=== PATIENT | female | born 1940 | race Caucasian/White ===

== ENCOUNTER 2017-10-30 11:36 | Emergency (ER) | payer OTHER, MEDICARE ==
[2017-10-30] MEDS ORDERED: LEVALBUTEROL 0.63 MG/3 ML NEB ONE (14:25)
[2017-10-30] MEDS ORDERED: CODEINE 30MG/APAP 300MG TAB ONE (14:43)
--- NOTE | 2017-10-30 15:23 | RAD REPORT ---
EXAM DESCRIPTION: RAD - Chest Single View - 10/30/2017 2:23 pm CLINICAL HISTORY: Cough and congestion, bronchitis history COMPARISON: May 2016 TECHNIQUE: AP portable chest image was obtained 1417 hours . FINDINGS: No pulmonary edema, mass, infiltrate or other focal lung parenchymal process. Interstitial markings are prominent but not clearly different from the comparison. Trachea is midline. Heart and vasculature are normal. No measurable pleural effusion and no pneumotho rax. No gross bony abnormality seen. No acute aortic findings suspected. IMPRESSION: No acute cardiopulmonary process. Chest is similar to the May 2016 study.
--- NOTE | 2017-10-30 16:01 | EDPHYS ---
Physician Documentation [facility] Name: Leah Campbell Age: 77 yrs Sex: Female : 1940 Arrival Date: 10/30/2017 Time: 11:39 Bed 11 Private MD: Saroj Mendieta C ED Physician Pankaj Blue HPI: 10/30 17:01 This 77 yrs old Female presents to ER via Ambulatory with complaints of Cough.kdr 17:01 The patient or guardian reports cough, that is intermittent, described as moderate, kdr difficulty breathing. Onset: The symptoms/episode began/occurred gradually, 2 week(s) ago. Severity of symptoms: At their worst the symptoms were moderate, earlier today, in the emergency department the symptoms are unchanged, States that her cough is frequent and persistent. IT has been making it hard for her to sleep. Modifying factors: The symptoms are alleviated by nothing, the symptoms are aggravated by exertion, talking. Associated signs and symptoms: The patient has no apparent associated signs or symptoms. The patient has experienced similar episodes in the past. The patient has been recently seen by a physician: the patient's primary care provider, Dr. Mendieta. The patient denies fever, chills, n/v - any sign of significant infection. Cough sounds productive but sputum is scant. Historical: - Allergies: 11:46 No Known Allergies; hj - Home Meds: 11:46 amlodipine 5 mg tab 1 tab once daily [Active]; clonazepam 1 mg Oral tab 1 tab 3 times hj per day [Active]; quetiapine 50 mg oral tab 1 tab daily [Active]; levothyroxine 100 mcg tab 1 tab once daily [Active]; simvastatin 80 mg Oral tab daily [Active]; olmesartan-hydrochlorothiazide oral oral 1 tab once daily [Active]; bupropion HCl 300 mg Oral Tb24 1 tab once daily [Active]; fluoxetine 20 mg Oral cap 1 cap once daily [Active]; aspirin 81 mg Oral TbEC 1 tab once daily [Active]; Vitamin D3 400 unit oral cap [Active]; ranitidine HCl 150 mg Oral cap 1 cap once daily [Active]; - PMHx: 11:46 Anxiety; Hyperlipidemia; Hypertension; Hypothyroidism; hj - PSHx: 11:46 toe surgery; Hysterectomy; hj - Immunization history:: Adult Immunizations up to date. - Social history:: Smoking status: Patient/guardian denies using tobacco, Patient/guardian denies using alcohol. ROS: 17:01 Constitutional: Negative for fever, chills, and weight loss, Eyes: Negative for injury, kdr pain, redness, and discharge, ENT: Negative for injury, pain, and discharge, Neck: Negative for injury, pain, and swelling, Cardiovascular: Negative for chest pain, palpitations, and edema, Abdomen/GI: Negative for abdominal pain, nausea, vomiting, diarrhea, and constipation, Back: Negative for injury and pain, : Negative for injury, bleeding, discharge, and swelling, MS/Extremity: Negative for injury and deformity, Skin: Negative for injury, rash, and discoloration, Neuro: Negative for headache, weakness, numbness, tingling, and seizure activity. Psych: Negative for depression, anxiety, suicide ideation, homicidal ideation, and hallucinations, Allergy/Immunology: Negative for hives, rash, and allergies, Endocrine: Negative for neck swelling, polydipsia, polyuria, polyphagia, and marked weight changes, Hematologic/Lymphatic: Negative for swollen nodes, abnormal bleeding, and unusual bruising. 17:01 Respiratory: Positive for cough, "sounds productive", dyspnea on exertion, shortness of breath, on exertion. wheezing, Negative for hemoptysis, orthopnea, pleurisy. Exam: 17:01 Constitutional: This is a well developed, well nourished patient who is awake, alert, kdr and in no acute distress. Head/Face: Normocephalic, atraumatic. Eyes: Pupils equal round and reactive to light, extra-ocular motions intact. Lids and lashes normal. Conjunctiva and sclera are non-icteric and not injected. Cornea within normal limits. Periorbital areas with no swelling, redness, or edema. Neck: Trachea midline, no thyromegaly or masses palpated, and no cervical lymphadenopathy. Supple, full range of motion without nuchal rigidity, or vertebral point tenderness. No Meningismus. Chest/axilla: Normal chest wall appearance and motion. Nontender with no deformity. No lesions are appreciated. Cardiovascular: Regular rate and rhythm with a normal S1 and S2. No gallops, murmurs, or rubs. Normal PMI, no JVD. No pulse deficits. Abdomen/GI: Soft, non-tender, with normal bowel sounds. No distension or tympany. No guarding or rebound. No evidence of tenderness throughout. Back: No spinal tenderness. No costovertebral tenderness. Full range of motion. Skin: Warm, dry with normal turgor. Normal color with no rashes, no lesions, and no evidence of cellulitis. MS/ Extremity: Pulses equal, no cyanosis. Neurovascular intact. Full, normal range of motion. Neuro: Awake and alert, GCS 15, oriented to person, place, time, and situation. Cranial nerves II-XII grossly intact. Motor strength 5/5 in all extremities. Sensory grossly intact. Cerebellar exam normal. Normal gait. Psych: Awake, alert, with orientation to person, place and time. Behavior, mood, and affect are within normal limits. 17:01 Respiratory: the patient does not display signs of respiratory distress, Respirations: normal, Breath sounds: rales, that are mild, are located in both bases, More right base, wheezing: that is mild, is scattered, is heard diffusely, Minor/few and diffuse. Vital Signs: 11:46 BP 131 / 87; Pulse 65; Resp 18; Temp 98.4(O); Pulse Ox 98% on R/A; Weight 81.65 kg; hj Height 5 ft. 5 in. (165.10 cm); Pain 0/10; 14:45 Pulse 61; Resp 16 S; Pulse Ox 100% on Nebulizer Mask; sg 14:49 BP 115 / 72; sg 11:46 Body Mass Index 29.95 (81.65 kg, 165.10 cm) hj MDM: 16:01 Patient medically screened. kdr 17:01 Data reviewed: vital signs, nurses notes, lab test result(s), radiologic studies. kdr Counseling: I had a detailed discussion with the patient and/or guardian regarding: the historical points, exam findings, and any diagnostic results supporting the discharge/admit diagnosis, radiology results, the need for outpatient follow up. 10/30 13:57 Order name: CXR XRAY; Complete Time: 15:50 kdr Administered Medications: 14:31 Drug: Xopenex (3) 1.25 mg Route: Inhalation; sg 14:45 Drug: Tylenol-Codeine #3 (300 mg - 30 mg) 10 ml Route: PO; sg 16:23 Follow up: Response: No adverse reaction hj Disposition: 10/30/17 16:01 Discharged to Home. Impression: Bronchitis, not specified as acute or chronic, Cough. - Condition is Stable. - Discharge Instructions: Acute Bronchitis, [id number], Cough, Adult, [id number]. - Prescriptions for Promethazine VC- Codeine 6.25-5-10 mg/5 mL Oral syrup - take 5 milliliter by ORAL route every 4-6 hours as needed, not to exceed 30 mL in 24 hours; 120 milliliter. Prednisone 20 mg Oral Tablet - take 1 tablet by ORAL route once daily for 5 days; 5 tablet. Tylenol- Codeine #3 300-30 mg Oral Tablet - take 2 tablets by ORAL route every 6 hours As needed; 16 tablet. - Medication Reconciliation Form, Thank You Letter, Antibiotic Education, Prescription Opioid Use form. - Follow up: Saroj Mendieta MD; When: 2 - 3 days; Reason: If symptoms return, Further diagnostic work-up, Recheck today's complaints, Continuance of care, Re-evaluation by your physician. - Problem is an ongoing problem. - Symptoms have improved. - Notes: Take either the Tylenol/Codiene (pain and cough)or the Promethazine/Codiene (primarily for cough) but not both together - as needed for cough. Do NOT take both medications together or at the same time. Signatures: Dispatcher [employer] EDChad Hernandez, RN DANELLE Pankaj Blue MD MD [facility] Mo Lopez RN RN hj
--- NOTE | 2017-10-30 16:01 | ER ---
Nurse's Notes [facility] Name: Leah Campbell Age: 77 yrs Sex: Female : 1940 Arrival Date: 10/30/2017 Time: 11:39 Bed 11 Private MD: Saroj Mendieta C Diagnosis: Bronchitis, not specified as acute or chronic;Cough Presentation: 10/30 11:41 Presenting complaint: Patient states: went [facility] today, was tx with 2 pack hj albuterol. Tessalon for bronchitis last 10/21, and now she's back feeling worse; reports cough, sweating; denies fever and chills;. Transition of care: patient was not received from another setting of care. Onset of symptoms was October 30, 2017. Initial Sepsis Screen: Does the patient meet any 2 criteria? No. Patient's initial sepsis screen is negative. Does the patient have a suspected source of infection? No. Patient's initial sepsis screen is negative. Care prior to arrival: None. 11:41 Method Of Arrival: Ambulatory 11:41 Acuity: JAY 3 hj Triage Assessment: 11:46 General: Appears in no apparent distress. uncomfortable, Behavior is calm, cooperative, hj appropriate for age. Pain: Denies pain. Historical: - Allergies: 11:46 No Known Allergies; hj - Home Meds: 11:46 amlodipine 5 mg tab 1 tab once daily [Active]; clonazepam 1 mg Oral tab 1 tab 3 times hj per day [Active]; quetiapine 50 mg oral tab 1 tab daily [Active]; levothyroxine 100 mcg tab 1 tab once daily [Active]; simvastatin 80 mg Oral tab daily [Active]; olmesartan-hydrochlorothiazide oral oral 1 tab once daily [Active]; bupropion HCl 300 mg Oral Tb24 1 tab once daily [Active]; fluoxetine 20 mg Oral cap 1 cap once daily [Active]; aspirin 81 mg Oral TbEC 1 tab once daily [Active]; Vitamin D3 400 unit oral cap [Active]; ranitidine HCl 150 mg Oral cap 1 cap once daily [Active]; - PMHx: 11:46 Anxiety; Hyperlipidemia; Hypertension; Hypothyroidism; hj - PSHx: 11:46 toe surgery; Hysterectomy; hj - Immunization history:: Adult Immunizations up to date. - Social history:: Smoking status: Patient/guardian denies using tobacco, Patient/guardian denies using alcohol. Screenin:00 Abuse screen: Denies threats or abuse. Denies injuries from another. Nutritional sg screening: No deficits noted. Tuberculosis screening: No symptoms or risk factors identified. Never had TB. Fall Risk None identified. Assessment: 13:00 General: Appears in no apparent distress. comfortable, well groomed, well developed, sg well nourished, Behavior is calm, cooperative, appropriate for age. Pain: Complains of pain in sore throat, and painful cough. Neuro: No deficits noted. Cardiovascular: Heart tones S1 S2 present Capillary refill is brisk in bilateral fingers Patient's skin is warm and dry. Chest pain is denied. Respiratory: Reports cough that is non-productive, dry, pain with cough Airway is patent Respiratory effort is even, unlabored, Respiratory pattern is regular, symmetrical, Breath sounds are coarse Breath sounds with wheezes. GI: No signs and/or symptoms were reported involving the gastrointestinal system. : No signs and/or symptoms were reported regarding the genitourinary system. EENT: Throat is reddened. Derm: Skin is pink, warm \T\ dry. Musculoskeletal: No signs and/or symptoms reported regarding the musculoskeletal system. 14:00 Reassessment: Patient appears in no apparent distress at this time. Patient and/or sg family updated on plan of care and expected duration. Pain level reassessed. Patient is alert, oriented x 3, equal unlabored respirations, skin warm/dry/pink. 15:03 Reassessment: pt states her breathing has improved but still not feeling well, 100% iw onRA. Vital Signs: 11:46 BP 131 / 87; Pulse 65; Resp 18; Temp 98.4(O); Pulse Ox 98% on R/A; Weight 81.65 kg; hj Height 5 ft. 5 in. (165.10 cm); Pain 0/10; 14:45 Pulse 61; Resp 16 S; Pulse Ox 100% on Nebulizer Mask; sg 14:49 BP 115 / 72; sg 11:46 Body Mass Index 29.95 (81.65 kg, 165.10 cm) ED Course: 11:39 Patient arrived in ED. mr 11:40 Saroj Mendieta MD is Private Physician. mr 11:43 Triage completed. hj 11:46 Arm band placed on right wrist. hj 13:03 Rittger, Pankaj, MD is Attending Physician. kdr 14:20 X-ray completed. Portable x-ray completed in exam room. Patient tolerated procedure jb2 well. 14:21 CXR XRAY In Process Unspecified. EDMS 14:31 Chad Mendoza, RN is Primary Nurse. sg 15:04 Primary Nurse role handed off by Chad Mendoza RN iw 15:04 Bernadette Horowitz, RN is Primary Nurse. iw 16:00 Saroj Mendieta MD is Referral Physician. kdr 16:22 Patient has correct armband on for positive identification. Side rails up X 1. Adult w/ hj patient. 16:22 No provider procedures requiring assistance completed. Patient did not have IV access hj during this emergency room visit. Administered Medications: 14:31 Drug: Xopenex (3) 1.25 mg Route: Inhalation; sg 14:45 Drug: Tylenol-Codeine #3 (300 mg - 30 mg) 10 ml Route: PO; sg 16:23 Follow up: Response: No adverse reaction hj Outcome: 16:01 Discharge ordered by . kdr 16:22 Discharged to home ambulatory, with family. hj 16:22 Condition: stable 16:22 Discharge instructions given to patient, family, Instructed on discharge instructions, follow up and referral plans. medication usage, Demonstrated understanding of instructions, follow-up care, medications, Prescriptions given X 3. 16:22 Patient left the ED. hj Signatures: Dispatcher [employer] EDAL Chad Mendoza RN RN Pankaj Blue MD MD [facility] [employer]fil[employer]id jb2 Bernadette Horowitz RN RN Mo Lopez RN RN hj Corrections: (The following items were deleted from the chart) 11:49 11:46 Pulse 65bpm; Resp 18bpm; Pulse Ox 98% RA; Temp 98.4F Oral; 81.65 kg; Height 5 ft. hj 5 in.; BMI: 29.9; Pain 0/10; hj
[2017-10-30 16:37] VITALS: TEMP 98.4
[2017-10-30 16:38] VITALS: BP 115/72; O2SAT 100
== END 2017-10-30 16:22 | disposition home or self-care (01) ==
LOC: ER 11:36
DX: J40 Bronchitis, not specified as acute or chronic (principal); E78.5 Hyperlipidemia, unspecified; I10 Essential (primary) hypertension; E03.9 Hypothyroidism, unspecified; F41.9 Anxiety disorder, unspecified
CPT/HCPCS: 71045; 99284

== ENCOUNTER 2018-09-16 12:44 | Inpatient (IN) | payer OTHER ==
--- OUTSIDE RECORDS SUMMARY | 2018-09-16 12:47 | XMS REPORT | Continuity of Care Document ---
:1940 Author Organization Interface Problems Problem Status Onset Classification Date Comments Source Date Reported Discharge Diagnosis: 03/11/20 03/13/2018 [facility] Other hammer toe 18 (acquired), right foot HTN - Hypertension Active 07/06/18 Problem 03/13/2018 [facility] 95 Acid reflux Active Problem 03/13/2018 [facility] Anxiety depression Active Problem 03/13/2018 [facility] Hammer toe<sup>1</sup> Active Problem 03/13/2018 second [facility] digit right foot Hypercholesterolaemia Active Problem 03/13/2018 [facility] Hypothyroidism Active Problem 03/13/2018 [facility] Pain in right foot Active Problem 03/13/2018 [facility] Seasonal allergy Active Problem 03/13/2018 [facility] Medications Medication Details Route Status Patient Ordering Order Source Instructions Provider Date Dilaudid 0.5 mg=0.5 mL, Inactive [facility] Injection, IV 2018 Push, q10min PRN for pain severe (7-10), first dose 03/11/18 9:01:00 [facility] Promethazine 12.5 mg=0.5 mL, Inactive [facility] Injection, IM, 2018 Once PRN for vomiting, first dose 03/11/18 9:01:00 CDT Diphenhydramine 25 mg=0.5 mL, Inactive [facility] Injection, IV 2018 Push, Once PRN for itching, first dose 03/11/18 9:01:00 CDT Hydralazine 10 mg=0.5 mL, Inactive [facility] Injection, IV 2018 Push, As Indicated PRN for hypertension, first dose 03/11/18 9:01:00 CDT Labetalol 5 mg=1 mL, Inactive [facility] Injection, IV 2018 Push, As Indicated PRN for hypertension, first dose 03/11/18 9:01:00 CDT Robinul 0.2 mg=1 mL, Inactive [facility] Injection, IV 2018 Push, Once PRN for bradycardia, first dose 03/11/18 9:01:00 CDT LR 1,000 mL 1,000 mL, IV, Inactive 03/11/ [facility] 75 mL/hr, start 2018 03/11/18 9:01:00 CDT Ondansetron 4 mg=2 mL, Inactive [facility] Injection, IV 2018 Push, q15min PRN for nausea, order duration: 2 doses, first dose 03/11/18 9:01:00 CDT, stop date Limited # of times Levalbuterol 0.21 0.63 mg=3 mL, Inactive [facility] MG/ML Inhalant Soln, NEB, Once 2018 Solution [Xopenex] PRN for wheezing, first dose 03/11/18 9:01:00 CDT Demerol HCl 12.5 mg=0.5 mL, Inactive [facility] Injection, IV 2018 Push, Once PRN for shivers, first dose 03/11/18 9:01:00 CDT Saline Lock Flush 10 mL, Soln, IV Inactive [facility] Push, As 2018 Indicated PRN for flush, first dose 03/11/18 9:01:00 CDT Morphine 2 mg=0.2 mL, Inactive [facility] Injection, IV 2018 Push, q5min PRN for pain, first dose 03/11/18 9:01:00 CDT Misc Medication 500 mL, Inactive [facility] Soln-IV, IV, 2017 Once, first dose 03/11/18 8:47:00 CDT, stop date 03/11/18 8:47:00 CDT fentaNYL 25 mcg=0.5 mL, Inactive [facility] Injection, IV, 2017 Once, first dose 03/11/18 8:13:00 CDT, stop date 03/11/18 8:13:00 CDT midazolam 0.5 mg=0.5 mL, Inactive [facility] Injection, IV, 2017 Once, first dose 03/11/18 8:13:00 CDT, stop date 03/11/18 8:13:00 CDT ondansetron 4 mg=2 mL, Inactive [facility] Injection, IV, 2017 Once, first dose 03/11/18 8:03:00 CDT, stop date 03/11/18 8:03:00 CDT dexamethasone 4 mg=1 mL, Inactive [facility] Injection, IV, 2018 Once, first dose 03/11/18 8:03:00 CDT, stop date 03/11/18 8:03:00 CDT ceFAZolin 2 gm, Soln-IV, Inactive [facility] IV Piggyback, 2018 Once, first dose 03/11/18 7:52:00 CDT, stop date 03/11/18 7:52:00 CDT propofol 120 mg=12 mL, Inactive [facility] Emulsion, IV, 2018 Once, first dose 03/11/18 7:52:00 CDT, stop date 03/11/18 7:52:00 CDT lidocaine 4 mL, Inactive [facility] Injection, IV, 2017 Once, first dose 03/11/18 7:52:00 CDT, stop date 03/11/18 7:52:00 CDT midazolam 1 mg=1 mL, Inactive [facility] Injection, IV, 2018 Once, first dose 03/11/18 7:49:00 CDT, stop date 03/11/18 7:49:00 CDT fentaNYL 50 mcg=1 mL, Inactive [facility] Injection, IV, 2018 Once, first dose 03/11/18 7:49:00 CDT, stop date 03/11/18 7:49:00 CDT midazolam 0.5 mg=0.5 mL, Inactive [facility] Injection, IV, 2018 Once, first dose 03/11/18 7:44:00 CDT, stop date 03/11/18 7:44:00 CDT fentaNYL 25 mcg=0.5 mL, Inactive [facility] Injection, IV, 2017 Once, first dose 03/11/18 7:44:00 CDT, stop date 03/11/18 7:44:00 CDT Cefazolin 2 gm, Soln-IV, Inactive [facility] IV Piggyback, 2018 Once, infuse over 30 minutes, first dose 03/11/18 7:00:00 CDT, stop date 03/11/18 7:00:00 CDT, patient weight 50-120 kg, Prophylaxis LR 1,000 mL 1,000 mL, IV, Inactive 30 mL/hr, start 2018 date 03/11/18 6:02:00 CDT Lidocaine 2% 0.2 mL 0.2 mL, Inactive IV Start [[facility]] Injection, 2018 Subcutaneous, Once PRN for other (see comment), first dose 03/11/18 6:02:00 CDT quetiapine 50 MG 1/2 tab, Oral, Active I Oral Tablet qPM, 0 2017 Refill(s), depression Fluoxetine 20 MG 80 mg=4 caps, Active Oral Capsule Oral, Daily, ok 2018 to take am of sx, 0 Refill(s), depression clonazePAM 1 mg oral See Active tablet Instructions, 1 2018 tabs q am and 2 tabs q pm, pt inst ok to take am of sx, 0 Refill(s), anxiety Bupropion 300 mg, Oral, Active Daily, ok to 2018 take am of sx, 0 Refill(s), depression amLODIPine 5 mg oral 5 mg=1 tabs, Active tablet Oral, Daily, pt 2018 inst to take am of sx, 0 Refill(s), htn DHA DHA, 300 mg=, Active I Oral, Daily, 0 2018 Refill(s), supplement Hydrochlorothiazide 1 tabs, Oral, Active I 12.5 MG / Olmesartan Daily, pt inst 2018 medoxomil 40 MG Oral to not take am Tablet of sx, # 30 tabs, 0 Refill(s), htn Zyrtec 1 tab, Oral, Active I Daily, PRN as 2018 needed for allergy symptoms, ok to take am of sx, 0 Refill(s), allergy Celis Colon 1 caps, Oral, Active [facility] oral capsule Daily, # 30 2018 caps, 0 Refill(s), supplement Simvastatin 80 mg, Oral, Active [facility] qPM, 0 2018 Refill(s), cholesterol Ranitidine 150 mg, Oral, Active I qAM, ok to take 2018 am of sx, 0 Refill(s), acid reflux Thyroxine 0.1 mg, Oral, Active I qAM, pt inst ok 2018 to take am of sx, 0 Refill(s), hypothyroidism Aspirin 81 MG Oral 81 mg=1 tabs, Active I Tablet Oral, Daily, 0 2017 Refill(s), heart health Allergies, Adverse Reactions, Alerts Substance Category Reaction Severity Reaction Status Date Comments Source type Reported Immunizations Immunization Date Given Site Status Last Updated Comments Source Results Order Results Value Reference Date Interpretation Comments Source Name Range Vital Signs Vital Sign Value Date Comments Source Respitory Rate 16 03/11/2018 [facility] Systolic (mm Hg) 135 03/11/2018 [facility] Diastolic (mm Hg) 77 03/11/2018 [facility] Temperature Oral (F) 37.0 Claudia 03/11/2018 [facility] Peripheral Pulse Rate 67 03/11/2018 [facility] Heart Rate 49 03/11/2018 [facility] Respitory Rate 12 03/11/2018 [facility] Systolic (mm Hg) 126 03/11/2018 [facility] Diastolic (mm Hg) 63 03/11/2018 [facility] Respitory Rate 12 03/11/2018 [facility] Systolic (mm Hg) 133 03/11/2018 [facility] Diastolic (mm Hg) 64 03/11/2018 [facility] Heart Rate 54 03/11/2018 [facility] Heart Rate 52 03/11/2018 [facility] Temperature Oral (F) 36.7 Claudia 03/11/2018 [facility] Temperature Oral (F) 36.6 Claudia 03/11/2018 [facility] Peripheral Pulse Rate 52 03/11/2018 [facility] Height 165.10 cm 03/11/2018 [facility] Weight Measured 80.74 03/11/2018 [facility] Peripheral Pulse Rate 74 03/03/2018 [facility] Height 165.10 cm 03/03/2018 [facility] Weight Measured 80.74 03/03/2018 [facility] Encounters Location Location Encounter Encounter Reason Attending ADM DC Status Source Details Type Number For Provider Date Date Visit [facility] Outpatient [id number] Erick 03/11 03/11 Active [facility] /2017 [facility] Outpatient [id number] Erick 03/11 03/11 [facility] Preadmit [id number] Erick Active Surgical [facility] Procedures Procedure Code Date Perfomer Comments Source CORRECTION TOBY 03/11/2018 auto-populated [facility] TOE 56418 from documented (Right)<sup>1</sup surgical case > achilles tendon 07/06/2015 [facility] tear hysterectomy, 07/06/2014 [facility] bladder sling colonoscopy/egd [facility]
[2018-09-16 13:53] LABS: Urine Blood 1+ (NEG); Urine Glucose NEGATIVE (NEG); Urine Protein 2+ (NEG)
--- NOTE | 2018-09-16 15:37 | RAD REPORT ---
EXAM DESCRIPTION: RAD - Chest Single View - 09/16/2018 3:30 pm CLINICAL HISTORY: Cough;Congestion Chest pain. COMPARISON: Chest Pa And Lat (2 Views) dated 02/15/2018; Chest Single View dated 10/30/2017; Chest Pa And Lat (2 Views) dated 06/04/2016; CHEST PA AND LAT 2 VIEW dated 09/13/2015 FINDINGS: Portable technique limits examination quality. The lungs are grossly clear. The heart is normal in size. No displaced fractures. IMPRESSION: No acute intrathoracic process suspected.
[2018-09-16 15:47] LABS: Absolute Lymphocytes (CBC) 0.6 K/uL (0.7-4.9); Absolute Monocytes 0.9 K/uL (0.1-1.3); Absolute Neutrophil 5.2 K/uL (1.8-8.0); Basophils % 0.5 % (0-1.3); Eosinophils % 1.4 % (0-4.4); Hematocrit 39.2 % (36.0-45.0); Lymphocytes % 9.3 % (15.3-44.8); Monocytes % 12.5 % (3.3-12.3); RBC Red Blood Cell Count 4.39 M/uL (3.86-4.86)
[2018-09-16 15:53] LABS: Protime INR 1.04
[2018-09-16] MEDS ORDERED: METHYLPREDNISOLONE 125 MG INJ ONE (15:54)
[2018-09-16] MEDS ORDERED: NA CHLORIDE 0.9% 500 ML ONE (15:54)
[2018-09-16] MEDS ORDERED: NA CHLORIDE 0.9% 1,000 ML ONE (15:54)
[2018-09-16] MEDS ORDERED: CEFTRIAXONE/SWI 1gm 1 GM/10 ML SYR ONE (15:54)
[2018-09-16] MEDS ORDERED: IPRATROPIUM BROM 0.5MG/2.5ML ONE (15:55)
[2018-09-16] MEDS ORDERED: ALBUTEROL 2.5 MG/3 ML NEB SOL ONE (15:55)
[2018-09-16] MEDS ORDERED: AZITHROMYCIN IV 500 MG in NA CHLORIDE 0.9% 250 ML IVPB ONE (16:00)
--- NOTE | 2018-09-16 16:01 | EDPHYS ---
Physician Documentation [facility] Name: Leah Campbell Age: 78 yrs Sex: Female : 1940 Arrival Date: 09/16/2018 Time: 12:48 Bed 26 Private MD: ED Physician Aaron Venegas HPI: 09/16 14:54 This 78 yrs old Female presents to ER via Ambulatory with complaints of vasile COUGH,DIFF BREATHING. 14:54 The patient has shortness of breath at rest, with light activity. Onset: The vasile symptoms/episode began/occurred 2 day(s) ago. Duration: The symptoms are chronic. The patient's shortness of breath has no apparent modifying factors. The patient or guardian reports cough, difficulty breathing. Modifying factors: The symptoms are alleviated by nothing. the symptoms are aggravated by nothing. Severity of symptoms: At their worst the symptoms were mild moderate in the emergency department the symptoms are unchanged. Historical: - Allergies: 13:29 No Known Allergies; ca1 - Home Meds: 13:29 clonazepam 1 mg Oral tab 1 tab 3 times per day [Active]; levothyroxine 100 mcg tab 1 ca1 tab once daily [Active]; simvastatin 80 mg Oral tab daily [Active]; olmesartan-hydrochlorothiazide 40-12.5mg Oral 1 tab once daily [Active]; amlodipine 5 mg tab 1 tab once daily [Active]; bupropion HCl 300 mg Oral Tb24 1 tab once daily [Active]; fluoxetine 20 mg Oral cap 1 cap 4 x a day [Active]; aspirin 81 mg Oral TbEC 1 tab once daily [Active]; ranitidine HCl 150 mg Oral cap 1 cap 2 times per day [Active]; Vitamin D3 1,000 unit oral cap daily [Active]; - PMHx: 13:29 Anxiety; Hyperlipidemia; Hypertension; Hypothyroidism; ca1 - PSHx: 13:29 toe surgery; Hysterectomy; ca1 - Immunization history:: Flu vaccine is up to date. - Social history:: Smoking status: Patient/guardian denies using tobacco. - Ebola Screening: : No symptoms or risks identified at this time. - Family history:: not pertinent. ROS: 14:54 Constitutional: Negative for fever, chills, and weight loss, Eyes: Negative for injury, vasile pain, redness, and discharge, ENT: Negative for injury, pain, and discharge, Neck: Negative for injury, pain, and swelling, Cardiovascular: Negative for chest pain, palpitations, and edema, Abdomen/GI: Negative for abdominal pain, nausea, vomiting, diarrhea, and constipation, Back: Negative for injury and pain, : Negative for injury, bleeding, discharge, and swelling, MS/Extremity: Negative for injury and deformity, Skin: Negative for injury, rash, and discoloration, Neuro: Negative for headache, weakness, numbness, tingling, and seizure, Psych: Negative for depression, anxiety, suicide ideation, homicidal ideation, and hallucinations, Allergy/Immunology: Negative for hives, rash, and allergies, Endocrine: Negative for neck swelling, polydipsia, polyuria, polyphagia, and marked weight changes, Hematologic/Lymphatic: Negative for swollen nodes, abnormal bleeding, and unusual bruising. 14:54 Respiratory: Positive for cough, shortness of breath, wheezing, inspiratory, expiratory. Exam: 14:54 Constitutional: This is a well developed, well nourished patient who is awake, alert, vasile and in no acute distress. Head/Face: Normocephalic, atraumatic. Eyes: Pupils equal round and reactive to light, extra-ocular motions intact. Lids and lashes normal. Conjunctiva and sclera are non-icteric and not injected. Cornea within normal limits. Periorbital areas with no swelling, redness, or edema. ENT: Nares patent. No nasal discharge, no septal abnormalities noted. Tympanic membranes are normal and external auditory canals are clear. Oropharynx with no redness, swelling, or masses, exudates, or evidence of obstruction, uvula midline. Mucous membranes moist. Neck: Trachea midline, no thyromegaly or masses palpated, and no cervical lymphadenopathy. Supple, full range of motion without nuchal rigidity, or vertebral point tenderness. No Meningismus. Chest/axilla: Normal chest wall appearance and motion. Nontender with no deformity. No lesions are appreciated. Cardiovascular: Regular rate and rhythm with a normal S1 and S2. No gallops, murmurs, or rubs. Normal PMI, no JVD. No pulse deficits. Abdomen/GI: Soft, non-tender, with normal bowel sounds. No distension or tympany. No guarding or rebound. No evidence of tenderness throughout. Back: No spinal tenderness. No costovertebral tenderness. Full range of motion. Female : Normal external genitalia. Skin: Warm, dry with normal turgor. Normal color with no rashes, no lesions, and no evidence of cellulitis. MS/ Extremity: Pulses equal, no cyanosis. Neurovascular intact. Full, normal range of motion. Neuro: Awake and alert, GCS 15, oriented to person, place, time, and situation. Cranial nerves II-XII grossly intact. Motor strength 5/5 in all extremities. Sensory grossly intact. Cerebellar exam normal. Normal gait. Psych: Awake, alert, with orientation to person, place and time. Behavior, mood, and affect are within normal limits. 14:54 Respiratory: mild respiratory distress is noted, Respirations: labored breathing, that is mild, Breath sounds: decreased breath sounds, rhonchi, that are moderate, wheezing: expiratory Vital Signs: 13:05 BP 124 / 95; Pulse 86; Resp 23; Temp 98.8(O); Pulse Ox 97% on R/A; Weight 77.11 kg; ca1 Height 5 ft. 4 in. (162.56 cm); Pain 0/10; 14:17 BP 120 / 65; Pulse 77; Resp 19; Pulse Ox 95% on R/A; ca1 15:10 BP 107 / 85; Pulse 80; Resp 24; Pulse Ox 98% on R/A; ca1 16:15 BP 127 / 70; Pulse 88; Resp 19; Pulse Ox 96% on R/A; ca1 17:00 BP 140 / 74; Pulse 85; Resp 18 S; Pulse Ox 95% on R/A; rv 17:30 BP 106 / 93; Pulse 96; Resp 19 S; Pulse Ox 98% on R/A; rv 18:30 BP 120 / 58; Pulse 76; Resp 19; Pulse Ox 95% on R/A; ca1 19:30 BP 117 / 58; Pulse 75; Resp 19; Pulse Ox 95% on R/A; ca1 19:57 BP 118 / 58 LA Supine; Pulse 78; Resp 17 S; Pulse Ox 95% on R/A; rv 13:05 Body Mass Index 29.18 (77.11 kg, 162.56 cm) ca1 MDM: 13:12 Patient medically screened. [facility] 14:57 Data reviewed: vital signs, nurses notes, lab test result(s), EKG, radiologic studies, [facility] doppler, plain films. 09/16 13:25 Order name: Urine Dipstick--Ancillary (enter results) 09/16 14:54 Order name: Basic Metabolic Panel; Complete Time: 16:21 [facility] 09/16 14:54 Order name: CBC with Diff; Complete Time: 15:56 [facility] 09/16 14:54 Order name: LFT's; Complete Time: 16:21 [facility] 09/16 14:54 Order name: Magnesium; Complete Time: 16:21 [facility] 09/16 14:54 Order name: NT PRO-BNP; Complete Time: 16:21 [facility] 09/16 14:54 Order name: PT-INR; Complete Time: 16:21 [facility] 09/16 14:54 Order name: Troponin (emerg Dept Use Only); Complete Time: 16:21 [facility] 09/16 14:54 Order name: XRAY Chest (1 view); Complete Time: 15:56 [facility] 09/16 14:54 Order name: Blood Culture Adult (2) [facility] 09/16 14:54 Order name: Procalcitonin [facility] 09/16 14:54 Order name: Influenza Screen (a \T\ B) [facility] 09/16 14:54 Order name: Urine Culture [facility] 09/16 14:54 Order name: EKG; Complete Time: 14:55 [facility] 09/16 14:54 Order name: Cardiac monitoring; Complete Time: 16:47 [facility] 09/16 14:54 Order name: EKG - Nurse/Tech; Complete Time: 17:49 [facility] 09/16 14:54 Order name: IV Saline Lock; Complete Time: 16:48 [facility] 09/16 14:54 Order name: Labs collected and sent; Complete Time: 16:48 [facility] 09/16 14:54 Order name: O2 Per Protocol; Complete Time: 16:48 [facility] 09/16 14:54 Order name: O2 Sat Monitoring; Complete Time: 16:48 [facility] 09/16 16:20 Order name: Labs - recollect needed; Complete Time: 16:21 bd Administered Medications: 15:00 Drug: Albuterol - atroVENT (3:1) (2.5 mg - 0.5 mg) 3 ml Route: Nebulizer; ca1 17:27 Follow up: Response: No adverse reaction; Marked relief of symptoms ca1 15:07 Drug: SOLU-Medrol 125 mg Route: IVP; Site: right antecubital; ca1 17:28 Follow up: Response: No adverse reaction ca1 15:10 Drug: NS 0.9% 1000 ml Route: IV; Rate: 125 ml/hr; Site: right antecubital; ca1 17:28 Follow up: IV Status: Infusion continued upon admission ca1 15:12 Drug: NS 0.9% 500 ml Route: IV; Rate: bolus; Site: right antecubital; ca1 17:27 Follow up: IV Status: Completed infusion ca1 15:15 Drug: Rocephin - (cefTRIAXone) 1 grams Route: IVPB; Infused Over: 30 mins; Site: right ca1 antecubital; 17:28 Follow up: IV Status: Completed infusion; IVP per pharmacy protocol ca1 15:30 Drug: Zithromax 500 mg Route: IVPB; Infused Over: 1 hrs; Site: right antecubital; ca1 17:58 Follow up: Response: No adverse reaction; IV Status: Completed infusion ca1 16:00 Drug: Tamiflu 75 mg Route: PO; ca1 17:22 Follow up: Response: No adverse reaction ca1 17:48 Drug: Tylenol 650 mg Route: PO; ca1 19:38 Follow up: Response: No adverse reaction; Anxiety decreased ca1 19:38 Follow up: Response: No adverse reaction; Pain is decreased ca1 17:58 Drug: Ativan 0.5 mg Route: PO; ca1 19:38 Follow up: Response: No adverse reaction; Anxiety decreased ca1 Disposition: 09/16/18 16:00 Hospitalization ordered by Saroj Mendieta for Observation. Preliminary diagnosis are Dyspnea, Cough, Fever, unspecified, Influenza due to identified novel influenza A virus. - Bed requested for Telemetry/MedSurg (observation). - Status is Observation. rv - Condition is Fair. - Problem is new. - Symptoms have improved. UTI on Admission? No Signatures: Dispatcher [employer] EDMS Destiny Valenzuela Diana, RN RN dw Anderson, Corey, MD MD cha Vicente, Ronaldo, RN RN rv Acob, Cheryl, RN RN ca1 Corrections: (The following items were deleted from the chart) 18:31 16:00 Hospitalization Ordered by Saroj Mendieta MD for Observation. Preliminary diagnosis is dw Dyspnea; Cough; Fever, unspecified. Bed requested for Telemetry/MedSurg (observation). Status is Observation. Condition is Fair. Problem is new. Symptoms have improved. UTI on Admission? No. vasile 19:18 18:31 09/16/2018 16:00 Hospitalization Ordered by A Anam LUA for Observation. vasile Preliminary diagnosis is Dyspnea; Cough; Fever, unspecified. Bed requested for Telemetry/MedSurg (observation). Status is Observation. Condition is Fair. Problem is new. Symptoms have improved. UTI on Admission? No. dw 20:07 19:18 09/16/2018 16:00 Hospitalization Ordered by A Anam LUA for Observation. rv Preliminary diagnosis is Dyspnea; Cough; Fever, unspecified; Influenza due to identified novel influenza A virus. Bed requested for Telemetry/MedSurg (observation). Status is Observation. Condition is Fair. Problem is new. Symptoms have improved. UTI on Admission? No. vasile
--- NOTE | 2018-09-16 16:01 | ER ---
Nurse's Notes [facility] Name: Leah Campbell Age: 78 yrs Sex: Female : 1940 Arrival Date: 09/16/2018 Time: 12:48 Bed 26 Private MD: Diagnosis: Dyspnea;Cough;Fever, unspecified;Influenza due to identified novel influenza A virus Presentation: 09/16 13:05 Presenting complaint: Patient states: and non productive cough today. Went to ca1 urgent care and is positive of the FLU, Influenza A. Transition of care: patient was not received from another setting of care. Onset of symptoms was September 16, 2018. Risk Assessment: Do you want to hurt yourself or someone else? Patient reports no desire to harm self or others. Initial Sepsis Screen: Does the patient meet any 2 criteria? RR > 20 per min. Does the patient have a suspected source of infection? Yes: Other: FLU. Care prior to arrival: None. 13:05 Method Of Arrival: Ambulatory ca1 13:05 Acuity: JAY 3 ca1 Triage Assessment: 13:05 General: Appears in no apparent distress. comfortable, Behavior is calm, cooperative, ca1 appropriate for age. Pain: Denies pain. Historical: - Allergies: 13:29 No Known Allergies; ca1 - Home Meds: 13:29 clonazepam 1 mg Oral tab 1 tab 3 times per day [Active]; levothyroxine 100 mcg tab 1 ca1 tab once daily [Active]; simvastatin 80 mg Oral tab daily [Active]; olmesartan-hydrochlorothiazide 40-12.5mg Oral 1 tab once daily [Active]; amlodipine 5 mg tab 1 tab once daily [Active]; bupropion HCl 300 mg Oral Tb24 1 tab once daily [Active]; fluoxetine 20 mg Oral cap 1 cap 4 x a day [Active]; aspirin 81 mg Oral TbEC 1 tab once daily [Active]; ranitidine HCl 150 mg Oral cap 1 cap 2 times per day [Active]; Vitamin D3 1,000 unit oral cap daily [Active]; - PMHx: 13:29 Anxiety; Hyperlipidemia; Hypertension; Hypothyroidism; ca1 - PSHx: 13:29 toe surgery; Hysterectomy; ca1 - Immunization history:: Flu vaccine is up to date. - Social history:: Smoking status: Patient/guardian denies using tobacco. - Ebola Screening: : No symptoms or risks identified at this time. - Family history:: not pertinent. Screenin:10 Abuse screen: Denies threats or abuse. Denies injuries from another. Nutritional ca1 screening: No deficits noted. Tuberculosis screening: No symptoms or risk factors identified. Fall Risk None identified. Assessment: 13:10 General: Appears in no apparent distress. comfortable, Behavior is calm, cooperative, ca1 appropriate for age. Pain: Complains of pain in throat when coughing, when not, just discomfort Pain at worst was 9 out of 10 on a pain scale. Neuro: Level of Consciousness is awake, alert, obeys commands, Oriented to person, place, time, situation. Cardiovascular: Heart tones S1 S2 present Capillary refill < 3 seconds Patient's skin is warm and dry. Respiratory: Reports shortness of breath on exertion cough that is hacking, Airway is patent Respiratory effort is even, unlabored, Respiratory pattern is regular, symmetrical, Breath sounds are clear bilaterally. GI: Abdomen is flat, non-distended, Bowel sounds present X 4 quads. Abd is soft and non tender X 4 quads. : No deficits noted. No signs and/or symptoms were reported regarding the genitourinary system. EENT: Throat is pink Reports nasal congestion this morning when she woke up. Derm: Skin is intact, is healthy with good turgor, Skin is pink, warm \T\ dry. Musculoskeletal: Circulation, motion, and sensation intact. Capillary refill < 3 seconds. 13:36 Reassessment: Pt reports to have taken Ibuprofen at 1000. ca1 14:17 Reassessment: Patient appears in no apparent distress at this time. Patient and/or ca1 family updated on plan of care and expected duration. Pain level reassessed. Patient is alert, oriented x 3, equal unlabored respirations, skin warm/dry/pink. 15:10 Reassessment: Patient appears in no apparent distress at this time. Patient and/or ca1 family updated on plan of care and expected duration. Pain level reassessed. Patient is alert, oriented x 3, equal unlabored respirations, skin warm/dry/pink. 16:05 Reassessment: Patient appears in no apparent distress at this time. Patient and/or ca1 family updated on plan of care and expected duration. Pain level reassessed. Patient is alert, oriented x 3, equal unlabored respirations, skin warm/dry/pink. 17:00 Reassessment: Patient appears in no apparent distress at this time. Patient and/or ca1 family updated on plan of care and expected duration. Pain level reassessed. Patient is alert, oriented x 3, equal unlabored respirations, skin warm/dry/pink. 17:40 Reassessment: Pt complains of headache and anxiety, informed provider with orders ca1 carried out. 18:30 Reassessment: Patient appears in no apparent distress at this time. Patient and/or ca1 family updated on plan of care and expected duration. Pain level reassessed. Patient is alert, oriented x 3, equal unlabored respirations, skin warm/dry/pink. Patient states feeling better. 18:30 Reassessment: Patient appears in no apparent distress at this time. Patient and/or ca1 family updated on plan of care and expected duration. Pain level reassessed. Patient is alert, oriented x 3, equal unlabored respirations, skin warm/dry/pink. Pt with room assignment. Awaiting 1929 to call report. 19:34 Reassessment: Patient appears in no apparent distress at this time. Patient and/or ca1 family updated on plan of care and expected duration. Pain level reassessed. Patient is alert, oriented x 3, equal unlabored respirations, skin warm/dry/pink. Called report to 2nd floor. Nurse will call back to take report. Vital Signs: 13:05 BP 124 / 95; Pulse 86; Resp 23; Temp 98.8(O); Pulse Ox 97% on R/A; Weight 77.11 kg; ca1 Height 5 ft. 4 in. (162.56 cm); Pain 0/10; 14:17 BP 120 / 65; Pulse 77; Resp 19; Pulse Ox 95% on R/A; ca1 15:10 BP 107 / 85; Pulse 80; Resp 24; Pulse Ox 98% on R/A; ca1 16:15 BP 127 / 70; Pulse 88; Resp 19; Pulse Ox 96% on R/A; ca1 17:00 BP 140 / 74; Pulse 85; Resp 18 S; Pulse Ox 95% on R/A; rv 17:30 BP 106 / 93; Pulse 96; Resp 19 S; Pulse Ox 98% on R/A; rv 18:30 BP 120 / 58; Pulse 76; Resp 19; Pulse Ox 95% on R/A; ca1 19:30 BP 117 / 58; Pulse 75; Resp 19; Pulse Ox 95% on R/A; ca1 19:57 BP 118 / 58 LA Supine; Pulse 78; Resp 17 S; Pulse Ox 95% on R/A; rv 13:05 Body Mass Index 29.18 (77.11 kg, 162.56 cm) ca1 ED Course: 12:48 Patient arrived in ED. tw3 12:58 Divina Solares, RN is Primary Nurse. ca1 13:05 Arm band placed on right wrist. EKG completed in triage. Results shown to MD. ca1 13:10 Patient has correct armband on for positive identification. Placed in gown. Bed in low ca1 position. Call light in reach. Pulse ox on. NIBP on. Warm blanket given. 13:11 Aaron Venegas MD is Attending Physician. vasile 13:23 Triage completed. ca1 14:22 EKG done, by submarine cable equipment technician. reviewed by Aaron Venegas MD. sm3 15:05 Inserted saline lock: 20 gauge in right antecubital area, using aseptic technique. ca1 Blood collected. 15:30 XRAY Chest (1 view) In Process Unspecified. EDMS 15:59 Saroj Mendieta MD is Hospitalizing Provider. vasile 19:11 No provider procedures requiring assistance completed. Patient admitted, IV remains in ca1 place. Administered Medications: 15:00 Drug: Albuterol - atroVENT (3:1) (2.5 mg - 0.5 mg) 3 ml Route: Nebulizer; ca1 17:27 Follow up: Response: No adverse reaction; Marked relief of symptoms ca1 15:07 Drug: SOLU-Medrol 125 mg Route: IVP; Site: right antecubital; ca1 17:28 Follow up: Response: No adverse reaction ca1 15:10 Drug: NS 0.9% 1000 ml Route: IV; Rate: 125 ml/hr; Site: right antecubital; ca1 17:28 Follow up: IV Status: Infusion continued upon admission ca1 15:12 Drug: NS 0.9% 500 ml Route: IV; Rate: bolus; Site: right antecubital; ca1 17:27 Follow up: IV Status: Completed infusion ca1 15:15 Drug: Rocephin - (cefTRIAXone) 1 grams Route: IVPB; Infused Over: 30 mins; Site: right ca1 antecubital; 17:28 Follow up: IV Status: Completed infusion; IVP per pharmacy protocol ca1 15:30 Drug: Zithromax 500 mg Route: IVPB; Infused Over: 1 hrs; Site: right antecubital; ca1 17:58 Follow up: Response: No adverse reaction; IV Status: Completed infusion ca1 16:00 Drug: Tamiflu 75 mg Route: PO; ca1 17:22 Follow up: Response: No adverse reaction ca1 17:48 Drug: Tylenol 650 mg Route: PO; ca1 19:38 Follow up: Response: No adverse reaction; Anxiety decreased ca1 19:38 Follow up: Response: No adverse reaction; Pain is decreased ca1 17:58 Drug: Ativan 0.5 mg Route: PO; ca1 19:38 Follow up: Response: No adverse reaction; Anxiety decreased ca1 Outcome: 16:00 Decision to Hospitalize by Provider. vasile 19:57 Admitted to Med/surg accompanied by osman, via wheelchair, room 208, with chart, Report rv called to REYNA MCCLENDON 19:57 Condition: good 19:57 Instructed on the need for admit, Demonstrated understanding of instructions. 20:07 Patient left the ED. rv Signatures: Dispatcher [employer] EDAaron Kang MD MD cha Wade, Claudia tw3 Rafia Drummond sm3 Ko Reeves RN RN rv Divina Solares RN RN ca1 Corrections: (The following items were deleted from the chart) 19:12 13:05 Presenting complaint: Patient states: and non productive cough today. Went to [facility] urgent care and is positive of the FLU. ca1
[2018-09-16 16:07] LABS: ALT/SGPT 37 U/L (12-78); AST/SGOT 30 U/L (15-37); Albumin 3.9 g/dL (3.4-5.0); Alkaline Phosphatase 72 U/L (45-117); BUN Blood Urea Nitrogen 16 mg/dL (7-18); Bicarbonate 27 mmol/L (21-32); Bilirubin Direct 0.2 mg/dL (0-0.2); Bilirubin Total 0.6 mg/dL (0.2-1.0); Glucose Level 83 mg/dL (74-106); NT PRO-BNP 425 pg/mL (<450); Potassium 3.7 mmol/L (3.5-5.1); Protein, Total 7.6 g/dL (6.4-8.2); Sodium Level 140 mmol/L (136-145); Troponin (Emerg Dept Use Only) < 0.02 ng/mL (0.0-0.045)
[2018-09-16] MEDS ORDERED: OSELTAMIVIR 75 MG CAP ONE ×2 (16:34→16:43)
[2018-09-16] MEDS ORDERED: ACETAMINOPHEN 500 MG TAB ONE (17:43)
[2018-09-16] MEDS ORDERED: ACETAMINOPHEN 325 MG TABLET ONE (17:57)
[2018-09-16] MEDS ORDERED: LORAZEPAM 0.5 MG TABLET ONE (18:08)
[2018-09-16] MEDS ORDERED: ALBUTEROL 2.5 MG/3 ML NEB SOL NEB PRN (20:28)
[2018-09-16] MEDS: METHYLPREDNISOLONE 40 MG INJ IV SCH (20:28)
[2018-09-16] MEDS ORDERED: IPRATROPIUM BROM 0.5MG/2.5ML NEB PRN (20:28)
[2018-09-16] MEDS ORDERED: ONDANSETRON 4 MG/2 ML VIAL IV PRN (20:28)
[2018-09-16] MEDS ORDERED: clonazePAM 1 MG TAB PO PRN (21:41)
[2018-09-16 23:03] VITALS: BMI 29.0
[2018-09-16] MEDS: NA CHLORIDE 0.9% 1,000 ML IV SCH (23:21)
[2018-09-16] MEDS: AMLODIPINE 5 MG TAB PO SCH (23:23)
[2018-09-16] MEDS: ASPIRIN 81 MG CHEWABLE TABLET PO SCH (23:25)
[2018-09-16] MEDS: GUAIFENESIN/DM 5 ML UCUP PO PRN (23:27)
[2018-09-17] MEDS: ACETAMINOPHEN 500 MG TAB PO PRN ×2 (02:01→11:43)
[2018-09-17] MEDS: METHYLPREDNISOLONE 40 MG INJ IV SCH (02:06)
--- NOTE | 2018-09-17 05:29 | EKG ---
Test Date: 2018-09-16 Test Time: 13:33:45 Cooker Helper: JANETH MEASUREMENT RESULTS: Intervals: Rate: 75 NJ: 164 QRSD: 76 QT: 424 QTc: 473 [place]: P: 31 NJ: 164 QRS: 58 T: 35 INTERPRETIVE STATEMENTS: Normal sinus rhythm with sinus arrhythmia Cannot rule out Anterior infarct, age undetermined Abnormal ECG Compared to ECG 02/15/2018 11:22:20 Myocardial infarct finding now present Sinus bradycardia no longer present Electronically Signed On 09-17-18 05:28:58 CDT by Aniceto James
[2018-09-17] MEDS ORDERED: RANITIDINE 150 MG TABLET PO PRN (06:08)
[2018-09-17 06:12] LABS: Absolute Lymphocytes (CBC) 0.6 K/uL (0.7-4.9); Absolute Monocytes 0.2 K/uL (0.1-1.3); Absolute Neutrophil 4.4 K/uL (1.8-8.0); Basophils % 0.1 % (0-1.3); Hematocrit 35.1 % (36.0-45.0); Lymphocytes % 12.2 % (15.3-44.8); MPV 9.3 fL (7.6-11.3); Monocytes % 4.4 % (3.3-12.3); RBC Red Blood Cell Count 3.86 M/uL (3.86-4.86)
[2018-09-17 06:23] LABS: BUN Blood Urea Nitrogen 18 mg/dL (7-18); Bicarbonate 24 mmol/L (21-32); Glucose Level 138 mg/dL (74-106); NT PRO-BNP 931 pg/mL (<450); Potassium 3.4 mmol/L (3.5-5.1); Sodium Level 142 mmol/L (136-145)
[2018-09-17] MEDS: NA CHLORIDE 0.9% 1,000 ML IV SCH ×2 (06:28→08:45)
[2018-09-17] MEDS: ALBUTEROL 2.5 MG/3 ML NEB SOL NEB SCH ×3 (08:18→20:10)
[2018-09-17] MEDS: ENOXAPARIN 40 MG/0.4 ML SQ SCH (08:43)
[2018-09-17] MEDS: OSELTAMIVIR 75 MG CAP PO SCH ×2 (08:43→21:49)
[2018-09-17] MEDS: AMLODIPINE 5 MG TAB PO SCH (08:44)
[2018-09-17] MEDS: GUAIFENESIN/DM 5 ML UCUP PO PRN ×2 (08:50→21:49)
[2018-09-17] MEDS ORDERED: VALSARTAN 80 MG TAB PO SCH (09:00)
[2018-09-17] MEDS ORDERED: HYDROCHLOROTHIAZIDE PO SCH (09:00)
[2018-09-17] MEDS ORDERED: AMLODIPINE 5 MG TAB PO SCH (09:00)
[2018-09-17] MEDS ORDERED: LEVOTHYROXINE SOD 0.1 MG TAB PO SCH (09:00)
[2018-09-17] MEDS ORDERED: VALSARTAN 160 MG TAB PO SCH (09:00)
[2018-09-17] MEDS ORDERED: OLMESARTAN PO SCH (09:00)
[2018-09-17] MEDS ORDERED: [UNRECOGNIZED DRUG - OTHER] PO SCH (09:00)
[2018-09-17] MEDS ORDERED: hydroCHLOROthiazide 12.5 MG CAP PO SCH (09:00)
[2018-09-17] MEDS ORDERED: FLUOXETINE 20 MG CAP PO SCH (09:00)
[2018-09-17] MEDS ORDERED: BUPROPION HCL XL 150 MG TAB PO SCH (09:00)
[2018-09-17] MEDS: FLUTICASONE 50MCG NASAL SPRAY NAS SCH ×2 (11:44→21:49)
[2018-09-17] MEDS: CLONAZEPAM 1 MG PO PRN ×2 (11:58→22:35)
--- NOTE | 2018-09-17 13:08 | HP ---
Date of Admission: 09/17/2018 Chief Complaint: Fever, chills, cough, and body ache. History Of Present Illness: This is a 78-year-old female patient, who was doing fine in her normal [facility] until yesterday morning she woke up with complaints of fever, chills, generalize d body ache, and cough with chest congestion. She is not able to cough up any mucus. She had some g eneralized weakness and some shortness of breath, so [facility] she was anita marcio positive for influenza A and her lungs did not sound good, so she was advised to come to the [facility] room. After she was evaluated in the ER, she was admitted to the hospital. She is having some diarrhea with this, but no vomiting. Her appetite is poor. Allergies: NO KNOWN ALLERGIES. Medications: List reviewed. Review of Systems: Constitutional: As mentioned above. GI: As mentioned above. Respiratory: As mentioned above. All other systems reviewed and negative. Past Medical History: Significant for hypertension, mixed hyperlipidemia, hypothyroidism, impaired f asting glucose, gastroesophageal reflux disease, colon cancer, depression. Past Surgical History: Tonsillectomy and tubal ligation. Family History: Significant for coronary artery disease and hypertension. Social History: Negative for smoking and alcohol use. Physical Examination: Vital Signs: When she first came into emergency room, temperature 98.8, pulse 86, respiratory rate 2 3, blood pressure 124/95, oxygen saturation 97%. Height 5 feet 4 inches, weight 169 pounds. General: Awake, alert, oriented, not in distress. HEENT: Head atraumatic, normocephalic. Conjunctivae nonerythematous. Sclerae white. Mouth, no thr ush or edema noted. Ears/Nose, no mass, lesion, discharge noted. Neck: Supple. No JVD, lymph nodes, bruit, thyromegaly noted. Lungs: Some scattered wheezing in the lower lung mcclain. Not using accessory muscles of respiration . Heart: Normal heart sounds, no murmur or gallop. Abdomen: Soft, bowel sounds normal. No guarding, rigidity, tenderness, mass, hepatosplenomegaly, dis tention, or bruit noted. Extremities: No leg edema. No calf tenderness. Skin: No rash, ulcer, cellulitis. Lymphatics: No lymph node enlargement in neck, supraclavicular, infraclavicular region. Neuro: No focal neurological deficit. Chest: Unremarkable. External Genitalia: Deferred. Rectal: Deferred. Laboratory Data: Yesterday, white count 6.9, hemoglobin 13.5, platelets 237. This morning, white co unt 5.2, hemoglobin 11.9, platelets 225. Yesterday, sodium 140, potassium 3.7, chloride 106, bicarb 27, BUN 16, creatinine 0.68, glucose 83. Liver function tests unremarkable. Troponin less than 0.02 x3. Procalcitonin less than 0.05. This morning, sodium 142, potassium 3.4, chloride 109, bicarb 24 , BUN 18, creatinine 0.62, glucose 138. Urinalysis, 2+ protein, 1+ blood, otherwise negative. Chest x-ray, no acute cardiopulmonary changes. Electrocardiogram; sinus rhythm. No acute ST-T changes. Impression: 1.Influenza with upper respiratory manifestation. 2.Anemia, unspecified. 3.Hypertension. 4.Mixed hyperlipidemia. 5.Impaired fasting glucose. 6.Depression. Plan: We will admit the patient to hospital for further evaluation and management of this problem. Continue home medications per order. We will go ahead and give her nebulizer treatment per order. T amiflu was started, we will continue that. We will also continue some IV steroid for her shortness o f breath and wheezing problem as she will benefit from nebulizer treatment and a short course of IV s teroid, which was started, but after a couple of days' doses, we will plan to discontinue that. Home medications will be continued. Physical Therapy was ordered to help ambulate the patient. Possible discharge to go home either later today or tomorrow depending on her condition. Details and plan of treatment discussed with her. LILY/MODL Voice ID: [id number]
[2018-09-17] MEDS ORDERED: CEFTRIAXONE 1 GM/NS 50 ML 1 GM/50 ML BAG IV SCH (16:00)
[2018-09-17] MEDS ORDERED: AZITHROMYCIN IV 250 MG in NA CHLORIDE 0.9% 250 ML IVPB SCH (16:00)
[2018-09-17] MEDS ORDERED: CEFTRIAXONE/SWI 1gm 1 GM/10 ML SYR IV SCH (16:00)
[2018-09-17] MEDS ORDERED: ATORVASTATIN 40 MG TAB PO SCH ×2 (21:00)
[2018-09-17] MEDS: RANITIDINE 150 MG PO SCH (21:48)
[2018-09-17] MEDS: SIMVASTATIN 80 MG PO SCH (21:48)
[2018-09-17] MEDS: AMLODIPINE 5 MG PO SCH (21:48)
[2018-09-17] MEDS: ASPIRIN 81 MG CHEWABLE TABLET PO SCH (21:49)
[2018-09-18] MEDS: ALBUTEROL 2.5 MG/3 ML NEB SOL NEB SCH ×4 (01:25→20:08)
[2018-09-18] MEDS: NA CHLORIDE 0.9% 1,000 ML IV SCH ×2 (05:09→23:53)
[2018-09-18] MEDS: LEVOTHYROXINE 100 MCG TABLET PO SCH (06:08)
[2018-09-18] MEDS: OSELTAMIVIR 75 MG CAP PO SCH ×2 (09:53→21:25)
[2018-09-18] MEDS: ACETAMINOPHEN 500 MG TAB PO PRN ×2 (09:53→21:25)
[2018-09-18] MEDS: GUAIFENESIN/DM 5 ML UCUP PO PRN ×2 (09:53→21:24)
[2018-09-18] MEDS: ENOXAPARIN 40 MG/0.4 ML SQ SCH (09:54)
[2018-09-18] MEDS: FLUTICASONE 50MCG NASAL SPRAY NAS SCH ×2 (09:58→21:26)
[2018-09-18] MEDS: FLUOXETINE 20 MG PO SCH (09:59)
[2018-09-18] MEDS: BUPROPION 300 MG PO SCH (09:59)
[2018-09-18] MEDS: OLMESARTAN HCTZ PO SCH (09:59)
[2018-09-18] MEDS: RANITIDINE 150 MG PO SCH ×2 (10:00→21:25)
[2018-09-18] MEDS: CLONAZEPAM 1 MG PO PRN ×2 (10:09→17:20)
--- NOTE | 2018-09-18 13:02 | RAD REPORT ---
EXAM DESCRIPTION: RAD - Chest Pa And Lat (2 Views) - 09/18/2018 12:42 pm CLINICAL HISTORY: flu, rule out pneumonia Chest pain. COMPARISON: Chest Single View dated 09/16/2018; Chest Pa And Lat (2 Views) dated 02/15/2018; Chest Sin gle View dated 10/30/2017; Chest Pa And Lat (2 Views) dated 06/04/2016 FINDINGS: The lungs are clear. The heart is moderately prominent. Bridging anterior osteophytes seen throughout the thoracic spine. IMPRESSION: No acute intrathoracic abnormality.
[2018-09-18 15:44] LABS: Absolute Neutrophil 5.8 K/uL (1.8-8.0); Basophils % 0.3 % (0-1.3); Eosinophils % 0.6 % (0-4.4); Hematocrit 36.4 % (36.0-45.0); Lymphocytes % 22.7 % (15.3-44.8); Monocytes % 11.1 % (3.3-12.3)
[2018-09-18 16:01] LABS: Magnesium 1.7 mg/dL (1.8-2.4)
--- NOTE | 2018-09-18 16:57 | PN ---
Date of Progress Note: 09/18/2018 Subjective: The patient was seen this morning for followup. She still has cough, chest congestion, and some wheezing. She reported that she had 5 diarrhea stool since I saw her yesterday morning and it is more like liquid with some mucus in it, last one was this morning. No abdominal pain. No nausea. No vomiting. Objective: Vital Signs: Reviewed. HEENT: Unremarkable. Lungs: Clear to auscultation except minimum wheezing noted in her lungs. Heart: Sounds normal. Abdomen: Soft. Bowel sounds normal. No guarding, rigidity, tenderness, distention. Extremities: No leg edema. Laboratory Data: Her urine culture is growing 4+ [id number] strep. Impression: 1. Influenza with upper respiratory manifestation. 2. Urinary tract infection. 3. Hypertension. 4. Diarrhea. Plan: Considering the patient's urine culture result, I will go ahead and discontinue her azithromycin and ceftriaxone that she is getting and that could also be contributing to her diarrhea problem. So, we will go ahead and start her on Levaquin. Continue Tamiflu for her influenza. Continue IV fluid. We will repeat blood work today. Chest x-ray was repeated today and does not show any infiltrate. Stool was ordered to be sent for stool culture and C. diff. We will see her tomorrow for followup. The patient still does not feel strong enough and comfortable enough to go home, so we will probably wait until tomorrow and reassess her tomorrow. CBC and Chem 7 was ordered, will follow up on result. LILY/CONSTANCE Voice ID: [id number] Report ID: [id number] MTDD
[2018-09-18] MEDS: Levofloxacin500mg IV 500 MG/100 ML BAG IV SCH (17:19)
[2018-09-18] MEDS ORDERED: POTASSIUM CL SA 10 MEQ TAB PO ONE (18:31)
[2018-09-18] MEDS: SIMVASTATIN 80 MG PO SCH (21:24)
[2018-09-18] MEDS: ASPIRIN 81 MG CHEWABLE TABLET PO SCH (21:25)
[2018-09-18] MEDS: AMLODIPINE 5 MG PO SCH (21:25)
[2018-09-18] MEDS ORDERED: MAGNESIUM SULFATE 1 gm IVPB 1 GM/100 ML BAG IV ONE (21:30)
[2018-09-19] MEDS: ALBUTEROL 2.5 MG/3 ML NEB SOL NEB SCH ×3 (02:20→13:43)
[2018-09-19] MEDS: ACETAMINOPHEN 500 MG TAB PO PRN (02:36)
[2018-09-19] MEDS ORDERED: POTASSIUM CL SA 10 MEQ TAB PO ONE (03:00)
[2018-09-19] MEDS: LEVOTHYROXINE 100 MCG TABLET PO SCH (06:10)
[2018-09-19 06:46] LABS: BUN Blood Urea Nitrogen 8 mg/dL (7-18); Bicarbonate 28 mmol/L (21-32); Glucose Level 97 mg/dL (74-106); Potassium 3.4 mmol/L (3.5-5.1); Sodium Level 145 mmol/L (136-145)
[2018-09-19 09:22] VITALS: O2SAT 95
[2018-09-19] MEDS: ENOXAPARIN 40 MG/0.4 ML SQ SCH (09:27)
[2018-09-19] MEDS: OSELTAMIVIR 75 MG CAP PO SCH (09:27)
[2018-09-19] MEDS: OLMESARTAN HCTZ PO SCH (09:28)
[2018-09-19] MEDS: GUAIFENESIN/DM 5 ML UCUP PO PRN (09:28)
[2018-09-19] MEDS: RANITIDINE 150 MG PO SCH (09:28)
[2018-09-19] MEDS: BUPROPION 300 MG PO SCH (09:29)
[2018-09-19] MEDS: FLUOXETINE 20 MG PO SCH (09:29)
[2018-09-19] MEDS: CLONAZEPAM 1 MG PO PRN ×2 (09:31→15:47)
[2018-09-19] MEDS: FLUTICASONE 50MCG NASAL SPRAY NAS SCH (09:33)
[2018-09-19] MEDS: KCL 20 MEQ/100 mL IVPB 20 MEQ/100 ML BAG IV SCH ×2 (09:52→12:13)
--- NOTE | 2018-09-19 15:44 | PN ---
Date of Progress Note: 09/19/2018 Subjective: The patient was seen this morning for followup. She had about 4-5 diarrhea stool yesterday. It is watery stool with some small amount of soft stool in it she reports. No mucus or blood. No abdominal pain. No nausea. No vomiting. She is going from bed to the bathroom without much difficulty, but has not ambulated outside and I did advise the patient and nurse that the patient should ambulate outside in the hallway, putting the mask on and nursing staff to assist her with ambulation today. Objective: Vital Signs: Reviewed. HEENT: Unremarkable. Lungs: Clear to auscultation. Heart: Sounds normal. Abdomen: Soft. Bowel sounds normal. No guarding, rigidity, tenderness, or distention. Extremities: No leg edema. Laboratory Data: Yesterday, potassium was 3 and magnesium was 1.7. She is on electrolyte replacement protocol. Last blood work this morning; sodium 145, potassium 3.4, chloride 110, bicarb 28, BUN 8, creatinine 0.61, glucose 97, magnesium 2. Blood culture remains negative. Stool C. diff pending. Urine culture, non beta-hemolytic strep, definite sensitivity result pending. Impression: 1. Influenza A with respiratory and gastrointestinal manifestation. 2. Urinary tract infection. 3. Hypertension. 4. Hypokalemia. 5. Hypomagnesemia. Plan: Yesterday's chest x-ray was negative for any pneumonia. Her lung examination is unremarkable. The patient is ready for discharge, pending her ambulation and if she ambulates safely today, our plan is to discharge her to go home. I have advised her to eat yogurt 3 times a day with her meal and to start taking [id number] probiotic, Align 1 capsule by mouth daily. We will consider possible discharge this afternoon if she is stable and the patient was instructed that upon discharge from the hospital, all her medication that she was taking prior to this admission will remain same. Any new medications that she needs to take it temporarily, we will write those prescriptions. LILY/MODL Voice ID: [id number] Report ID: [id number] KATEY
[2018-09-19] MEDS: Levofloxacin500mg IV 500 MG/100 ML BAG IV SCH (15:47)
[2018-09-19 18:55] VITALS: BP 122/77; TEMP 98.8
--- NOTE | 2018-09-20 02:57 | DS ---
Date of Discharge: 09/19/2018 Disposition: Discharged to go home. Physical Examination: See copy of today's progress note for details. Discharge Diagnoses: 1.Influenza A with respiratory and gastrointestinal manifestation. 2.Urinary tract infection, organism Enterococcus faecalis. 3.Hypertension. 4.Hypokalemia. 5.Hypomagnesemia. 6.Mixed hyperlipidemia. 7.Impaired fasting glucose. 8.Depression. 9.Anemia, unspecified. Hospital Course: This is a 78-year-old pleasant female patient admitted to the hospital with fever, chills, cough, body ache. Please see dictated H and P for more information. The patient went to [facility] with this complaint, was diagnosed as having positive influenza A and her lungs did n ot sound good, so she was sent to emergency room. After she was evaluated in the ER, she was admitte d to the hospital. Her chest x-ray did not reveal any pneumonia. She had lot of cough and chest con gestion. She was not able to cough up any mucus. Empiric antibiotics were started which were azithr omycin and ceftriaxone. Tamiflu was started. Overall, the patient's condition improved but she had diarrhea with this flu illness along with respiratory manifestation and stool for C. diff was sent, w hich was negative. Blood culture remained negative. Urine culture came back positive for Enterococc us faecalis. Yesterday, urine culture had shown known beta-hemolytic strep so considering that I sto pped her azithromycin and ceftriaxone, and started her on Levaquin. Today, the final urine culture r esults came back and it is sensitive to Levaquin. The patient's diarrhea has resolved as of today. S he has not had any diarrhea. Repeat chest x-ray yesterday was negative for pneumonia as well. Overa ll, the patient's condition has improved. She is tolerating diet very well, ambulating well. Has re mained afebrile, hemodynamically stable and was discharged to go home in stable condition with follow ing discharge medication instructions. 1.Continue all prior home medications. 2.Levaquin 500 mg p.o. daily for 1 week. 3.Tamiflu 75 mg 2 times a day for 4 doses. 4.Robitussin DM 2 teaspoon by mouth 4 times a day as needed for cough. 5.Align 1 capsule p.o. daily for 1 month. Follow up at my office in 2 weeks. LILY/MODL Voice ID: [id number] Report ID: [id number]
== END 2018-09-19 19:00 | disposition home or self-care (01) | DRG 194 ==
LOC: ER 12:44 → ERHOLD 16:02 → 2ND 19:57 → OBSVTOIN 09-19 08:14
PROVIDERS: ADMIT Internal Medicine; ATTEND Internal Medicine
DX: J09.X2 Influenza due to identified novel influenza A virus with other respiratory manifestations (principal); N39.0 Urinary tract infection, site not specified; J09.X3 Influenza due to identified novel influenza A virus with gastrointestinal manifestations; E78.2 Mixed hyperlipidemia; R73.01 Impaired fasting glucose; E03.9 Hypothyroidism, unspecified; Z85.038 Personal history of other malignant neoplasm of large intestine; D64.9 Anemia, unspecified; F32.9 Major depressive disorder, single episode, unspecified; I10 Essential (primary) hypertension; R19.7 Diarrhea, unspecified; E87.6 Hypokalemia; E83.42 Hypomagnesemia; B95.2 Enterococcus as the cause of diseases classified elsewhere
CPT/HCPCS: 36415; 71045; 71046; 80048; 80076; 81003; 83735; 83880; 84132; 84145; 84484; 85025; 85610; 87040; 87077; 87086; 87088; 87186; 87493; 93005; 94640; 94760; 96365; 96366; 96375; 97161; 99285; G0378; J0456; J0696; J1650; J2920; J2930; J3475; J7030

== ENCOUNTER 2019-09-30 14:23 | Emergency (ER) | payer OTHER, MEDICARE ==
--- NOTE | 2019-09-30 15:55 | RAD REPORT ---
EXAM DESCRIPTION: RAD - Nasal Bones - 09/30/2019 3:26 pm CLINICAL HISTORY: Nasal pain status post fall FINDINGS: Nondisplaced bone fracture present
--- NOTE | 2019-09-30 17:09 | EDPHYS ---
Physician Documentation [facility] Name: Leah Campbell Age: 79 yrs Sex: Female : 1940 Arrival Date: 09/30/2019 Time: 14:25 Bed 28 Private MD: Saroj Mendieta C ED Physician Pankaj Blue HPI: 09/29 18:35 This 79 yrs old Female presents to ER via Ambulatory with complaints of Fall kdr Injury, Nose Bleed. 18:35 Details of fall: The patient fell from an upright position, while walking. Onset: The kdr symptoms/episode began/occurred suddenly, just prior to arrival. Associated injuries: The patient sustained injury to the low back, decreased range of motion, laceration. Severity of symptoms: At their worst the symptoms were mild. The patient has not experienced similar symptoms in the past. The patient has not recently seen a physician. Historical: - Allergies: 14:39 No Known Allergies; iw - Home Meds: 14:39 amlodipine 5 mg tab 1 tab once daily [Active]; aspirin 81 mg Oral TbEC 1 tab once daily iw [Active]; bupropion HCl 300 mg Oral Tb24 1 tab once daily [Active]; clonazepam 1 mg Oral tab 1 tab 3 times per day [Active]; fluoxetine 20 mg Oral cap 1 cap 4 x a day [Active]; levothyroxine 100 mcg tab 1 tab once daily [Active]; olmesartan-hydrochlorothiazide 40-12.5mg Oral 1 tab once daily [Active]; quetiapine 50 mg Oral tab 1 tab daily [Active]; ranitidine HCl 150 mg Oral cap 1 cap 2 times per day [Active]; simvastatin 80 mg Oral tab daily [Active]; Vitamin D3 1,000 unit Oral cap daily [Active]; - PMHx: 14:39 Anxiety; Hyperlipidemia; Hypertension; Hypothyroidism; ADD/ADHD; iw - PSHx: 14:39 toe surgery; Hysterectomy; iw - Immunization history:: Adult Immunizations up to date. - Social history:: Smoking status: Patient denies any tobacco usage or history of. ROS: 18:35 Constitutional: Negative for fever, chills, and weight loss, Eyes: Negative for injury, kdr pain, redness, and discharge, Cardiovascular: Negative for chest pain, palpitations, and edema, Respiratory: Negative for shortness of breath, cough, wheezing, and pleuritic chest pain, Abdomen/GI: Negative for abdominal pain, nausea, vomiting, diarrhea, and constipation, Back: Negative for injury and pain, : Negative for injury, bleeding, discharge, and swelling, MS/Extremity: Negative for injury and deformity, Skin: Negative for injury, rash, and discoloration, Neuro: Negative for headache, weakness, numbness, tingling, and seizure activity. Psych: Negative for depression, anxiety, suicide ideation, homicidal ideation, and hallucinations, Allergy/Immunology: Negative for hives, rash, and allergies, Endocrine: Negative for neck swelling, polydipsia, polyuria, polyphagia, and marked weight changes, Hematologic/Lymphatic: Negative for swollen nodes, abnormal bleeding, and unusual bruising. 18:35 ENT: Positive for nose bleed. Exam: 18:35 Constitutional: This is a well developed, well nourished patient who is awake, alert, kdr and in no acute distress. Head/Face: Normocephalic, atraumatic. Eyes: Pupils equal round and reactive to light, extra-ocular motions intact. Lids and lashes normal. Conjunctiva and sclera are non-icteric and not injected. Cornea within normal limits. Periorbital areas with no swelling, redness, or edema. Neck: Trachea midline, no thyromegaly or masses palpated, and no cervical lymphadenopathy. Supple, full range of motion without nuchal rigidity, or vertebral point tenderness. No Meningismus. Chest/axilla: Normal chest wall appearance and motion. Nontender with no deformity. No lesions are appreciated. 18:35 ENT: Nose: External nose: contusion is noted, Nasal septum: is midline, no septal hematoma appreciated, Nasal mucosa: Dried blood. erythematous, intact, moist, Turbinates: are normal, abrasion, clotted blood, in left nare, nasal drainage, that is minimal. Vital Signs: 14:37 BP 139 / 71; Pulse 73; Resp 16; Temp 97.0; Pulse Ox 98% on R/A; Pain 0/10; iw 15:30 BP 133 / 85; Pulse 62; Pulse Ox 100% on R/A; vc 16:30 BP 102 / 53; Pulse 57; Resp 15; Pulse Ox 96% on R/A; vc 17:30 BP 117 / 65; Pulse 64; Resp 17 S; Pulse Ox 98% on R/A; ca1 MDM: 17:08 Patient medically screened. kdr 18:35 Data reviewed: vital signs, nurses notes, lab test result(s). Counseling: I had a kdr detailed discussion with the patient and/or guardian regarding: the historical points, exam findings, and any diagnostic results supporting the discharge/admit diagnosis, lab results, radiology results, the need for outpatient follow up. 09/29 14:53 Order name: Nasal Bones XRAY; Complete Time: 17:07 kdr Administered Medications: No medications were administered Disposition: 09/30/19 17:08 Discharged to Home. Impression: Epistaxis, Fracture of nasal bones. - Condition is Stable. - Discharge Instructions: Nasal Fracture, [id number], Nosebleed, [id number]. - Medication Reconciliation Form, Thank You Letter form. - Follow up: Natividad Burnett MD; When: 2 - 3 days; Reason: If symptoms return, Further diagnostic work-up, Recheck today's complaints, Continuance of care, Re-evaluation by your physician. - Problem is new. - Symptoms have improved. Signatures: Dispatcher [employer] EDMS Pankaj Blue MD MD kdr Bernadette Horowitz RN RN iw Divina Solares RN RN ca1 Corrections: (The following items were deleted from the chart) 17:57 17:08 09/30/2019 17:08 Discharged to Home. Impression: Epistaxis; Fracture of nasal ca1 bones. Condition is Stable. Forms are Medication Reconciliation Form, Thank You Letter, Antibiotic Education, Prescription Opioid Use. Follow up: Natividad Burnett; When: 2 - 3 days; Reason: If symptoms return, Further diagnostic work-up, Recheck today's complaints, Continuance of care, Re-evaluation by your physician. Problem is new. Symptoms have improved. kdr
--- NOTE | 2019-09-30 17:09 | ER ---
Nurse's Notes [facility] Name: Leah Campbell Age: 79 yrs Sex: Female : 1940 Arrival Date: 09/30/2019 Time: 14:25 Bed 28 Private MD: Saroj Mendieta C Diagnosis: Epistaxis;Fracture of nasal bones Presentation: 09/29 14:36 Chief complaint: Patient states: tripped over a shovel, fell forward, hit nose on large iw plastic garbage can, nose will not stop bleeding, currently on baby aspirin, denies LOC, denies pain , no other injury. 14:36 Acuity: JAY 4 iw 14:36 Method Of Arrival: Ambulatory iw 14:37 Coronavirus screen: Patient denies fever greater than 100.4F, cough, shortness of iw breath, or difficulty breathing. Proceed with normal triage process. Ebola Screen: Patient negative for fever greater than or equal to 101.5 degrees Fahrenheit, and additional compatible Ebola Virus Disease symptoms Patient denies exposure to infectious person. Patient denies travel to an Ebola-affected area in the 21 days before illness onset. No symptoms or risks identified at this time. Initial Sepsis Screen: Does the patient meet any 2 criteria? No. Patient's initial sepsis screen is negative. Does the patient have a suspected source of infection? No. Patient's initial sepsis screen is negative. Risk Assessment: Do you want to hurt yourself or someone else? Patient reports no desire to harm self or others. 14:40 Onset of symptoms was September 30, 2019. ca1 Historical: - Allergies: 14:39 No Known Allergies; iw - Home Meds: 14:39 amlodipine 5 mg tab 1 tab once daily [Active]; aspirin 81 mg Oral TbEC 1 tab once daily iw [Active]; bupropion HCl 300 mg Oral Tb24 1 tab once daily [Active]; clonazepam 1 mg Oral tab 1 tab 3 times per day [Active]; fluoxetine 20 mg Oral cap 1 cap 4 x a day [Active]; levothyroxine 100 mcg tab 1 tab once daily [Active]; olmesartan-hydrochlorothiazide 40-12.5mg Oral 1 tab once daily [Active]; quetiapine 50 mg Oral tab 1 tab daily [Active]; ranitidine HCl 150 mg Oral cap 1 cap 2 times per day [Active]; simvastatin 80 mg Oral tab daily [Active]; Vitamin D3 1,000 unit Oral cap daily [Active]; - PMHx: 14:39 Anxiety; Hyperlipidemia; Hypertension; Hypothyroidism; ADD/ADHD; iw - PSHx: 14:39 toe surgery; Hysterectomy; iw - Immunization history:: Adult Immunizations up to date. - Social history:: Smoking status: Patient denies any tobacco usage or history of. Screenin:40 Abuse screen: Denies threats or abuse. Denies injuries from another. Nutritional ca1 screening: No deficits noted. Tuberculosis screening: No symptoms or risk factors identified. Fall Risk Fall in past 12 months (25 points). Assessment: 14:40 General: Appears in no apparent distress. comfortable, Behavior is calm, cooperative, ca1 appropriate for age. Pain: Complains of pain in nose. Neuro: Level of Consciousness is awake, alert, obeys commands, Oriented to person, place, time, situation, Appropriate for age. Cardiovascular: Heart tones S1 S2 present Capillary refill < 3 seconds Patient's skin is warm and dry. Respiratory: Airway is patent Respiratory effort is even, unlabored, Respiratory pattern is regular, symmetrical, Breath sounds are clear bilaterally. GI: Abdomen is flat, non-distended. GI: Bowel sounds present X 4 quads. Abd is soft and non tender X 4 quads. : No signs and/or symptoms were reported regarding the genitourinary system. EENT: Nares with drainage noted nose bleed on L nare. EENT: Nares Reports nasal discharge that is bloody pt reports breathing through mouth. . Derm: Skin is intact, is healthy with good turgor, Skin is pink, warm \T\ dry. Musculoskeletal: Circulation, motion, and sensation intact. Capillary refill < 3 seconds. Injury Description: Bruise sustained to nose is purple, was sustained less than 30 minutes ago. 14:43 Reassessment: Cleaned pt. Applied rolled gauze on L nare. ca1 14:45 Reassessment: Nose clip applied. ca1 15:10 Reassessment: Pt to Xray via wheelchair. Bleeding controlled. ca1 16:38 Reassessment: Patient appears in no apparent distress at this time. Patient and/or ca1 family updated on plan of care and expected duration. Pain level reassessed. Patient is alert, oriented x 3, equal unlabored respirations, skin warm/dry/pink. Pt states, she can still feel blood in her throat. Nose clip kept in place. 17:30 Reassessment: Patient appears in no apparent distress at this time. Patient is alert, ca1 oriented x 3, equal unlabored respirations, skin warm/dry/pink. Vital Signs: 14:37 BP 139 / 71; Pulse 73; Resp 16; Temp 97.0; Pulse Ox 98% on R/A; Pain 0/10; iw 15:30 BP 133 / 85; Pulse 62; Pulse Ox 100% on R/A; vc 16:30 BP 102 / 53; Pulse 57; Resp 15; Pulse Ox 96% on R/A; vc 17:30 BP 117 / 65; Pulse 64; Resp 17 S; Pulse Ox 98% on R/A; ca1 ED Course: 14:25 Patient arrived in ED. mr 14:25 Saroj Mendieta MD is Private Physician. mr 14:37 Triage completed. iw 14:38 Pankaj Blue MD is Attending Physician. kdr 14:39 Divina Solares RN is Primary Nurse. ca1 14:39 Arm band placed on. iw 14:40 Patient has correct armband on for positive identification. Bed in low position. Call ca1 light in reach. Side rails up X2. Pulse ox on. NIBP on. Warm blanket given. Head of bed elevated. 15:26 Nasal Bones XRAY In Process Unspecified. EDMS 17:07 Natividad Burnett MD is Referral Physician. kdr 17:56 No provider procedures requiring assistance completed. Patient did not have IV access ca1 during this emergency room visit. Administered Medications: No medications were administered Outcome: 17:08 Discharge ordered by . kdr 17:57 Discharged to home ambulatory. ca1 17:57 Condition: stable 17:57 Discharge instructions given to patient, Instructed on discharge instructions, follow up and referral plans. Demonstrated understanding of instructions, follow-up care. 17:57 Patient left the ED. ca1 Signatures: Dispatcher [employer] EDMS Pankaj Blue MD MD kdr Montserrat Whittaker Irene, RN DANELLE iw Divina Solares RN RN ca1 Lanie Moran RN RN vc Corrections: (The following items were deleted from the chart) 14:42 14:40 Injury Description: Bruise sustained to nose ca1 ca1
[2019-09-30 18:04] VITALS: TEMP 97
[2019-09-30 18:08] VITALS: BP 117/65; O2SAT 98
== END 2019-09-30 17:57 | disposition home or self-care (01) ==
LOC: ER 14:23
DX: S02.2XXA Fracture of nasal bones, initial encounter for closed fracture (principal); W19.XXXA Unspecified fall, initial encounter; Y93.01 Activity, walking, marching and hiking; Y92.9 Unspecified place or not applicable
CPT/HCPCS: 70160; 99283

== ENCOUNTER 2020-02-07 18:53 | Emergency (ER) | payer OTHER, MEDICARE ==
--- OUTSIDE RECORDS SUMMARY | 2020-02-07 18:55 | XMS REPORT | Continuity of Care Document ---
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/13/2018 [facility] depressive disorder (disorder) Hammer toe (disorder) Active Problem 03/13/2018 second [facility] digit right foot Hypercholesterolemia Active Problem 03/13/2018 [facility] (disorder) Hypothyroidism Active Problem 03/13/2018 [facility] (disorder) Pain in right foot Active Problem 03/13/2018 [facility] (finding) Seasonal allergy Active Problem 03/13/2018 [facility] (disorder) Medications Medication Details Route Status Patient Ordering Order Source Instructions Provider Date Dilaudid 0.5 mg = 0.5 Inactive [facility] mL, Injection, 2017 IV Push, q10min PRN for pain severe (7-10), first dose 03/11/18 9:01:00 CDT Promethazine 12.5 mg = 0.5 Inactive [facility] mL, Injection, 2017 IM, Once PRN for vomiting, first dose 03/11/18 9:01:00 CDT Diphenhydramine 25 mg = 0.5 mL, Inactive [facility] Injection, IV 2018 Push, Once PRN for itching, first dose 03/11/18 9:01:00 CDT Hydralazine 10 mg = 0.5 mL, Inactive INTERMEDIATE I Injection, IV 2018 Push, As Indicated PRN for hypertension, first dose 03/11/18 9:01:00 CDT Labetalol 5 mg = 1 mL, Inactive [facility] Injection, IV 2017 Push, As Indicated PRN for hypertension, first dose 03/11/18 9:01:00 CDT Robinul 0.2 mg = 1 mL, Inactive [facility] Injection, IV 2018 Push, Once PRN for bradycardia, first dose 03/11/18 9:01:00 CDT LR 1,000 mL 1,000 mL, IV, Inactive [facility] 75 mL/hr, start 201703/11/18 9:01:00 CDT Ondansetron 4 mg = 2 mL, Inactive [facility] Injection, IV 2018 Push, q15min PRN for nausea, order duration: 2 doses, first dose 03/11/18 9:01:00 CDT, stop date Limited # of times Levalbuterol 0.21 0.63 mg = 3 mL, Inactive 03/11 [facility] MG/ML Inhalant Soln, NEB, Once 2018 Solution [Xopenex] PRN for wheezing, first dose 03/11/18 9:01:00 CDT Demerol HCl 12.5 mg = 0.5 Inactive [facility] mL, Injection, 2018 IV Push, Once PRN for shivers, first dose 03/11/18 9:01:00 CDT Saline Lock Flush 10 mL, Soln, IV Inactive 03/11 [facility] Push, As 2018 Indicated PRN for flush, first dose 03/11/18 9:01:00 CDT Morphine 2 mg = 0.2 mL, Inactive [facility] Injection, IV 2018 Push, q5min PRN for pain, first dose 03/11/18 9:01:00 CDT Misc Medication 500 mL, Inactive [facility] Soln-IV, IV, 2018 Once, first dose 03/11/18 8:47:00 CDT, stop date 03/11/18 8:47:00 CDT fentaNYL 25 mcg = 0.5 Inactive [facility] mL, Injection, 2018 IV, Once, first dose 03/11/18 8:13:00 CDT, stop date 03/11/18 8:13:00 CDT midazolam 0.5 mg = 0.5 Inactive [facility] mL, Injection, 2018 IV, Once, first dose 03/11/18 8:13:00 CDT, stop date 03/11/18 8:13:00 CDT ondansetron 4 mg = 2 mL, Inactive [facility] Injection, IV, 2018 Once, first dose 03/11/18 8:03:00 CDT, stop date 03/11/18 8:03:00 CDT dexamethasone 4 mg = 1 mL, Inactive [facility] Injection, IV, 2017 Once, first dose 03/11/18 8:03:00 CDT, stop date 03/11/18 8:03:00 CDT ceFAZolin 2 gm, Soln-IV, Inactive [facility] IV Piggyback, 2018 Once, first dose 03/11/18 7:52:00 CDT, stop date 03/11/18 7:52:00 CDT propofol 120 mg = 12 mL, Inactive [facility] Emulsion, IV, 2018 Once, first dose 03/11/18 7:52:00 CDT, stop date 03/11/18 7:52:00 CDT lidocaine 4 mL, Inactive [facility] Injection, IV, 2018 Once, first dose 03/11/18 7:52:00 CDT, stop date 03/11/18 7:52:00 CDT midazolam 1 mg = 1 mL, Inactive [facility] Injection, IV, 2017 Once, first dose 03/11/18 7:49:00 CDT, stop date 03/11/18 7:49:00 CDT fentaNYL 50 mcg = 1 mL, Inactive [facility] Injection, IV, 2018 Once, first dose 03/11/18 7:49:00 CDT, stop date 03/11/18 7:49:00 CDT midazolam 0.5 mg = 0.5 Inactive [facility] mL, Injection, 2018 IV, Once, first dose 03/11/18 7:44:00 CDT, stop date 03/11/18 7:44:00 CDT fentaNYL 25 mcg = 0.5 Inactive [facility] mL, Injection, 2018 IV, Once, first dose 03/11/18 7:44:00 CDT, stop date 03/11/18 7:44:00 CDT Cefazolin 2 gm, Soln-IV, Inactive [facility] IV Piggyback, 2018 Once, infuse over 30 minutes, first dose 03/11/18 7:00:00 CDT, stop date 03/11/18 7:00:00 CDT, patient weight 50-120 kg, Prophylaxis LR 1,000 mL 1,000 mL, IV, Inactive [facility] 30 mL/hr, start 2018 date 03/11/18 6:02:00 CDT Lidocaine 2% 0.2 mL 0.2 mL, Inactive INTERMEDIATE I IV Start [[facility]] Injection, 2018 Subcutaneous, Once PRN for other (see comment), first dose 03/11/18 6:02:00 CDT quetiapine 50 MG 1/2 tab, Oral, Active [facility] Oral Tablet qPM, 0 2017 Refill(s), depression Fluoxetine 20 MG 80 mg = 4 caps, Active [facility] Oral Capsule Oral, Daily, ok 2018 to take am of sx, 0 Refill(s), depression clonazePAM 1 mg oral See Active INTERMEDIATE I tablet Instructions, 1 2018 tabs q am and 2 tabs q pm, pt inst ok to take am of sx, 0 Refill(s), anxiety Bupropion 300 mg, Oral, Active [facility] Daily, ok to 2018 take am of sx, 0 Refill(s), depression amLODIPine 5 mg oral 5 mg = 1 tabs, Active 02/04 [facility] tablet Oral, Daily, pt 2018 inst to take am of sx, 0 Refill(s), htn DHA DHA, 300 mg =, Active [facility] Oral, Daily, 0 2018 Refill(s), supplement Hydrochlorothiazide 1 tabs, Oral, Active [facility] 12.5 MG / Olmesartan Daily, pt inst 2018 medoxomil 40 MG Oral to not take am Tablet of sx, # 30 tabs, 0 Refill(s), htn Zyrtec 1 tab, Oral, Active [facility] Daily, PRN as 2018 needed for allergy symptoms, ok to take am of sx, 0 Refill(s), allergy Celis Colon 1 caps, Oral, Active INTERMEDIATE I [facility] oral capsule Daily, # 30 2018 caps, 0 Refill(s), supplement Simvastatin 80 mg, Oral, Active 08/29/ [facility] qPM, 0 2018 Refill(s), cholesterol Ranitidine 150 mg, Oral, Active [facility] qAM, ok to take 2018 am of sx, 0 Refill(s), acid reflux Thyroxine 0.1 mg, Oral, Active [facility] qAM, pt inst ok 2018 to take am of sx, 0 Refill(s), hypothyroidism Aspirin 81 MG Oral 81 mg = 1 tabs, Active 03/03 Tablet Oral, Daily, 0 2018 Refill(s), heart health Allergies, Adverse Reactions, Alerts No Known Medication Allergies Immunizations No Data Provided for This Section Results No Data Provided for This Section Pathology Reports No Data Provided for This Section Diagnostic Reports No Data Provided for This Section Consultation Notes No Data Provided for This Section Discharge Summaries No Data Provided for This Section History and Physicals No Data Provided for This Section Vital Signs Vital Sign Value Date Comments [...] Location Encounter Encounter Reason Attending ADM DC Stat us Source Details Type Number For Provider Date Date Visit [facility] Outpatient [id number] Erick 03/11 03/11 Active Surgi chris [place] /2017 [facility] Outpatient [id number] Erick 03/11 03/11 INTERMEDIATE I [place] /2017 [facility] [id number] Erick Active Surgica l [facility] Procedures Procedure Code Date Perfomer Comments Source CORRECTION TOBY 03/11/2018 auto-populated INTERMEDIATE I TOE [id number] from documented (Right)<sup>1</sup surgical case > achilles tendon 07/06/2015 [facility] tear hysterectomy, 07/06/2014 [facility] bladder sling colonoscopy/egd [facility] Assessment and Plan No Data Provided for This Section Plan of Care No Data Provided for This Section Social History Social History Date Source Social History TypeResponse 03/03/2018 [facility] Smoking Status Never smoker; Type: Cigarettes Family History No Data Provided for This Section Advance Directives No Data Provided for This Section Functional Status No Data Provided for This Section
--- OUTSIDE RECORDS SUMMARY | 2020-02-07 18:56 | XMS REPORT | Continuity of Care Document ---
:1940 Author Organization [facility] t Address [address] [place] [address] Care Team Providers Name Role Phone JIMY Attending Clinician Unavailable Jimy Attending Clinician Jimy Admitting Clinician Problems Condition Condition Condition Status Onset Resolution Last Treating Co mments Source Name Details Category Date Date Treatment Clinician Date Hypertensi Problem Active 1994-2018-03-13 M emoria ve - 04:00:51 l disorder, 00:00: [place] systemic Hypertensi 00 arterial ve (disorder) disorder, systemic arterial (disorder) Active 07/06/1994 Problem 03/13/2018 [facility] History of History of Problem Resolve [facility] chronic chronic d ity of obstructiv obstructiv [place] [facility] lung Physici disease disease ans History of History of Problem Resolve [facility] essential essential d ity of hypertensi hypertensi [place] [facility] ans History of History of Problem Resolve Univers high high d ity of cholestero cholestero [place] [facility]ici ans History of History of Problem Resolve [facility] sleep sleep d ity of apnea apnea [place] [facility] Acquired Acquired Problem Active Unive rs hammer toe hammer toe it y of of right of right [place] foot foot Physici ans Right foot Right foot Problem Active U nivers pain pain ity of [place] [facility] Acquired Acquired Problem Active Unive rs mallet toe mallet toe it y of of right of right [place] foot foot Physici ans Acid Problem Active 2018-03-13 Memor ia reflux 04:00:51 l (finding) Acid [place] reflux (finding) Active Problem 03/13/2018 [facility] Mixed Problem Active 2018-03-13 Memor ia anxiety 04:00:51 l and Mixed [place] depressive anxiety disorder and (disorder) depressive disorder (disorder) Active Problem 03/13/2018 [facility] Hammer toe Problem Active 2018-03-13 M emoria (disorder) 04:00:51 l Hammer [place] toe (disorder) Active Problem 03/13/2018 second digit right foot [facility] Hyperchole Problem Active 2018-03-13 M emoria sterolemia 04:00:51 l (disorder) Garret n Hyperchole sterolemia (disorder) Active Problem 03/13/2018 [facility] Hypothyroi Problem Active 2018-03-13 M emoria dism 04:00:51 l (disorder) Garret n Hypothyroi dism (disorder) Active Problem 03/13/2018 [facility] Pain in Problem Active 2018-03-13 Mitch bobby right foot 04:00:51 l (finding) Pain in Herm wilfred right foot (finding) Active Problem 03/13/2018 [facility] Seasonal Problem Active 2018-03-13 Mem oria allergy 04:00:51 l (disorder) Seasonal He rmann allergy (disorder) Active Problem 03/13/2018 [facility] Other Problem 2017-0 2018-03-13 2018-03-13 M emoria hammer 9-06 04:00:51 04:00:51 l toe(s) Other 05:00: Heron (acquired) hammer 00 , right toe(s) foot (acquired) , right foot 03/11/2018 03/13/2018 [facility] Allergies, Adverse Reactions, Alerts This patient has no known allergies or adverse reactions. Social History Smoking Status Start Date Stop Date Source Social History [facility] Medications Ordered Filled Start Stop Current Ordering Indication Dosage Frequency Signature Comments Components Source Medication Medication Date Date Medication? Clinician (SIG) Name Name Dilaudid 2018-0 No 0.5 mg = Memor ia 9-06 0.5 mL, l 14:01: Injection, Heron 00 IV Push, q10min PRN for pain severe (7-10), first dose 03/11/18 9:01:00 CDT Promethazin 2018-0 No 12.5 mg = M emoria e 9-06 0.5 mL, l 14:01: Injection, Her[place] 00 IM, Once PRN for vomiting, first dose 03/11/18 9:01:00 CDT Diphenhydra 2017-0 No 25 mg = Mem oria mine 9-06 0.5 mL, l 14:01: Injection, Her[place] 00 IV Push, Once PRN for itching, first dose 03/11/18 9:01:00 CDT Hydralazine 2018-0 No 10 mg = Mem oria 9-06 0.5 mL, l 14:01: Injection, IV Push, As Indicated PRN for hypertensi on, first dose 03/11/18 9:01:00 CDT Labetalol 2018-0 No 5 mg = 1 Mitch bobby 9-06 mL, l 14:01: Injection, IV Push, As Indicated PRN for hypertensi on, first dose 03/11/18 9:01:00 CDT Robinul 2018-0 No 0.2 mg = 1 Mitch bobby 9-06 mL, l 14:01: Injection, IV Push, Once PRN for bradycardi a, first dose 03/11/18 9:01:00 CDT LR 1,000 mL 2017-0 No 1,000 mL, M emoria 06 IV, 75 l 14:01: mL/hr, start date 03/11/18 9:01:00 CDT Ondansetron 2017-0 No 4 mg = 2 Me moria 9-06 mL, l 14:01: Injection, IV Push, q15min PRN for nausea, order duration: 2 doses, first dose 03/11/18 9:01:00 CDT, stop date Limited # of times Levalbutero 2018-0 No 0.63 mg = M emoria l 0.21 -06 3 mL, l MG/ML 14:01: Soln, NEB, Garret n Inhalant 00 Once PRN Solution for [Xopenex] wheezing, first dose 03/11/18 9:01:00 CDT Demerol HCl 2018-0 No 12.5 mg = M emoria 9-06 0.5 mL, l 14:01: Injection, IV Push, Once PRN for shivers, first dose 03/11/18 9:01:00 CDT Saline Lock 2018-0 No 10 mL, Mitch bobby Flush 03-11 Soln, IV l 14:01: Push, As Indicated PRN for flush, first dose 03/11/18 9:01:00 CDT Morphine 2018-0 No 2 mg = 0.2 Mem oria 9-06 mL, l 14:01: Injection, IV Push, q5min PRN for pain, first dose 03/11/18 9:01:00 CDT Misc 2018-0 No 500 mL, Memoria Medication 03-11 Soln-IV, l 13:47: IV, Once, first dose 03/11/18 8:47:00 CDT, stop date 03/11/18 8:47:00 CDT fentaNYL 2018-0 No 25 mcg = Memor ia 9-06 0.5 mL, l 13:13: Injection, IV, Once, first dose 03/11/18 8:13:00 CDT, stop date 03/11/18 8:13:00 CDT midazolam 2018-0 No 0.5 mg = Mitch bobby 9-06 0.5 mL, l 13:13: Injection, IV, Once, first dose 03/11/18 8:13:00 CDT, stop date 03/11/18 8:13:00 CDT ondansetron 2018-0 No 4 mg = 2 Me moria 9-06 mL, l 13:03: Injection, IV, Once, first dose 03/11/18 8:03:00 CDT, stop date 03/11/18 8:03:00 CDT dexamethaso 2018-0 No 4 mg = 1 Me moria ne 9-06 mL, l 13:03: Injection, IV, Once, first dose 03/11/18 8:03:00 CDT, stop date 03/11/18 8:03:00 CDT ceFAZolin 2018-0 No 2 gm, Memoria 03-11 Soln-IV, l 12:52: IV [place] 00 Piggyback, Once, first dose 03/11/18 7:52:00 CDT, stop date 03/11/18 7:52:00 CDT propofol 2018-0 No 120 mg = Memor ia 9-06 12 mL, l 12:52: Emulsion, [place] 00 IV, Once, first dose 03/11/18 7:52:00 CDT, stop date 03/11/18 7:52:00 CDT lidocaine 2018-0 No 4 mL, Memoria 03-11 Injection, l 12:52: IV, Once, first dose 03/11/18 7:52:00 CDT, stop date 03/11/18 7:52:00 CDT midazolam 2018-0 No 1 mg = 1 Mitch bobby 9-06 mL, l 12:49: Injection, [place] 00 IV, Once, first dose 03/11/18 7:49:00 CDT, stop date 03/11/18 7:49:00 CDT fentaNYL 2018-0 No 50 mcg = 1 Mem oria - mL, l 12:49: Injection, IV, Once, first dose 03/11/18 7:49:00 CDT, stop date 03/11/18 7:49:00 CDT midazolam 2018-0 No 0.5 mg = Mitch bobby 03-11 0.5 mL, l 12:44: Injection, IV, Once, first dose 03/11/18 7:44:00 CDT, stop date 03/11/18 7:44:00 CDT fentaNYL 2018-0 No 25 mcg = Memor ia 03-11 0.5 mL, l 12:44: Injection, IV, Once, first dose 03/11/18 7:44:00 CDT, stop date 03/11/18 7:44:00 CDT Cefazolin 2018-0 No 2 gm, Memoria 03-11 Soln-IV, l 12:00: IV Piggyback, Once, infuse over 30 minutes, first dose 03/11/18 7:00:00 CDT, stop date 03/11/18 7:00:00 CDT, patient weight 50-120 kg, Prophylaxi s LR 1,000 mL 2018-0 No 1,000 mL, M emoria 03-11 IV, 30 l 11:02: mL/hr, start date 03/11/18 6:02:00 CDT Lidocaine 2018-0 No 0.2 mL, Memor ia 2% 0.2 mL 03-11 Injection, l IV Start 11:02: Subcutaneo Her landa [[facility]] 00 us, Once PRN for other (see comment), first dose 03/11/18 6:02:00 CDT quetiapine 2018-0 Yes 1/2 tab, Me moria 50 MG Oral 8- Oral, qPM, l Tablet 16:14: 0 [place] 00 Refill(s), depression Fluoxetine Yes 80 mg = 4 Me moria 20 MG Oral 29 caps, l Capsule 16:14: Oral, [place] 00 Daily, ok to take am of sx, 0 Refill(s), depression clonazePAM Yes See Memoria 1 mg oral 03-03 Instructio l tablet 16:14: ns, 1 tabs Halle nn 00 q am and 2 tabs q pm, pt inst ok to take am of sx, 0 Refill(s), anxiety Bupropion Yes 300 mg, Memor ia 8-29 Oral, l 16:14: Daily, ok Heron 00 to take am of sx, 0 Refill(s), depression amLODIPine Yes 5 mg = 1 Mem oria 5 mg oral - tabs, l tablet 16:14: Oral, [place] Daily, pt inst to take am of sx, 0 Refill(s), htn DHA Yes DHA, 300 Memoria 8-29 mg =, l 16:14: Oral, [place] Daily, 0 Refill(s), supplement Hydrochloro Yes 1 tabs, Mem oria thiazide 03-03 Oral, l 12.5 MG / 16:14: Daily, pt Her syeda Olmesartan 00 inst to medoxomil not take 40 MG Oral am of sx, Tablet # 30 tabs, 0 Refill(s), htn Zyrtec Yes 1 tab, Memoria -29 Oral, l 16:14: Daily, PRN [place] 00 as needed for allergy symptoms, ok to take am of sx, 0 Refill(s), allergy Celis Yes 1 caps, Memori a Colon -29 Oral, l Health oral 16:14: Daily, # He rmann capsule 00 30 caps, 0 Refill(s), supplement Simvastatin Yes 80 mg, Mitch bobby 8-29 Oral, qPM, l 16:14: 0 Heron 00 Refill(s), cholestero l Ranitidine Yes 150 mg, Mitch bobby 8-29 Oral, qAM, l 16:14: ok to take Heron 00 am of sx, 0 Refill(s), acid reflux Thyroxine Yes 0.1 mg, Memor ia 03-03 Oral, qAM, l 16:14: pt inst ok Heron 00 to take am of sx, 0 Refill(s), hypothyroi dism Aspirin 81 Yes 81 mg = 1 Me moria MG Oral 03-03 tabs, l Tablet 16:14: Oral, [place] 00 Daily, 0 Refill(s), heart health Keflex 500 Keflex 500 Yes Uni vers MG TABS MG TABS [facility]y of [place] [facility] Cranberry Cranberry Yes Unive rs Extract Extract ity of CAPS CAPS [place] [facility] raNITIdine raNITIdine Yes Uni vers HCl - 150 HCl - 150 ity o f MG Oral MG Oral [place] Tablet Tablet Physici ans Calcium-Vit Calcium-Vit Yes U nivers goodwin D3 goodwin D3 ity of TABS TABS [place] [facility] Aspirin Aspirin Yes Univers TABS TABS [facility] of [place] [facility] FLUoxetine FLUoxetine Yes Uni vers HCl TABS HCl TABS [facility]y of [place] [facility] buPROPion buPROPion Yes Unive rs HCl TABS HCl TABS ity of [place] [facility] ans amLODIPine amLODIPine Yes Uni vers Besylate Besylate ity of TABS TABS [place] [facility] Olmesartan Olmesartan Yes Uni vers Medoxomil Medoxomil ity o f TABS TABS [place] [facility] Simvastatin Simvastatin Yes U nivers TABS TABS ity of [place] [facility] Synthroid Synthroid Yes Unive rs TABS TABS ity of [place] [facility] QUEtiapine QUEtiapine Yes Uni vers Fumarate Fumarate ity of TABS TABS [place] [facility] KlonoPIN KlonoPIN Yes Univers TABS TABS [facility] [place] [facility] Vital Signs Vital Name Observation Time Observation Value Comments Source Respitory Rate 2018-03-11 18:42:00 Tiffanie Mujica Systolic (mm Hg) 2018-03-11 18:42:00 Mitch Shelby Diastolic (mm Hg) 2018-03-11 18:42:00 [facility] orial Heron Temperature Oral (F) 2018-03-11 18:42:00 37.0 Claudia [facility] Heart Rate 2018-03-11 14:40:00 [facility] Respitory Rate 2018-03-11 14:40:00 Memori al [place] Systolic (mm Hg) 2018-03-11 14:40:00 Mitch rial [place] Diastolic (mm Hg) 2018-03-11 14:40:00 Mem orial [place] Respitory Rate 2018-03-11 14:30:00 Memori al [place] Systolic (mm Hg) 2018-03-11 14:30:00 Mitch rial [place] Diastolic (mm Hg) 2018-03-11 14:30:00 Mem orial [place] Heart Rate 2018-03-11 14:30:00 [facility] [place] Heart Rate 2018-03-11 14:20:00 [facility] [place] Temperature Oral (F) 2018-03-11 13:40:00 36.7 Claudia [facility] [place] Temperature Oral (F) 2018-03-11 11:03:00 36.6 Claudia [facility] [place] Height 2018-03-11 11:03:00 165.10 cm [facility] [place] Height 2018-03-03 14:54:00 165.10 cm [facility] [place] Procedures Procedure Date / Time Performing Clinician Source Performed [UTP] Ortho - Surgery 2018-06-01 00:00:00 [facility] Scheduling Physicians CORRECTION HAMMER TOE 2018-03-11 13:05:00 Tiffanie Mujica [id number] (Right)<sup>1</sup> achilles tendon tear 2015-07-06 00:00:00 Beto Shelby hysterectomy, bladder 2014-07-06 00:00:00 Tiffanie Mujica sling History of Hysterectomy [facility] Physicians History of Foot surgery [facility] Physicians colonoscopy/egd [facility] Plan of Care Planned Activity Planned Date Details Comments Source Diagnostic Test 2018-06-01 [UTP] Ortho - [facility] Pending 00:00:00 Surgery Scheduling Physician s [code = [UTP] Ortho - Surgery Scheduling] Encounters Start End Encounter Admission Attending Care Care Encounter Source Date/Time Date/Time Type Type Clinicians Facility Department ID 2018-06-01 2018-06-01 Appointmen KAE AHN [id number] [facility] 14:15:00 14:15:00 t; ROMI AHN, Orthopedic i ty tacho LLANOS DPM Surgery - [place] DAYA [facility]owitz [facility] Trace 2 ans 2018-05-04 [facility] [id number] [facility] 14:15:00 14:15:00 t; ROMI AHN, ity of ROMI, DPM [place] DPM Physici ans 2018-04-20 2018[facility] UTP [id number] Univers 15:45:00 15:45:00 t; ROMI AHN, ity of ROMI, DPM [place] DPM Physici ans 2018-04-08 2018[facility] UTP [id number] Univers 16:00:00 16:00:00 t; ROMI AHN, ity of ROMI, DPM [place] DPM Physici ans 2018-04-06 2018-04-06 Appointgreg AHN, UTP UTP [id number] Univers 16:15:00 16:15:00 t; ROMI AHN, ity of ROMI, DPM [place] DPM Physici ans 2018-03-24 2018[facility] UTP [id number] Univers 13:45:00 13:45:00 t; ROMI AHN, ity of ROMI, DPM [place] DPM Physici ans 2018-03-11 2018-03-11 Outpatient Jimy, [id number] 05:47:42 10:15:00 Romi 8 2018-03-11 2018-03[facility] UTP [id number] Univers 07:30:00 07:30:00 t; ROMI AHN, ity of ROMI, DPM [place] DPM Physici ans 2018-01-21 2018[facility] UTP [id number] Univers 13:30:00 13:30:00 t; ROMI AHN, ity of ROMI, DPM [place] DPM Physici ans Results Test Description Test Time Test Comments Results Result Comments Source Tobacco Use Screening 2018-06-01 14:15:00 Test Item Value Reference Range Interpretation Comme nts Completed (test code = Completed) DONE [facility]
[2020-02-07] MEDS ORDERED: HYDROCODONE/APAP 5/325 MG TAB ONE (19:41)
--- NOTE | 2020-02-07 20:05 | RAD REPORT ---
EXAM DESCRIPTION: RAD - Humerus Right - 02/07/2020 7:56 pm CLINICAL HISTORY: Right arm pain status post fall FINDINGS: No fracture is seen. Bones are osteoporotic
--- NOTE | 2020-02-07 20:17 | RAD REPORT ---
EXAM DESCRIPTION: RAD - Shoulder Right 2 View - 02/07/2020 8:10 pm CLINICAL HISTORY: Right shoulder pain FINDINGS: No fracture or dislocation is seen. Osteoporosis. Osteoarthritis involves the glenohumeral and AC joints
--- NOTE | 2020-02-07 20:30 | ER ---
Nurse's Notes [facility] Name: Leah Campbell Age: 80 yrs Sex: Female : 1940 Arrival Date: 02/07/2020 Time: 18:54 Bed 18 Private MD: Diagnosis: Contusion of right shoulder;Other sprain of right shoulder joint Presentation: 02/06 19:16 Chief complaint: Patient states: Reports she was working on her garden and had a fall ea around 2 PM. Reports she hit her head with no LOC, states her right shoulder is hurting and she is unable to complete full ROM. Coronavirus screen: Client denies travel out of the [place] in the last 14 days. At this time, the client does not indicate any symptoms associated with coronavirus-19. Ebola Screen: No symptoms or risks identified at this time. Initial Sepsis Screen: Does the patient meet any 2 criteria? No. Patient's initial sepsis screen is negative. Does the patient have a suspected source of infection? No. Patient's initial sepsis screen is negative. Risk Assessment: Do you want to hurt yourself or someone else? Patient reports no desire to harm self or others. 19:16 Method Of Arrival: Ambulatory ea 19:16 Acuity: JAY 3 ea 19:18 Onset of symptoms. ea Triage Assessment: 19:21 General: Appears uncomfortable, Behavior is calm, cooperative, appropriate for age. ea Pain: Complains of pain in anterior aspect of right shoulder. Historical: - Allergies: 19:20 No Known Allergies; ea - Home Meds: 19:20 amlodipine 5 mg tab 1 tab once daily [Active]; aspirin 81 mg Oral TbEC 1 tab once daily ea [Active]; bupropion HCl 300 mg Oral Tb24 1 tab once daily [Active]; clonazepam 1 mg Oral tab 1 tab 3 times per day [Active]; fluoxetine 20 mg Oral cap 1 cap 4 x a day [Active]; levothyroxine 100 mcg tab 1 tab once daily [Active]; olmesartan-hydrochlorothiazide 40-12.5mg Oral 1 tab once daily [Active]; quetiapine 50 mg Oral tab 1 tab daily [Active]; ranitidine HCl 150 mg Oral cap 1 cap 2 times per day [Active]; simvastatin 80 mg Oral tab daily [Active]; Vitamin D3 1,000 unit Oral cap daily [Active]; - PMHx: 19:20 Hypothyroidism; Hypertension; Hyperlipidemia; Anxiety; ADD/ADHD; ea - PSHx: 19:20 Hysterectomy; toe surgery; ea - Immunization history:: Adult Immunizations up to date. - Family history:: not pertinent. - Social history:: Smoking status: Patient denies any tobacco usage or history of. - Hospitalizations: : No recent hospitalization is reported. Screenin:18 Abuse screen: Denies threats or abuse. Nutritional screening: No deficits noted. ea Tuberculosis screening: No symptoms or risk factors identified. Fall Risk None identified. Assessment: 19:26 General: Appears in no apparent distress. Behavior is appropriate for age. Pain: lp1 Complains of pain in anterior aspect of right shoulder and right bicep. Neuro: Level of Consciousness is awake, alert, obeys commands, Oriented to person, place, time, situation. Cardiovascular: Patient's skin is warm and dry. Respiratory: Respiratory effort is even, unlabored. GI: No signs and/or symptoms were reported involving the gastrointestinal system. : No signs and/or symptoms were reported regarding the genitourinary system. EENT: No signs and/or symptoms were reported regarding the EENT system. Derm: Skin is dry, Skin is pink, warm \T\ dry. Wound noted Wound is abrasion noted to forehead, upper lip; none actively bleeding. Musculoskeletal: Range of motion: limited in right shoulder. Vital Signs: 19:16 BP 157 / 100; Pulse 84; Resp 18; Temp 97.6; Pulse Ox 98% ; Weight 73.94 kg; Height 5 ea ft. 5 in. (165.10 cm); 20:39 BP 144 / 73; Pulse 82; Resp 18; Pulse Ox 98% on R/A; lp1 19:16 Body Mass Index 27.12 (73.94 kg, 165.10 cm) ea ED Course: 18:54 Patient arrived in ED. ds1 19:00 Edvin Plascencia MD is Attending Physician. rn 19:18 Triage completed. ea 19:18 Arm band placed on right wrist. Patient placed in an exam room, on a stretcher, on ea pulse oximetry. 19:19 Patient has correct armband on for positive identification. Placed in gown. Bed in low ea position. Call light in reach. 19:26 Burk, Bernice, RN is Primary Nurse. lp1 19:56 XRAY Humerus RIGHT In Process Unspecified. EDMS 20:10 Shoulder Right 2 View In Process Unspecified. EDMS 20:29 Troy Cleaning MD is Referral Physician. rn 20:38 No provider procedures requiring assistance completed. Patient did not have IV access lp1 during this emergency room visit. Sling applied to right arm. Administered Medications: 19:34 Drug: [place] 5 mg-325 mg 1 tabs Route: PO; lp1 20:30 Follow up: Response: Pain is decreased lp1 Outcome: 20:30 Discharge ordered by . rn 20:42 Discharged to home ambulatory. lp1 20:42 Condition: good 20:42 Discharge instructions given to patient, Instructed on discharge instructions, follow up and referral plans. medication usage, Demonstrated understanding of instructions, follow-up care, medications, Prescriptions given X 1. 21:03 Patient left the ED. lp1 Signatures: Dispatcher [employer] [facility] SadlerCamila ds1 Edvin Plascencia MD MD rn Pena, Laura, RN RN lp1 Nikki Sandoval RN RN carmine
--- NOTE | 2020-02-07 20:31 | EDPHYS ---
Physician Documentation [facility] Name: Leah Campbell Age: 80 yrs Sex: Female : 1940 Arrival Date: 02/07/2020 Time: 18:54 Bed 18 Private MD: ED Physician Edvin Plascencia HPI: 02/06 19:18 This 80 yrs old Female presents to ER via Ambulatory with complaints of Arm rn Pain. 19:18 The patient or guardian complains of injury, pain. The complaints affect the anterior rn aspect of right shoulder and right bicep. Onset: The symptoms/episode began/occurred at 14:00. Associated signs and symptoms: Pertinent positives: pain. Severity of symptoms: At their worst the symptoms were moderate, in the emergency department the symptoms are unchanged. The patient has experienced a previous episode. The patient has not recently seen a physician. Reports fell while in garden, hit right shoulder and face, no LOC, remembers all events, no vomiting, happened at 1400, no focal neuro complaints. Reports mainly here for right shoulder/arm pain. Difficulty lifting right arm about horizontal.. Historical: - Allergies: 19:20 No Known Allergies; ea - Home Meds: 19:20 amlodipine 5 mg tab 1 tab once daily [Active]; aspirin 81 mg Oral TbEC 1 tab once daily ea [Active]; bupropion HCl 300 mg Oral Tb24 1 tab once daily [Active]; clonazepam 1 mg Oral tab 1 tab 3 times per day [Active]; fluoxetine 20 mg Oral cap 1 cap 4 x a day [Active]; levothyroxine 100 mcg tab 1 tab once daily [Active]; olmesartan-hydrochlorothiazide 40-12.5mg Oral 1 tab once daily [Active]; quetiapine 50 mg Oral tab 1 tab daily [Active]; ranitidine HCl 150 mg Oral cap 1 cap 2 times per day [Active]; simvastatin 80 mg Oral tab daily [Active]; Vitamin D3 1,000 unit Oral cap daily [Active]; - PMHx: 19:20 Hypothyroidism; Hypertension; Hyperlipidemia; Anxiety; ADD/ADHD; ea - PSHx: 19:20 Hysterectomy; toe surgery; ea - Immunization history:: Adult Immunizations up to date. - Family history:: not pertinent. - Social history:: Smoking status: Patient denies any tobacco usage or history of. - Hospitalizations: : No recent hospitalization is reported. ROS: 19:18 Constitutional: Negative for fever, chills, and weight loss, Eyes: Negative for injury, rn pain, redness, and discharge, Neck: Negative for injury, pain, and swelling, Cardiovascular: Negative for chest pain, palpitations, and edema, Respiratory: Negative for shortness of breath, cough, wheezing, and pleuritic chest pain, Abdomen/GI: Negative for abdominal pain, nausea, vomiting, diarrhea, and constipation, MS/Extremity: + right arm pain and injury Skin: Negative for injury, rash, and discoloration, Neuro: Negative for headache, weakness, numbness, tingling, and seizure. Exam: 19:18 Constitutional: This is a well developed, well nourished patient who is awake, alert, rn appears uncomfortable Head/Face: Normocephalic, + abrasion to nasal bridge/nose/philtrum without laceration Eyes: Pupils equal round and reactive to light, extra-ocular motions intact. Lids and lashes normal. Conjunctiva and sclera are non-icteric and not injected. Cornea within normal limits. Periorbital areas with no swelling, redness, or edema. ENT: NO intraoral injury or bleeding Neck: Trachea midline, no masses palpated. No vertebral point tenderness. Chest/axilla: Normal chest wall appearance and motion. Nontender with no deformity. Cardiovascular: Regular rate and rhythm. No pulse deficits. Respiratory: Speaking full sentences. No increased work of breathing, no retractions or nasal flaring. Abdomen/GI: soft, non-tender Back: No spinal tenderness. MS/ Extremity: Pulses equal, no cyanosis. + right upper arm pain with painful ROM and unable to lift past horizontal, no clavicular tenderness. Neuro: Awake and alert, GCS 15, oriented to person, place, time, and situation. Cranial nerves II-XII grossly intact. Motor strength 5/5 in all extremities. Sensory grossly intact. Cerebellar exam normal. Vital Signs: 19:16 BP 157 / 100; Pulse 84; Resp 18; Temp 97.6; Pulse Ox 98% ; Weight 73.94 kg; Height 5 ea ft. 5 in. (165.10 cm); 20:39 BP 144 / 73; Pulse 82; Resp 18; Pulse Ox 98% on R/A; lp1 19:16 Body Mass Index 27.12 (73.94 kg, 165.10 cm) ea MDM: 19:00 Patient medically screened. rn 20:16 Differential diagnosis: closed fracture, contusion. Data reviewed: vital signs, nurses rn notes, radiologic studies, plain films, and as a result, I will discharge patient. Test interpretation: by ED physician or midlevel provider: plain radiologic studies, Xray right shoulder and humerus does not show proximal humerus fracture, no dislocation. Counseling: I had a detailed discussion with the patient and/or guardian regarding: the historical points, exam findings, and any diagnostic results supporting the discharge/admit diagnosis, radiology results, the need for outpatient follow up, to return to the emergency department if symptoms worsen or persist or if there are any questions or concerns that arise at home. Response to treatment: the patient's symptoms have mildly improved after treatment, and as a result, I will discharge patient. Special discussion: I discussed with the patient/guardian in detail that at this point there is no indication for admission to the hospital. It is understood, however, that if the symptoms persist or worsen the patient needs to return immediately for re-evaluation. ED course: Explained at length diagnosis, treatment plan, need for shoulder ROM exercises to prevent frozen shoulder, and need for ortho f/u. Placed in sling.. 20:28 ED course: Radiology reports neg plain films. Will dc home with ortho and pcp f/u for rn MRI to rule out tear given limited ROM.. 02/06 19:18 Order name: XRAY Humerus RIGHT; Complete Time: 20:22 rn 02/06 19:53 Order name: Shoulder Right 2 View; Complete Time: 20:22 EDMS 02/06 20:00 Order name: Sling; Complete Time: 20:39 rn Administered Medications: 19:34 Drug: [place] 5 mg-325 mg 1 tabs Route: PO; lp1 20:30 Follow up: Response: Pain is decreased lp1 Disposition: 02/07/20 20:30 Discharged to Home. Impression: Contusion of right shoulder, Other sprain of right shoulder joint. - Condition is Stable. - Discharge Instructions: Contusion, Shoulder Sprain, How to Use a Sling. - Prescriptions for Ultram 50 mg Oral Tablet - take 1 tablet by ORAL route every 8 hours As needed; 15 tablet. - Medication Reconciliation Form, Thank You Letter, Antibiotic Education, Prescription Opioid Use form. - Follow up: Troy Cleaning MD; When: As needed; Reason: Recheck today's complaints, Re-evaluation by your physician. - Problem is new. - Symptoms have improved. Signatures: Dispatcher [employer] [facility] Edvin Plascencia MD MD rn Pena, Laura, RN RN lp1 Nikki Sandoval RN RN ea Corrections: (The following items were deleted from the chart) 19:53 19:19 Shoulder Left 2 View+RAD.RAD.BRZ ordered. [facility] EDUT 20:28 20:16 Test interpretation: by ED physician or midlevel provider: plain radiologic rn studies, Xray right shoulder and humerus shows proximal humerus fracture, no dislocation, rn 21:03 20:30 02/07/2020 20:30 Discharged to Home. Impression: Contusion of right shoulder; lp1 Other sprain of right shoulder joint. Condition is Stable. Forms are Medication Reconciliation Form, Thank You Letter, Antibiotic Education, Prescription Opioid Use. Follow up: Troy Cleaning; When: As needed; Reason: Recheck today's complaints, Re-evaluation by your physician. Problem is new. Symptoms have improved. rn
[2020-02-07 21:08] VITALS: TEMP 97.6; O2SAT 98
[2020-02-07 21:09] VITALS: BP 144/73
== END 2020-02-07 21:03 | disposition home or self-care (01) ==
LOC: ER 18:53
DX: S43.491A Other sprain of right shoulder joint, initial encounter (principal); W19.XXXA Unspecified fall, initial encounter; Y93.9 Activity, unspecified; Y92.89 Other specified places as the place of occurrence of the external cause; I10 Essential (primary) hypertension; E03.9 Hypothyroidism, unspecified; E78.5 Hyperlipidemia, unspecified; F41.9 Anxiety disorder, unspecified; Z79.82 Long term (current) use of aspirin
CPT/HCPCS: 99284

== ENCOUNTER 2020-09-01 16:14 | Emergency (ER) | payer OTHER, MEDICARE ==
--- OUTSIDE RECORDS SUMMARY | 2020-09-01 16:18 | XMS REPORT | Continuity of Care Document ---
:1940 Author Organization [facility] t Address [address] [place] [address] Care Team Providers Name Role Phone KHALIDA Primary Care Physician Unavailable SYSTEM, NOT IN Attending Clinician Unavailable Keenan MCCLENDON, F Attending Clinician Unavailable Maria Del Rosario DOE Attending Clinician Chris MCCLENDON Attending Clinician Unavailable Khalida LUA Attending Clinician KHALIDA Attending Clinician Unavailable Tiara MCCLENDON, B Attending Clinician Unavailable Neisha MENJIVAR JR Attending Clinician Unavailable JIMY Attending Clinician Unavailable Jimy Attending Clinician Jimy Admitting Clinician Payers Payer Name Policy Type Policy Effective Date Expiration Date Sour ce Number MEDICAREMEDICARE PART [id number] 2006 MD Venegas A AND 00:00:00 [id number] [place] [employer] [employer] [id number] 2020 MD Venegas OF RETIRED 00:00:00 PERSONSAARP-SECONDARY [id number] Problems Condition Condition Condition Status Onset Resolution Last Treating Co mments Source Name Details Category Date Date Treatment Clinician Date 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 sterolemia 08-02 An derso 00:00: n 00 Hypertensi Hypertensi Disease Active 0 M D ve ve 08-02 Anderso disorder disorder 00:00: n 00 Hypothyroi Hypothyroi Disease Active 2021-0 M D dism dism 08-02 Anderso 00:00: n 00 Mixed Mixed Disease Active anxiety anxiety 08-02 Anderso and and 00:00: n 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 Seasonal Disease Active allergy allergy 08-02 Anderso 00:00: n 00 Hypertensi Problem Active 2018-03-13 M emoria ve 07-06 04:00:51 l disorder, 00:00: [place] systemic Hypertensi 00 arterial ve (disorder) disorder, systemic arterial (disorder) Active 07/06/1994 Problem 03/13/2018 [facility] Hammer toe Problem Active 2018-03-13 M emoria (disorder) 04:00:51 l Hammer [place] toe (disorder) Active Problem 03/13/2018 second digit right foot [facility] Pain in Problem Active 2018-03-13 Mitch bobby right foot 04:00:51 l (finding) Pain in Herm wilfred right foot (finding) Active Problem 03/13/2018 [facility] Acid Problem Active 2018-03-13 Memor ia reflux 04:00:51 l (finding) Acid [place] reflux (finding) Active Problem 03/13/2018 [facility] History of History of [...] sleep sleep d ity of apnea apnea [place] [facility] Acquired Acquired Problem Active Unive rs hammer toe hammer toe it y of of right of right [place] foot foot Physici [facility] Right foot Right foot Problem Active U nivers pain pain ity of [place] [facility] Acquired Acquired Problem Active Unive rs mallet toe mallet toe it y of of right of right [place] foot foot Physici ans History of Past Illness Condition Condition Condition Status Onset Resolution Last Treating Co mments Source Name Details Category Date Date Treatment Clinician Date Other Problem 2018-03-13 2018-03-13 M emoria hammer 03-11 04:00:51 04:00:51 l toe(s) Other 05:00: [place] (acquired) hammer 00 , right toe(s) foot (acquired) , right foot 03/11/2018 03/13/2018 [facility] Allergies, Adverse Reactions, Alerts This patient has no known allergies or adverse reactions. Family History Family Member Diagnosis Comments Start Date Stop Date Source Maternal grandmother Colon cancer MD Venegas Family member Breast cancer MD Conte son Family member Ovarian cancer MD [place] patel Social History Social Habit Start Date Stop Date Quantity Comments Source Sex Assigned At MD Colon on Exposure to Not sure MD Venegas SARS-CoV-2 (event) Tobacco use and 2020-08-02 2020-08-02 Never used MD Colon on exposure 00:00:00 00:00:00 Alcohol intake 2020-08-02 2020-08-02 Current drinker MD Donna cross 00:00:00 00:00:00 of alcohol (finding) Smoking Status Start Date Stop Date Source Never smoker MD Venegas Medications Ordered Filled Start Stop Current Ordering Indication Dosage Frequency Signature Comments Components Source Medication Medication Date Date Medication? Clinician (SIG) Name Name multivit-mi Yes Take by MD chamberlain/iron/foli 08-02 mouth. Isaiah o c/lutein 19:41: n (CENTRUM 47 SILVER WOMEN ORAL) cholecalcif Yes Take by MD pruittol, 08-02 mouth. Anderso vitamin D3, 19:41: n (Vitamin 47 D3) 50 mcg (2,000 unit) capsule aspirin 81 Yes 81mg Take 81 mg M D mg EC 08-02 by mouth. Anderso tablet 19:41: n 47 cetirizine Yes 10mg Take 10 mg M D (ZyrTEC) 10 08-02 by mouth. And erso mg tablet 19:41: n 47 amLODIPine Yes MD (NORVASC) 1-25 Anderso 2.5 mg 00:00: n tablet 00 FLUoxetine Yes MD (PROzac) 20 1-21 Anderso mg capsule 00:00: n 00 buPROPion Yes TAKE 1 MD (WELLBUTRIN 1-19 TABLET BY And erso XL) 300 mg 00:00: MOUTH n 24 hr 00 EVERY tablet MORNING clonazePAM Yes TAKE 1 MD (KlonoPIN) 1-19 TABLET BY [place] watkins 1 mg tablet 00:00: MOUTH n 00 EVERY 6 HOURS NEEDED FOR ANXIETY benztropine Yes TAKE 1 MD (COGENTIN) 1-19 TABLET BY [place] rso 0.5 mg 00:00: MOUTH n tablet 00 TWICE DAILY ARIPiprazol Yes MD puente (ABILIFY) 1-19 Anderso 2 mg tablet 00:00: n 00 levothyroxi Yes TAKE 1 MD ne 1-15 TABLET BY Anderso (SYNTHROID, 00:00: MOUTH n LEVOTHROID) 00 DAILY 30 100 mcg MINUTES tablet BEFORE BREAKFAST olmesartan- 2019-07 Yes TAKE 1 MD hydrochloro 2-29 TABLET BY And erso thiazide 00:00: MOUTH n (BENICAR 00 DAILY HCT) 40-12.5 mg per tablet simvastatin 2019-07 Yes TK 1 T PO M D (ZOCOR) 80 1-13 D IN THE Dg so mg tablet 00:00: LEO n 00 Dilaudid No 0.5 mg = Memor ia 9-06 0.5 mL, l 14:01: Injection, [place] 00 IV Push, q10min PRN for pain severe (7-10), first dose 03/11/18 9:01:00 CDT Promethazin No 12.5 mg = Victorino emoria e 9-06 0.5 mL, l 14:01: Injection, [place] 00 IM, Once PRN for vomiting, first dose 03/11/18 9:01:00 CDT Diphenhydra No 25 mg = Mem oria mine 9-06 0.5 mL, l 14:01: Injection, [place] 00 IV Push, Once PRN for itching, first dose 03/11/18 9:01:00 CDT Hydralazine No 10 mg = Mem oria 9-06 0.5 mL, l 14:01: Injection, [place] 00 IV Push, As Indicated PRN for hypertensi on, first dose 03/11/18 9:01:00 CDT Labetalol No 5 mg = 1 Mitch bobby 9-06 mL, l 14:01: Injection, [place] 00 IV Push, As Indicated PRN for hypertensi on, first dose 03/11/18 9:01:00 CDT Robinul 0 No 0.2 mg = 1 Mitch bobby 9-06 mL, l 14:01: Injection, IV Push, Once PRN for bradycardi a, first dose 03/11/18 9:01:00 CDT LR 1,000 mL 2018-0 No 1,000 mL, M emoria 9-06 IV, 75 l 14:01: mL/hr, start date 03/11/18 9:01:00 CDT Ondansetron No 4 mg = 2 Me moria 9-06 mL, l 14:01: Injection, IV Push, q15min PRN for nausea, order duration: 2 doses, first dose 03/11/18 9:01:00 CDT, stop date Limited # of times Levalbutero 0 No 0.63 mg = M emoria l 0.21 06 3 mL, l MG/ML 14:01: Soln, NEB, Garret n Inhalant 00 Once PRN Solution for [Xopenex] wheezing, first dose 03/11/18 9:01:00 CDT Demerol HCl No 12.5 mg = M emoria 03-11 0.5 mL, l 14:01: Injection, IV Push, Once PRN for shivers, first dose 03/11/18 9:01:00 CDT Saline Lock 0 No 10 mL, Mitch bobby Flush 03-11 Soln, IV l 14:01: Push, As Indicated PRN for flush, first dose 03/11/18 9:01:00 CDT Morphine No 2 mg = 0.2 Mem oria 9-06 mL, l 14:01: Injection, IV Push, q5min PRN for pain, first dose 03/11/18 9:01:00 CDT Misc 2017-0 No 500 mL, Memoria Medication 03-11 Soln-IV, l 13:47: IV, Once, first dose 03/11/18 8:47:00 CDT, stop date 03/11/18 8:47:00 CDT fentaNYL No 25 mcg = Memor ia 03-11 0.5 mL, l 13:13: Injection, Heron 00 IV, Once, first dose 03/11/18 8:13:00 CDT, stop date 03/11/18 8:13:00 CDT midazolam 2018-0 No 0.5 mg = Mitch bobby 9-06 0.5 mL, l 13:13: Injection, [place] IV, Once, first dose 03/11/18 8:13:00 CDT, stop date 03/11/18 8:13:00 CDT ondansetron 2018-0 No 4 mg = 2 Me moria 9-06 mL, l 13:03: Injection, [place] IV, Once, first dose 03/11/18 8:03:00 CDT, stop date 03/11/18 8:03:00 CDT dexamethaso 2018-0 No 4 mg = 1 Me moria ne 9-06 mL, l 13:03: Injection, [place] 00 IV, Once, first dose 03/11/18 8:03:00 CDT, stop date 03/11/18 8:03:00 CDT ceFAZolin 2018-0 No 2 gm, Memoria 9- Soln-IV, l 12:52: IV Her[place] 00 Piggyback, Once, first dose 03/11/18 7:52:00 CDT, stop date 03/11/18 7:52:00 CDT propofol 2018-0 No 120 mg = Memor ia 9- 12 mL, l 12:52: Emulsion, [place] 00 IV, Once, first dose 03/11/18 7:52:00 CDT, stop date 03/11/18 7:52:00 CDT lidocaine 2018-0 No 4 mL, Memoria 9-06 Injection, l 12:52: IV, Once, first dose 03/11/18 7:52:00 CDT, stop date 03/11/18 7:52:00 CDT midazolam 2018-0 No 1 mg = 1 Mitch bobby 9-06 mL, l 12:49: Injection, [place] IV, Once, first dose 03/11/18 7:49:00 CDT, stop date 03/11/18 7:49:00 CDT fentaNYL 2018-0 No 50 mcg = 1 Mem oria 9-06 mL, l 12:49: Injection, [place] IV, Once, first dose 03/11/18 7:49:00 CDT, [...] l IV Start 11:02: Subcutaneo Her landa [[facility]] 00 us, Once PRN for other (see comment), first dose 03/11/18 6:02:00 CDT quetiapine Yes 1/2 tab, Me moria 50 MG Oral 8-29 Oral, qPM, l Tablet 16:14: 0 00 Refill(s), depression Fluoxetine Yes 80 mg = 4 Me moria 20 MG Oral 8-29 caps, l Capsule 16:14: Oral, [place] 00 Daily, ok to take am of sx, 0 Refill(s), depression clonazePAM Yes See Memoria 1 mg oral 8-29 Instructio l tablet 16:14: ns, 1 tabs Halle nn 00 q am and 2 tabs q pm, pt inst ok to take am of sx, 0 Refill(s), anxiety Bupropion Yes 300 mg, Memor ia 8-29 Oral, l 16:14: Daily, ok to take am of sx, 0 Refill(s), depression amLODIPine Yes 5 mg = 1 Mem oria 5 mg oral 8-29 tabs, l tablet 16:14: Oral, [place] 00 Daily, pt inst to take am of sx, 0 Refill(s), htn DHA Yes DHA, 300 Memoria 8-29 mg =, l 16:14: Oral, [place] Daily, 0 Refill(s), supplement Hydrochloro Yes 1 tabs, Mem oria thiazide 8-29 Oral, l 12.5 MG / 16:14: Daily, pt Her landa Olmesartan 00 inst to medoxomil not take 40 MG Oral am of sx, Tablet # 30 tabs, 0 Refill(s), htn Zyrtec Yes 1 tab, Memoria 8-29 Oral, l 16:14: Daily, PRN as needed for allergy symptoms, ok to take am of sx, 0 Refill(s), allergy Celis Yes 1 caps, Memori a Colon -29 Oral, l Health oral 16:14: Daily, # He rmann capsule 00 30 caps, 0 Refill(s), supplement Simvastatin Yes 80 mg, Mitch bobby 8-29 Oral, qPM, l 16:14: 0 Refill(s), cholestero l Ranitidine Yes 150 mg, Mitch bobby 8-29 Oral, qAM, l 16:14: ok to take Heron 00 am of sx, 0 Refill(s), acid reflux Thyroxine Yes 0.1 mg, Memor ia 8-29 Oral, qAM, l 16:14: pt inst ok to take am of sx, 0 Refill(s), hypothyroi dism Aspirin 81 Yes 81 mg = 1 Me moria MG Oral 8-29 tabs, l Tablet 16:14: Oral, [place] 00 Daily, 0 Refill(s), heart health Keflex [...] Name Observation Time Observation Value Comments Source HEIGHT 2020-08-02 13:25:00 160 cm WEIGHT 2020-08-02 13:25:00 78.3 kg HEIGHT 2020-08-02 13:25:00 160 cm WEIGHT 2020-08-02 13:25:00 78.3 kg Systolic blood 2020-08-06 16:32:48 145 mm[Hg] pressure Diastolic blood 2020-08-06 16:32:48 75 mm[Hg] MD Donna cross pressure Heart rate 2020-08-06 16:32:48 59 /min MD Dg walls Oxygen saturation in 2020-08-06 16:32:48 96 /min MD Venegas Arterial blood by Pulse oximetry Body temperature 2020-08-02 19:27:00 36.94 Claudia MD Saroj verdugo Respiratory rate 2020-08-02 19:27:00 18 /min MD Saroj verdugo Body height 2020-08-02 19:25:00 160 cm MD Dg walls Body weight 2020-08-02 19:25:00 78.3 kg MD Dg walls BMI 2020-08-02 19:25:00 30.59 kg/m2 Dg walls Respitory Rate 2018-03-11 18:42:00 Memori al [place] Systolic (mm Hg) 2018-03-11 18:42:00 Mitch rial [place] Diastolic (mm Hg) 2018-03-11 18:42:00 Mem orial [place] Temperature Oral (F) 2018-03-11 18:42:00 37.0 Claudia [facility] [place] Heart Rate 2018-03-11 14:40:00 [facility] [place] Respitory Rate 2018-03-11 14:40:00 Memori al [place] Systolic (mm Hg) 2018-03-11 14:40:00 Mitch rial [place] Diastolic (mm Hg) 2018-03-11 14:40:00 Mem orial [place] Respitory Rate 2018-03-11 14:30:00 Memori al [place] Systolic (mm Hg) 2018-03-11 14:30:00 Mitch rial [place] Diastolic (mm Hg) 2018-03-11 14:30:00 Mem orial [place] Heart Rate 2018-03-11 14:30:00 [facility] [place] Heart Rate 2018-03-11 14:20:00 [facility] [place] Temperature Oral (F) 2018-03-11 13:40:00 36.7 Claudia [facility] [place] Temperature Oral (F) 2018-03-11 11:03:00 36.6 Claudia [facility] [place] Height 2018-03-11 11:03:00 165.10 cm [facility] [place] Height 2018-03-03 14:54:00 165.10 cm [facility] [place] Procedures Procedure Date / Time Performing Clinician Source Performed STEREOTACTIC BREAST 2020-08-06 16:40:22 Veronica Mix MD Dg walls BIOPSY LEFT MAMMO POST PROCEDURE LEFT 2020-08-06 16:26:31 Veronica Mix MD PATHOLOGY BIOPSY 2020-08-06 16:02:00 Veronica Mix MD INTERPRETATION MAMMO DIGITAL DIAGNOSTIC 2020-08-03 17:26:19 Cathie Willis MD BILATERAL W ETHAN HC 2019-NCOV COVID-19 2020-07-31 15:19:00 Cathie Willis MD derson OSI MAMMOGRAPHY 2020-07-14 02:33:04 Cathie Willis MD Theo UNILATERAL LEFT OSI MAMMO BILATERAL 2020-05-24 02:33:22 Cathie Willis MD rson [UTP] Ortho - Surgery 2018-06-01 00:00:00 [facility] Scheduling Physicians CORRECTION HAMMER TOE 2018-03-11 13:05:00 Tiffanie Mujica [id number] (Right)<sup>1</sup> achilles tendon tear 2015-07-06 00:00:00 Beto Shelby hysterectomy, bladder 2014-07-06 00:00:00 Tiffanie Mujica sling colonoscopy/egd [facility] History of Hysterectomy [facility] Physicians History of Foot surgery [facility] Plan of Care Planned Activity Planned Date Details Comments Source Diagnostic Test 2018-06-01 [UTP] Ortho - [facility] Pending 00:00:00 Surgery Scheduling Physician s [code = [UTP] Ortho - Surgery Scheduling] Encounters Start End Encounter Admission Attending Care Care Encounter Source Date/Time Date/Time Type Type Clinicians Facility Department ID 2020-08-14 Outpatient SYSTEM, MDA MDA [id number] 17:50:53 PROVIDER Isaiah o n 2020-08-02 Outpatient SYSTEM, MDA MDA [id number] 17:38:38 PROVIDER Isaiah o n 2020-07-30 Outpatient SYSTEM, MDA MDA [id number] 13:03:43 PROVIDER Isaiah o n 2020-08-06 2020-08-06 Outpatient EL MDA MDA [id number] 09:22:04 09:22:04 Isaiah o n 2020-08-06 2020-08-06 Outpatient EL MDA MDA [id number] 08:48:09 08:48:09 Isaiah o n 2020-08-03 2020-08-03 Outpatient EL MIGGINS, MDA MDA [id number] 09:57:06 09:57:06 CATHIE Isaiah o n 2020-08-02 2020-08-02 Outpatient MIGGINS, MDA MDA [id number] 16:50:16 16:50:16 CATHIE Isaiah o n 2020-08-02 2020-08-02 Outpatient MIGGINS, MDA MDA [id number] 16:49:00 16:49:00 CATHIE Isaiah o n 2020-08-02 2020-08-02 Outpatient MIGGINS, MDA MDA [id number] 16:48:00 16:48:00 CATHIE chamberlain 2020-08-02 2020-08-02 Outpatient MIGGINS, MDA MDA [id number] 16:47:27 16:47:27 CATHIE Colon o cintia 2020-08-02 2020-08-02 Outpatient MIGGINS, MDA MDA [id number] 16:45:52 16:45:52 CATHIE Colon o cintia 2020-08-02 2020-08-02 Outpatient EL MIGGINS, MDA MDA [id number] 13:14:07 14:38:29 CATHIE chamberlain 2020-08-02 2020-08-02 Outpatient EL MDA MDA [id number] MD 12:52:24 12:52:50 Isaiah chamberlain 2020-07-31 2020-07-31 Outpatient EL TIARA , MDA MDA [id number] 09:06:17 09:19:19 RONNIE chamberlain 2018-06-01 2018-06-01 Appointgreg AHN, KAE UTP [id number] Univers 14:15:00 14:15:00 t; ROMI AHN, Orthopedic i ty of ROMI, DPM Surgery - [place] DPM [facility] 2 ans 2018-05-04 2018-05-04 Appointgreg AHN, KAE UTP [id number] Univers 14:15:00 14:15:00 t; ROMI AHN ity of ROMI, DPM [place] DPM [facility]ici ans 2018-04-20 [facility] KAE UTP [id number] Univers 15:45:00 15:45:00 t; ROMI AHN ity of ROMI, DPM [place] DPM Physici ans 2018-04-08 2018-04-08 AppointKAE Logan UTP [id number] Univers 16:00:00 16:00:00 t; ROMI AHN ity of ROMI, DPM [place] DPM Physici ans 2018-04-06 2018-04-06 AppointKAE Logan UTP [id number] Univers 16:15:00 16:15:00 t; JIMY, ROMI, ity of ROMI, DPM [place] DPM Physici ans 2018-03-24 2018-03-24 Appointmen JIMYKAE UTP [id number] Univers 13:45:00 13:45:00 t; ROMI AHN, ity of ROMI, DPM [place] DPM Physici ans 2018-03-11 2018-03-11 Outpatient Jimy, [id number] 05:47:42 10:15:00 Romi 8 2018-03-11 2018-03-11 Appointmen JIMYKAE [facility] [id number] Univers 07:30:00 07:30:00 t; ROMI AHN, ity of ROMI, DPM [place] DPM Physici ans 2018-01-21 2018-01-21 Appointmen JIMYKAE [facility] [id number] Univers 13:30:00 13:30:00 t; ROMI AHN, ity of ROMI, DPM [place] DPM Physici ans Results Test Description Test Time Test Comments Results Result Comments Source Pathology Biopsy Interpretation 2020-08-08 16:43:00 Test Item Value Reference Range Interpretation Comme nts Diagnosis a0tupLDjGQDsrNG2OwRzBNSgo5ult4NygJGduNYhPQlgePAqkjSius53fCI9qU96RM3aKSRyUiJ3IMKu evE0Dlw4XAQcZSMbtPWtS437o5gan7cazuLpyEF5xRrvUOSvCXUyCWhnGKOfGnRiJF5fDHIooCJkovRv y9QvETOrgDIgNoxyFQBzo33vOOVqNfLdO4Qtc1NhOQL (test code 7LHZgJURje89dopiohGlhYFRhgQEdUI24WIH6sGFtO56nBEBmdO0nb9h6ZXIthfa5ZNUfOevmtb1tPBA rz36tJUKoJNKheCGes4AuKX4iyLA5m4djFBNwXO2yUQFbIGTcdeqdDLOzDZhnMXF3QLxagS13OrDzoNd kGCO6KIu7jYz7DyJlNyamlk8vvGB3qJPvP2gzlhowfv = 34) muuN8hbCZfwJ4nYZDxiUNtJQZ4P2DrnQBlcINzrjGxDSDwVWluCSSjH6UthdGrqMU1CKQvLXTpIBQkjg EdJWhvEOHmUENhnDQ7kv1xCKSttfomiJttIZusjUNppErsCeAaGP1oD5PjQ5AdH7xpiEPwvRcubfGuKI Jef6SvTMDzKVA6aIAhSKYuPtEzOEFzzm6xQQPgjyYqB fAwcHbzZEJ7Q4OxBtDwcSRgYQLauvPeiMRkFDfXQQ1YYGznZYJuINTrWk4rMAJmZOn1DDSiXV3lcSTgn Q== Gross i1okoKTvRIBxzOY4TuRuFZIam6lrh6LytOQcfYKtGNnahUJraqKtfr48xUH3nK94XO1pYYHyKsM4IYDc ocQ0Qyu8YOUxOGHsuKKyA827b4yoc9cqpfHsiGA2tNpgZDFbv0vlWIPevYKoWEH9MIbybBXxHOJsLERo XAr0VLVjYPsmxGOoND9ofFhfKqfrhJdzt9HjeHUdFDb Descriptio zVLEzXDHfUQlbNKLhQ1QODFPjVcC5Nox7MmNeFHv8DXvdE6EVREEzHPH9MrQhRQVlNsA8YXo3BTXEKt5 pOcY7VWYpUWw1FJZ8EfW3DTnusEQlFFufSfliXHadOKTahLLrHBivUpGzMIEfUGitMsHrDL5qfHkmgMM fpvhrSKIrEcRiCZujjEVoSFHyYXceYnUkIqFyOUX4RX n (test XfKXhvsKKsX1S7yI5ahjHde1XopPDkGXT9FFWbRJ5gA3rfI0nyJRyisDFrBkykCNIsT82pt5kifWMmBa JmLPYfa5VcmlEssXhyJOKlVL2qfCHmAAMfe9XlhqDbihAoBy70xkYkjX9khNXsOU2wYOnuwLQiEPHpv0 K4VEBjYNJvEUS1DZffe6XktBKaSQolvRvzlnRjvMGhe code = 1SewFO1WKRrr9N0GCivazVgH8seKoWbwpHfqOjeTKLhz13fFP31PEQaZJY7aXF0jtKiSmQaR09fjLDbL 8SlCISsLQWoacSnRZjzdbpgZF3jINOzHXfzIBMtGA4rfRIlJALmujGrctGrjZUogGShrBY8SAQjcM4hG XElFOB7ITEqfmPiBOkbrKgtL8VgG4vkeOSrmLrkcuHk 6735642023 GKNrsMMnNQFgl3ZqzRQzKiBMExljWMHsb5NnLMwqyJxrN6BvX3uvoBSahHzevdH7EQS2XMK5CaInCKBq nhXpBVTqaqYkEHEcGSQ9UPfeBHW1HSVpJ19cHQ8tZFz7WHAxeGUkSEB5PP2nlCxsUGCxZ5QqS8IxyjR7 XHBhcn0= ) Disclaimer x6nykBTvQSFjiVHvJxBhPFEwOOQdv0wiWVCrnEHfMyUoWmDqDsNjIonjqZNzKEOhNiKyq2bjk621vONo e7hqNTMhSqH9mDKxPWSsdMVzA466NKDzAVtcm7syr5FnJKHlqIIhn0G1QOUZdahahVe9cZvhB73ss5H7 MhgrF1bwOILfFKBhA1OfIU6zJTAmQgc7QLX7ZMG6OMO (test code bONTvP1SkLI2hOFIyzDWfXEb2l8jjqMmpNASpDDV4x2egDDskmdNbST7dut0nnSi6u9xgzcSmJZKhHFF uxGPCIPImV9DakUclCy7ecHy3nExcTgbqUGO2Fxh4MD3jcg14uwj2mDvwLKOdoawzKgN4XFmsZNMmwdt lHDq8JItfNNOzcJA7UNSzhIAeE9LzQPRwVX4mgcl2VX = 9844) B8RZmrABVvJsD0RWLvoVFaNQSnuUybYAykb744TVN0GpGjSP7oF7Klp0S0pU8smUPhNZXccCYfCiNaVF Wbmp7nrBMaTCjnj4PvVCV0ywB1jFTctGAdGYVdEP63Gkqzx5ZxPptsSJB3QBLbswUws4Xlv2zdOnJomo XyT9trJ2PyNCCcFDEvJDGeHfKjxiHvb4Xzh2LcvWTyp Xv8h1udZKJnKFCycHwpu6nsUFF3PKAzP4L0oEFpb2suNHnlXKFfmRV9cnJ7UDEtaMUkL9WhwT6qJSQyY A1gkec9p7tmSVN0ZFqiEOIlStK7ppY6KQBzmLZlLVOjnPweVJvcb571KGB0QaRqZISkh7BvW4TvsWeuG 81wzJroH50mTEXxhKzjlU4mgVzggF5lGjHrXzPfRYys iEzoyYOiqjsvQXxaibJ6LDmqjspxHXZjRGsjJ2hqTdAaSNSowGtdCSaxq0VcZMUcOZNmTzuawjI8ZXCU m91kYHHmq6OrQLQnyN2ceFEwMLdaqaOxcAX8UKdqwjVoRdVklsPcGNDivF4iJSJhYM5eLILgphOemr2c eiBdXJRpNRFdC6ZjezdltOfzjpNgELSdtz5mybHxPUI 6OQRLHN8TOGCwYYQna38aVEDwtBwdzL5cgFJzbwXnYVNyo6NyjK3frSDWYFQfS4rqOZ8mIXqhb9QjeGS auGObxJB4UNFnx5YvGiYyapOpbLEuvQZuN2NzfJyfL6dbHCUyXACtpkBrvMWto6PeLMAoiEZ4wKDiUO9 ODeQSi20cBXFhKBMAprPoKHHouLybqTL0rzT1uT5vKs CDSrLtqQZfzPYnJtuoJYSeb630so0jlsZ4TVBgUWRwmfdzp0WwWFTjKJKdbL63XEYrRZWwfl8wydroxX QsxdZpE9Sagda0gZ1iJYFoKLioRZIuMTCuHhTnqXKzJoTdUbHonTsodMgwPCupAtOgWKPxZFvqA4bxJq FcZnMyMlxwYXJ9 [facility] [id number] 17:08:46Addendum by Harshil Wesley MD on 08/08/2020 12:38 PMADDENDED REPORT 08/08/2020 Addendum: BENIGN CONCORDANT pathology is as follows:"Fibroadenoma and fibroadenomatoid changes.Fibrocystic changes, including usual ductal hyperplasia, apocrine metaplasia anddilated cysts.Microcalcifications associated with fibroadenoma and benign ducts." Continued yearly screening mammographyis recommended. I notified Veronica Medellin these results and my recommendations via secure email on08/08/20 at 12:36 pm. Successful stereotactic biopsy. Pathology results and concordance will bereported in an addendum. Interface, Radiology Results In - 08/06/2020 11:08 AM CSTEXAMINATION: Left breast stereotactic vacuumassisted core needle biopsy withmarker clip placement and post-procedure mammogram. CLINICAL HISTORY: Suspicious calcifications in the left breast. CONSENT: The procedure and itsrisks, benefits, and alternatives were explainedin detail to the patient, who agreed to proceed and signed an informed consentform. All questions were answered. The patient was brought to the stereotacticbiopsy suite, and a pre-procedure time-out was performed. STEREOTACTIC BIOPSY: Left breast 12:00, 7 cm from the nipple.Skin cleaning: ChloraPrep.Anesthesia: 10 cc subcutaneous lidocaine and 10 cc subcutaneous lidocaine withepinephrine.Approach: Lateral to medial.Patient positioning: Prone.Imaging guidance: Mammography/stereotactic guidance.Biopsy system: 9 gauge vacuumassisted Eviva breast biopsy system.Specimen radiography: Yes, confirming calcifications.Samples: 10.Samples with calcifications: 5.Percentage of calcifications removed: Approximately 60%.Marker clip: [employer] Top-Hat (T shape)EBL: Minimal.Complications: None.Post procedure: Steri-Strips and a bandage at wound site.Disposition: Good. POST-PROCEDURE MAMMOGRAPHY: Confirms 1.6 cm of medial clip migration. Residualcalcifications are noted. IMPRESSION:Successful stereotactic biopsy. Pathology results and concordance will bereported in an addendum.MD VenegasPosedwin Procedure Mammogram Left 2020-08-06 17:08:46Addendum by Harshil Wesley MD on 08/08/2020 12:38 PMADDENDED REPORT 08/08/2020 Addendum: BENIGN CONCORDANT pathology is as follows:"Fibroadenoma and fibroadenomatoid changes.Fibrocystic changes, including usual ductal hyperplasia, apocrine metaplasia anddilated cysts.Microcalcifications associated with fibroadenoma and benign ducts." Continued yearly screening mammographyis recommended. I notified Veronica Medellin these results and my recommendations via secure email on08/08/20 at 12:36 pm. Successful stereotactic biopsy. Pathology results and concordance will bereported in an addendum. Interface, Radiology Results In - 08/06/2020 11:08 AM CSTEXAMINATION: Left breast stereotactic vacuumassisted core needle biopsy withmarker clip placement and post-procedure mammogram. CLINICAL HISTORY: Suspicious calcifications in the left breast. CONSENT: The procedure and its risks, benefits, and alternatives were explainedin detail to the patient, who agreed to proceed and signed an informed consentform. All questions were answered. The patient was brought to the stereotacticbiopsy suite, and a pre- procedure time-out was performed. STEREOTACTIC BIOPSY: Left breast 12:00, 7 cm from the nipple.Skin cleaning: ChloraPrep.Anesthesia: 10 cc subcutaneous lidocaine and 10 cc subcutaneous lidocaine withepinephrine.Approach: Lateral to medial.Patient positioning: Prone.Imaging guidance: Mammography/stereotactic guidance.Biopsy system: 9 gauge vacuumassisted Eviva breast biopsy system.Specimen radiography: Yes, confirming calcifications.Samples: 10.Samples with calcifications: 5.Percentage of calcifications removed: Approximately 60%.Marker clip: [employer] Top-Hat (T shape)EBL: Minimal.Complications: None.Post procedure: Steri-Strips and a bandage at wound site.Disposition: Good. POST- PROCEDURE MAMMOGRAPHY: Confirms 1.6 cm of medial clip migration. Residualcalcifications are noted. IMPRESSION:Successful stereotactic biopsy. Pathology results and concordance will bereported in an addendum.MD Venegas Diagnostic Mammogram w Ethan - [id number] 18:06:48 Test Item Value Reference Range Interpretation Comments IMP (test code = IMP) 1: Coarse heterogeneous calcifications in the left breast upper hemisphere at12 o'clock located 7 centimeters from the nipple are suspicious. Stereotacticbiopsy is recommended. 2: Benign appearing calcifications in both breasts are benign. The findings and recommendations were discussed with the patient at the time ofthe exam. BI-RADS Category 4:Suspicious Abnormality PXN (test code = PXN) Interface, Radiology Results In - 08/03/2020 12:06 PM CSTCLINICAL INDICATION:Patient is a 80 year old female and is seen for calcifications MAMMO DIGITAL DIAGNOSTIC BILATERAL W TOMODigital Mammogram evaluated with Computer Aided Detection (CAD). COMPARISON:The present examination has been compared to prior imaging studies performed atan outside location on 01/28/2017, 02/08/2018, 05/16/2019, 05/23/2020 and07/13/2020. FINDINGS:There are scattered areas of fibroglandular density. 1: There are coarse heterogeneous calcifications measuring 1.2 x 0.7 x 0.7 cmwith grouped distribution in the left breast upper hemisphere at 12 o'clocklocated 7 centimeters from the nipple. 2: There are benign appearing calcifications in both breasts. Tomosynthesis performed in CC and MLO projections. IMPRESSION:1: Coarse heterogeneous calcifications in the left breast upper hemisphere at12 o'clock located 7 centimeters from the nipple are suspicious. Stereotacticbiopsy is recommended. 2: Benign appearing calcifications in both breasts are benign. The findings and recommendations were discussed with the patient at the time ofthe exam. BI-RADS Category 4:Suspicious Abnormality Lab Interpretation Abnormal (test code = 81171-7) MD Sanchez [id number] 02:33:25Study acquired at another institution. For comparison only. No [facility] originated interpretationrequested or available.MD Sanchez MAMMOGRAPHY UNILATERAL [id number] 02:33:09Study acquired at another institution. For comparison only. No [facility] originated interpretationrequested or available.MD Short COVID-19 (ROSSANA-CoV-2) PCR [id number] 02:35:26 Test Item Value Reference Interpretation Comments Range COVID19 SARS New Patient Indication (test code = 27574) COVID19 SARS Result Not Detected Not Detected (test code = 59163-1) COVID19 SARS SARS-CoV-2 NOT Detected. Interpretation (test Reference Range: Not code = 95296) Detected Methodology: The [place] RealTime SARS-CoV-2 assay is a qualitative real-time reverse center medical director polymerase chain reaction (welder machine operator-PCR) test to detect RNA from SARS-CoV-2 in nasal, nasopharyngeal and oropharyngeal swabs from patients with signs and symptoms of infection who are suspected of COVID-19 by their health care provider. The [place] RealTime SARS-CoV-2 performed on the [employer] System is a dual target assay with primers and probes for the RdRp and N genes. Results must be interpreted within the context of all relevant clinical and laboratory findings, and epidemiological risk factors. Positive results are indicative of the presence of SARS-CoV-2 RNA; clinical correlation with patient history and other diagnostic information is necessary to determine patient infection status. Positive results do not rule out bacterial infection or co-infection with other viruses. Negative results do not preclude SARS-CoV-2 infection and should not be used as the sole basis for patient management decisions. The [place] RealTime SARS-CoV-2 assay is for in vitro diagnostic use under FDA Emergency Use Authorization only. Testing is limited to laboratories certified under the Clinical Laboratory Improvement Amendments of 1988 (CLIA), 42U.S.C. 263a, to perform high complexity tests. The Test was performed by the CLIA-certified, high-complexity Molecular Diagn[facility] Laboratory ([facility]) at [facility] under the Food and Drug Administration (FDA) s Emergency Use Authorization. Factsheet for patients: https://www.[facility].org/ AbbottFactSheetPatientsFact sheet for healthcare providers: https://www.[facility].org/ AbbottFactSheetHCP Test performed by:[facility] [place] [facility] [id number] [place] [address] MD VenegasTobaccbunny Use [id number] 14:15:00 Test Item Value Reference Range Interpretation Comments Completed (test code = Completed) DONE [facility]
[2020-09-01] MEDS ORDERED: TETANUS & DIPHTHERIA TOX,ADULT 0.5 ML VIAL ONE (17:48)
--- NOTE | 2020-09-01 18:07 | RAD REPORT ---
EXAM DESCRIPTION: CT - CTHCSPWOC - 09/01/2020 5:21 pm CLINICAL HISTORY: Trauma, head and neck injury. Fall injury COMPARISON: CT MULTIPLANAR RECONSTRUCTION dated 09/26/2011 TECHNIQUE: Axial 5 mm thick images of the head were obtained. Axial 2 mm thick images of the cervical spine were obtained with sagittal and coronal reconstruction images generated and reviewed. All CT scans are performed using dose optimization technique as appropriate and may include automated exposure control or mA/KV adjustment according to patient size. FINDINGS: CT HEAD WITHOUT CONTRAST: No acute hemorrhage, hydrocephalus or extra-axial collection is identified.Mild generalized brain atr ophy is present with mild periventricular and deep white matter chronic microvascular ischemic change s.No areas of brain edema or midline shift. The paranasal sinuses and mastoids are clear.The calvarium is intact. CT CERVICAL SPINE WITHOUT CONTRAST: No fracture or subluxation.Mild lower cervical spondylosis.No prevertebral soft tissues swelling is i dentified. IMPRESSION: No acute intracranial or cervical spine findings.
--- NOTE | 2020-09-01 18:16 | RAD REPORT ---
EXAM DESCRIPTION: CT - CTFB CLINICAL HISTORY: FACIAL PAIN Trauma, facial pain COMPARISON: MAXILLOFACIAL W O CONTRAST dated 12/05/2013; Head C Spine Mpr Wo Con dated 09/01/2020 TECHNIQUE: Axial 2 mm thick images of the face were obtained with sagittal and coronal reconstructio n images. All CT scans are performed using dose optimization technique as appropriate and may include automated exposure control or mA/KV adjustment according to patient size. FINDINGS: No acute facial bone fracture is seen.The mandible is intact. The globes and orbital contents are grossly unremarkable.The paranasal sinuses and mastoids are clear . IMPRESSION: Negative for facial bone fracture.
[2020-09-01] MEDS ORDERED: LIDOCAINE 1% MPF 5 ML VIAL ONE (18:34)
--- NOTE | 2020-09-01 18:51 | EDPHYS ---
Physician Documentation [facility] Name: Leah Campbell Age: 80 yrs Sex: Female : 1940 Arrival Date: 09/01/2020 Time: 16:19 Bed 6 Private MD: Aaron Murphy HPI: 09/01 17:03 This 80 yrs old Female presents to ER via Ambulatory with complaints of Fall pm1 Injury, Head Injury-Adult. 17:03 Details of fall: The patient fell from an upright position, while standing, and struck pm1 a grass-covered surface. Onset: The symptoms/episode began/occurred today. Associated injuries: The patient sustained injury to the head, contusion, right side of forehead, neck injury, right elbow, laceration, left elbow, abrasion. Severity of symptoms:. The patient has experienced similar episodes in the past, Patient has had multiple falls recently. Patient is supposed to be using a walker but she does not want to use one. Patient was playing kick the can with a leaf. After repetitively kicking at the leaf she lost her balance and fell down. She is presenting with a contusion and pain to right side of forehead, laceration to right elbow, and abrasion to left elbow. No LOC, neck pain, N/V. Patient has had a recent fall that she does not recall the reason, but she has an old right eye contusion that is yellow and brownish. Historical: - Allergies: 16:45 No Known Allergies; ss - Home Meds: 16:45 amlodipine 2.5 mg oral tab 1 tab once daily [Active]; fluoxetine 20 mg Oral cap 1 cap 4 ss x a day [Active]; bupropion HCl 300 mg Oral Tb24 1 tab once daily [Active]; aspirin 81 mg Oral TbEC 0.5 tab once daily [Active]; clonazepam 1 mg Oral tab 1 tab 3 times per day [Active]; simvastatin 80 mg Oral tab daily [Active]; levothyroxine 100 mcg tab 1 tab once daily [Active]; aripiprazole 5 mg oral tab 1 tab once daily [Active]; - PMHx: 16:45 ADD/ADHD; Anxiety; Hyperlipidemia; Hypertension; Hypothyroidism; ss - PSHx: 16:45 Hysterectomy; toe surgery; ss - Immunization history:: Adult Immunizations up to date. - Social history:: Smoking status: Patient denies any tobacco usage or history of. ROS: 17:03 Constitutional: Negative for fever, chills, and weight loss, Neck: Negative for injury, pm1 pain, and swelling, Cardiovascular: Negative for chest pain, palpitations, and edema, Respiratory: Negative for shortness of breath, cough, wheezing, and pleuritic chest pain, Abdomen/GI: Negative for abdominal pain, nausea, vomiting, diarrhea, and constipation, Back: Negative for injury and pain. 17:03 MS/extremity: Positive for laceration, pain, of the right elbow. 17:03 Skin: Positive for abrasion(s), of the left elbow and right knee. 17:03 Neuro: Positive for headache, of the forehead, right side. Exam: 17:03 Constitutional: This is a well developed, well nourished patient who is awake, alert, pm1 and in no acute distress. 17:03 Chest/axilla: Normal chest wall appearance and motion. Nontender with no deformity. No lesions are appreciated. 17:03 Back: No spinal tenderness. No costovertebral tenderness. Full range of motion. 17:03 Head/face: Noted is no obvious of injury or deformity except tenderness, that is mild, of the right side of forehead, yellow brownish bruising below right eye. 17:03 Eyes: Pupils: no acute changes, Extraocular movements: no acute changes, Conjunctiva: normal. 17:03 Neck: Exam negative for External neck: is normal, C-spine: vertebral tenderness, is not appreciated. 17:03 Cardiovascular: Exam negative for acute changes, Rate: normal, Rhythm: regular, Pulses: no pulse deficits are appreciated. 17:03 Respiratory: Exam negative for acute changes, respiratory distress, shortness of breath. 17:03 Abdomen/GI: Inspection: abdomen appears normal, Palpation: abdomen is soft and non-tender, in all quadrants. 17:03 Musculoskeletal/extremity: Extremities: all appear grossly normal, with no appreciated pain with palpation, noted in the right elbow: laceration, There is no evidence of decreased ROM, deformity, ROM: intact in all extremities, Circulation is intact in all extremities. 17:03 Skin: Appearance: normal except for affected area, injury, abrasion(s), small abrasion noted, of the right knee and left elbow, laceration(s), the wound is approximately 1.5 cm(s), of the right elbow. 17:03 Neuro: Exam negative for acute changes, Orientation: is normal, Mentation: is normal, Motor: is normal, moves all fours, Sensation: is normal, no obvious gross deficits. Vital Signs: 16:38 BP 148 / 77; Pulse 78; Resp 16; Temp 97.9(TE); Pulse Ox 99% on R/A; Weight 75.75 kg; ss Height 5 ft. 5 in. (165.10 cm); Pain 3/10; 18:03 BP 140 / 66; Pulse 74; Resp 16; Pulse Ox 99% on R/A; hb 19:00 BP 130 / 73; Pulse 72; Resp 18; Pulse Ox 98% on R/A; wh 16:38 Body Mass Index 27.79 (75.75 kg, 165.10 cm) ss Laceration: 18:47 Wound Repair of 1.5cm ( 0.6in ) subcutaneous laceration to right elbow. Linear shaped.. pm1 Distal neuro/vascular/tendon intact. Anesthesia: Local anesthetic administered with 2 mls of 1% lidocaine. Wound prep: Extensive cleansing with hibiclenz by electromechanical technician, Wound irrigation with saline by electromechanical technician, Wound explored extensively, Copious irrigation. Skin closed with 2 4-0 Prolene using simple sutures and sterile technique. Dressed with Neosporin, 4x4's. Patient tolerated well. MDM: 16:56 Patient medically screened. pm1 18:49 Data reviewed: vital signs. Data interpreted: Pulse oximetry: on room air is 99 %. pm1 Interpretation: normal. Counseling: I had a detailed discussion with the patient and/or guardian regarding: the historical points, exam findings, and any diagnostic results supporting the discharge/admit diagnosis, radiology results, the need for outpatient follow up, suture removal in 10-14 days. Need to start using walker as directed by her PCP, to return to the emergency department if symptoms worsen or persist or if there are any questions or concerns that arise at home. 09/01 16:57 Order name: CT Head C Spine; Complete Time: 18:12 pm1 09/01 16:57 Order name: CT Facial Bones W/O Con; Complete Time: 18:32 pm1 09/01 16:57 Order name: Wound Care; Complete Time: 18:14 pm1 09/01 18:13 Order name: Elbow Right 3 View XRAY pm1 09/01 18:13 Order name: Prolene, Sutures; Complete Time: 18:20 pm1 09/01 18:13 Order name: Dressing - Wound; Complete Time: 18:20 pm1 09/01 18:13 Order name: Gloves, Sterile; Complete Time: 18:20 pm1 09/01 18:13 Order name: Setup Suture Tray; Complete Time: 18:20 pm1 Administered Medications: 18:11 Drug: Tetanus-Diphtheria Toxoid Adult 0.5 ml {Mri Ct Tech: [facility]. Exp: hb 08/25/2022. Lot #: [id number]. } Route: IM; Site: left deltoid; 18:46 Follow up: Response: No adverse reaction 18:40 Drug: Lidocaine (1 %) 5 ml {Note: administered by TODD Coronado.} Volume: 5 ml; Route: ss Infiltration; Site: wound; Disposition: 09/01/20 18:50 Discharged to Home. Impression: Fall on same level, unspecified, Laceration without foreign body of right elbow, Superficial injury of head, Contusion of right elbow. - Condition is Stable. - Discharge Instructions: Head Injury, Adult, Fall Prevention in the Home, Laceration Care, Adult, How to Use a Walker, Elbow Contusion. - Prescriptions for Keflex 500 mg Oral Capsule - take 1 capsule by ORAL route every 12 hours for 7 days; 14 capsule. - Medication Reconciliation Form, Thank You Letter, Antibiotic Education, Prescription Opioid Use form. - Follow up: Emergency Department; When: As needed; Reason: Worsening of condition. Follow up: Private Physician; When: 10 - 14 days; Reason: Recheck today's complaints, Continuance of care, Staple/Suture removal, Re-evaluation by your physician. - Problem is new. - Symptoms have improved. Addendum: 09/03/2020 06:13 Co-signature as Attending Physician, Aaron Venegas MD I agree with the assessment and c fisher plan of care. Signatures: Dispatcher [employer] Aaron Collins MD MD cha Smirch, Shelby, RN RN ss Cliff Saavedra NP ROLLING MACHINE OPERATOR pm1 Anh Cordova RN RN Mary Senior RN RN Corrections: (The following items were deleted from the chart) 09/01 18:52 18:50 09/01/2020 18:50 Discharged to Home. Impression: Laceration without foreign body pm1 of right elbow. Condition is Stable. Forms are Medication Reconciliation Form, Thank You Letter, Antibiotic Education, Prescription Opioid Use. Follow up: Emergency Department; When: As needed; Reason: Worsening of condition. Follow up: Private Physician; When: 10 - 14 days; Reason: Recheck today's complaints, Continuance of care, Staple/Suture removal, Re-evaluation by your physician. Problem is new. Symptoms have improved. pm1 19:24 18:52 09/01/2020 18:50 Discharged to Home. Impression: Fall on same level, wh unspecifiedLaceration without foreign body of right elbow; Superficial injury of head; Contusion of right elbow. Condition is Stable. Forms are Medication Reconciliation Form, Thank You Letter, Antibiotic Education, Prescription Opioid Use. Follow up: Emergency Department; When: As needed; Reason: Worsening of condition. Follow up: Private Physician; When: 10 - 14 days; Reason: Recheck today's complaints, Continuance of care, Staple/Suture removal, Re-evaluation by your physician. Problem is new. Symptoms have improved. pm1
--- NOTE | 2020-09-01 18:51 | ER ---
Nurse's Notes [facility] Name: Leah Campbell Age: 80 yrs Sex: Female : 1940 Arrival Date: 09/01/2020 Time: 16:19 Bed 6 Private MD: Diagnosis: Laceration without foreign body of right elbow;Fall on same level, unspecified;Superficial injury of head;Contusion of right elbow Presentation: 09/01 16:38 Chief complaint: Patient states: "I saw a big leaf outside, so I got my foot and kicked ss it and then I fell. I've been falling a lot lately." Pt c/o pain to R parietal area of head. Small skin tears noted to bilateral elbows. Denies LOC. Coronavirus screen: Client denies travel out of the [place] in the last 14 days. Ebola Screen: Patient denies exposure to infectious person. Patient denies travel to an Ebola-affected area in the 21 days before illness onset. Initial Sepsis Screen: Does the patient meet any 2 criteria? No. Patient's initial sepsis screen is negative. Does the patient have a suspected source of infection? No. Patient's initial sepsis screen is negative. Risk Assessment: Do you want to hurt yourself or someone else? Patient reports no desire to harm self or others. Onset of symptoms was September 01, 2020. 16:38 Method Of Arrival: Ambulatory ss 16:38 Acuity: JAY 4 ss Historical: - Allergies: 16:45 No Known Allergies; ss - Home Meds: 16:45 amlodipine 2.5 mg oral tab 1 tab once daily [Active]; fluoxetine 20 mg Oral cap 1 cap 4 ss x a day [Active]; bupropion HCl 300 mg Oral Tb24 1 tab once daily [Active]; aspirin 81 mg Oral TbEC 0.5 tab once daily [Active]; clonazepam 1 mg Oral tab 1 tab 3 times per day [Active]; simvastatin 80 mg Oral tab daily [Active]; levothyroxine 100 mcg tab 1 tab once daily [Active]; aripiprazole 5 mg oral tab 1 tab once daily [Active]; - PMHx: 16:45 ADD/ADHD; Anxiety; Hyperlipidemia; Hypertension; Hypothyroidism; ss - PSHx: 16:45 Hysterectomy; toe surgery; ss - Immunization history:: Adult Immunizations up to date. - Social history:: Smoking status: Patient denies any tobacco usage or history of. Screenin:02 Abuse screen: Denies threats or abuse. Denies injuries from another. Nutritional hb screening: No deficits noted. Tuberculosis screening: No symptoms or risk factors identified. Fall Risk None identified. Assessment: 17:02 General: Appears in no apparent distress. Behavior is calm, cooperative. Pain: Pain hb currently is 3 out of 10 on a pain scale. Neuro: Level of Consciousness is awake, alert, obeys commands, Oriented to person, place, time, situation. Cardiovascular: Capillary refill < 3 seconds Patient's skin is warm and dry. Respiratory: Respiratory effort is even, unlabored, Respiratory pattern is regular, symmetrical. GI: No signs and/or symptoms were reported involving the gastrointestinal system. : No signs and/or symptoms were reported regarding the genitourinary system. EENT: No signs and/or symptoms were reported regarding the EENT system. Derm: Skin is pink, warm \\T\\ dry. Musculoskeletal: abrasions noted to bilateral forehead, large yellow bruise noted to right forehead and periorbital area. 18:03 Reassessment: Patient appears in no apparent distress at this time. Patient and/or hb family updated on plan of care and expected duration. Pain level reassessed. Patient is alert, oriented x 3, equal unlabored respirations, skin warm/dry/pink. 18:25 Reassessment: Brother In Law Chase Grant" Broom [phone]. hb 19:15 Reassessment: Patient appears in no apparent distress at this time. Patient and/or wh family updated on plan of care and expected duration. Pain level reassessed. Patient is alert, oriented x 3, equal unlabored respirations, skin warm/dry/pink. Vital Signs: 16:38 BP 148 / 77; Pulse 78; Resp 16; Temp 97.9(TE); Pulse Ox 99% on R/A; Weight 75.75 kg; ss Height 5 ft. 5 in. (165.10 cm); Pain 3/10; 18:03 BP 140 / 66; Pulse 74; Resp 16; Pulse Ox 99% on R/A; hb 19:00 BP 130 / 73; Pulse 72; Resp 18; Pulse Ox 98% on R/A; wh 16:38 Body Mass Index 27.79 (75.75 kg, 165.10 cm) ED Course: 16:19 Patient arrived in ED. mr 16:41 Triage completed. ss 16:42 Cliff Saavedra NP is PHCP. pm1 16:42 Aaron Venegas MD is Attending Physician. pm1 16:45 Arm band placed on right wrist. ss 17:02 Patient has correct armband on for positive identification. Call light in reach. Side hb rails up X 1. 17:21 CT Head C Spine In Process Unspecified. EDMS 17:21 CT Facial Bones W/O Con In Process Unspecified. EDMS 17:23 Anh Cordova, RN is Primary Nurse. hb 18:10 Wound care: cleaned wounds to right and left elbow with normal saline and dh3 chlorhexidine, dressed left elbow with bandage and triple antibiotic ointment. Cleaned left forearm with normal saline and chlorhexidine, and dressed with steri-strips. 18:49 Elbow Right 3 View XRAY In Process Unspecified. EDMS 19:24 No provider procedures requiring assistance completed. Patient did not have IV access wh during this emergency room visit. Administered Medications: 18:11 Drug: Tetanus-Diphtheria Toxoid Adult 0.5 ml {Superintendent Building: [employer]. Exp: hb 08/25/2022. Lot #: [id number]. } Route: IM; Site: left deltoid; 18:46 Follow up: Response: No adverse reaction hb 18:40 Drug: Lidocaine (1 %) 5 ml {Note: administered by TODD Coronado.} Volume: 5 ml; Route: ss Infiltration; Site: wound; Outcome: 18:50 Discharge ordered by . pm1 19:24 Discharged to home via wheelchair. 19:24 Condition: stable 19:24 Discharge instructions given to patient, Instructed on discharge instructions, follow up and referral plans. wound care, POC Demonstrated understanding of instructions, follow-up care, medications, wound care, POC Prescriptions given X 1. 19:24 Patient left the ED. Signatures: Dispatcher [employer] [facility] Montserrat WhittakerConsuelo RN RN Cliff Saavedra NP CERTIFIED ALCOHOL DRUG COUNSELOR pm1 Anh Cordova, DANELLE RN Shellie Burnett 3 Mary Senior RN RN Corrections: (The following items were deleted from the chart) 17:37 17:02 Musculoskeletal: abrasions noted to bilateral forehead hb hb 19:15 18:40 Lidocaine (1 %) 5 ml 5 ml Infiltration 5 ml ss ss
--- NOTE | 2020-09-01 19:44 | RAD REPORT ---
EXAM DESCRIPTION: RAD - Elbow Right 3 View - 09/01/2020 6:49 pm CLINICAL HISTORY: PAIN Trauma, pain COMPARISON: No comparisons FINDINGS: Soft tissue swelling is seen adjacent to the olecranon process. No acute fracture or dislo cation seen.
[2020-09-01 20:30] VITALS: TEMP 97.9
[2020-09-01 20:32] VITALS: BP 130/73; O2SAT 98
== END 2020-09-01 19:24 | disposition home or self-care (01) ==
LOC: ER 16:14
PROC: 0JQG0ZZ Repair Right Lower Arm Subcutaneous Tissue and Fascia, Open Approach (ICD-10-PCS; principal; 2020-09-01)
DX: S51.011A Laceration without foreign body of right elbow, initial encounter (principal); S50.312A Abrasion of left elbow, initial encounter; W18.39XA Other fall on same level, initial encounter; Y93.89 Activity, other specified; Y92.89 Other specified places as the place of occurrence of the external cause; Z23 Encounter for immunization; Z79.82 Long term (current) use of aspirin; I10 Essential (primary) hypertension; E03.9 Hypothyroidism, unspecified; E78.5 Hyperlipidemia, unspecified; F41.9 Anxiety disorder, unspecified
CPT/HCPCS: 70450; 70486; 72125; 76377; 90471; 90714; 99284

== ENCOUNTER 2020-09-18 01:03 | Emergency (ER) | payer OTHER, MEDICARE ==
--- OUTSIDE RECORDS SUMMARY | 2020-09-18 01:07 | XMS REPORT | Continuity of Care Document ---
:1940 Author Organization [facility] [place] t Address 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 arterial ve (disorder) disorder, systemic arterial (disorder) Active 07/06/1994 Problem 03/13/2018 [facility] Hammer toe Problem Active 2018-03-13 M emoria (disorder) 04:00:51 l Hammer Hurt toe (disorder) Active Problem 03/13/2018 second digit [...] 03-11 04:00:51 04:00:51 l toe(s) Other 05:00: Hurt (acquired) hammer 00 , right toe(s) foot [...] Source Sex Assigned At MD Colon on Tobacco use and 2020-08-02 2020-08-02 Never used [...] ia 9-06 0.5 mL, l 14:01: Injection, Hurt 00 IV Push, q10min PRN for pain severe (7-10), first dose 03/11/18 9:01:00 CDT Promethazin No 12.5 mg = Victorino emoria e 9-06 0.5 mL, l 14:01: Injection, Heron 00 IM, Once PRN for vomiting, first dose 03/11/18 9:01:00 CDT Diphenhydra No 25 mg = Mem oria mine 9-06 0.5 mL, l 14:01: Injection, Hurt 00 IV Push, Once PRN for itching, first dose 03/11/18 9:01:00 CDT Hydralazine No 10 mg = Mem oria 9-06 0.5 mL, l 14:01: Injection, Heron 00 IV Push, As Indicated PRN for hypertensi on, first dose 03/11/18 9:01:00 CDT Labetalol No 5 mg = 1 Mitch bobby 9-06 mL, l 14:01: Injection, Hurt 00 IV Push, As Indicated PRN for hypertensi on, first dose 03/11/18 9:01:00 CDT Robinul No 0.2 mg = 1 Mitch bobby [...] stop date Limited # of times Levalbutero No 0.63 mg = M emoria l 0.21 9-06 3 mL, l MG/ML 14:01: Soln, NEB, Garret n Inhalant 00 Once PRN Solution for [Xopenex] wheezing, first dose 03/11/18 9:01:00 CDT Demerol HCl No 12.5 mg = M emoria 9-06 0.5 mL, l 14:01: Injection, IV Push, Once PRN for shivers, first dose 03/11/18 9:01:00 CDT Saline Lock No 10 mL, Mitch bobby Flush 03-11 Soln, IV l 14:01: Push, As Indicated PRN for flush, first dose 03/11/18 9:01:00 CDT Morphine No 2 mg = 0.2 Mem oria 9-06 mL, l 14:01: Injection, IV Push, q5min PRN for pain, first dose 03/11/18 9:01:00 CDT Misc 0 No 500 mL, Memoria Medication 03-11 Soln-IV, l 13:47: IV, Once, first dose 03/11/18 8:47:00 CDT, stop date 03/11/18 8:47:00 CDT fentaNYL No 25 mcg = Memor ia 03-11 0.5 mL, l 13:13: Injection, IV, Once, first dose 03/11/18 8:13:00 CDT, stop date 03/11/18 8:13:00 CDT midazolam 2018-0 No 0.5 mg = Mitch bobby 9-06 0.5 mL, l 13:13: Injection, Hurt 00 IV, Once, first dose 03/11/18 8:13:00 CDT, stop date 03/11/18 8:13:00 CDT ondansetron 2018-0 No 4 mg = 2 Me moria 9-06 mL, l 13:03: Injection, Hurt 00 IV, Once, first dose 03/11/18 8:03:00 CDT, stop date 03/11/18 8:03:00 CDT dexamethaso 2018-0 No 4 mg = 1 Me moria ne 9-06 mL, l 13:03: Injection, Hurt 00 IV, Once, first dose 03/11/18 8:03:00 CDT, stop date 03/11/18 8:03:00 CDT ceFAZolin 2018-0 No 2 gm, Memoria 03-11 Soln-IV, l 12:52: IV Heron 00 Piggyback, Once, first dose 03/11/18 7:52:00 CDT, stop date 03/11/18 7:52:00 CDT propofol 2018-0 No 120 mg = Memor ia 03-11 12 mL, l 12:52: Emulsion, IV, Once, first dose 03/11/18 7:52:00 CDT, stop date 03/11/18 7:52:00 CDT lidocaine 2018-0 No 4 mL, Memoria 9-06 Injection, l 12:52: IV, Once, first dose 03/11/18 7:52:00 CDT, stop date 03/11/18 7:52:00 CDT midazolam 2018-0 No 1 mg = 1 Mitch bobby 9-06 mL, l 12:49: Injection, Hurt 00 IV, Once, first dose 03/11/18 7:49:00 CDT, stop date 03/11/18 7:49:00 CDT fentaNYL 2018-0 No 50 mcg = 1 Mem oria 9-06 mL, l 12:49: Injection, Hurt 00 IV, Once, first dose 03/11/18 7:49:00 [...] Injection, l IV Start 11:02: Subcutaneo Her banner [[facility]] 00 , Once PRN for other (see comment), first dose 03/11/18 6:02:00 CDT quetiapine 2017-0 Yes 1/2 tab, Me moria 50 MG Oral 8-29 Oral, qPM, l Tablet 16:14: 0 Hurt 00 Refill(s), depression Fluoxetine 2018- Yes 80 mg = 4 Me moria 20 MG Oral 8-29 caps, l Capsule 16:14: Oral, Heron 00 Daily, ok to take am of sx, 0 Refill(s), depression clonazePAM 2017-0 Yes See Memoria 1 mg oral 8-29 Instructio l tablet 16:14: ns, 1 tabs Halle nn 00 q am and 2 tabs q pm, pt inst ok to take am of sx, 0 Refill(s), anxiety Bupropion 2017-0 Yes 300 mg, Memor ia 8-29 Oral, l 16:14: Daily, ok to take am of sx, 0 Refill(s), depression amLODIPine Yes 5 mg = 1 Mem oria 5 mg oral 8-29 tabs, l tablet 16:14: Oral, Hurt 00 Daily, pt inst to take am of sx, 0 Refill(s), htn DHA Yes DHA, 300 Memoria 8-29 mg =, l 16:14: Oral, Daily, 0 Refill(s), supplement Hydrochloro Yes 1 [...] Celis Yes 1 caps, Memori a Colon 8-29 Oral, l Health oral 16:14: Daily, # [...] Oral, Heron 00 Daily, 0 Refill(s), heart [employer] Keflex 500 Keflex 500 Yes Uni vers MG TABS MG TABS [facility] Cranberry Cranberry Yes Unive rs [...] KlonoPIN Yes Univers TABS TABS [facility] Vital Signs Vital Name Observation [...] weight 2020-08-02 19:25:00 78.3 kg MD Dg walsl BMI 2020-08-02 19:25:00 30.59 kg/m2 MD Conte son Respitory Rate 2018-03-11 18:42:00 Memori al Heron Systolic (mm Hg) 2018-03-11 18:42:00 Mitch rial Hurt Diastolic (mm Hg) 2018-03-11 18:42:00 Mem orial Hurt Temperature Oral (F) 2018-03-11 18:42:00 37.0 [facility] Heart Rate 2018-03-11 14:40:00 [facility]urt Respitory Rate 2018-03-11 14:40:00 Memori al Hurt Systolic (mm Hg) 2018-03-11 14:40:00 Mitch rial Hurt Diastolic (mm Hg) 2018-03-11 14:40:00 Mem orial Heron Respitory Rate 2018-03-11 14:30:00 Memori al Hurt Systolic (mm Hg) 2018-03-11 14:30:00 Mitch rial Heron Diastolic (mm Hg) 2018-03-11 14:30:00 Mem orial Heron Heart Rate 2018-03-11 14:30:00 [facility] Heron Heart Rate 2018-03-11 14:20:00 [facility] Hurt Temperature Oral (F) 2018-03-11 13:40:00 36.7 [facility] Temperature Oral (F) 2018-03-11 11:03:00 36.6 Claud[facility] Height 2018-03-11 11:03:00 165.10 cm [facility] Heron Height 2018-03-03 14:54:00 165.10 cm [facility] Heron Procedures Procedure Date / Time Performing Clinician Source Performed STEREOTACTIC BREAST 2020-08-06 16:40:22 Veronica Mix MD son BIOPSY LEFT MAMMO POST PROCEDURE LEFT 2020-08-06 16:26:31 Veronica Mix MD PATHOLOGY BIOPSY 2020-08-06 16:02:00 Veronica Mix MD INTERPRETATION MAMMO DIGITAL DIAGNOSTIC 2020-08-03 17:26:19 Cathie Willis MD BILATERAL W ETHAN HC 2019-NCOV COVID-19 2020-07-31 15:19:00 Cathie Willis MD derson OSI MAMMOGRAPHY 2020-07-14 02:33:04 Cathie Willis MD UNILATERAL LEFT OSI MAMMO BILATERAL 2020-05-24 02:33:22 Cathie Willis MD [place] [UTP] Ortho - Surgery 2018-06-01 00:00:00 [facility] Scheduling Physicians CORRECTION HAMMER TOE 2018-03-11 13:05:00 Tiffanie Mujica [id number] (Right)<sup>1</sup> achilles tendon tear 2015-07-06 00:00:00 Beto Shelby hysterectomy, bladder 2014-07-06 00:00:00 Tiffanie Mujica sling colonoscopy/egd Shalom Shelby History of Hysterectomy [facility] History of Foot surgery [facility] Plan of Care Planned Activity Planned Date Details Comments Source Diagnostic Test 2018-06-01 [UTP] Ortho - [facility] Pending 00:00:00 Surgery Scheduling Physician s [code = [UTP] Ortho - Surgery Scheduling] Encounters Start End Encounter Admission Attending Care Care Encounter Source Date/Time Date/Time Type Type Clinicians Facility Department ID 2020-08-14 Outpatient SYSTEM, MDA MDA [id number] 17:50:53 PROVIDER Isaiah o cintia 2020-08-02 Outpatient SYSTEM, MDA MDA [id number] 17:38:38 PROVIDER Isaiah o cintia 2020-07-30 Outpatient SYSTEM, MDA MDA [id number] 13:03:43 PROVIDER Isaiah o cintia 2020-08-06 2020-08-06 Outpatient EL MDA MDA [id number] 09:22:04 09:22:04 Isaiah o cintia 2020-08-06 2020-08-06 Outpatient EL MDA MDA [id number] 08:48:09 08:48:09 Isaiah o cintia 2020-08-03 2020-08-03 Outpatient EL MIGGINS, MDA MDA [id number] 09:57:06 09:57:06 CATHIE Colon o cintia 2020-08-02 2020-08-02 Outpatient MIGGINS, MDA MDA [id number] 16:50:16 16:50:16 CATHIE Colon o cintia 2020-08-02 2020-08-02 Outpatient MIGGINS, MDA MDA [id number] 16:49:00 16:49:00 CATHIE Colon o cintia 2020-08-02 2020-08-02 Outpatient MIGGINS, MDA MDA [id number] 16:48:00 16:48:00 CATHIE Isaiah o n 2020-08-02 2020-08-02 Outpatient MIGGINS, MDA MDA [id number] 16:47:27 16:47:27 CATHIE Isaiah o n 2020-08-02 2020-08-02 Outpatient MIGGINS, MDA MDA [id number] MD 16:45:52 16:45:52 CATHIE Isaiah o n 2020-08-02 2020-08-02 Outpatient EL MIGGINS, MDA MDA [id number] 13:14:07 14:38:29 CATHIE Isaiah o n 2020-08-02 2020-08-02 Outpatient EL MDA MDA [id number] MD 12:52:24 12:52:50 Isaiah o cintia 2020-07-31 2020-07-31 Outpatient EL TIARA LEVINE, MDA MDA [id number] 09:06:17 09:19:19 RONNIE chamberlain 2018-06-01 2018-06-01 Appointgreg AHN, [facility] UTP [id number] Univers 14:15:00 14:15:00 t; ROMI AHN, Orthopedic i ty of ROMI, DPM Surgery - [place] DPM [facility] 2 ans 2018-05-04 2018-05-04 Appointgreg AHN, [facility] UTP [id number] Univers 14:15:00 14:15:00 t; ROMI AHN ity of ROMI, DPM [place] DPM Physici ans 2018-04-20 [facility] [id number] Univers 15:45:00 15:45:00 t; ROMI AHN ity of ROMI, DPM [place] DPM Physici ans 2018-04-08 2018-04-08 AppointKAE Logan UTP [id number] Univers 16:00:00 16:00:00 t; ROMI AHN, ity of ROMI, DPM [place] DPM Physici ans 2018-04-06 2018-04-06 AppointKAE Logan UTP [id number] Univers 16:15:00 16:15:00 t; ROMI AHN ity of ROMI, DPM [place] DPM Physici ans 2018-03-24 2018-03-24 Appointmen JIMY, KAE UTP [id number] Univers 13:45:00 13:45:00 t; JIMY ROMI, ity of ROMI, DPM [place] DPM Physici ans 2018-03-11 2018-03-11 Outpatient Jimy [id number] 05:47:42 10:15:00 Romi 8 2018-03-11 2018-03-11 Appointmen JIMYKAE [id number] Univers 07:30:00 07:30:00 t; JIMYROMI, ity of ROMI, DPM [place] DPM Physici ans 2018-01-21 2018-01-21 Appointmen JIMYKAE UTP [id number] Univers 13:30:00 13:30:00 t; JIMY ROMI, ity of ROMI, DPM [place] DPM Physici ans Results Test Description Test Time Test Comments Results Result Comments Source Pathology Biopsy Interpretation 2020-08-08 16:43:00 Test Item Value Reference Range Interpretation Comme nts Diagnosis l3ywkLRuBCCrbNI1GtVjOATbi1tny0YkzGUaoWJzWAiajDQyeuPoaf82hPW1sC86BT9vTXYpUmB9BWMr xjC9Tgv2RMPaRSNafMLuG295x7mog8ljccDkwCR4lHauHAAjVCKxPAbjCFPgZeDuRZ8qHMNqqLHfcmOk x7VoJXWdbEGwKlwjSHPzn40lMERqXuBnT7Hck5BnABQ (test code 3QXWrXCIdn37nobnruNewHMLjaPTwMC90RUG1bJOaK87gMSPeuK3dd6e3GRYwofz8GRFeZmcghm5dFJL qe14oIGXoIOWmhHBno3KaIE6coCB5w3aaUMBpAV7xQXQaEHQmipepMCDxKVwiLUK1YAjykD32FyGhvIo uZBE8CDm5xLl3LfPiFcydtk5pgHF3iMVhH1bzljrbvb = 34) uvcC3uaHAxjV2vTDPhcAUkHIK3R9NuoYEqlSJifoPvLQYoWXtkFSQzN2KekwGenHQ8TPRhYCYlNHSbad FcEOjlQLPaKMQyyXX2mt0fFUCwqvpqcVuoJTonxFDdzZmhMaKuOP7vY7NnI4CrR3msuZIawIqwshBdBG Rgg3HwXKUgAIL5vSDePMWdKsVaTGRffe2dHHInbjIjB xJwbZbpPXI6M7UsKhUgiBYvHRVyyzRbuJWtGDpMXH9ZMYisOYBiEQWkHv2dWCQrRDm2KGWtWW1doFQzx Q== Gross t5dkmLFcAAIynOX3SoBxLGRyu1qiw2LgiATokYIxCCsohEPbdfUjjm87qUP0uB04QH0aECSmXpE4UYPn nsX7Rva4JCKsXJEpsWUxF715k8khx7pwnwVfrKF4tGusNDOmh3amQGSqbDPtGZV0AMfwwVJhSXTsBBTy EZx4ZKIaEAduaVCpVC3luPvoJtwzaVcjp2McpHNsRUx Descriptio iGRXrXMXcFHloPXRhQ4DTAZNxPjM6Bjm2WzXfMGl1KKzlH9PQLFXfCEE1OpHjSOMhTlY1WMy4BUWFGh6 eDwK5QUZlXQi7XGM3NqU8YNrcmQOgDRxqEtecFZznJOBxyKSzMXqyMeSxKEBiRNsyNkBhPW2ykLaapFE gkdkvPZIfBjIyDRwqtLHaFTEgCBaoLmEvEaRyBQF1PW n (test JvKUcpkFOjY5Z9hQ6awnHxt4JflSIbJKW0DVXaSN6lO8ncV3ueNWvifLGoRpyeGXYuG58fc6ttvIFhLz OnAEYoh1UxbiQglKoiZAMvCX6stHRhGLMiu7KuzdLmxdDfYa17vsWspN5vbKNhCL4sOYcqpPNzLWFfg8 R1JUUoRGJkMRB9HOsgs3ZfwOHrIWsdqXegjxNsxBWpg code = 9VmaCB2JGIqh3Q0LEmzadNuQ2zwBpVmlsEjaYrwMNJpf31iFO80JPJyNOZ8bEQ3htDmXyLvF47isVOaC 5UsHNXmEZLdzpDjHDgbkgacSJ8iZGGkDGpuDQMzYZ0tuRCaFJArohAdekBdsAJqvYGozDS3ANRkaD6aY LTxDIF2CTBoptTgFXcppZgaO4KtS0djeYZwuTfhswFo 0861058100 RJPreDHuKJFlj5KfeNKqWdYRFqacXDIbq6VjBZezoOzhB1BtE4jxpEWjoJuumcW0HCQ8TAF8TlLoEEGi zgJiWJHmfyUaFVPbWAS8QStiAWW9KTMrZ27dGX2kKFw3AMSesRPcEMY8EV4hcKhoFHWwM5UjA8UirjQ9 XHBhcn0= ) Disclaimer x0gkhWCzATFlcFJmKnOiCEChWWAsj0gwUKSfdJUbMwWgPoHqVuBqPcujjGKeFCHuVpDyk5hhv136cKLo n1aqMJHhJyL0qWTjCCPgtBZsV336SRZaKGwba0mvb2FaIPUbfLDlq5Y6NREIofdejRq6xMyvO82mz5D3 YtflL8pxPROmTCUfP7ImPT6wDPGnIqr3FOP3JIV8FZH (test code qDJJzR3HrAK8wAVRruTDhKDt8m4bpmKsxXMDeSET4f5scFWnbpwPaBG4upc0whYh9f4bihyPqJQYoWGM gpURGPDGsK2OweXiiDh5xuXc2xZenJhhjUXM1Siy3TT9tzc49wml1gVzcWIAsrhqbVyX9ZDlvKOHrnny bDHk9FJmzWJQmiCS8QYAxyGXlW3ZjWKLqLE9yevf4JB = 9844) F9NNigSHHoNxP4NPXflBUpPTBhzJykQJdbv708VSO7YmSeAV4yI3Pvv1E2qA0wpBPdWDWiqGNcYfZhYB Seoa2mxCVbYXwly6InNVE8nfP7tBFypEEsCSJaQL27Itcgz2InThqvNVW6BXBfowApi9Nkt1dmPwMgii GcF7srI3HsULGzLMFdHYJdLuObjyZlb0Zfx2QxhZMak Zq9h9juYIZpNQUziOqox2neYLV5GPEmV6X2wEIvf0wsURlzEHMjkIS6fdE5TOSvzMVfJ5IfgM2aLZCqD I8tmve1y5zmRDO6GJqhWQTlXgH7cbB5FRZceUWvUWPweFukXIkwi969OXU4TiOyHTNzu2AfM2QdpTsoF 06yaGkpF58kVTBlrApadA9blEswlB2yBgHmRtJfVUxy aOkjaCRjytcfGSgybcH7VKdwoqgsIIHeGJtaF7stLwPfKYDjpChwUJufh1VkHRHuQJEsShlsxiW9HWYI r99jDALjr7IlMVMrcD7sfGLvHDbbiyAmlBI9TAvwspTbQaFyseVtPEXzrZ5xPGYdMD9wSDRdhwQybe9b pzIwLFTlQBAgC8WqpegsuHnvozPdYWFdvw6bocXxRAI 7XCAQHW8XKLFcPSMng11wDMLdrRbmqZ4bdQQvuyPsIEKha2CvkU5mbWLCXKRtD5ttQI6bNExsp0HhnDS vqFCauLU5GZYqq7TbVyLjhpXwgAIofWNqS1AtvXxlO0sjCWEzKHHiyeCgaHFtg7NaMTVurPB3vHKwEY9 XJfCCg31iOAOuLGZRdyOrPYPouCpddNM6etK9qA8bOw BAXuDteVAizTRqDxsuVXAgs980pr4gbjR7IFCeGGGmuoefp6RsRKZtTMIriO68GPLwNEJntg4ojshubJ JqvgNxE4Voesf8cB1nIKGfSKxiOZJiSNUzMrOjdWXsWsQwXjPzoUarjQseBXrwVoEhWHBqHAwqM0zjDh FcZnMyMlxwYXJ9 HampshireStereotactic Breast Biopsy [id number] 17:08:46Addendum by Harshil Wesley MD on 08/08/2020 [...] 5.Percentage of calcifications removed: Approximately 60%.Marker clip: Gen[employer]yo[employer] Top-Hat (T shape)EBL: Minimal.Complications: None.Post procedure: Steri-Strips [...] 5.Percentage of calcifications removed: Approximately 60%.Marker clip: Hologic Top-Hat (T shape)EBL: Minimal.Complications: None.Post procedure: Steri-Strips and a bandage at wound site.Disposition: Good. POST- PROCEDURE MAMMOGRAPHY: Confirms 1.6 cm of medial clip migration. Residualcalcifications are noted. IMPRESSION:Successful stereotactic biopsy. Pathology results and concordance will bereported in an addendum.MD Venegas Diagnostic Mammogram w Ethan - [id number] 18:06:48 Test Item Value Reference Range Interpretation [...] Abnormality Lab Interpretation Abnormal (test code = 27246-9) MD Sanchez [id number] 02:33:25Study acquired at another institution. For comparison only. No [facility] originated interpretationrequested or available.MD Sanchez MAMMOGRAPHY UNILATERAL [id number] 02:33:09Study acquired at another institution. For comparison only. No [facility] originated interpretationrequested or available.MD Short COVID-19 (ROSSANA-CoV-2) PCR [id number] 02:35:26 Test Item Value Reference Interpretation Comments Range COVID19 SARS New Patient Indication (test code = 27090) COVID19 SARS Result Not Detected Not Detected (test code = 48150-8) COVID19 SARS SARS-CoV-2 NOT Detected. Interpretation (test Reference Range: Not code = 50059) Detected Methodology: The [place] RealTime SARS-CoV-2 assay is a qualitative real-time reverse molding technician polymerase chain reaction (tailman-PCR) test to detect RNA from SARS-CoV-2 in nasal, nasopharyngeal and oropharyngeal swabs from patients with signs and symptoms of infection who are suspected of COVID-19 by their health care provider. The [place] RealTime SARS-CoV-2 performed on the [employer]000 System is a dual target assay [...] CLIA-certified, high-complexity Molecular Diagnostics Laboratory (MDL) at [facility] [place] under the Food and Drug Administration (FDA) s Emergency Use Authorization. Factsheet for patients: https://www.[employer].org/ AbbottFactSheetPatientsFact sheet for healthcare providers: https://www.[employer].org/ AbbottFactSheetHCP Test performed by:[facility] Diagnostic [id number] [place] [address] MD Moore Use [id number] 14:15:00 Test Item Value Reference Range Interpretation Comments Completed (test code = Completed) DONE [facility]
[2020-09-18 01:53] LABS: Absolute Lymphocytes (CBC) 1.8 K/uL (0.7-4.9); Basophils % 0.4 % (0-1.3); Hematocrit 34.5 % (36.0-45.0); Lymphocytes % 26.1 % (15.3-44.8); MPV 8.9 fL (7.6-11.3); RBC Red Blood Cell Count 3.82 M/uL (3.86-4.86)
[2020-09-18 01:57] LABS: Potassium 3.7 mmol/L (3.5-5.1)
[2020-09-18] MEDS ORDERED: LIDOCAINE 1% W/EPI 1:100,000 MDV 20 ML VIAL ONE (03:20)
--- NOTE | 2020-09-18 03:43 | EDPHYS ---
Physician Documentation [facility] Name: Leah Campbell Age: 80 yrs Sex: Female : 1940 Arrival Date: 09/18/2020 Time: 01:05 Bed 5 Private MD: ED Physician Santo Murrell HPI: 09/18 01:15 This 80 yrs old Female presents to ER via EMS with complaints of Fall Injury. tw4 01:15 Details of fall: The patient fell from an upright position, while walking. Onset: The tw4 symptoms/episode began/occurred just prior to arrival, today. Associated injuries: The patient sustained injury to the head. Severity of symptoms: At their worst the symptoms were moderate, in the emergency department the symptoms are unchanged. The patient has experienced similar episodes in the past, a few times. Historical: - Allergies: 01:00 No Known Allergies; rr5 - Home Meds: 01:00 amlodipine 2.5 mg tab 1 tab once daily [Active]; aripiprazole 5 mg Oral tab 1 tab once rr5 daily [Active]; aspirin 81 mg Oral TbEC 0.5 tab once daily [Active]; clonazepam 1 mg Oral tab 1 tab 3 times per day [Active]; bupropion HCl 300 mg Oral Tb24 1 tab once daily [Active]; levothyroxine 100 mcg tab 1 tab once daily [Active]; fluoxetine 20 mg Oral cap 1 cap 4 x a day [Active]; quetiapine 50 mg Oral tab 1 tab daily [Active]; olmesartan-hydrochlorothiazide 40-12.5mg Oral 1 tab once daily [Active]; ranitidine HCl 150 mg Oral cap 1 cap 2 times per day [Active]; Vitamin D3 1,000 unit Oral cap daily [Active]; simvastatin 80 mg Oral tab daily [Active]; - PMHx: 01:00 ADD/ADHD; Anxiety; Hyperlipidemia; Hypertension; Hypothyroidism; rr5 - PSHx: 01:00 Hysterectomy; rr5 - Immunization history:: Adult Immunizations up to date. - Social history:: Smoking status: unknown Patient uses alcohol, occasionally. Patient/guardian denies using street drugs. - Immunization history: Last tetanus immunization: - up to date. ROS: 01:15 Constitutional: Negative for fever, chills, and weight loss, Eyes: Negative for injury, tw4 pain, redness, and discharge, Cardiovascular: Negative for chest pain, palpitations, and edema, Respiratory: Negative for shortness of breath, cough, wheezing, and pleuritic chest pain, Abdomen/GI: Negative for abdominal pain, nausea, vomiting, diarrhea, and constipation, Back: Negative for injury and pain, Neuro: Negative for headache, weakness, numbness, tingling, and seizure, Psych: Negative for depression, anxiety, suicide ideation, homicidal ideation, and hallucinations. Exam: 01:15 Constitutional: This is a well developed, well nourished patient who is awake, alert, tw4 and in no acute distress. 01:15 Neck: Trachea midline, no thyromegaly or masses palpated, and no cervical lymphadenopathy. Supple, full range of motion without nuchal rigidity, or vertebral point tenderness. No Meningismus. Chest/axilla: Normal chest wall appearance and motion. Nontender with no deformity. No lesions are appreciated. Cardiovascular: Regular rate and rhythm with a normal S1 and S2. No gallops, murmurs, or rubs. Normal PMI, no JVD. No pulse deficits. Respiratory: Lungs have equal breath sounds bilaterally, clear to auscultation and percussion. No rales, rhonchi or wheezes noted. No increased work of breathing, no retractions or nasal flaring. Abdomen/GI: Soft, non-tender, with normal bowel sounds. No distension or tympany. No guarding or rebound. No evidence of tenderness throughout. Back: No spinal tenderness. No costovertebral tenderness. Full range of motion. MS/ Extremity: Pulses equal, no cyanosis. Neurovascular intact. Full, normal range of motion. Neuro: Awake and alert, GCS 15, oriented to person, place, time, and situation. Cranial nerves II-XII grossly intact. Motor strength 5/5 in all extremities. Sensory grossly intact. Cerebellar exam normal. Normal gait. 01:15 Head/face: Noted is contusion, that is deep, of the right anglican, right temporal area and right side of forehead, a laceration(s), that is linear, 2 cm(s), of the forehead. Vital Signs: 01:00 BP 126 / 66; Pulse 79; Resp 17; Temp 97.8; Pulse Ox 99% ; Weight 79.83 kg; Height 5 ft. rr5 5 in. (165.10 cm); Pain 8/10; 02:00 BP 146 / 89; Pulse 73; Resp 16; Pulse Ox 98% ; rr5 03:00 BP 136 / 89; Pulse 80; Resp 16; Pulse Ox 98% ; rr5 04:00 BP 121 / 70; Pulse 70; Resp 16; Pulse Ox 98% ; rr5 04:30 BP 119 / 80; Pulse 76; Resp 17; Pulse Ox 98% ; rr5 01:00 Body Mass Index 29.29 (79.83 kg, 165.10 cm) rr5 [place] Coma Score: 01:20 Eye Response: spontaneous(4). Verbal Response: oriented(5). Motor Response: obeys ea commands(6). Total: 15. 02:00 Eye Response: spontaneous(4). Verbal Response: oriented(5). Motor Response: obeys rr5 commands(6). Total: 15. 03:00 Eye Response: spontaneous(4). Verbal Response: oriented(5). Motor Response: obeys rr5 commands(6). Total: 15. 04:00 Eye Response: spontaneous(4). Verbal Response: oriented(5). Motor Response: obeys rr5 commands(6). Total: 15. 04:30 Eye Response: spontaneous(4). Verbal Response: oriented(5). Motor Response: obeys rr5 commands(6). Total: 15. Trauma Score (Adult): 01:20 Eye Response: spontaneous(1); Verbal Response: oriented(1); Motor Response: obeys ea commands(2); Systolic BP: > 89 mm Hg(4); Respiratory Rate: 10 to 29 per min(4); Cr Score: 15; Trauma Score: 12 02:00 Eye Response: spontaneous(1); Verbal Response: oriented(1); Motor Response: obeys rr5 commands(2); Systolic BP: > 89 mm Hg(4); Respiratory Rate: 10 to 29 per min(4); Cr Score: 15; Trauma Score: 12 03:00 Eye Response: spontaneous(1); Verbal Response: oriented(1); Motor Response: obeys rr5 commands(2); Systolic BP: > 89 mm Hg(4); Respiratory Rate: 10 to 29 per min(4); [place] Score: 15; Trauma Score: 12 04:00 Eye Response: spontaneous(1); Verbal Response: oriented(1); Motor Response: obeys rr5 commands(2); Systolic BP: > 89 mm Hg(4); Respiratory Rate: 10 to 29 per min(4); Cr Score: 15; Trauma Score: 12 04:30 Eye Response: spontaneous(1); Verbal Response: oriented(1); Motor Response: obeys rr5 commands(2); Systolic BP: > 89 mm Hg(4); Respiratory Rate: 10 to 29 per min(4); [place] Score: 15; Trauma Score: 12 Laceration: 06:19 Wound Repair of 6.4cm ( 2.5in ) subcutaneous laceration to forehead. Distal tw4 neuro/vascular/tendon intact. Anesthesia: Local anesthetic administered with 3 mls of 1% lidocaine w/ Epi. Wound prep: Extensive cleansing by nurse by me. Skin closed with 3 4-0 Prolene using simple sutures and sterile technique. Dressed with Bacitracin, 4x4's. Patient tolerated well. MDM: 01:14 Patient medically screened. tw4 06:20 Data reviewed: vital signs, nurses notes. Data interpreted: Pulse oximetry: tw4 Interpretation: normal. Counseling: I had a detailed discussion with the patient and/or guardian regarding: the historical points, exam findings, and any diagnostic results supporting the discharge/admit diagnosis. Special discussion: Based on the patient's history, exam and DX evaluation, there is no indication for emergent intervention or inpatient TX. It is understood by the patient/guardian that if the SXs persist or worsen they need to return immediately for re-evaluation. I discussed with the patient/guardian in detail that at this point there is no indication for admission to the hospital. It is understood, however, that if the symptoms persist or worsen the patient needs to return immediately for re-evaluation. 09/18 01:14 Order name: Basic Metabolic Panel tw 09/18 01:14 Order name: CBC with Diff tw4 09/18 01:14 Order name: CT Head C Spine tw 09/18 01:14 Order name: Type And Screen tw 09/18 01:46 Order name: Glucose, Ancillary Testing EDMS 09/18 01:14 Order name: Labs collected and sent; Complete Time: 01:53 [facility] 09/18 01:53 Order name: IV Saline Lock - Large Bore; Complete Time: 01:53 rr5 09/18 04:03 Order name: Suture Tray at Bedside; Complete Time: 04:03 rr5 Administered Medications: 03:30 Drug: Lidocaine-Epinephrine -1%: (1:100,000) 10 ml {Note: given by dr. murrell.} Volume: rr5 20 ml; Route: Infiltration; 04:30 Follow up: Response: No adverse reaction rr5 Disposition: 09/18/20 03:43 Discharged to Home. Impression: Laceration without foreign body of scalp, Contusion of other part of head, Mechanical fall. - Condition is Stable. - Discharge Instructions: Contusion, Fall Prevention in the Home, Laceration Care, Adult, Head Injury, Adult, [id number]. - Medication Reconciliation Form, Thank You Letter, Antibiotic Education, Prescription Opioid Use form. - Follow up: Private Physician; When: Upon discharge from the Emergency Department; Reason: Recheck today's complaints, Continuance of care, Re-evaluation by your physician. - Problem is new. - Symptoms have improved. Signatures: Dispatcher [employer] EDMS Nikki Sandoval RN Santo Valverde ea, MD MD tw4 Arvin Meraz RN RN rr5 Corrections: (The following items were deleted from the chart) 04:37 03:43 09/18/2020 03:43 Discharged to Home. Impression: Laceration without foreign body rr5 of scalp; Contusion of other part of head; Mechanical fall. Condition is Stable. Forms are Medication Reconciliation Form, Thank You Letter, Antibiotic Education, Prescription Opioid Use. Follow up: Private Physician; When: Upon discharge from the Emergency Department; Reason: Recheck today's complaints, Continuance of care, Re-evaluation by your physician. Problem is new. Symptoms have improved. tw4
--- NOTE | 2020-09-18 03:43 | ER ---
Nurse's Notes [facility] Name: Leah Campbell Age: 80 yrs Sex: Female : 1940 Arrival Date: 09/18/2020 Time: 01:05 Bed 5 Private MD: Diagnosis: Laceration without foreign body of scalp;Contusion of other part of head;Mechanical fall Presentation: 09/18 01:00 Chief complaint: EMS states: unwitnessed fall, she does not know how long she's on the rr5 floor, all she remember wasgoing to bed around 9PM then woke up having headache and bleeding on her head. on blood thinner. 01:00 Coronavirus screen: Client denies travel out of the [place] in the last 14 days. At this rr5 time, the client does not indicate any symptoms associated with coronavirus-19. Ebola Screen: Patient negative for fever greater than or equal to 101.5 degrees Fahrenheit, and additional compatible Ebola Virus Disease symptoms Patient denies exposure to infectious person. Patient denies travel to an Ebola-affected area in the 21 days before illness onset. Initial Sepsis Screen: Does the patient meet any 2 criteria? No. Patient's initial sepsis screen is negative. Does the patient have a suspected source of infection? No. Patient's initial sepsis screen is negative. Risk Assessment: Do you want to hurt yourself or someone else? Patient reports no desire to harm self or others. Onset of symptoms was September 18, 2020. 01:00 Method Of Arrival: EMS: [facility] rr5 01:00 Acuity: JAY 2 rr5 01:19 Care prior to arrival: pressure dressing to lac on forehead per EMS. Mechanism of ea Injury: Fall. Trauma event details: Injury occurred in the [facility], Injury occurred: at home. Injury occurred: September 18, 2020. Trauma Activation: Alert Physician: ED Physician; Name: ; Notified At: ; Arrived At: Physician: General Surgeon; Name: ; Notified At: ; Arrived At: Physician: Radiology; Name: ; Notified At: ; Arrived At: Physician: Respiratory; Name: ; Notified At: ; Arrived At: Physician: Lab; Name: ; Notified At: ; Arrived At: Historical: - Allergies: 01:00 No Known Allergies; rr5 - Home Meds: 01:00 amlodipine 2.5 mg tab 1 tab once daily [Active]; aripiprazole 5 mg Oral tab 1 tab once rr5 daily [Active]; aspirin 81 mg Oral TbEC 0.5 tab once daily [Active]; clonazepam 1 mg Oral tab 1 tab 3 times per day [Active]; bupropion HCl 300 mg Oral Tb24 1 tab once daily [Active]; levothyroxine 100 mcg tab 1 tab once daily [Active]; fluoxetine 20 mg Oral cap 1 cap 4 x a day [Active]; quetiapine 50 mg Oral tab 1 tab daily [Active]; olmesartan-hydrochlorothiazide 40-12.5mg Oral 1 tab once daily [Active]; ranitidine HCl 150 mg Oral cap 1 cap 2 times per day [Active]; Vitamin D3 1,000 unit Oral cap daily [Active]; simvastatin 80 mg Oral tab daily [Active]; - PMHx: 01:00 ADD/ADHD; Anxiety; Hyperlipidemia; Hypertension; Hypothyroidism; rr5 - PSHx: 01:00 Hysterectomy; rr5 - Immunization history:: Adult Immunizations up to date. - Social history:: Smoking status: unknown Patient uses alcohol, occasionally. Patient/guardian denies using street drugs. - Immunization history: Last tetanus immunization: - up to date. Screenin:18 Abuse screen: Denies threats or abuse. Nutritional screening: No deficits noted. ea Tuberculosis screening: No symptoms or risk factors identified. Fall Risk None identified. Primary Survey: 01:20 NO uncontrolled hemorrhage observed. Breathing/Chest: Respiratory pattern: regular, ea Respiratory effort: spontaneous, unlabored, Chest inspection: symmetrical rise and fall of the chest. Circulation: Skin color: pink, Skin temperature: warm. Disability Alert. Exposure/Environment: Obvious injury(ies) are noted at this time: laceration to right side of brow bone. 01:20 A: The patient is alert. Airway: patent. rr5 02:20 Reassessment Airway Airway Patent Breathing/Chest Respiratory pattern Regular rr5 Respiratory effort Spontaneous Unlabored Breath sounds Clear Chest inspection Symmetrical Circulation Pulses Palpable Disability Alert. Secondary Survey: 01:20 HEENT: Head No injury/deformity Face Other lacerated wound right temporal area Eyes: rr5 Other swelling, bruise right eye Ears: clear bilaterally. Nose: clear to bilateral nares. Throat: is clear with gag reflex present. 01:20 Musculoskeletal: bruise right gluteal and right leg. rr5 Assessment: 01:17 General: Appears in no apparent distress. Behavior is appropriate for age. Pain: ea Complains of pain in right side of forehead. Neuro: Level of Consciousness is awake, alert, obeys commands, Oriented to person, place, time. Respiratory: Airway is patent Respiratory effort is even, unlabored, Respiratory pattern is regular, symmetrical. Derm: Skin is normal, Skin temperature is warm. Injury Description: Head injury sustained to outer aspect of right eyebrow is open, bleeding, had loss of consciousness. 02:10 Reassessment: Patient appears in no apparent distress at this time. Patient is alert, rr5 oriented x 3, equal unlabored respirations, skin warm/dry/pink. awaiting for results. 03:00 Reassessment: Patient appears in no apparent distress at this time. Patient is alert, rr5 oriented x 3, equal unlabored respirations, skin warm/dry/pink. 04:03 Reassessment: Patient appears in no apparent distress at this time. Patient is alert, rr5 oriented x 3, equal unlabored respirations, skin warm/dry/pink. [id number] jessica informed for discharge and arrange for the trasnport. 04:35 Reassessment: Patient appears in no apparent distress at this time. Patient is alert, rr5 oriented x 3, equal unlabored respirations, skin warm/dry/pink. discharge instruction given and explained without complaints made. Vital Signs: 01:00 BP 126 / 66; Pulse 79; Resp 17; Temp 97.8; Pulse Ox 99% ; Weight 79.83 kg; Height 5 ft. rr5 5 in. (165.10 cm); Pain 8/10; 02:00 BP 146 / 89; Pulse 73; Resp 16; Pulse Ox 98% ; rr5 03:00 BP 136 / 89; Pulse 80; Resp 16; Pulse Ox 98% ; rr5 04:00 BP 121 / 70; Pulse 70; Resp 16; Pulse Ox 98% ; rr5 04:30 BP 119 / 80; Pulse 76; Resp 17; Pulse Ox 98% ; rr5 01:00 Body Mass Index 29.29 (79.83 kg, 165.10 cm) rr5 [place] Coma Score: 01:20 Eye Response: spontaneous(4). Verbal Response: oriented(5). Motor Response: obeys ea commands(6). Total: 15. 02:00 Eye Response: spontaneous(4). Verbal Response: oriented(5). Motor Response: obeys rr5 commands(6). Total: 15. 03:00 Eye Response: spontaneous(4). Verbal Response: oriented(5). Motor Response: obeys rr5 commands(6). Total: 15. 04:00 Eye Response: spontaneous(4). Verbal Response: oriented(5). Motor Response: obeys rr5 commands(6). Total: 15. 04:30 Eye Response: spontaneous(4). Verbal Response: oriented(5). Motor Response: obeys rr5 commands(6). Total: 15. Trauma Score (Adult): 01:20 Eye Response: spontaneous(1); Verbal Response: oriented(1); Motor Response: obeys ea commands(2); Systolic BP: > 89 mm Hg(4); Respiratory Rate: 10 to 29 per min(4); Cr Score: 15; Trauma Score: 12 02:00 Eye Response: spontaneous(1); Verbal Response: oriented(1); Motor Response: obeys rr5 commands(2); Systolic BP: > 89 mm Hg(4); Respiratory Rate: 10 to 29 per min(4); [place] Score: 15; Trauma Score: 12 03:00 Eye Response: spontaneous(1); Verbal Response: oriented(1); Motor Response: obeys rr5 commands(2); Systolic BP: > 89 mm Hg(4); Respiratory Rate: 10 to 29 per min(4); Cr Score: 15; Trauma Score: 12 04:00 Eye Response: spontaneous(1); Verbal Response: oriented(1); Motor Response: obeys rr5 commands(2); Systolic BP: > 89 mm Hg(4); Respiratory Rate: 10 to 29 per min(4); [place] Score: 15; Trauma Score: 12 04:30 Eye Response: spontaneous(1); Verbal Response: oriented(1); Motor Response: obeys rr5 commands(2); Systolic BP: > 89 mm Hg(4); Respiratory Rate: 10 to 29 per min(4); Cr Score: 15; Trauma Score: 12 ED Course: 01:05 Patient arrived in ED. rr5 01:10 Triage completed. rr5 01:12 Arm band placed on right wrist. rr5 01:14 Santo Murrell MD is Attending Physician. tw4 01:17 Nikki Sandoval RN is Primary Nurse. ea 01:19 Patient maintains SpO2 saturation greater than 95% on room air. Thermoregulation: warm ea blanket given to patient. 01:20 Patient has correct armband on for positive identification. Placed in gown. Side rails ea up X2. Pulse ox on. NIBP on. 01:30 Inserted saline lock: 20 gauge in right forearm, using aseptic technique. Blood rr5 collected. 02:14 CT Head C Spine In Process Unspecified. EDMS 03:35 Assist provider with laceration repair on right side of forehead that was 2.5 cm. or rr5 less using sutures. Set up tray. Performed by Santo Murrell MD Dressed with 4X4s, Kerlix, Neosporin, Patient tolerated well. 04:35 IV discontinued, intact, bleeding controlled, No redness/swelling at site. Pressure rr5 dressing applied. Administered Medications: 03:30 Drug: Lidocaine-Epinephrine -1%: (1:100,000) 10 ml {Note: given by dr. murrell.} Volume: rr5 20 ml; Route: Infiltration; 04:30 Follow up: Response: No adverse reaction rr5 Intake: 01:20 PO: 0ml; Total: 0ml. ea Outcome: 03:43 Discharge ordered by . tw4 04:35 Discharged to home via wheelchair, with family. rr5 04:35 Condition: stable 04:35 Discharge instructions given to patient, family, Instructed on discharge instructions, follow up and referral plans. Demonstrated understanding of instructions, follow-up care. 04:35 awaiting for transportPatient's length of stay extended due to rr5 04:37 Patient left the ED. rr5 Signatures: Dispatcher [employer] EDKS Nikki Sandoval, Santo Valverde RN, ea, MD MD tw4 Arvin Meraz RN RN rr5 Corrections: (The following items were deleted from the chart) 04:03 03:00 Reassessment: Patient appears in no apparent distress at this time. Patient is rr5 alert, oriented x 3, equal unlabored respirations, skin warm/dry/pink. [phone] jessica informed for discharge and arrange for the trasnport rr5
[2020-09-18 05:55] VITALS: O2SAT 98
[2020-09-18 05:57] VITALS: BP 121/70
--- NOTE | 2020-09-18 11:59 | RAD REPORT ---
EXAM DESCRIPTION: CT - Head C Spine Mpr Wo Con - 09/18/2020 6:16 am COMPARISON: None. TECHNIQUE: CT Head and Cervical spine WO contrast on 09/18/2020 1:14 AM CDT This exam was performed according to our departmental dose-optimization program, which includes autom ated exposure control, adjustment of the mA and/or kV according to patient size and/or use of iterati ve reconstruction technique. FINDINGS: Brain: There is no acute hemorrhage, mass effect or midline shift. Melendez-white differentiat ion is preserved. There is no hydrocephalus. There is no significant volume loss for age. The calvarium is intact. There is a large right frontal and periorbital scalp hematoma. The paranasal sinuses are clear. Mastoid air cells are clear. Cervical Spine: There is no acute fracture. Alignment is anatomic. There is mild diffuse facet arthri tis. There is moderate narrowing of the C5-6 and C6-7 discs. Vertebral body heights are preserved. Soft ti ssues are unremarkable. IMPRESSION: No acute hemorrhage. No acute osseous findings. Electronically signed by: Ricky Milton MD 09/18/2020 2:26 AM CDT Due to temporary technical issues with the PACS/Fluency reporting system, reports are being signed by the in house radiologist without review as a courtesy to ensure prompt reporting. The interpreting r adiologist is fully responsible for the content of the report.
== END 2020-09-18 04:37 | disposition home or self-care (01) ==
LOC: ER 01:03
PROC: 0JQ00ZZ Repair Scalp Subcutaneous Tissue and Fascia, Open Approach (ICD-10-PCS; principal; 2020-09-18)
DX: S01.01XA Laceration without foreign body of scalp, initial encounter (principal); W18.39XA Other fall on same level, initial encounter; Y93.01 Activity, walking, marching and hiking; Y92.9 Unspecified place or not applicable; Z79.82 Long term (current) use of aspirin; I10 Essential (primary) hypertension; E03.9 Hypothyroidism, unspecified; E78.5 Hyperlipidemia, unspecified; F41.9 Anxiety disorder, unspecified
CPT/HCPCS: 36415; 70450; 72125; 80048; 82947; 85025; 86850; 86900; 86901; 99285; G0390

== ENCOUNTER 2021-11-30 08:54 | Emergency (ER) | payer OTHER, MEDICARE ==
--- OUTSIDE RECORDS SUMMARY | 2021-11-30 08:55 | XMS REPORT | Clinical Summary ---
:1940 Author Organization [facility] MD [facility] Address [address] [place] [address] Care Team Providers Name Role Phone Loretta Mendieta MD Unavailable MD [facility] Primary Care Provider Allergies No known active allergies Medications Medication Sig Dispensed Refills Start Date End Date Status FLUoxetine (PROzac) 20 0 07/26/2020 Active mg capsule buPROPion (WELLBUTRIN TAKE 1 TABLET BY 0 07/24/2020 Active XL) 300 mg 24 hr MOUTH EVERY tablet MORNING clonazePAM (KlonoPIN) TAKE 1 TABLET BY 0 07/24/2020 Active 1 mg tablet MOUTH EVERY 6 HOURS NEEDED FOR ANXIETY simvastatin (ZOCOR) 80 TK 1 T PO D IN THE 0 05/18/20 20 Active mg tablet LEO amLODIPine (NORVASC) 0 07/30/2020 Active 2.5 mg tablet olmesartan-hydrochloro TAKE 1 TABLET BY 0 07/03/2020 Active thiazide (BENICAR HCT) MOUTH DAILY 40-12.5 mg per tablet benztropine (COGENTIN) TAKE 1 TABLET BY 0 07/24/2020 Active 0.5 mg tablet MOUTH TWICE DAILY levothyroxine TAKE 1 TABLET BY 0 07/20/2020 Active (SYNTHROID, MOUTH DAILY 30 LEVOTHROID) 100 mcg MINUTES BEFORE tablet BREAKFAST ARIPiprazole (ABILIFY) 0 07/24/2020 Active 2 mg tablet multivit-min/iron/foli Take by mouth. 0 Active c/lutein (CENTRUM SILVER WOMEN ORAL) cholecalciferol, Take by mouth. 0 Active vitamin D3, (Vitamin D3) 50 mcg (2,000 unit) capsule aspirin 81 mg EC Take 81 mg by 0 Active tablet mouth. cetirizine (ZyrTEC) 10 Take 10 mg by 0 Active mg tablet mouth. Active Problems Problem Noted Date Hypercholesterolemia 08/02/2020 Hypertensive disorder 08/02/2020 Hypothyroidism 08/02/2020 Mixed anxiety and depressive disorder 08/02/2020 Seasonal allergy 08/02/2020 Encounters Date Type Specialty Care Team Description 08/08/2021 Telephone Breast Surgical Odilia Glass PA Oncology 08/08/2021 Orders Only Breast Surgical Odilia Glass PA Mammogr aphy abnormal Oncology (Primary Dx) after 11/30/2020 Surgical History Surgery Date Site/Laterality Comments TONSILLECTOMY TUBAL LIGATION TOTAL ABDOMINAL HYSTERECTOMY W/ BILATERAL SALPINGOOPHORECTOMY BLADDER SUSPENSION FOOT SURGERY ACHILLES TENDON SURGERY ROTATOR CUFF REPAIR Medical History Medical History Date Comments Hypertension Hyperlipidemia Hypothyroidism Gastroesophageal reflux disease Urge incontinence Overactive bladder Anxiety Rotator cuff tear of right shoulder, not specified as trauma tic Sleep apnea on CPAP Diverticulosis of colon Family History Medical History Relation Name Comments Colon cancer Maternal Grandmother Breast cancer Neg Hx Ovarian cancer Neg Hx Relation Name Status Comments Maternal Grandmother Social History Tobacco Use Types Packs/Day Years Used Date Never Smoker Smokeless Tobacco: Never Used Alcohol Use Standard Drinks/Week Comments Yes 4 (1 standard drink = 0.6 oz pure alcoho l) Sex Assigned at Date Recorded Not on file Job Start Date Occupation Industry Not on file Not on file Not on file Obstetrics History Para Term AB IAB SAB Ectopic Multiple Living Live Births 1 1 Date Outcome GA Total Labor/2nd/3rd Weight Sex Delivery Anes PTL Cary A 1 A5 Name Clin Labor Para Comments Age of parity: 42 Age of menarche: 14 OCP: 2 years HRT: none Fertility treatments: none : 9 months Menopausal status: natural menopause@ 42 yo Bra Size: 42C Last Filed Vital Signs Not on file Plan of Treatment Health Maintenance Due Date Last Done Comments COVID-19 Vaccination (2 - Pfizer 3-dose series) 08/23/2020 08/02/2020 Results Not on fileafter 11/30/2020 Insurance Payer Benefit Plan Subscriber ID Effective Phone Address Typ e / Group Dates MEDICARE MEDICARE PART [id number] 2006-Pres [phone] [facility] A AND B ent [id number] [employer] [address] [facility] [place] [place] [phone] [place] [employer]SE[employer] [id number] 2020-Pres [address] [employer] ONLY ent [id number] [place] [address] Care Teams Terra Cotta Roofer Relationship Specialty Start Date End Date Kings Mendieta MD PCP - External Referring Internal Medicine 07/30/[address] [place] [address] [place] [id number] Cathie Willis MD PCP - General Breast Surgery 07/31/[address] [place] [id number]
--- OUTSIDE RECORDS SUMMARY | 2021-11-30 08:56 | XMS REPORT | Continuity of Care Document ---
:1940 Author Organization [facility] t Address [address] [place] [address] Care Team Providers Name Role Phone [phone] Primary Care Physician Unavailable SYSTEM, NOT IN Attending Clinician Unavailable Goldfarb_R Attending Clinician Unavailable Corry Attending Clinician [phone] ADE_MINDYC_Black_D Attending Clinician Unavailable Woo Morales Attending Clinician [phone] Quan DOE Attending Clinician Hardeep LUA Attending Clinician Alma MCCLENDON, T Attending Clinician Unavailable Unknown Attending Clinician Unavailable HARDEEP Attending Clinician Unavailable Victorino LONDON Attending Clinician Unavailable KHALIDA Attending Clinician Unavailable Neisha MENJIVAR JR Attending Clinician Unavailable JIMY Attending Clinician Unavailable Nilsfarb_R Admitting Clinician Unavailable ADE_DURGAHAOMC_Black_D Admitting Clinician Unavailable Payers Payer Name Policy Type Policy Number Effective Date Expiration Date S savita MEDICARE [place]: [id number] 2006 NOVFlowgear 00:00:00 [facility] [id number] 2020 OPTIONS (MEDICARE 00:00:00 SUPPLEMENT) 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 Seasonal Disease Active allergy allergy 08-02 Anderso 00:00: n 00 History of History of Problem Resolve [place] chronic chronic d Physici obstructiv obstructiv an s e lung e lung disease disease History of History of Problem Resolve [place] essential essential d Phys ici hypertensi hypertensi an s on on History of History of Problem Resolve [place] [facility] Physici cholestero cholestero an s l l History of History of Problem Resolve [place] sleep sleep d Physici apnea apnea ans Acquired Acquired Problem Active [place] hammer toe hammer toe Ph ysici of right of right ans foot foot Right foot Right foot Problem Active U T pain pain Physici ans Acquired Acquired Problem Active [place] mallet toe mallet toe Ph ysici of right of right ans foot foot No known No known Disease Unive rs active active ity of problems problems [facility] Allergies, Adverse Reactions, Alerts Allergy Allergy Status Severity Reaction(s) Onset Inactive Treating Comm ents Source Name Type Date Date Clinician NO KNOWN Drug Active Univers ALLERGIE Class ity of S [facility] Family History Family Member Diagnosis Comments Start Date Stop Date Source Maternal grandmother Colon cancer MD Venegas Family member Breast cancer MD Conte son Family member Ovarian cancer MD [place] bustamanteon Social History Social Habit Start Date Stop Date Quantity Comments Source Exposure to Not sure [facility] SARS-CoV-2 [facility] (event) Branch Alcohol intake 2020-08-02 2020-08-02 .57 /d MD Yañez n 00:00:00 00:00:00 Tobacco use and 2020-08-02 2020-08-02 Smokeless tobacco MD Venegas exposure 00:00:00 00:00:00 non-user Sex [birth year] At [birth year] MD Colon on 00:00:00 00:00:00 Smoking Status Start Date Stop Date Source Never smoker [facility] Branch Medications Ordered Filled Start Stop Current Ordering Indication Dosage Frequency Signature Comments Components Source Medication Medication Date Date Medication? Clinician (SIG) Name Name albuterol 2020-07 Yes ProAir HFA Un [place] (PROAIR 90 ity of HFA) 90 09:15: mcg/actuat [place] mcg/actu[place] 39 ion Medical on inhaler aerosol Branch inhaler ARIPiprazol 2020-07 Yes aripiprazo Univers e 5 mg 2-29 le 5 mg ity of tablet 09:15: tablet TK [place] [address] 1 T PO QD Medical Branch aspirin 81 2020-07 Yes 81mg Take 81 mg U nivers mg EC 2-29 by mouth. ity of tablet 09:15: [address] Branch cetirizine 2020-07 Yes 10mg Take 10 mg U nivers 10 mg 2-29 by mouth. ity of tablet 09:15: [address] Branch Cholecalcif 2020-07 Yes Take by Un yuliet gretel, mouth. ity of Vitamin D3, 09:15: [place] 50 mcg 39 Medical (2,000 Branch unit) capsule albuterol 2020-07 Yes ProAir HFA [place] (PROAIR 90 ity of HFA) 90 09:15: mcg/actuat [place] mcg/actuati 39 ion Medical on inhaler aerosol Branch inhaler ARIPiprazol 2020-07 Yes aripiprazo Univers e 5 mg 2-29 le 5 mg ity of tablet 09:15: tablet TK [place] [address] 1 T PO QD Medical Branch aspirin 81 2020-07 Yes 81mg Take 81 mg U nivers mg EC 2-29 by mouth. ity of tablet 09:15: [address] Branch cetirizine 2020-07 Yes 10mg Take 10 mg U nivers 10 mg 2-29 by mouth. ity of tablet 09:15: [address] Branch Cholecalcif 2020-07 Yes Take by Un yuliet gretel, - mouth. ity of Vitamin D3, 09:15: [place] 50 mcg 39 Medical (2,000 Branch unit) capsule albuterol 2020-07 Yes ProAir HFA [place] (PROAIR 90 ity of HFA) 90 09:15: mcg/actuat [place] mcg/actuati 39 ion Medical on inhaler aerosol Branch inhaler ARIPiprazol 2020-07 Yes aripiprazo Univers e 5 mg 2-29 le 5 mg ity of tablet 09:15: tablet TK [place] [address] 1 T PO QD Medical Branch aspirin 81 2020-07 Yes 81mg Take 81 mg U nivers mg EC 2-29 by mouth. ity of tablet 09:15: [address] Branch cetirizine 2020-07 Yes 10mg Take 10 mg U nivers 10 mg 2-29 by mouth. ity of tablet 09:15: [address] Branch Cholecalcif 2020-07 Yes Take by Un [place]ul[place] gretel, 2-29 mouth. ity of Vitamin D3, 09:15: [place] [id number] Medical (2,000 Branch unit) capsule guaiFENesin 2020-07 Yes [id number] 400mg Take 1 Univers 400 mg 2-29 tablet by ity of tablet 00:00: mouth [place] 00 every 4 Medical (four) Branch hours as needed for Cough. benzonatate 2020-07 Yes [id number] 200mg Take 2 Univers 100 mg 2-29 capsules ity of capsule 00:00: [place] mouth 2 [place] 00 (two) Medical times Branch daily as needed for Cough. bromphenira 2020-07 Yes [id number] 5mL Take 5 mL Univers mine-pseudo 2-29 by mouth 4 it y of ephedrine-D 00:00: (four) [place] M (BROMFED 00 times Medical DM) 2-30-10 daily as Bran ch mg/5 mL needed for syrup Congestion /Allergies . guaiFENesin 2020-07 Yes [id number] 400mg Take 1 Univers 400 mg 2-29 tablet by ity of tablet 00:00: mouth [place] 00 every 4 Medical (four) Branch hours as needed for Cough. benzonatate 2020-07 Yes [id number] 200mg Take 2 Univers 100 mg 2-29 capsules ity of capsule 00:00: by mouth 2 [place] 00 (two) Medical times Branch daily as needed for Cough. bromphenira 2020-07 Yes [id number] 5mL Take 5 mL Univers mine-pseudo 2-29 by mouth 4 it y of ephedrine-D 00:00: (four) [place] M (BROMFED 00 times Medical DM) 2-30-10 daily as Bran ch mg/5 mL needed for syrup Congestion /Allergies . guaiFENesin 2020-07 Yes [id number] 400mg Take 1 Univers 400 mg 2-29 tablet by ity of tablet 00:00: mouth [place] 00 every 4 Medical (four) Branch hours as needed for Cough. benzonatate 2020-07 Yes [id number] 200mg Take 2 Univers 100 mg 2-29 capsules ity of capsule 00:00: by mouth 2 [place] 00 (two) Medical times Branch daily as needed for Cough. bromphenira 2020-07 Yes [id number] 5mL Take 5 mL Univers mine-pseudo 2-29 by mouth 4 it y of ephedrine-D 00:00: (four) [place] M (BROMFED 00 times Medical DM) 2-30-10 daily as Bran ch mg/5 mL needed for syrup Congestion /Allergies . olmesartan- 2020-07 Yes Univer s hydrochloro 2-28 ity of thiazide 00:00: [place] 40-12.5 mg 00 Medical per tablet Branch olmesartan- 2020-07 Yes Univer s hydrochloro 2-28 ity of thiazide 00:00: [place] 40-12.5 mg 00 Medical per tablet Branch olmesartan- 2020-07 Yes Univer s hydrochloro 2-28 ity of thiazide 00:00: [place] 40-12.5 mg 00 Medical per tablet Branch RESTASIS 2020-07 Yes Univers 0.05 % 2-26 ity of ophthalmic 00:00: [place] drops 00 Medical Branch RESTASIS 2020-07 Yes Univers 0.05 % 2-26 ity of ophthalmic 00:00: [place] drops 00 Medical Branch RESTASIS 2020-07 Yes Univers 0.05 % 2-26 ity of ophthalmic 00:00: [place] drops 00 Medical Branch FLUoxetine 2020-07 Yes TAKE 4 Unive rs 20 mg 2-22 CAPSULES ity of capsule 00:00: BY MOUTH [place] 00 EVERY Medical MORNING Branch FLUoxetine 2020-07 Yes TAKE 4 Unive rs 20 mg 2-22 CAPSULES ity of capsule 00:00: BY MOUTH [place] 00 EVERY Medical MORNING Branch FLUoxetine 2020-07 Yes TAKE 4 Unive rs 20 mg 2-22 CAPSULES ity of capsule 00:00: BY MOUTH [place] 00 EVERY Medical MORNING Branch buPROPion 2020-07 Yes 300mg Take 300 Uni vers XL 300 mg 2-08 mg by ity of 24 hr 00:00: mouth [place] tablet 00 every Medical morning. Branch buPROPion 2020-07 Yes 300mg Take 300 Uni vers XL 300 mg 2-08 mg by ity of 24 hr 00:00: mouth [place] tablet 00 every Medical morning. Branch buPROPion 2020-07 Yes 300mg Take 300 Uni vers XL 300 mg 2-08 mg by ity of 24 hr 00:00: mouth [place] tablet 00 every Medical morning. Branch simvastatin 2020-07 Yes TAKE 1 Univ ers 80 mg 1-16 TABLET BY ity of tablet 00:00: MOUTH [place] 00 DAILY IN Medical THE Branch EVENING simvastatin 2020-07 Yes TAKE 1 Univ ers 80 mg 1-16 TABLET BY ity of tablet 00:00: MOUTH [place] 00 DAILY IN Medical THE Branch EVENING simvastatin 2020-07 Yes TAKE 1 Univ ers 80 mg 1-16 TABLET BY ity of tablet 00:00: MOUTH [place] 00 DAILY IN [facility] THE [place] EVENING QUEtiapine 2020-07 Yes 100mg Take 100 Un [place] 50 mg 1-14 mg by ity of tablet 00:00: mouth at [place] 00 bedtime. Medical Branch QUEtiapine 2020-07 Yes 100mg Take 100 [place] 50 mg 1-14 mg by ity of tablet 00:00: mouth at [place] 00 bedtime. Medical Branch QUEtiapine 2020-07 Yes 100mg Take 100 [place] 50 mg 1-14 mg by ity of tablet 00:00: mouth at [place] 00 bedtime. Medical Branch clonazePAM 2020-07 Yes TAKE 1 Unive rs 1 mg tablet 0-27 TABLET BY ity of 00:00: MOUTH [place] 00 EVERY 6 Medical HOURS Branch NEEDED FOR ANXIETY clonazePAM 2020-07 Yes TAKE 1 Unive rs 1 mg tablet 0-27 TABLET BY ity of 00:00: MOUTH [place] 00 EVERY 6 Medical HOURS Branch NEEDED FOR ANXIETY clonazePAM 2020-07 Yes TAKE 1 Unive rs 1 mg tablet 0-27 TABLET BY ity of 00:00: MOUTH [place] 00 EVERY 6 Medical HOURS Branch NEEDED FOR ANXIETY multivit-mi Yes Take by MD chamberlain/iron/foli 08-02 mouth. Isaiah o c/lutein 13:41: n (CENTRUM 47 SILVER WOMEN ORAL) cholecalcif Yes Take by MD majano, 08-02 mouth. Pari vitamin D3, 13:41: n (Vitamin 47 D3) 50 mcg (2,000 unit) capsule aspirin 81 Yes 81mg Take 81 mg M D mg EC 08-02 by mouth. Anderso tablet 13:41: n 47 cetirizine Yes 10mg Take 10 mg M D (ZyrTEC) 10 08-02 by mouth. And erso mg tablet 13:41: n 47 amLODIPine Yes Univers 2.5 mg 1-25 ity of tablet 00:00: [place] Medical Branch amLODIPine 2020-0 Yes Univers 2.5 mg 1-25 ity of tablet 00:00: [place] Medical Branch amLODIPine 0 Yes Univers 2.5 mg 1-25 ity of tablet 00:00: [place] [facility] Branch amLODIPine 0 Yes MD (NORVASC) 1-25 Anderso 2.5 mg 00:00: n tablet 00 FLUoxetine 2020-0 Yes MD (PROzac) 20 1-21 Anderso mg capsule 00:00: n 00 benztropine 2020- Yes 1{tbl} Take 1 Un [place] 0.5 mg 1-19 tablet by ity of tablet 00:00: mouth 2 (two) Medical times Branch daily. benztropine Yes 1{tbl} Take 1 [place] 0.5 mg 1-19 tablet by ity of tablet 00:00: mouth 2 (two) Medical times Branch daily. benztropine Yes 1{tbl} Take 1 [place] 0.5 mg 1-19 tablet by ity of tablet 00:00: mouth 2 (two) Medical times Branch daily. buPROPion Yes TAKE 1 MD (WELLBUTRIN 1-19 TABLET BY And erso XL) 300 mg 00:00: MOUTH n 24 hr 00 EVERY tablet MORNING clonazePAM 2020-0 Yes TAKE 1 MD (KlonoPIN) 1-19 TABLET BY [place] rso 1 mg tablet 00:00: MOUTH n 00 EVERY 6 HOURS NEEDED FOR ANXIETY benztropine 0 Yes TAKE 1 MD (COGENTIN) 1-19 TABLET BY [place] rso 0.5 mg 00:00: MOUTH n tablet 00 TWICE DAILY ARIPiprazol 2020-0 Yes MD kwame (ABILIFY) 1-19 Anderso 2 mg tablet 00:00: n 00 levothyroxi Yes levothyrox Univers ne 100 mcg 1-15 ine 100 ity of tablet 00:00: mcg tablet TK 1 T PO Medical D 30 MIN B Branch ALLA levothyroxi Yes levothyrox Univers ne 100 mcg 1-15 ine 100 ity of tablet 00:00: mcg tablet TK 1 T PO Medical D 30 MIN B Branch ALLA levothyroxi Yes levothyrox Univers ne 100 mcg 1-15 ine 100 ity of tablet 00:00: mcg tablet TK 1 T PO Medical D 30 MIN B Branch ALLA levothyroxi Yes TAKE 1 MD ne 1-15 [...] so mg tablet 00:00: LEO n 00 Keflex 500 Keflex 500 Yes [place] MG TABS MG TABS Physici ans Cranberry Cranberry Yes UT Extract Extract Physici CAPS CAPS ans raNITIdine raNITIdine Yes UT HCl - 150 HCl - 150 Physi ci MG Oral MG Oral ans Tablet Tablet Calcium-Vit Calcium-Vit Yes U T goodwin D3 goodwin D3 Physici TABS TABS ans Aspirin Aspirin Yes UT TABS TABS Physici ans FLUoxetine FLUoxetine Yes UT HCl TABS HCl TABS Physici ans buPROPion buPROPion Yes UT HCl TABS HCl TABS Physici ans amLODIPine amLODIPine Yes UT Besylate Besylate Physici TABS TABS ans Olmesartan Olmesartan Yes UT Medoxomil Medoxomil Physi ci TABS TABS ans Simvastatin Simvastatin Yes U T TABS TABS Physici ans Synthroid Synthroid Yes UT TABS TABS Physici ans QUEtiapine QUEtiapine Yes UT Fumarate Fumarate Physici TABS TABS ans KlonoPIN KlonoPIN Yes UT TABS TABS Physici ans Immunizations Ordered Filled Immunization Date Status Comments Sourc e Immunization Name Name SARS-COV-2 COVID-19 2020-08-23 Completed Unive rsity of PFIZER VACCINE 00:00:00 [facility] SARS-COV-2 COVID-19 2020-08-23 Completed Unive rsity of PFIZER VACCINE 00:00:00 [facility] SARS-COV-2 COVID-19 2020-08-23 Completed Unive rsity of PFIZER VACCINE 00:00:00 [facility] SARS-COV-2 COVID-19 2020-08-02 Completed Unive rsity of PFIZER VACCINE 00:00:00 [facility] SARS-COV-2 COVID-19 2020-08-02 Completed Unive rsity of PFIZER VACCINE 00:00:00 [facility] SARS-COV-2 COVID-19 2020-08-02 Completed Unive rsity of PFIZER VACCINE 00:00:00 [facility] Vital Signs Vital Name Observation Time Observation Value Comments Source Systolic blood 2021-07-03 15:18:00 170 mm[Hg] Univer sity of pressure [facility] Diastolic blood 2021-07-03 15:18:00 81 mm[Hg] Unive rsity of pressure [facility] Heart rate 2021-07-03 15:12:00 63 /min [facility] Body temperature 2021-07-03 15:12:00 37.11 [facility] Res[facility] 2021-07-03 15:12:00 18 /min [facility] Body height 2021-07-03 15:12:00 152.4 cm [facility] Body weight 2021-07-03 15:12:00 77.111 kg [facility] BMI 2021-07-03 15:12:00 33.20 kg/m2 [facility] Oxygen saturation in 2021-07-03 15:12:00 97 /min [facility] Arterial blood by [facility] Pulse oximetry Branch HEIGHT 2020-08-02 13:25:00 160 cm WEIGHT 2020-08-02 13:25:00 78.3 kg Procedures Procedure Date / Time Performed Performing Clinician David e [UTP] Ortho - Surgery 2018-06-01 00:00:00 [facility] shelby Scheduling History of Hysterectomy [facility] History of Foot surgery [facility] Plan of Care Planned Activity Planned Date Details Comments Source Future Scheduled Test 2020-08-23 COVID-19 Vaccination MD Venegas 00:00:00 (2 - Pfizer 3-dose series) [code = COVID-19 Vaccination (2 - Pfizer 3-dose series)] Diagnostic Test 2018-06-01 [UTP] Ortho - Surgery [facility] Pending 00:00:00 Scheduling [code = [UTP] Ortho - Surgery Scheduling] Encounters Start End Encounter Admission Attending Care Care Encounter Source Date/Time Date/Time Type Type Clinicians Facility Department ID 2021-08-02 Outpatient [facility] [id number] Common 08:32:02 [facility] 2021-08-01 Outpatient [facility] [id number] Common 15:05:02 [facility] 2021-01-31 Outpatient SYSTEM, ANABELLE AHN [id number] 11:38:39 PROVIDER Isaiah o n 2020-08-14 Outpatient SYSTEM, ANABELLE AHN [id number] 17:50:53 PROVIDER Isaiah o n 2020-08-02 Outpatient SYSTEM, ANABELLE AHN [id number] 17:38:38 PROVIDER Isaiah o n 2020-07-30 Outpatient SYSTEM, ANABELLE AHN [id number] 13:03:43 PROVIDER Isaiah o n 2021-11-22 2021-11-22 Outpatient Goldfarb_R [facility] [id number] [place] 04:09:00 04:09:00 [facility] 2021-11-19 2021-11-19 Outpatient Goldfarb_R [facility] [id number] [place] 09:56:00 09:56:00 [facility] 2021-11-19 2021-11-19 Outpatient Corry, HMU [id number] 00:00:00 00:00:00 Carlos [id number] 2021-11-05 2021-11-05 Outpatient Goldfarb_R [facility] U [id number] [place] 09:52:00 09:52:00 [facility] 2021-10-25 2021-10-25 Outpatient GC_SWHAOMC_ PRIV PRIV [id number] [place] 03:00:00 03:00:00 Black_D [id number] Medica l 2021-10-24 2021-10-24 Outpatient GC_SWHAOMC_ PRIV PRIV [id number] [facility] 11:58:00 11:58:00 Black_D [id number] Medica l 2021-10-24 2021-10-24 Outpatient Daksha Morales PRIV PRIV [id number] 00:00:00 00:00:00 Berkowitz [id number] 2021-10-23 2021-10-23 Outpatient GC_SWHAOMC_ PRIV PRIV [id number] [facility] 01:14:00 01:14:00 Black_D [id number] Medica l 2021-10-03 2021-10-03 Outpatient Goldfarb_R HMU HMU [id number] [place] 05:10:00 05:10:00 [id number] [facility] 2021-09-25 2021-09-25 Outpatient Goldfarb_R HMU [facility]U [id number] [place] 09:54:00 09:54:00 [id number] [facility] 2021-09-25 2021-09-25 Outpatient Corry, HMU HMU [id number] 00:00:00 00:00:00 Carlos [id number] 2021-09-16 2021-09-16 Outpatient Goldfarb_R HMU [facility] [id number] [place] 12:25:00 12:25:00 [id number] [facility] 2021-08-28 2021-08-28 Outpatient Goldfarb_R HMU [facility] [id number] [place] 10:12:00 10:12:00 [id number] [facility] 2021-08-15 2021-08-15 Outpatient Goldfarb_R HMU [facility] [id number] [place] 03:21:00 03:21:00 [facility] 2021-08-15 2021-08-15 Outpatient Corry, HMU HMU [id number] 00:00:00 00:00:00 Carlos [id number] 2021-08-14 Outpatient Goldfarb_R HMU [id number] [place] 12:40:00 12:40:00 [facility] 2021-07-23 2021-07-23 Outpatient Goldfarb_R HMU [facility] [id number] [place] 03:53:00 03:53:00 [facility] 2021-07-15 2021-07-[address] [facility] [id number] Univers 00:00:00 00:00:00 [facility] [id number] it y of [place] [id number] Jarvis as SKYLAR?BLEA [id number] [address] MEDICAL OFFICE [facility] 2021-07-04 2021-07-04 Letter BRIAN Marquez [id number] Univers 00:00:00 00:00:00 (Out) Licha Gutierrez [facility] [id number] it y of [facility] [id number] Jarvis as [id number] [address] 2021-07-03 2021-07-03 Urgent Michael Meier [facility] [id number] Univers 09:40:00 09:40:00 Care Unknown, [facility] HEALTH [id number] ity of [place] [id number] Jarvis as SKYLAR?BLEA [id number] [address] OFFICE [facility] 2021-07-03 2021-07-03 Outpatient R HARDEEP MNBJORN [facility] [id number] [facility] 09:40:00 09:22:42 MICHAEL jacques [facility] 2021-05-03 2021-05-03 Outpatient Goldfarb_R [facility] [id number] [place] 02:04:00 02:04:00 [id number] [facility] 2021-05-01 2021-05-01 Outpatient Goldfarb_R HMU [id number] [place] 09:43:00 09:43:00 [id number] [facility] 2021-04-30 2021-04-30 Outpatient Goldfarb_R [facility] [id number] [place] 10:04:00 10:04:00 [id number] [facility] 2021-04-30 2021-04-30 Outpatient Corry, HMU HMU [id number] 00:00:00 00:00:00 Carlos [id number] 2021-04-19 2021-04-19 Outpatient Goldfarb_R HMU [facility]U [id number] [place] 11:08:00 11:08:00 [id number] [facility] 2021-04-09 2021-04-09 Outpatient Goldfarb_R HMU [facility]U [id number] [place] 01:24:00 01:24:00 [id number] [facility] 2021-04-09 2021-04-09 Outpatient Corry, HMU HMU [id number] 00:00:00 00:00:00 Carlos [id number] 2021-03-01 2021-03-01 Outpatient Goldfarb_R HMU [facility]U [id number] [place] 12:04:00 12:04:00 [id number] [facility] 2020-12-07 2020-12-07 Outpatient Goldfarb_R HMU [facility]U [id number] [place] 08:06:00 08:06:00 [id number] [facility] 2020-12-07 2020-12-07 Outpatient Corry, HMU HMU [id number] 00:00:00 00:00:00 Carlos [id number] 2020-11-30 2020-11-30 Outpatient Goldfarb_R HMU [facility]U [id number] [place] 11:31:00 11:31:00 [id number] [facility] 2020-11-27 2020-11-27 Outpatient Goldfarb_R HMU [facility]U [id number] [place] 11:01:00 11:01:00 [id number] [facility] 2020-11-20 2020-11-20 Outpatient Goldfarb_R HMU [facility]U [id number] [place] 03:00:00 03:00:00 [id number] [facility] 2020-11-20 2020-11-20 Outpatient Corry, HMU HMU [id number] 00:00:00 00:00:00 Carlos [id number] 2020-11-15 2020-11-15 Outpatient Goldfarb_R HMU [facility] [id number] [place] 05:26:00 05:26:00 [id number] [facility] 2020-11-13 2020-11-13 Outpatient Goldfarb_R HMU U [id number] [place] 04:53:00 04:53:00 [id number] [facility] 2020-08-23 2020-08-23 Outpatient R LITA, [facility] [id number] Univers 15:30:00 15:30:00 DORA jacques [facility] 2020-08-06 2020-08-06 Outpatient EL MDA MDA [id number] MD 09:22:04 09:22:04 Isaiah chamberlain 2020-08-06 2020-08-06 Outpatient EL MDA MDA [id number] MD 08:48:09 08:48:09 Isaiah chamberlain 2020-08-03 2020-08-03 Outpatient EL MIGGINS, MDA MDA [id number] MD 09:57:06 09:57:06 GUERLINE chamberlain 2020-08-02 2020-08-02 Outpatient MIGGINS, MDA MDA [id number] MD 16:50:16 16:50:16 GUERLINE chamberlain 2020-08-02 2020-08-02 Outpatient MIGGINS, MDA MDA [id number] 16:49:00 16:49:00 GUERLINE Colon o cintia 2020-08-02 2020-08-02 Outpatient MIGGINS, MDA MDA [id number] MD 16:48:00 16:48:00 GUERLINE chamberlain 2020-08-02 2020-08-02 Outpatient MIGGINS, MDA MDA [id number] MD 16:47:27 16:47:27 GUERLINE chamberlain 2020-08-02 2020-08-02 Outpatient MIGGINS, MDA MDA [id number] MD 16:45:52 16:45:52 GUERLINE chamberlain 2020-08-02 2020-08-02 Outpatient EL KHALIDA, MDA MDA [id number] 13:14:07 14:38:29 GUERLINE chamberlain 2020-08-02 2020-08-02 Outpatient EL MDA MDA [id number] MD 12:52:24 12:52:50 Isaiah chamberlain 2020-07-31 2020-07-31 Outpatient EL TIARA LEVINE, MDA MDA [id number] 09:06:17 09:19:19 RONNIE chamberlain 2020-06-28 2020-06-28 Outpatient GC_SWHAOMC_ PRIV PRIV [id number] [facility] 09:15:00 09:15:00 Black_D [id number] Medica l 2018-06-01 2018-06-01 Appointgreg AHN, UTP UTP [id number] [place] 14:15:00 14:15:00 t; ROMI AHN, Orthopedic P hysici ROMI, DPM Surgery - ans DPM Carlos [address] 2 2018-05-04 2018-05-04 Appointgreg AHN, UTP UTP [id number] [place] 14:15:00 14:15:00 t; ROMI AHN, Phys ici ROMI, DPM ans DPM 2018-04-20 2018-04-20 Appointgreg AHN, UTP UTP [id number] [place] 15:45:00 15:45:00 t; ROMI AHN, Phys ici ROMI, DPM ans DPM 2018-04-08 2018-04-08 Appointgreg AHN UTP UTP [id number] [place] 16:00:00 16:00:00 t; ROMI AHN, Phys ici ROMI, DPM ans DPM 2018-04-06 2018-04-06 Appointgreg AHN, UTP UTP [id number] [place] 16:15:00 16:15:00 t; ROMI AHN, Phys ici ROMI, DPM ans DPM 2018-03-24 2018-03-24 Appointgreg AHN, UTP UTP [id number] [place] 13:45:00 13:45:00 t; ROMI AHN, Phys ici ROMI, DPM ans DPM 2018-03-11 2018-03-11 Appointmen JIMY UTP UTP [id number] [place] 07:30:00 07:30:00 t; ROMI AHN Phys ici MATTHEW, DPM ans DPVictorino 2018-01-21 2018-01-[address] [facility] [id number] [place] 13:30:00 13:30:00 t; ROMI AHN Phys ici MATTHEW, DPM ans DPM Results Test Description Test Time Test Comments Results Result Comments Source Tobacco Use Screening 2018-06-01 14:15:00 Test Item Value Reference Range Interpretation Comme nts Completed (test code = Completed) DONE [facility]
--- NOTE | 2021-11-30 10:39 | RAD REPORT ---
EXAM DESCRIPTION: RAD - Wrist Left 3 View - 11/30/2021 10:30 am CLINICAL HISTORY: Left wrist pain FINDINGS: No fracture or dislocation is seen. Soft tissue swelling. Mild osteoarthritis involves the wrist
--- NOTE | 2021-11-30 11:36 | EDPHYS ---
Physician Documentation [facility] Name: Leah Campbell Age: 81 yrs Sex: Female : 1940 Arrival Date: 11/30/2021 Time: 08:54 Bed Waiting Private MD: Saroj Mendieta C ED Physician Pankaj Blue HPI: 11/30 10:00 This 81 yrs old Female presents to ER via Ambulatory with complaints of Wrist Pain. cp 10:00 The patient or guardian reports pain. Context: resulted from an unknown cause. Onset: cp The symptoms/episode began/occurred yesterday. Modifying factors: the symptoms are aggravated by movement. Associated signs and symptoms: Pertinent negatives: cyanosis distally, numbness distally. Patient denies injury, reports pain to left wrist since yesterday, noticed swelling today. Historical: - Allergies: : No Known Allergies; jl7 - PMHx: :31 ADD/ADHD; Anxiety; Hyperlipidemia; Hypertension; Hypothyroidism; jl7 - PSHx: :31 Tonsillectomy; jl7 - Immunization history:: Client reports receiving the 2nd dose of the Covid vaccine. - Social history:: Smoking status: Patient denies any tobacco usage or history of. ROS: 10:05 MS/extremity: Positive for pain, swelling, tenderness, of the dorsal aspect of left cp wrist, Negative for injury or acute deformity, decreased range of motion. 10:05 Constitutional: Negative for body aches, chills, fever, poor PO intake. cp 10:05 Neck: Negative for pain with movement, pain at rest, stiffness. 10:05 Cardiovascular: Negative for chest pain, palpitations. 10:05 Respiratory: Negative for cough, shortness of breath, wheezing. 10:05 Abdomen/GI: Negative for abdominal pain, nausea, vomiting, and diarrhea. 10:05 Back: Negative for pain at rest, pain with movement. 10:05 Neuro: Negative for altered mental status, headache, weakness. 10:05 All other systems are negative. Exam: 10:10 Constitutional: The patient appears in no acute distress, alert, awake, well developed, cp well nourished. 10:10 Head/Face: Normocephalic, atraumatic. cp 10:10 Neck: ROM/movement: is normal, is supple, without pain, no range of motions limitations. 10:10 Chest/axilla: Inspection: normal. 10:10 Respiratory: the patient does not display signs of respiratory distress, Respirations: normal. 10:10 Musculoskeletal/extremity: Extremities: grossly normal except: noted in the dorsal aspect of left wrist: pain, swelling, tenderness, There is no evidence of decreased ROM, deformity, ROM: full passive range of motion, in the left wrist, limited passive range of motion due to pain, in the left wrist, overlying skin warm and dry with no signs of infection. Vital Signs: 09: BP 141 / 69; Pulse 82; Resp 17; Temp 98.3; Pulse Ox 100% ; Weight 72.57 kg; Height 5 jl7 ft. 5 in. (165.10 cm); Pain 01/12; : Body Mass Index 26.63 (72.57 kg, 165.10 cm) jl7 Procedures: 11:10 Splinting: Splint applied to left wrist using wrist splint, applied by nurse. Examined cp by me, post splint application: neurovascular intact, Patient tolerated well. MDM: 11:35 Patient medically screened. cp 11/30 09:32 Order name: Wrist Left (3 View) XRAY jl7 11/30 10:46 Order name: Wrist Splint; Complete Time: 11:53 cp Administered Medications: 11:54 Not Given (Patient Refused): Ibuprofen 800 mg PO once jl7 Disposition Summary: 11/30/21 11:35 Discharge Ordered Location: Home cp Problem: new cp Symptoms: have improved cp Condition: Stable cp Diagnosis - Pain in left wrist cp Followup: cp - With: Khari Alvarez MD - When: 1 week - Reason: Recheck today's complaints Discharge Instructions: - Discharge Summary Sheet cp - Wrist Pain, Adult cp Forms: - Medication Reconciliation Form cp - Thank You Letter cp - Antibiotic Education cp - Prescription Opioid Use cp Prescriptions: - Naprosyn 500 mg Oral Tablet - take 1 tablet by ORAL route 2 times per day take with food; 20 tablet; Refills: cp 0, Product Selection Permitted Signatures: Dispatcher [employer] EDMS Aaron Anaya PA PA cp Leal, Jahala RN RN jl7 Corrections: (The following items were deleted from the chart) 12/01 11:50 11/30 11:05 MS/extremity: Positive for pain, swelling, tenderness, of the dorsal aspect cp of left wrist, Negative for injury or acute deformity, decreased range of motion, cp
--- NOTE | 2021-11-30 11:36 | ER ---
Nurse's Notes [facility] Name: Leah Campbell Age: 81 yrs Sex: Female : 1940 Arrival Date: 11/30/2021 Time: 08:54 Bed Waiting Private MD: Saroj Mendieta C Diagnosis: Pain in left wrist Presentation: 11/30 09:29 Chief complaint: Patient states: Left wrist pain and swelling since yesterday, denies jl7 trauma. Coronavirus screen: At this time, the client does not indicate any symptoms associated with coronavirus-19. Ebola Screen: No symptoms or risks identified at this time. Initial Sepsis Screen: Does the patient meet any 2 criteria? No. Patient's initial sepsis screen is negative. Does the patient have a suspected source of infection? No. Patient's initial sepsis screen is negative. Risk Assessment: Do you want to hurt yourself or someone else? Patient reports no desire to harm self or others. Onset of symptoms was November 29, 2021. Care prior to arrival: None. 09:29 Method Of Arrival: Ambulatory 7 09:29 Acuity: JAY 4 jl7 Triage Assessment: 09:31 General: Appears in no apparent distress. uncomfortable, Behavior is calm, cooperative, jl7 appropriate for age. Pain: Complains of pain in dorsal aspect of left wrist Pain currently is 7 out of 10 on a pain scale. Historical: - Allergies: 09:31 No Known Allergies; jl7 - PMHx: 09:31 ADD/ADHD; Anxiety; Hyperlipidemia; Hypertension; Hypothyroidism; jl7 - PSHx: 09:31 Tonsillectomy; jl7 - Immunization history:: Client reports receiving the 2nd dose of the Covid vaccine. - Social history:: Smoking status: Patient denies any tobacco usage or history of. Screenin:30 Abuse screen: Denies threats or abuse. Denies injuries from another. Nutritional jl7 screening: No deficits noted. Tuberculosis screening: No symptoms or risk factors identified. Fall Risk None identified. Assessment: 09:30 Reassessment: ERP in triage assessing pt. jl7 Vital Signs: 09:29 BP 141 / 69; Pulse 82; Resp 17; Temp 98.3; Pulse Ox 100% ; Weight 72.57 kg; Height 5 jl7 ft. 5 in. (165.10 cm); Pain 7/10; 09:29 Body Mass Index 26.63 (72.57 kg, 165.10 cm) jl7 ED Course: 08:54 Patient arrived in ED. am2 08:55 Saroj Mendieta MD is Private Physician. am2 09:26 Aaron Anaya PA is PHCP. cp 09:26 Pankaj Blue MD is Attending Physician. cp 09:30 Patient has correct armband on for positive identification. jl7 09:31 Triage completed. jl7 09:31 Arm band placed on right wrist. jl7 10:32 Wrist Left (3 View) XRAY In Process Unspecified. EDMS 11:34 Khari Alvarez MD is Referral Physician. cp 11:41 Albina Demarco RN is Primary Nurse. jl7 11:53 No provider procedures requiring assistance completed. Patient did not have IV access jl7 during this emergency room visit. 11:53 Velcro wrist splint applied to left wrist. jl7 Administered Medications: 11:54 Not Given (Patient Refused): Ibuprofen 800 mg PO once jl7 Medication: 09:30 VIS not applicable for this client. jl7 Outcome: 11:35 Discharge ordered by MD. cp 11:53 Discharged to home ambulatory. jl7 11:53 Condition: stable 11:53 Discharge instructions given to patient, Instructed on discharge instructions, follow up and referral plans. medication usage, Demonstrated understanding of instructions, follow-up care, medications, Prescriptions given X 1. 11:54 Patient left the ED. jl7 Signatures: Dispatcher [employer] EDDE Aaron Anaya PA PA cp Albina Demarco, RN RN jl7 Birgit Thorpe am2
[2021-11-30 11:59] VITALS: BP 141/69; TEMP 98.3; O2SAT 100
== END 2021-11-30 11:54 | disposition home or self-care (01) ==
LOC: ER 08:54
DX: M25.532 Pain in left wrist (principal); I10 Essential (primary) hypertension
CPT/HCPCS: 99283

== ENCOUNTER 2022-02-25 14:14 | Emergency (ER) | payer OTHER, MEDICARE ==
--- OUTSIDE RECORDS SUMMARY | 2022-02-25 14:20 | XMS REPORT | Clinical Summary ---
:1940 Author Organization [facility] MD [facility] Address [address] [place] [address] Care Team Providers Name Role Phone Kings Mendieta MD Unavailable Cathie Willis MD Primary Care Provider Allergies No known active [...] Mammogr aphy abnormal Oncology (Primary Dx) after 02/25/2021 Surgical History Surgery Date Site/Laterality Comments TONSILLECTOMY [...] Done Comments COVID-19 Vaccination (2 - Pfizer series) 08/23/2020 021 Results Not on fileafter 02/25/2021 Insurance Payer Benefit Plan Subscriber ID Effective Phone Address Typ e / Group Dates MEDICARE MEDICARE PART [id number] 2006-Pres [phone] [facility] Medicare A AND B ent [id number] [employer] [address] [facility] [place] [id number] [place] [employer] [id number] 2020-Pres [address] [employer] ONLY ent [id number] [place] [address] Care Teams Advertising Agency Manager Relationship Specialty Start Date End Date Kings Mendieta MD PCP - External Referring Internal Medicine 07/30/[address] [place] [address] [place] [id number] Cathie Willis MD PCP - General Breast Surgery 07/31/[address] [place] [id number]
--- OUTSIDE RECORDS SUMMARY | 2022-02-25 14:22 | XMS REPORT | Continuity of Care Document ---
:1940 Author Organization [facility] t Address [address] [place] [address] Care Team Providers Name Role Phone [phone] Primary Care Physician Unavailable SYSTEM, PROVIDER NOT IN Attending Clinician Unavailable Goldfarb_Ludy Attending Clinician Unavailable Carlos Wheatley Attending Clinician [phone] GC_[facility]OM[facility]_Black_D Attending Clinician Unavailable Daksha Morales Attending Clinician [phone] Odilia Reynolds Attending Clinician Michael Meier MD Attending Clinician Alma MCCLENDON, Licha Gutierrez Attending Clinician Unavailable Unknown, Attending Attending Clinician Unavailable MICHAEL MEIER Attending Clinician Unavailable DORA LONDON Attending Clinician Unavailable GUERLINE GAXIOLA Attending Clinician Unavailable RONNIE MENJIVAR JR Attending Clinician Unavailable ROMI AHN DPM Attending Clinician Unavailable Goldfarb_R Admitting Clinician Unavailable GC_S[facility]_Black_D Admitting Clinician Unavailable Payers Payer Name Policy Type Policy Number Effective Date Expiration Date [place]: [id number] 2006 [employer] 00:00:00 [facility] [id number] 2020 OPTIONS (MEDICARE 00:00:00 SUPPLEMENT) [facility] - [id number] 2015 OPTIONS 00:00:00 Problems Condition Condition Condition Status Onset Resolution Last Treating Co mments Source Name Details Category Date Date Treatment Clinician Date Hyperchole Hyperchole Disease Active U nivers sterolemia sterolemia 08-02 it y of 00:: MD Pari chamberlain [facility] Hypertensi Hypertensi Disease Active U nivers ve ve 08-02 ity of disorder disorder 00:: MD Pari chamberlain [facility] Hypothyroi Hypothyroi Disease Active U nivers dism dism 08-02 ity of 00:: MD Pari chamberlain [facility] 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 08-02 ity of and and 00:: [place] 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 [facility] Seasonal Seasonal Disease Active Unive rs allergy allergy 08-02 ity of 00:: MD Pari chamberlain [facility] History of History of Problem Resolve [place] [...] rs active active ity of problems problems [facility] Allergies, Adverse Reactions, Alerts Allergy Allergy Status Severity Reaction(s) Onset Inactive Treating Comm ents Source Name Type Date Date Clinician NO KNOWN Drug Active Univers ALLERGIE Class ity of S [facility] Family History Family Member Diagnosis Comments Start Date Stop Date Source Family member Breast cancer Universi ty of [facility] Family member Ovarian cancer Univers ity of [facility] Maternal grandmother Colon cancer Un iversity of [facility] Social History Social Habit Start Date Stop Date Quantity Comments Source Exposure to Not sure University of SARS-CoV-2 [facility] (event) Branch Tobacco use and 2020-08-02 2020-08-02 Smokeless tobacco Un iversity of exposure 00:00:00 00:00: non-user [facility] Alcohol intake 2020-08-02 2020-08-02 Current drinker Unive rsity of 00:00:00 00:00:00 of alcohol [facility] Sex Assigned At [birth year] Universit y of 00:00:00 00:00:00 [facility] Smoking Status Start Date Stop Date Source Never smoker [facility] Medications Ordered Filled Start Stop Current Ordering Indication Dosage Frequency Signature Comments Components Source Medication Medication Date Date Medication? Clinician (SIG) Name Name cetirizine 2020-07 Yes 10mg Take 10 mg U nivers 10 mg 2-29 by mouth. ity of tablet 09:15: [address] Branch Cholecalcif 2020-07 Yes Take by Uni vers gretel, mouth. ity of Vitamin D3, 09:15: [place] 50 mcg 39 Medical (2,000 Branch unit) capsule albuterol 2020-07 Yes ProAir HFA Un [place] (PROAIR 90 ity of HFA) 90 09:15: mcg/actuat [place] mcg/actu[place] 39 ion Medical on inhaler aerosol Branch inhaler ARIPiprazol 2020-07 Yes aripiprazo Univers e 5 mg 2-29 le 5 mg ity of tablet 09:15: tablet TK [place] [address] 1 T PO QD [facility] Branch aspirin 81 2020-07 Yes 81mg Take 81 mg U nivers mg EC - by mouth. ity of tablet 09:15: [address] Branch cetirizine 2020-07 Yes 10mg Take 10 mg U nivers 10 mg 2-29 by mouth. ity of tablet 09:15: [address] Branch Cholecalcif 2020-07 Yes Take by Uni vers gretel, - mouth. ity of Vitamin D3, 09:15: [place] 50 mcg 39 Medical (2,000 Branch unit) capsule albuterol 2020-07 Yes ProAir HFA Un [place] (PROAIR 90 ity of HFA) 90 09:15: mcg/actuat [place] mcg/actuati 39 ion Medical on inhaler aerosol Branch inhaler ARIPiprazol 2020-07 Yes aripiprazo Univers e 5 mg 2-29 le 5 mg ity of tablet 09:15: tablet TK [place] [address] 1 T PO QD Medical Branch aspirin 81 2020-07 Yes 81mg Take 81 mg U nivers mg EC 2-29 by mouth. ity of tablet 09:15: [address] cetirizine 2020-07 Yes 10mg Take 10 mg U nivers 10 mg 2-29 by mouth. ity of tablet 09:15: [address] Cholecalcif 2020-07 Yes Take by Uni vers gretel, 2-29 mouth. ity of Vitamin D3, 09:15: [place] [address] Medical (2,000 Branch unit) capsule albuterol 2020-07 Yes ProAir HFA Un [place] (PROAIR 2-29 90 ity of HFA) 90 09:15: mcg/actuat [place] mcg/actuati [address] [place] [address] on inhaler aerosol Branch inhaler ARIPiprazol 2020-07 Yes aripiprazo Univers e 5 mg 2-29 le 5 mg ity of tablet 09:15: tablet TK [place] [address] 1 T PO QD Medical Branch aspirin 81 2020-07 Yes 81mg Take 81 mg U nivers mg EC 2-29 by mouth. ity of tablet 09:15: [address] guaiFENesin 2020-07 Yes [id number] 400mg Take 1 Univers 400 mg 2-29 tablet by ity of tablet 00:00: mouth [place] 00 every 4 Medical (four) Branch hours as needed for Cough. benzonatate 2020-07 Yes [id number] 200mg Take 2 Univers 100 mg 2-29 capsules ity of capsule 00:00: [place] mouth 2 [place] (two) Medical times Branch daily as needed for Cough. bromphenira 2020-07 Yes [id number] 5mL Take 5 mL Univers mine-pseudo 2-29 by mouth 4 it y of ephedrine-D 00:00: (four) [place] M (BROMFED 00 times Medical DM) 2-30-10 daily as Bran ch mg/5 mL needed for syrup Congestion /Allergies . guaiFENesin 2020-07 Yes [id number] 400mg Take 1 Univers 400 mg 2-29 tablet by ity of tablet 00:00: mouth [place] 00 every 4 Medical (four) Branch hours as needed for Cough. benzonatate 2020-07 Yes [id number] 200mg Take 2 Univers 100 mg 2-29 capsules ity of capsule 00:00: [place] mouth 2 [place] 00 (two) Medical times Branch daily as needed for Cough. bromphenira 2020-07 Yes [id number] 5mL Take 5 mL Univers mine-pseudo 2-29 by mouth 4 it y of ephedrine-D 00:00: (four) [place] (BROMFED 00 times Medical DM) 2-30-10 daily as Bran ch mg/5 mL needed for syrup Congestion /Allergies . guaiFENesin 2020-07 Yes [id number] 400mg Take 1 Univers 400 mg 2-29 tablet by ity of tablet 00:00: mouth [place] 00 every 4 Medical (four) Branch hours as needed for Cough. benzonatate 2020-07 Yes [id number] 200mg Take 2 Univers 100 mg 2-29 capsules ity of capsule 00:00: [place] mouth 2 [place] 00 (two) Medical times Branch daily as needed for Cough. bromphenira 2020-07 Yes [id number] 5mL Take 5 mL Univers mine-pseudo 2-29 [...] 00:00: [place] drops 00 Medical Branch FLUoxetine 2021-1 Yes TAKE 4 Unive rs 20 mg [...] 00 DAILY IN Medical THE Branch EVENING QUEtiapine 2020-07 Yes 100mg Take 100 Un yuliet 50 mg 1-14 mg by ity of tablet 00:00: mouth at [place] 00 bedtime. Medical Branch QUEtiapine 2020-07 Yes 100mg Take 100 Un [place] 50 mg 1-14 mg by ity of tablet 00:00: mouth at [place] 00 bedtime. Medical Branch QUEtiapine 2020-07 Yes 100mg Take 100 Un [place] 50 mg 1-14 mg by ity of tablet 00:00: mouth at [place] 00 bedtime. Medical Branch clonazePAM 2020-07 Yes [...] 0-27 TABLET BY ity of 00:00: MOUTH 00 EVERY 6 Medical HOURS Branch NEEDED FOR ANXIETY multivit-mi Yes Take by Uni vers n/iron/foli 08-02 mouth. ity of c/lutein 13:41: [place] (CENTRUM 47 MD QUIANA Yañez WOMEN ORAL) n [facility] cholecalcif Yes Take by Uni vers gretel, 08-02 mouth. ity of vitamin D3, 13:41: [place] (Vitamin 47 D3) 50 mcg Anderso (2,000 n unit) Cancer capsule Center aspirin 81 Yes 81mg Take 81 mg U nivers mg EC 08-02 by mouth. ity of tablet 13:41: [place] [address] MD Pari chamberlain [facility] cetirizine Yes 10mg Take 10 mg U nivers (ZyrTEC) 10 08-02 by mouth. ity of mg tablet 13:41: [place] [address] MD Pari chamberlain [facility] amLODIPine Yes Univers 2.5 mg 1-25 ity of tablet 00:00: Medical Branch amLODIPine Yes Univers 2.5 mg 1-25 ity of tablet 00:00: Medical Branch amLODIPine Yes Univers 2.5 mg 1-25 ity of tablet 00:00: Medical Branch amLODIPine Yes Univers (NORVASC) 1-25 ity of 2.5 mg 00:00: [place] tablet 00 MD Pari chamberlain [facility] [place] FLUoxetine Yes Univers (PROzac) 20 1-21 ity of mg capsule 00:00: 00 MD Pari chamberlain [facility] benztropine Yes 1{tbl} Take 1 Un yuliet [...] by ity of tablet 00:00: mouth 2 [place] 00 (two) Medical times Branch daily. buPROPion Yes TAKE 1 Univer s (WELLBUTRIN 1-19 TABLET BY ity of XL) 300 mg 00:00: MOUTH [place] 24 hr 00 EVERY MD tablet MORNING [facility] Center clonazePAM Yes TAKE 1 Unive rs (KlonoPIN) 1-19 TABLET BY ity of 1 mg tablet 00:00: MOUTH [place] 00 EVERY 6 MD HOURS Anderso NEEDED FOR n ANXIETY Cancer Center benztropine Yes TAKE 1 Univ ers (COGENTIN) 1-19 TABLET BY ity of 0.5 mg 00:00: MOUTH [place] tablet 00 TWICE MD DAILY [facility] ARIPiprazol Yes Univer s e (ABILIFY) 1-19 ity of 2 mg tablet 00:00: [place] 00 MD Pari chamberlain [facility] levothyroxi Yes levothyrox Univers ne 100 mcg 1-15 ine 100 ity of tablet 00:00: mcg tablet 00 TK 1 T PO Medical D 30 MIN B Branch ALLA levothyroxi Yes levothyrox Univers ne 100 mcg 1-15 ine 100 ity of tablet 00:00: mcg tablet 00 TK 1 T PO Medical D 30 MIN B Branch ALLA levothyroxi Yes levothyrox Univers ne 100 mcg 1-15 ine 100 ity of tablet 00:00: mcg tablet [place] 00 TK 1 T PO Medical D 30 MIN B Branch ALLA levothyroxi Yes TAKE 1 Univ ers ne 1-15 TABLET BY ity of (SYNTHROID, 00:00: MOUTH [place] LEVOTHROID) 00 DAILY 30 MD 100 mcg MINUTES Anderso tablet BEFORE n BREAKFAST Cancer Center olmesartan- 2019-07 Yes TAKE 1 Univ ers hydrochloro 2-29 TABLET BY ity of thiazide 00:00: MOUTH [place] (BENICAR 00 DAILY HCT) Anderso 40-12.5 mg n per tablet Cancer Center simvastatin 2019-07 Yes TK 1 T PO U nivers (ZOCOR) 80 1-13 D IN THE ity o f mg tablet 00:00: LEO [place] 00 MD Yañez n [facility] Keflex 500 Keflex 500 Yes [place] MG [...] Immunizations Ordered Filled Immunization Date Status Comments [facility] e Immunization Name Name SARS-COV-2 COVID-19 2020-08-23 Completed Unive rsity of PFIZER VACCINE 00:00:00 [facility] SARS-COV-2 COVID-19 2020-08-23 Completed Unive rsity of PFIZER VACCINE 00:00:00 [facility] SARS-COV-2 COVID-19 2020-08-23 Completed Unive rsity of PFIZER VACCINE 00:00:00 [facility] SARS-COV-2 COVID-19 2020-08-02 Completed Unive rsity of PFIZER VACCINE 00:00:00 [facility] SARS-COV-2 COVID-19 2020-08-02 Completed Unive rsity of PFIZER VACCINE 00:00:00 [facility] SARS-COV-2 COVID-19 2020-08-02 Completed Unive rsity of PFIZER VACCINE 00:00:00 [facility] Vital Signs Vital Name Observation Time Observation Value Comments Source Systolic blood 2021-07-03 15:18:00 170 mm[Hg] Univer sity of pressure [facility] [place] [facility] Diastolic blood 2021-07-03 15:18:00 81 mm[Hg] Unive rsity of pressure [facility] Heart rate 2021-07-03 15:12:00 63 /min General acute hospital Body temperature 2021-07-03 15:12:00 37.11 Claudia [facility] Respiratory rate 2021-07-03 15:12:00 18 /min Univ [facility] Body height 2021-07-03 15:12:00 152.4 cm General acute hospital Body weight 2021-07-03 15:12:00 77.111 kg General acute hospital BMI 2021-07-03 15:12:00 33.20 kg/m2 General acute hospital Oxygen saturation in 2021-07-03 15:12:00 97 /min [facility] Arterial blood by [facility] Pulse oximetry Branch HEIGHT 2020-08-02 13:25:00 160 cm WEIGHT 2020-08-02 13:25:00 78.3 kg Procedures Procedure Date / Time Performed Performing [facility] - [facility] 2018-06-01 00:[facility]:00 [facility]ste[facility] of Foot [facility] Plan of Care Planned Activity Planned Date Details Comments Source Future Scheduled 2021-12-27 COVID-19 Vaccination [facility] Test 06:59:58 (2 - Pfizer series) Dg son Cancer [code = COVID-19 Center Vaccination (2 - Pfizer series)] Diagnostic Test 2018-06-01 [[facility]] Ortho - [facility] Pending 00:00:00 Surgery Scheduling [code = [UTP] Ortho - Surgery Scheduling] Encounters Start End Encounter Admission Attending Care Care Encounter Source Date/Time Date/Time Type Type Clinicians Facility Department ID 2022-01-13 Outpatient STLMLC STLMLC [id number] Common 14:23:02 [facility] 2021-08-02 Outpatient STLMLC STLMLC [id number] Common 08:32:02 [facility] 2021-08-01 Outpatient STLMLC STLMLC [id number] Common 15:05:02 [facility] 2021-01-31 Outpatient SYSTEM, ANABELLE AHN [id number] 11:38:39 PROVIDER Isaiah o n 2020-08-14 Outpatient SYSTEMANABELLE MDA [id number] 17:50:53 PROVIDER Isaiah o n 2020-08-02 Outpatient SYSTEM, ANABELLE AHN [id number] 17:38:38 PROVIDER Isaiah o cintia 2020-07-30 Outpatient SYSTEM, ANABELLE AHN [id number] 13:03:43 PROVIDER Isaiah o cintia 2022-02-24 2022-02-24 Outpatient Goldfarb_R HMU U [id number] [place] 00:00:00 00:00:00 [facility] 2021-11-22 2021-11-22 Outpatient Goldfarb_R HMU [id number] [place] 04:09:00 04:09:00 [facility] 2021-11-19 2021-11-19 Outpatient Goldfarb_R HMU HMU [id number] [place] 09:56:00 09:56:00 [facility] 2021-11-19 2021-11-19 Outpatient Corry, HMU HMU [id number] 00:00:00 00:00:00 Carlos [id number] 2021-11-05 2021-11-05 Outpatient Goldfarb_R HMU [id number] [place] 09:52:00 09:52:00 [facility] 2021-10-25 2021-10-25 Outpatient GC_[facility]_ PRIV PRIV [id number] [place] 03:00:00 03:00:00 Black_D [id number] Medica l 2021-10-24 2021-10-24 Outpatient GC_[facility]_ PRIV PRIV [id number] [facility] 11:58:00 11:58:00 Black_D [id number] Medica l 2021-10-24 2021-10-24 Outpatient Black, Daksha PRIV PRIV [id number] 00:00:00 00:00:00 Woo [id number] 2021-10-23 2021-10-23 Outpatient GC_[facility]_ PRIV PRIV [id number] [facility] 01:14:00 01:14:00 Black_D [id number] Medica l 2021-10-03 2021-10-03 Outpatient Goldfarb_R HMU HMU [id number] [place] 05:10:00 05:10:00 [id number] [facility] 2021-09-25 2021-09-25 Outpatient Goldfarb_R HMU HMU [id number] [place] 09:54:00 09:54:00 [facility] 2021-09-25 2021-09-25 Outpatient Corry, HMU HMU [id number] 00:00:00 00:00:00 Carlos [id number] 2021-09-16 2021-09-16 Outpatient Goldfarb_R HMU HMU [id number] [place] 12:25:00 12:25:00 [id number] [facility] 2021-08-28 2021-08-28 Outpatient Goldfarb_R HMU HMU [id number] [place] 10:12:00 10:12:00 [facility] 2021-08-15 2021-08-15 Outpatient Goldfarb_R HMU HMU [id number] [place] 03:21:00 03:21:00 [facility] 2021-08-15 2021-08-15 Outpatient Corry, HMU HMU [id number] 00:00:00 00:00:00 Carlos [id number] 2021-08-14 Outpatient Goldfarb_R HMU HMU [id number] [place] 12:40:00 12:40:00 [facility] 2021-08-08 2021-08-08 Kameron Glass [id number] Univers 00:00:00 00:00:00 Odilia [id number] ity of 3.412.2.7 Binh .[id number] MD Lazo [facility] 2021-08-08 2021-08-08 George Frazier.2.840.1 [id number] Univers 00:00:00 00:00:00 Only Odilia [id number] ity of 3.412.2.7 [place] .[id number] MD Terry8 [facility] 2021-07-23 2021-07-23 Outpatient Goldfarb_R HMU [id number] [place] 03:53:00 03:53:00 [facility] 2021-07-15 2021-07-15 Cami Meier [facility] [id number] Univers 00:00:00 00:00:[facility] [id number] it y of JBSA FT [place] [id number] Jarvis as SKYLAR?BLEA [phone] [address] MEDICAL OFFICE [facility] 2021-07-04 2021-07-04 Letter BRIAN Marquez [id number] Univers 00:00:00 00:00:00 (Out) Licha T RODRIGUEZ [id number] it y of [facility] [id number] Jarvis as [phone] [address] 2021-07-03 2021-07-03 Urgent Michael Meier [facility] [id number] Univers 09:40:00 09:40:00 Care Unknown, [facility] HEALTH [id number] ity of JBSA FT [place] [id number] Jarvis as SKYLAR?BLEA [phone] [address] OFFICE [facility] 2021-07-03 2021-07-[address] [facility] [id number] Univers 09:40:00 09:22:42 MICHAEL jacques [facility] 2021-05-03 2021-05-03 Outpatient Goldfarb_R HMU [facility] [id number] [place] 02:04:00 02:04:00 [id number] [facility] 2021-05-01 2021-05-01 Outpatient Goldfarb_R HMU [id number] [place] 09:43:00 09:43:00 [id number] [facility] 2021-04-30 2021-04-30 Outpatient Goldfarb_R HMU [id number] [place] 10:04:00 10:04:00 [id number] [facility] 2021-04-30 2021-04-30 Outpatient Corry, HMU HMU [id number] 00:00:00 00:00:00 Carlos [id number] 2021-04-19 2021-04-19 Outpatient Goldfarb_R HMU HMU [id number] [place] 11:08:00 11:08:00 [id number] [facility] 2021-04-09 2021-04-09 Outpatient Goldfarb_R HMU HMU [id number] [place] 01:24:00 01:24:00 [id number] [facility] 2021-04-09 2021-04-09 Outpatient Corry, HMU HMU [id number] 00:00:00 00:00:00 Carlos [id number] 2021-03-01 2021-03-01 Outpatient Goldfarb_R HMU HMU [id number] [place] 12:04:00 12:04:00 [id number] [facility] 2020-12-07 2020-12-07 Outpatient Goldfarb_R HMU HMU [id number] [place] 08:06:00 08:06:00 [id number] [facility] 2020-12-07 2020-12-07 Outpatient Corry, HMU HMU [id number] 00:00:00 00:00:00 Carlos [id number] 2020-11-30 2020-11-30 Outpatient Goldfarb_R HMU HMU [id number] [place] 11:31:00 11:31:00 [id number] [facility] 2020-11-27 2020-11-27 Outpatient Goldfarb_R HMU HMU [id number] [place] 11:01:00 11:01:00 [id number] [facility] 2020-11-20 2020-11-20 Outpatient Goldfarb_R HMU HMU [id number] [place] 03:00:00 03:00:00 [id number] [facility] 2020-11-20 2020-11-20 Outpatient Corry, HMU HMU [id number] 00:00:00 00:00:00 Carlos [id number] 2020-11-15 2020-11-15 Outpatient Goldfarb_R HMU [facility] [id number] [place] 05:26:00 05:26:00 [id number] [facility] 2020-11-13 2020-11-13 Outpatient Goldfarb_R HMU [facility] [id number] [place] 04:53:00 04:53:00 [id number] [facility] 2020-08-23 2020-08-23 Outpatient R LITA, [facility] [id number] Univers 15:30:00 15:30:00 DORA [facility] 2020-08-06 2020-08-06 Outpatient EL MDA MDA [id number] 09:22:04 09:22:04 Isaiah o cintia 2020-08-06 2020-08-06 Outpatient EL MDA MDA [id number] MD 08:48:09 08:48:09 Isaiah o cintia 2020-08-03 2020-08-03 Outpatient EL MIGGINS, MDA MDA [id number] MD 09:57:06 09:57:06 GUERLINE Blunters o cintia 2020-08-02 2020-08-02 Outpatient MIGGINS, MDA MDA [id number] 16:50:16 16:50:16 GUERLINE Blunters o cintia 2020-08-02 2020-08-02 Outpatient MIGGINS, MDA MDA [id number] 16:49:00 16:49:00 GUERLINE Blunters o cintia 2020-08-02 2020-08-02 Outpatient MIGGINS, MDA MDA [id number] 16:48:00 16:48:00 GUERLINE Isaiah o cintia 2020-08-02 2020-08-02 Outpatient MIGGINS, MDA MDA [id number] 16:47:27 16:47:27 GUERLINE Blunters o cintia 2020-08-02 2020-08-02 Outpatient MIGGINS, MDA MDA [id number] MD 16:45:52 16:45:52 GUERLINE Blunters o cintia 2020-08-02 2020-08-02 Outpatient EL MIGGINS, MDA MDA [id number] 13:14:07 14:38:29 GUERLINE chamberlain 2020-08-02 2020-08-02 Outpatient EL MDA MDA [id number] 12:52:24 12:52:50 Isaiah chamberlain 2020-07-31 2020-07-31 Outpatient EL TIARA LEVINE, MDA MDA [id number] 09:06:17 09:19:19 RONNIE chamberlain 2020-06-28 2020-06-28 [facility] PRIV PRIV [id number] [facility] 09:15:00 09:15:00 Black_D [id number] Medica l 2018-06-01 2018-06-01 Appointmen JIMY, UTP UTP [id number] [place] 14:15:00 14:15:00 t; ROMI AHN, Orthopedic P hysici ROMI, DPM Surgery - ans DPM Carlos Manuel Trace 2 2018-05-04 2018-05-04 Appointmen JIMY, UTP UTP [id number] [place] 14:15:00 14:15:00 t; ROMI AHN, Phys ici ROMI, DPM ans DPM 2018-04-20 2018-04-20 Appointmen JIMY, UTP UTP [id number] [place] 15:45:00 15:45:00 t; ROMI AHN, Phys ici ROMI, DPM ans DPM 2018-04-08 2018-04-08 Appointmen JIMY, UTP UTP [id number] [place] 16:00:00 16:00:00 t; ROMI AHN, Phys ici ROMI, DPM ans DPM 2018-04-06 2018-04-06 Appointmen JIMY, UTP UTP [id number] [place] 16:15:00 16:15:00 t; ROMI AHN, Phys ici ROMI, DPM ans DPM 2018-03-24 2018-03-24 Appointmen JIMY, UTP UTP [id number] [place] 13:45:00 13:45:00 t; ROMI AHN, Phys ici ROMI, DPM ans DPM 2018-03-11 2018-03-11 Appointmen JIMY, UTP UTP [id number] [place] 07:30:00 07:30:00 t; ROMI AHN, Phys ici ROMI, DPM ans DPM 2018-01-21 2018-01-21 Appointmen KAE AHN UTP [id number] [place] 13:30:00 13:30:00 t; ROMI AHN, Phys ici DAYA LLANOS ans DPM Results Test Description Test Time Test Comments Results Result Comments Source Tobacco Use Screening 2018-06-01 14:15:00 Test Item Value Reference Range Interpretation Comme nts Completed (test code = Completed) DONE [facility]
[2022-02-25] MEDS ORDERED: ACETAMINOPHEN 325 MG TABLET ONE (14:53)
--- NOTE | 2022-02-25 15:50 | RAD REPORT ---
EXAM DESCRIPTION: RAD - Ribs Left - 02/25/2022 3:43 pm CLINICAL HISTORY: left anteriolateral rib pain COMPARISON: Chest Pa And Lat (2 Views) dated 09/18/2018 FINDINGS: No displaced rib fracture is seen. No underlying pneumothorax.
--- NOTE | 2022-02-25 15:52 | RAD REPORT ---
EXAM DESCRIPTION: RAD - Lumbar Spine 3 Views - 02/25/2022 3:43 pm CLINICAL HISTORY: fall Radiculopathy COMPARISON: No comparisons FINDINGS: Mild anterior wedge compression fracture affects the L1 vertebral body, age indeterminate. Spondylosis throughout the lumbar spine is present, mild. Anterolisthesis, mild, of L4 on 5 is prese nt. Prominent facet hypertrophy is seen bilaterally L5-S1. IMPRESSION: Mild anterior wedge compression fracture affects L1 vertebral body, age indeterminate.
--- NOTE | 2022-02-25 16:56 | RAD REPORT ---
EXAM DESCRIPTION: CT - Spine Lumbar Wo Con - 02/25/2022 4:34 pm CLINICAL HISTORY: Radiculopathy. fall COMPARISON: Lumbar Spine 3 Views dated 02/25/2022 TECHNIQUE: Axial noncontrast CT imaging of the lumbar spine was performed with coronal and sagittal re-formatted images. All CT scans are performed using dose optimization technique as appropriate and may include automated exposure control or mA/KV adjustment according to patient size. FINDINGS: Mild anterior wedge compression fracture affects the L1 vertebral body. This appears old b ased on imaging characteristics and lack of surrounding paraspinal soft tissues thickening or hematom a. Multilevel degenerative changes are present throughout the lumbar levels. 5 mm anterolisthesis of L4 on 5 is seen. 4 mm anterolisthesis of L5 on S1. Prominent facet hypertrophy is present at the lumbosacral junction with mild degenerative levoscolios is. Cholelithiasis. IMPRESSION: L1 compression fracture is favored to be old. Moderate lower lumbar degenerative spondylosis is present.
[2022-02-25] MEDS ORDERED: MORPHINE 2 MG/ML SYR ONE (17:20)
[2022-02-25] MEDS ORDERED: ONDANSETRON 4 MG (ODT) TAB ONE (17:21)
--- NOTE | 2022-02-25 18:13 | ER ---
Nurse's Notes [facility] Name: Leah Campbell Age: 82 yrs Sex: Female : 1940 Arrival Date: 02/25/2022 Time: 14:20 Bed 12 Private MD: Diagnosis: Strain of muscle, fascia and tendon of lower back Presentation: 02/25 14:29 Chief complaint: Patient states: fell on left side from standing position and jh5 complaints of pain to her back when she breaths; pt takes 81mg aspirin daily. Coronavirus screen: Vaccine status: Patient reports receiving the 2nd dose of the covid vaccine. Client denies travel out of the [place] in the last 14 days. Ebola Screen: Patient negative for fever greater than or equal to 101.5 degrees Fahrenheit, and additional compatible Ebola Virus Disease symptoms Patient denies exposure to infectious person. Patient denies travel to an Ebola-affected area in the 21 days before illness onset. Initial Sepsis Screen: Does the patient meet any 2 criteria? No. Patient's initial sepsis screen is negative. Does the patient have a suspected source of infection? No. Patient's initial sepsis screen is negative. Risk Assessment: Do you want to hurt yourself or someone else? Patient reports no desire to harm self or others. Onset of symptoms was February 25, 2022. 14:29 Method Of Arrival: Ambulatory [facility] 14:29 Acuity: JAY 3 5 Triage Assessment: 14:32 General: Appears in no apparent distress. Behavior is calm, cooperative, appropriate 5 for age. Pain: Complains of pain in back. Historical: - Home Meds: 14:32 amlodipine 2.5 mg tab 1 tab once daily [Active]; aripiprazole 5 mg Oral tab 1 tab once jh5 daily [Active]; aspirin 81 mg Oral TbEC 0.5 tab once daily [Active]; bupropion HCl 300 mg Oral Tb24 1 tab once daily [Active]; clonazepam 1 mg Oral tab 1 tab 3 times per day [Active]; fluoxetine 20 mg Oral cap 1 cap 4 x a day [Active]; levothyroxine 100 mcg tab 1 tab once daily [Active]; olmesartan-hydrochlorothiazide 40-12.5mg Oral 1 tab once daily [Active]; quetiapine 50 mg Oral tab 1 tab daily [Active]; ranitidine HCl 150 mg Oral cap 1 cap 2 times per day [Active]; simvastatin 80 mg Oral tab daily [Active]; Vitamin D3 1,000 unit Oral cap daily [Active]; - PMHx: 14:32 ADD/ADHD; Anxiety; Hyperlipidemia; Hypertension; Hypothyroidism; jh5 - PSHx: 14:32 Tonsillectomy; jh5 - Immunization history:: Adult Immunizations up to date. - Social history:: Smoking status: Patient denies any tobacco usage or history of. Screenin:05 Abuse screen: Denies threats or abuse. Denies injuries from another. Nutritional hb screening: No deficits noted. Tuberculosis screening: No symptoms or risk factors identified. Fall Risk None identified. Assessment: 15:30 General: Appears in no apparent distress. Behavior is calm, cooperative. Pain: Pain hb currently is 6 out of 10 on a pain scale. Neuro: Level of Consciousness is awake, alert, obeys commands, Oriented to person, place, time, situation. Cardiovascular: Patient's skin is warm and dry. Respiratory: Respiratory effort is even, unlabored. GI: No signs and/or symptoms were reported involving the gastrointestinal system. : No signs and/or symptoms were reported regarding the genitourinary system. EENT: No signs and/or symptoms were reported regarding the EENT system. Derm: Skin is pink, warm \T\ dry. Musculoskeletal: Reports left sided chest wall pain. 16:30 Reassessment: Patient appears in no apparent distress at this time. Patient and/or hb family updated on plan of care and expected duration. Pain level reassessed. Patient is alert, oriented x 3, equal unlabored respirations, skin warm/dry/pink. 17:16 Reassessment: Pt c/o pain 02/12, requesting pain medication. BROOK Leong notified, medicated hb as ordered. Spouse remains at bedside. 18:25 Reassessment: Patient appears in no apparent distress at this time. Patient and/or hb family updated on plan of care and expected duration. Pain level reassessed. Patient is alert, oriented x 3, equal unlabored respirations, skin warm/dry/pink. Vital Signs: 14:29 BP 117 / 69; Pulse 72; Resp 18; Temp 98.4; Pulse Ox 97% ; Weight 76.2 kg; Height 5 ft. jh5 3 in. (160.02 cm); Pain 8/10; 17:00 BP 128 / 72; Pulse 70; Resp 16; Pulse Ox 99% on R/A; Pain 8/10; hb 18:15 BP 122 / 72; Pulse 68; Resp 15; Pulse Ox 99% on R/A; hb 14:29 Body Mass Index 29.76 (76.20 kg, 160.02 cm) [facility] ED Course: 14:20 Patient arrived in ED. mr 14:32 Triage completed. [facility] 14:32 Arm band placed on right wrist. [facility] 14:36 Salo Lopez PA is PHCP. [facility] 14:36 Pankaj Blue MD is Attending Physician. [facility] 14:42 Anh Cordova, DANELLE is Primary Nurse. hb 14:56 Bed in low position. Call light in reach. Side rails up X 1. Door closed. Noise mb7 minimized. Warm blanket given. 15:44 Lumbar Spine (3 Views) XRAY In Process Unspecified. EDMS 15:45 Ribs Left XRAY In Process Unspecified. EDMS 16:36 CT Lumbar Spine Wo Con In Process Unspecified. EDMS 18:25 No provider procedures requiring assistance completed. Patient did not have IV access hb during this emergency room visit. Administered Medications: 15:04 Drug: Acetaminophen 650 mg Route: PO; hb 16:15 Follow up: Response: No adverse reaction hb 17:15 Drug: morphine 2 mg Route: IM; Site: right deltoid; hb 18:33 Follow up: Response: No adverse reaction hb 17:15 Drug: Zofran (Ondansetron) 4 mg Route: PO; hb 18:33 Follow up: Response: No adverse reaction hb 18:20 Drug: Flexeril (cyclobenzaprine) 10 mg Route: PO; hb 18:33 Follow up: Response: Medication administered at discharge. hb Medication: 15:30 VIS not applicable for this client. hb Outcome: 18:13 Discharge ordered by . [facility] 18:25 Discharged to home via wheelchair, with family. hb 18:25 Condition: stable 18:25 Discharge instructions given to patient, family, Instructed on discharge instructions, follow up and referral plans. medication usage, Demonstrated understanding of instructions, follow-up care, medications, Prescriptions given X 1. 18:34 Patient left the ED. hb Signatures: Dispatcher [employer] Salo Lester PA PA [facility] [place], [facility] Anh Butler RN RN Malou Brown RN RN [facility] [place] [id number]
--- NOTE | 2022-02-25 18:13 | EDPHYS ---
Physician Documentation [facility] Name: Leah Campbell Age: 82 yrs Sex: Female : 1940 Arrival Date: 02/25/2022 Time: 14:20 Bed 12 Private MD: ED Physician Pankaj Blue HPI: 02/25 14:38 This 82 yrs old Female presents to ER via Ambulatory with complaints of Fall Injury, jmm Back Pain. 14:38 Details of fall: The patient fell from an upright position. Onset: The symptoms/episode jmm began/occurred acutely, just prior to arrival. This is an 82 year old female with a history of hlp, htn, that presents to the ED with complaints of left sided rib pain and lower back pain after a fall which occurred just prior to arrival. patient denies hitting her head. denies neck pain. Historical: - Home Meds: 14:32 amlodipine 2.5 mg tab 1 tab once daily [Active]; aripiprazole 5 mg Oral tab 1 tab once jh5 daily [Active]; aspirin 81 mg Oral TbEC 0.5 tab once daily [Active]; bupropion HCl 300 mg Oral Tb24 1 tab once daily [Active]; clonazepam 1 mg Oral tab 1 tab 3 times per day [Active]; fluoxetine 20 mg Oral cap 1 cap 4 x a day [Active]; levothyroxine 100 mcg tab 1 tab once daily [Active]; olmesartan-hydrochlorothiazide 40-12.5mg Oral 1 tab once daily [Active]; quetiapine 50 mg Oral tab 1 tab daily [Active]; ranitidine HCl 150 mg Oral cap 1 cap 2 times per day [Active]; simvastatin 80 mg Oral tab daily [Active]; Vitamin D3 1,000 unit Oral cap daily [Active]; - PMHx: 14:32 ADD/ADHD; Anxiety; Hyperlipidemia; Hypertension; Hypothyroidism; jh5 - PSHx: 14:32 Tonsillectomy; 5 - Immunization history:: Adult Immunizations up to date. - Social history:: Smoking status: Patient denies any tobacco usage or history of. ROS: 14:38 Constitutional: Negative for fever, chills, and weight loss, Cardiovascular: Negative jmm for chest pain, palpitations, and edema, Respiratory: Negative for shortness of breath, cough, wheezing, and pleuritic chest pain. 14:38 Neck: Negative for injury or acute deformity, pain with movement. 14:38 Back: Positive for pain with movement. 14:38 All other systems are negative. Exam: 14:38 Constitutional: This is a well developed, well nourished patient who is awake, alert, jmm and in no acute distress. Head/Face: atraumatic. Eyes: EOMI, no conjunctival erythema appreciated ENT: Moist Mucus Membranes Neck: Trachea midline, Supple Chest/axilla: Normal chest wall appearance and motion. Cardiovascular: Regular rate and rhythm. No edema appreciated Respiratory: Normal respirations, no respiratory distress appreciated Abdomen/GI: Non distended 14:38 Skin: General appearance color normal MS/ Extremity: Moves all extremities, no obvious deformities appreciated, no edema noted to the lower extremities Neuro: Awake and alert Psych: Behavior is normal, Mood is normal, Patient is cooperative and pleasant 14:38 Chest/axilla: Palpation: tenderness, that is mild, of the left lateral posterior chest and left lateral anterior chest. 14:38 Back: pain, that is moderate, of the lumbar area. Vital Signs: 14:29 BP 117 / 69; Pulse 72; Resp 18; Temp 98.4; Pulse Ox 97% ; Weight 76.2 kg; Height 5 ft. jh5 3 in. (160.02 cm); Pain 8/10; 17:00 BP 128 / 72; Pulse 70; Resp 16; Pulse Ox 99% on R/A; Pain 8/10; hb 18:15 BP 122 / 72; Pulse 68; Resp 15; Pulse Ox 99% on R/A; hb 14:29 Body Mass Index 29.76 (76.20 kg, 160.02 cm) 5 MDM: 14:38 Patient medically screened. [facility] 18:12 Data reviewed: vital signs, nurses notes. Counseling: I had a detailed discussion with [facility] the patient and/or guardian regarding: the historical points, exam findings, and any diagnostic results supporting the discharge/admit diagnosis, radiology results, the need for outpatient follow up, to return to the emergency department if symptoms worsen or persist or if there are any questions or concerns that arise at home. 02/25 14:38 Order name: Lumbar Spine (3 Views) XRAY; Complete Time: 15:59 [facility] 02/25 14:38 Order name: Ribs Left XRAY; Complete Time: 15:59 [facility] 02/25 16:00 Order name: CT Lumbar Spine Wo Con; Complete Time: 17:10 [facility] Administered Medications: 15:04 Drug: Acetaminophen 650 mg Route: PO; hb 16:15 Follow up: Response: No adverse reaction hb 17:15 Drug: morphine 2 mg Route: IM; Site: right deltoid; hb 18:33 Follow up: Response: No adverse reaction hb 17:15 Drug: Zofran (Ondansetron) 4 mg Route: PO; hb 18:33 Follow up: Response: No adverse reaction hb 18:20 Drug: Flexeril (cyclobenzaprine) 10 mg Route: PO; hb 18:33 Follow up: Response: Medication administered at discharge. hb Disposition: 02/26 10:29 Co-signature as Attending Physician, Pankaj Blue MD I agree with the assessment and kdr plan of care. Disposition Summary: 02/25/22 18:13 Discharge Ordered Location: Home [facility] Condition: Stable [facility] Diagnosis - Strain of muscle, fascia and tendon of lower back [facility] Followup: [facility] - With: Private Physician - When: 2 - 3 days - Reason: Recheck today's complaints, Continuance of care, Re-evaluation by your physician Discharge Instructions: - Discharge Summary Sheet [facility] - Low Back Sprain or Strain Rehab-SportsMed [facility] Forms: - Medication Reconciliation Form [facility] - Thank You Letter [facility] - Antibiotic Education [facility] - Prescription Opioid Use [facility] Prescriptions: - orphenadrine citrate 100 mg Oral Tablet Sustained Release - take 1 tablet by ORAL route 2 times per day As needed; 20 tablet; Refills: 0, [facility] Product Selection Permitted Signatures: Dispatcher [employer] EDPankaj Lee MD MD kdr Mickail, Joel, PA PA jmm Baxter, Heather RN RN Malou Rodriguez RN RN jh5
[2022-02-25] MEDS ORDERED: CYCLOBENZAPRINE 10 MG TAB ONE (18:28)
[2022-02-25 20:32] VITALS: TEMP 98.4
[2022-02-25 20:35] VITALS: O2SAT 99
[2022-02-25 20:37] VITALS: BP 122/72
== END 2022-02-25 18:34 | disposition home or self-care (01) ==
LOC: ER 14:14
DX: S39.012A Strain of muscle, fascia and tendon of lower back, initial encounter (principal); E03.9 Hypothyroidism, unspecified; I10 Essential (primary) hypertension; Z79.82 Long term (current) use of aspirin
CPT/HCPCS: 72131; 72100; 71100; Q0162; J2270

== ENCOUNTER 2022-02-27 10:01 | Emergency (ER) | payer OTHER, MEDICARE ==
--- OUTSIDE RECORDS SUMMARY | 2022-02-27 10:04 | XMS REPORT | Clinical Summary ---
:1940 Author Organization [facility] MD Conte [facility] Address [address] [place] [address] Care Team Providers Name Role Phone Kings [...] Mammogr aphy abnormal Oncology (Primary Dx) after 02/27/2021 Surgical History Surgery Date Site/Laterality Comments TONSILLECTOMY [...] series) 08/23/2020 021 Results Not on fileafter 02/27/2021 Insurance Payer Benefit Plan Subscriber ID Effective Phone Address Typ e / Group Dates MEDICARE MEDICARE PART [id number] 2006-Pres [phone] [facility] Medicare A AND B ent [id number] [employer] [address] [facility] [place] [id number] [employer] A[employer]-SECONDAR [id number] 2020-Pres [address] [employer] ONLY ent [id number] [place] [address] Care Teams Cardiothoracic Anesthesia Technician Relationship Specialty Start Date End Date Kings Mendieta MD PCP - External Referring Internal Medicine 07/30/[address] [place] [address] [place] [phone] Cathie Willis MD PCP - General Breast Surgery 07/31/[address] [place] [id number]
--- OUTSIDE RECORDS SUMMARY | 2022-02-27 10:05 | XMS REPORT | Continuity of Care Document ---
:1940 Author Organization [facility] t Address [address] [place] [address] Care Team Providers Name Role Phone PCP, PATIENT DOES NOT HAVE A Primary Care Physician [facility], PROVIDER NOT IN Attending Clinician Unavailable Goldfarb_Ludy Attending Clinician Unavailable Carlos Wheatley Attending Clinician [phone] GC_SWHAOMC_Black_D Attending Clinician Unavailable Daksha Morales Attending Clinician [phone] Odilia Reynolds Attending Clinician Michael Meier MD [...] Date Expiration Date S savita [place]ICARE [place]: [id number] 2006 [employer] 00:00:00 [facility] [id number] 2020 OPTIONS (MEDICARE 00:00:00 SUPPLEMENT) [facility] - [id number] 2015 OPTIONS 00:00:00 Problems Condition Condition Condition Status Onset Resolution Last Treating Co mments Source Name Details Category Date Date Treatment Clinician Date Hyperchole Hyperchole Disease Active U nivers sterolemia sterolemia 08-02 it y of 00:: MD Pari chamberlain [facility] Hypertensi Hypertensi Disease Active U nivers ve ve 08-02 ity of disorder disorder 00:: MD Pari chamberlain [facility] Hypothyroi Hypothyroi Disease Active U nivers dism dism 08-02 ity of 00:: MD Pari chamberlain [facility] 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 08-02 ity of and and 00:00: [place] 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 [facility] Seasonal Seasonal Disease Active Unive rs allergy allergy 08-02 ity of 00:00: 00 MD Pari chamberlain [facility] History of History of Problem Resolve [place] [...] active active ity of problems problems [facility] Allergies, Adverse Reactions, Alerts Allergy Allergy Status Severity Reaction(s) Onset Inactive Treating Comm ents Source Name Type Date Date Clinician NO KNOWN Drug Active Univers ALLERGIE Class ity of S [facility] Family History Family Member Diagnosis Comments Start Date Stop Date Source Family member Breast cancer Universi ty of [facility] Family member Ovarian cancer Univers ity of [facility] Maternal grandmother Colon cancer Un iversity of [facility] Social History Social Habit Start Date Stop Date Quantity Comments Source Exposure to Not sure University of SARS-CoV-2 [facility] (event) Branch Tobacco use and 2020-08-02 2020-08-02 Smokeless tobacco Un iversity of exposure 00:00:00 00:00:00 non-user [facility] Alcohol intake 2020-08-02 2020-08-02 Current drinker Unive rsity of 00:00:00 00:00:00 of alcohol [facility] Sex Ass[birth year] At [birth year] Universit y of 00:00:00 00:00:00 [facility] Smoking Status Start Date Stop Date Source Never smoker [facility] Branch Medications Ordered Filled Start Stop Current Ordering Indication Dosage Frequency Signature Comments Components Source Medication Medication Date Date Medication? Clinician (SIG) Name Name ARIPiprazol 2020-07 Yes aripiprazo Univers e 5 mg 2-29 le 5 mg ity of tablet 09:15: tablet TK [place] 39 1 T PO QD Medical Branch aspirin 81 2020-07 Yes 81mg Take 81 mg U nivers mg EC 2-29 by mouth. ity of tablet 09:15: [address] Branch cetirizine 2020-07 Yes 10mg Take 10 mg U nivers 10 mg 2-29 by mouth. ity of tablet 09:15: [address] Branch Cholecalcif 2020-07 Yes Take by Uni vers gretel, - mouth. ity of Vitamin D3, 09:15: [place] 50 mcg Medical (2,000 Branch unit) capsule albuterol 2020-07 Yes ProAir HFA Un [place] (PROAIR 2-29 90 ity of HFA) 90 09:15: [place]actuat [place] mcg/actu[place] Medical on inhaler aerosol Branch inhaler ARIPiprazol 2020-07 Yes aripiprazo Univers e 5 mg 2-29 le 5 mg ity of tablet 09:15: tablet TK [place] [address] 1 T PO QD Medical Branch aspirin 81 2020-07 Yes 81mg Take 81 mg U nivers mg EC 2-29 by mouth. ity of tablet 09:15: [address] Branch cetirizine 2020-07 Yes 10mg Take 10 mg U nivers 10 mg 2-29 by mouth. ity of tablet 09:15: [address] Branch Cholecalcif 2020-07 Yes Take by Uni vers gretel, 2-29 mouth. ity of Vitamin D3, 09:15: [place] 50 mcg 39 Medical (2,000 Branch unit) capsule albuterol 2020-07 Yes ProAir HFA Un [place] (PROAIR 2 90 ity of HFA) 90 09:15: [place]cg/actuat [place] mcg/actuati 39 ion Medical on inhaler aerosol Branch inhaler ARIPiprazol 2020-07 Yes aripiprazo Univers e 5 mg 2-29 le 5 mg ity of tablet 09:15: tablet TK [place] [address] 1 T PO QD Medical Branch aspirin 81 2020-07 Yes 81mg Take 81 mg U nivers mg EC 2-29 by mouth. ity of tablet 09:15: [address] Branch cetirizine 2020-07 Yes 10mg Take 10 mg U nivers 10 mg 2-29 by mouth. ity of tablet 09:15: [address] Branch Cholecalcif 2020-07 Yes Take by Uni vers gretel, 2-29 mouth. ity of Vitamin D3, 09:15: [place] 50 [facility] 39 Medical (2,000 Branch unit) capsule albuterol 2020-07 Yes ProAir HFA Un [place] (PROAIR 2 90 ity of HFA) 90 09:15: mcg/actuat [place] mcg/actuati 39 ion Medical on inhaler aerosol Branch inhaler guaiFENesin 2020-07 Yes [id number] 400mg Take 1 Univers 400 mg 2-29 tablet by ity of tablet 00:00: mouth [place] 00 every 4 Medical (four) Branch hours as needed for Cough. benzonatate 2020-07 Yes [id number] 200mg Take 2 Univers 100 mg 2-29 capsules ity of capsule 00:00: [place] mouth 2 [place] (two) Medical times Branch daily as needed for Cough. bromphenira 2020-07 Yes [id number] 5mL Take 5 mL Univers mine-pseudo 2-29 by mouth 4 it y of ephedrine-D 00:00: (four) [place] M (BROMFED 00 times Medical DM) 2-30-10 daily as Bran ch mg/5 mL needed for syrup Congestion /Allergies . guaiFENesin 2020-07 Yes [id number] 400mg Take 1 Univers 400 mg 2-29 tablet by ity of tablet 00:00: mouth [place] 00 every 4 Medical (four) Branch hours as needed for Cough. benzonatate 2020-07 Yes [id number] 200mg Take 2 Univers 100 mg 2-29 capsules ity of capsule 00:00: [place] mouth 2 [place] 00 (two) Medical times Branch daily as needed for Cough. bromphenira 2020-07 Yes [id number] 5mL Take 5 mL Univers mine-pseudo 2-29 by mouth 4 it y of ephedrine-D 00:00: (four) [place] (BROMFED 00 times Medical DM) 2-30-10 daily as Bran ch mg/5 mL needed for syrup Congestion /Allergies . guaiFENesin 2020-07 Yes [id number] 400mg Take 1 Univers 400 mg 2-29 tablet by ity of tablet 00:00: mouth [place] 00 every 4 Medical (four) Branch hours as needed for Cough. benzonatate 2020-07 Yes [id number] 200mg Take 2 Univers 100 mg 2-29 capsules ity of capsule 00:00: [place] mouth 2 [place] 00 (two) Medical times Branch daily as needed for Cough. bromphenira 2020-07 Yes [id number] 5mL Take 5 mL Univers mine-pseudo 2-29 [...] ity of tablet 00:00: mouth at [place] 00 bedtime. Medical Branch QUEtiapine 2020-07 Yes 100mg Take 100 [place] 50 mg 1-14 mg by ity of tablet 00:00: mouth at [place] 00 bedtime. Medical Branch QUEtiapine 2020-07 Yes 100mg Take 100 [place] 50 mg 1-14 mg by ity of tablet 00:00: mouth at [place] 00 bedtime. Medical Branch clonazePAM 2020-07 Yes TAKE 1 Unive rs 1 mg tablet 0-27 TABLET BY ity of 00:00: MOUTH [place] 00 EVERY 6 Medical HOURS Branch NEEDED FOR ANXIETY clonazePAM 2020-07 Yes TAKE 1 Unive rs 1 mg tablet 0-27 TABLET BY ity of 00:00: MOUTH EVERY 6 Medical HOURS Branch NEEDED FOR ANXIETY clonazePAM 2020-07 Yes TAKE 1 Unive rs 1 mg tablet 0-27 TABLET BY ity of 00:00: MOUTH EVERY 6 Medical HOURS Branch NEEDED FOR ANXIETY multivit-mi Yes Take by Uni vers n/iron/foli 08-02 mouth. ity of c/lutein 13:41: [place] (CENTRUM 47 MD ARAYA Anddouglas WOMEN ORAL) Cancer Halma cholecalcif Yes Take by Uni vers gretel, 08-02 mouth. ity of vitamin D3, 13:41: [place] (Vitamin Hannah LUA D3) 50 mcg Anderso (2,000 n unit) Cancer capsule Center aspirin 81 Yes 81mg Take 81 mg U nivers mg EC 08-02 by mouth. ity of tablet 13:41: [place] [id number] MD Pari chamberlain [facility] cetirizine Yes 10mg Take 10 mg U nivers (ZyrTEC) 10 08-02 by mouth. ity of mg tablet 13:41: [place] [address] MD Pari chamberlain [facility] multivit-mi Yes Take by Uni vers n/iron/foli 08-02 mouth. ity of c/lutein 13:41: [place] (CENTRUM 47 MD QUIANA Yañez WOMEN ORAL) [facility] cholecalcif Yes Take by Uni vers gretel, 08-02 mouth. ity of vitamin D3, 13:41: [place] (Vitamin Hannah LUA D3) 50 mcg Anderso (2,000 n unit) Cancer capsule Center aspirin 81 0 Yes 81mg Take 81 mg U nivers mg EC 08-02 by mouth. ity of tablet 13:41: [place] [address] MD Pari chamberlain [facility] cetirizine Yes 10mg Take 10 mg U nivers (ZyrTEC) 10 -28 by mouth. ity of mg tablet 13:41: [place] [address] MD Pari chamberlain [facility] amLODIPine Yes Univers 2.5 mg 1-25 ity of tablet 00:00: Medical Branch amLODIPine 2020- Yes Univers 2.5 mg 1-25 ity of tablet 00:00: Medical Branch amLODIPine Yes Univers 2.5 mg 1-25 ity of tablet 00:00: [place] 00 Medical Branch amLODIPine 2020-0 Yes Univers (NORVASC) 1-25 ity of 2.5 mg 00:00: [place] tablet 00 [facility] amLODIPine Yes Univers (NORVASC) 1-25 ity of 2.5 mg 00:00: [place] [facility] FLUoxetine Yes Univers (PROzac) 20 1-21 ity of mg capsule 00:00: [place] [facility] FLUoxetine Yes Univers (PROzac) 20 1-21 ity of mg capsule 00:00: [place] 00 [facility] benztropine Yes 1{tbl} Take 1 Un yuliet [...] ity of XL) 300 mg 00:00: MOUTH [place] 24 hr 00 EVERY MD tablet MORNING [facility] clonazePAM Yes TAKE 1 Unive rs (KlonoPIN) 1-19 TABLET BY ity of 1 mg tablet 00:00: MOUTH [place] 00 EVERY 6 MD HOURS Anddouglas [facility] ANXIETY Cancer Center benztropine Yes TAKE 1 Univ ers (COGENTIN) 1-19 TABLET BY ity of 0.5 mg 00:00: MOUTH [place] tablet 00 TWICE MD DAILY [facility] ARIPiprazol Yes Univer s e (ABILIFY) 1-19 ity of 2 mg tablet 00:00: [place] 00 [facility] buPROPion Yes TAKE 1 Univer s (WELLBUTRIN 1-19 TABLET BY ity of XL) 300 mg 00:00: MOUTH [place] 24 hr 00 EVERY MD tablet [facility] clonazePAM Yes TAKE 1 Unive rs (KlonoPIN) 1-19 TABLET BY ity of 1 mg tablet 00:00: MOUTH [place] 00 EVERY 6 MD HOURS Anderso NEEDED FOR n ANXIETY Cancer Center benztropine Yes TAKE 1 Univ ers (COGENTIN) 1-19 TABLET BY ity of 0.5 mg 00:00: MOUTH [place] tablet 00 TWICE MD DAILY [facility] ARIPiprazol Yes Univer s e (ABILIFY) 1-19 ity of 2 mg tablet 00:00: [place] 00 [facility] levothyroxi Yes levothyrox Univers ne 100 [...] mcg MINUTES Anderso tablet BEFORE n BREAKFAST [facility] levothyroxi Yes TAKE 1 Univ ers ne 1-15 TABLET BY ity of (SYNTHROID, 00:00: MOUTH [place] LEVOTHROID) 00 DAILY 30 MD 100 mcg MINUTES Anderso tablet BEFORE n BREAKFAST Cancer Halma olmesartan- 2019-07 Yes TAKE 1 Univ ers hydrochloro 2-29 TABLET BY ity of thiazide 00:00: MOUTH [place] (BENICAR 00 DAILY MD HCT) Anderso 40-12.5 mg n per tablet Cancer Center olmesartan- 2019-07 Yes TAKE 1 Univ ers hydrochloro 2-29 TABLET BY ity of thiazide 00:00: MOUTH [place] (BENICAR 00 DAILY MD HCT) Anderso 40-12.5 mg n per tablet Cancer Center simvastatin 2019-07 Yes TK 1 T PO U nivers (ZOCOR) 80 1-13 D IN THE ity o f mg tablet 00:00: LEO [place] MD Pari chamberlain [facility] simvastatin 2020- Yes TK 1 T PO U nivers (ZOCOR) 80 1-13 D IN THE ity o f mg tablet 00:00: LEO [place] MD Pari chamberlain [facility] Cranberry Cranberry Yes [place] Extract Extract Physici [...] KlonoPIN Yes [place] TABS TABS Physici ans Keflex 500 Keflex 500 Yes [place] MG TABS MG TABS Physici ans Immunizations Ordered Filled Immunization Date Status Comments Sour e Immunization Name Name SARS-COV-2 COVID-19 2020-08-23 Completed Unive rsity of PFIZER VACCINE 00:00:00 [facility] SARS-COV-2 COVID-19 2020-08-23 Completed Unive rsity of PFIZER VACCINE 00:00:00 [facility] SARS-COV-2 COVID-19 2020-08-23 Completed Unive rsity of PFIZER VACCINE 00:00:00 [facility] SARS-COV-2 COVID-19 2020-08-02 Completed Unive rsity of PFIZER VACCINE 00:00:00 [facility] SARS-COV-2 COVID-19 2020-08-02 Completed Unive rsity of PFIZER VACCINE 00:00:00 [facility] SARS-COV-2 COVID-19 2020-08-02 Completed Unive rsity of PFIZER VACCINE 00:00:00 [facility] Vital Signs Vital Name Observation Time Observation Value Comments Source Systolic blood 2021-07-03 15:18:00 170 mm[Hg] Univer sity of pressure [facility] Diastolic blood 2021-07-03 15:18:00 81 mm[Hg] Unive rsity of pressure [facility] Heart rate 2021-07-03 15:12:00 63 /min [facility] Body temperature 2021-07-03 15:12:00 37.11 Claudia [facility] Respiratory rate 2021-07-03 15:12:00 18 /min [facility] Body height 2021-07-03 15:12:00 152.4 cm [facility] Body weight 2021-07-03 15:12:00 77.111 kg [facility] BMI 2021-07-03 15:12:00 33.20 kg/m2 [facility] Oxygen saturation in 2021-07-03 15:12:00 97 /min [facility] Arterial blood by [facility] Pulse oximetry Branch HEIGHT 2020-08-02 13:25:00 160 cm WEIGHT 2020-08-02 13:25:00 78.3 kg Procedures Procedure Date / Time Performed Performing Clinician Sour e [UTP] Ortho - Surgery 2018-06-01 00:00:00 [facility] Scheduling [facility] of Hysterectomy [facility] of Foot surgery [facility] Plan of Care Planned Activity Planned Date Details Comments Source Future Scheduled 2021-12-27 COVID-19 Vaccination Uni versity of [place] Test 06:59:58 (2 - Pfizer series) MD Conte [facility] [code = COVID-19 Center Vaccination (2 - Pfizer series)] Future Scheduled 2021-12-27 COVID-19 Vaccination Uni versity of [place] Test 06:59:58 (2 - Pfizer series) MD [facility] [code = COVID-19 Center Vaccination (2 - Pfizer series)] Diagnostic Test 2018-06-01 [UTP] Ortho - [facility] Physicia ns Pending 00:00:00 Surgery Scheduling [code = [UTP] Ortho - Surgery Scheduling] Encounters Start End Encounter Admission Attending Care Care Encounter Source Date/Time Date/Time Type Type Clinicians Facility Department ID 2022-01-13 Outpatient STLMLC STLMLC [id number] Common 14:23:02 [facility] [place] 2021-08-02 Outpatient STLMLC STLMLC Common 08:32:02 [facility] 2021-08-01 Outpatient STLMLC STLMLC [id number] Common 15:05:02 [facility] [place] 2021-01-31 Outpatient SYSTEM, ANABELLE AHN [id number] 11:38:39 PROVIDER Isaiah o n 2020-08-14 Outpatient SYSTEM, ANABELLE AHN [id number] 17:50:53 PROVIDER Isaiah o n 2020-08-02 Outpatient SYSTEM, ANABELLE AHN [id number] 17:38:38 PROVIDER Isaiah o n 2020-07-30 Outpatient SYSTEM, ANABELLE AHN [id number] 13:03:43 PROVIDER Isaiah o n 2022-02-26 2022-02-26 Outpatient Goldfarb_R HMU [id number] [place] 00:00:00 00:00:00 [id number] [facility] 2022-02-24 2022-02-24 Outpatient Goldfarb_R HMU HMU [id number] [place] 00:00:00 00:00:00 [facility] 2022-02-24 2022-02-24 Outpatient Corry, HMU HMU [id number] 00:00:00 00:00:00 Carlos [id number] 2021-11-22 2021-11-22 Outpatient Goldfarb_R HMU HMU [id number] [place] 04:09:00 04:09:00 [facility] 2021-11-19 2021-11-19 Outpatient Goldfarb_R HMU HMU [id number] [place] 09:56:00 09:56:00 [facility] 2021-11-19 2021-11-19 Outpatient Corry, HMU HMU [id number] 00:00:00 00:00:00 Carlos [id number] 2021-11-05 2021-11-05 Outpatient Goldfarb_R HMU HMU [id number] [place] 09:52:00 09:52:00 [facility] 2021-10-25 2021-10-25 Outpatient GC_SWHAOMC_ PRIV PRIV [id number] [facility] 03:00:00 03:00:00 Black_D [id number] Medica l 2021-10-24 2021-10-24 Outpatient GC_SWHAOMC_ PRIV PRIV [id number] [facility] 11:58:00 11:58:00 Black_D [id number] Medica l 2021-10-24 2021-10-24 Outpatient Black, Daksha PRIV PRIV [id number] 00:00:00 00:00:00 Woo [id number] 2021-10-23 2021-10-23 Outpatient GC_SWHAOMC_ PRIV PRIV [id number] [facility] 01:14:00 01:14:00 Black_D [id number] Medica l 2021-10-03 2021-10-03 Outpatient Goldfarb_R HMU HMU [id number] [place] 05:10:00 05:10:00 [id number] [facility] 2021-09-25 2021-09-25 Outpatient Goldfarb_R HMU HMU [id number] [place] 09:54:00 09:54:00 [id number] [facility] 2021-09-25 2021-09-25 Outpatient Corry, HMU HMU [id number] 00:00:00 00:00:00 Carlos [id number] 2021-09-16 2021-09-16 Outpatient Goldfarb_R HMU HMU [id number] [place] 12:25:00 12:25:00 [id number] [facility] 2021-08-28 2021-08-28 Outpatient Goldfarb_R HMU HMU [id number] [place] 10:12:00 10:12:00 [id number] [facility] 2021-08-15 2021-08-15 Outpatient Goldfarb_R HMU HMU [id number] [place] 03:21:00 03:21:00 [facility] 2021-08-15 2021-08-15 Outpatient Corry, HMU [facility] [id number] 00:00:00 00:00:00 Carlos [id number] 2021-08-14 Outpatient Goldfarb_R HMU [facility] [id number] [place] 12:40:00 12:40:00 [facility] 2021-08-08 2021-08-08 Telephone Quan [id number] [facility] 00:00:00 00:00:00 Odilia [id number] ity of 3.412.2.7 [place] .[id number] MD Terry8 [facility] 2021-08-08 2021-08-08 Sylvia Glass [id number] Univers 00:00:00 00:00:00 Only Odilia [id number] ity of 3.412.2.7 [place] .[id number] MD Lazo [facility] 2021-08-08 2021-08-08 Kameron Glass 1.2.840.1 [id number] Univers 00:00:00 00:00:00 Odilia [id number] ity of 3.412.2.7 [place] .[id number] MD Lazo [facility] 2021-08-08 2021-08-08 Sylvia Glass [id number] Univers 00:00:00 00:00:00 Only Odilia 73423.1.1 ity of 3.412.2.7 [place] .[id number] MD Lazo [facility] 2021-07-23 2021-07-23 Outpatient Goldfarb_R U [facility] [id number] [place] 03:53:00 03:53:00 [facility] 2021-07-15 2021-07-15 CHRISTIAN Colon [id number] 00:00:00 00:00:00 [facility] [id number] it y of [place] 4.2.7.2.686 Jarvis as SKYLAR?BLEA [id number] [address] MEDICAL OFFICE BUILDING 2021-07-04 2021-07-04 BRIAN Flaherty [id number] Univers 00:00:00 00:00:00 (Out) Licha Gutierrez RODRIGUEZ [id number] it y of [facility] [id number] Jarvis as [id number] [address] 2021-07-03 2021-07-03 Michael Glez [facility] [id number] Univers 09:40:00 09:40:00 Care Unknown, [facility] [id number] ity of [place] 4.2.7.2.686 Jarvis as SKYLAR?BLEA [id number] [address] MEDICAL OFFICE [facility] 2021-07-03 2021-07-03 Outpatient R ALVAREZ [facility] [id number] [facility] 09:40:00 09:22:42 [facility] 2021-05-03 2021-05-03 Outpatient Goldfarb_R HMU [id number] [place] 02:04:00 02:04:00 [id number] [facility] 2021-05-01 2021-05-01 Outpatient Goldfarb_R HMU U [id number] [place] 09:43:00 09:43:00 [id number] [facility] 2021-04-30 2021-04-30 Outpatient Goldfarb_R HMU U [id number] [place] 10:04:00 10:04:00 [id number] [facility] 2021-04-30 2021-04-30 Outpatient Corry, HMU U [id number] 00:00:00 00:00:00 Carlos [id number] 2021-04-19 2021-04-19 Outpatient Goldfarb_R HMU U [id number] [place] 11:08:00 11:08:00 [id number] [facility] 2021-04-09 2021-04-09 Outpatient Goldfarb_R HMU HMU [id number] [place] 01:24:00 01:24:00 [id number] [facility] 2021-04-09 2021-04-09 Outpatient Corry, HMU HMU [id number] 00:00:00 00:00:00 Carlos [id number] 2021-03-01 2021-03-01 Outpatient Goldfarb_R HMU HMU [id number] [place] 12:04:00 12:04:00 [id number] [facility] 2020-12-07 2020-12-07 Outpatient Goldfarb_R HMU HMU [id number] [place] 08:06:00 08:06:00 [id number] [facility] 2020-12-07 2020-12-07 Outpatient Corry, HMU HMU [id number] 00:00:00 00:00:00 Carlos [id number] 2020-11-30 2020-11-30 Outpatient Goldfarb_R HMU HMU [id number] [place] 11:31:00 11:31:00 [id number] [facility] 2020-11-27 2020-11-27 Outpatient Goldfarb_R HMU HMU [id number] [place] 11:01:00 11:01:00 [id number] [facility] 2020-11-20 2020-11-20 Outpatient Goldfarb_R HMU HMU [id number] [place] 03:00:00 03:00:00 [id number] [facility] 2020-11-20 2020-11-20 Outpatient Corry, HMU HMU [id number] 00:00:00 00:00:00 Carlos [id number] 2020-11-15 2020-11-15 Outpatient Goldfarb_R HMU HMU [id number] [place] 05:26:00 05:26:00 [id number] [facility] 2020-11-13 2020-11-13 Outpatient Goldfarb_R HMU HMU [id number] 04:53:00 04:53:00 [id number] [facility] 2020-08-23 2020-08-23 Outpatient R LITA, [facility] [id number] Univers 15:30:00 15:30:00 DORA jacques [facility] 2020-08-06 2020-08-06 Outpatient EL MDA MDA [id number] MD 09:22:04 09:22:04 Isaiah chamberlain 2020-08-06 2020-08-06 Outpatient EL MDA MDA [id number] MD 08:48:09 08:48:09 Isaiah chamberlain 2020-08-03 2020-08-03 Outpatient EL MIGGINS, MDA MDA [id number] MD 09:57:06 09:57:06 GUERLINE chamberlain 2020-08-02 2020-08-02 Outpatient MIGGINS, MDA MDA [id number] MD 16:50:16 16:50:16 GUERLINE chamberlain 2020-08-02 2020-08-02 Outpatient MIGGINS, MDA MDA [id number] MD 16:49:00 16:49:00 GUERLINE chamberlain 2020-08-02 2020-08-02 Outpatient MIGGINS, MDA MDA [id number] MD 16:48:00 16:48:00 GUERLINE chamberlain 2020-08-02 2020-08-02 Outpatient MIGGINS, MDA MDA [id number] MD 16:47:27 16:47:27 GUERLINE chamberlain 2020-08-02 2020-08-02 Outpatient MIGGINS, MDA MDA [id number] MD 16:45:52 16:45:52 GUERLINE chamberlain 2020-08-02 2020-08-02 Outpatient EL MIGGINS, MDA MDA [id number] MD 13:14:07 14:38:29 GUERLINE chamberlain 2020-08-02 2020-08-02 Outpatient EL MDA MDA [id number] MD 12:52:24 12:52:50 Isaiah chamberlain 2020-07-31 2020-07-31 Outpatient EL TIARA LEVINE, MDA MDA [id number] 09:06:17 09:19:19 RONNIE chamberlain 2020-06-28 2020-06-28 Outpatient GC_[facility]_ PRIV PRIV [id number] [facility] 09:15:00 09:15:00 Black_D [id number] Medica l 2018-06-01 2018-06-01 Appointgreg JIMY, UTP UTP [id number] [place] 14:15:00 14:15:00 t; ROMI AHN, Orthopedic P hysici ROMI, DPM Surgery - ans DPM Carlos Manuel Trace 2 2018-05-04 2018-05-04 Appointgreg JIMY, UTP UTP [id number] [place] 14:15:00 14:15:00 t; ROMI AHN, Phys ici ROMI, DPM ans DPM 2018-04-20 2018-04-20 Appointgreg AHN, UTP UTP [id number] [place] 15:45:00 15:45:00 t; ROMI AHN, Phys ici ROMI, DPM ans DPM 2018-04-08 [facility] [id number] [place] 16:00:00 16:00:00 t; ROMI AHN, Phys ici ROMI, DPM ans DPM 2018-04-06 2018-[facility] UTP [id number] [place] 16:15:00 16:15:00 t; ROMI AHN, Phys ici ROMI, DPM ans DPM 2018-03-24 2018-03-24 Appointgreg JIMY, UTP UTP [id number] [place] 13:45:00 13:45:00 t; ROMI AHN, Phys ici ROMI, DPM ans DPM 2018-03-11 2018[facility] UTP [id number] [place] 07:30:00 07:30:00 t; ROMI AHN, Phys ici ROMI, DPM ans DPM 2018-01-21 2018-01-21 Appointmen JIMY, UTP UTP [id number] [place] 13:30:00 13:30:00 t; ROMI AHN, Phys ici ROMI, DPM ans DPM Results Test Description Test Time Test Comments Results Result Comments Source Tobacco Use Screening 2018-06-01 14:15:00 Test Item Value Reference Range Interpretation Comme nts Completed (test code = Completed) DONE [facility]
[2022-02-27] MEDS ORDERED: HYDROCODONE/APAP 5/325 MG TAB ONE (11:27)
[2022-02-27] MEDS ORDERED: LIDOCAINE 4% PATCH ONE (11:30)
[2022-02-27 12:17] LABS: Absolute Lymphocytes (CBC) 1.8 K/uL (0.7-4.9); Hematocrit 32.3 % (36.0-45.0); Lymphocytes % 18.9 % (15.3-44.8); MCV 91.1 fL (80-100); MPV 8.2 fL (7.6-11.3); RBC Red Blood Cell Count 3.54 M/uL (3.86-4.86)
[2022-02-27 12:41] LABS: Albumin 3.8 g/dL (3.4-5.0); Bilirubin Total 0.5 mg/dL (0.2-1.0); Potassium 3.9 mmol/L (3.5-5.1); Protein, Total 7.7 g/dL (6.4-8.2)
[2022-02-27] MEDS ORDERED: NA CHLORIDE 0.9% 500 ML ONE (13:08)
--- NOTE | 2022-02-27 13:20 | RAD REPORT ---
EXAM DESCRIPTION: CT - Abdomen Pelvis W Contrast - 02/27/2022 1:05 pm CLINICAL HISTORY: Abdominal pain COMPARISON: 2013 TECHNIQUE: Computed axial tomography of the abdomen pelvis was obtained. 100 cc Isovue-300 was admin istered intravenously. Oral contrast was not requested which limits evaluation of bowel and appendix All CT scans are performed using dose optimization technique as appropriate and may include automated exposure control or mA/KV adjustment according to patient size. FINDINGS: Nondisplaced fracture eighth left lateral rib Mildly displaced fractures ninth and tenth posterolateral left ribs. Small left pleural effusion with left lower lobe atelectasis. The spleen is intact Small hepatic cyst. Pancreas, adrenals and left kidney are unremarkable. 16 millimeter right renal cyst There is no evidence of diverticulitis. Large amount of stool is present throughout the colon. Transverse colon measures 6.5 centimeters Hysterectomy Mild anterior subluxation L4 on L5 Mild compression deformity L1 vertebral body IMPRESSION: Nondisplaced fracture eighth left lateral rib Mildly displaced fractures ninth and tenth posterolateral left ribs. Small left pleural effusion with left lower lobe atelectasis. Large amount of stool is present throughout the colon. Transverse colon measures 6.5 centimeters Mild compression deformity L1 vertebral body. It has more of the appearance of being subacute or asbestos abatement worker sandy than acute.
--- NOTE | 2022-02-27 13:49 | EDPHYS ---
Physician Documentation [facility] Name: Leah Campbell Age: 82 yrs Sex: Female : 1940 Arrival Date: 02/27/2022 Time: 10:02 Bed 15 Private MD: Saroj Mendieta C ED Physician Louie Domingo HPI: 02/27 12:00 This 82 yrs old Female presents to ER via Wheelchair with complaints of Back Pain, Fall pm1 Injury - 1 wk ago. 12:00 The patient presents with pain that is acute. The symptoms are located in the left mid pm1 back. Onset: The symptoms/episode began/occurred 1 week(s) ago. The pain does not radiate. Associated signs and symptoms: The patient has no apparent associated signs or symptoms. The problem was sustained during a fall. Modifying factors: The patient symptoms are alleviated by nothing, the patient symptoms are aggravated by Movement to left side. Severity of symptoms: in the emergency department the symptoms are unchanged. The patient has not experienced similar symptoms in the past. The patient has been recently seen at the [facility] Emergency Department, this week, for similar complaints. 82-year-old female presents to the ER with complaints of left back pain. Patient reports fall injury 1 week ago with resulting bruising to left flank area. Patient had a fall today where she landed onto her buttocks and reports pain to left back increased with spasming. Negative for head injury, headache, neck pain, LOC. Historical: - PMHx: 11:33 ADD/ADHD; Hyperlipidemia; Hypothyroidism; Hypertension; Anxiety; iw - PSHx: 11:33 Tonsillectomy; iw - Immunization history:: Adult Immunizations. - Social history:: Smoking status: unknown. ROS: 12:00 Constitutional: Negative for fever, chills, and weight loss, Neck: Negative for injury, pm1 pain, and swelling, Cardiovascular: Negative for chest pain, palpitations, and edema, Respiratory: Negative for shortness of breath, cough, wheezing, and pleuritic chest pain, Abdomen/GI: Negative for abdominal pain, nausea, vomiting, diarrhea, and constipation. 12:00 MS/Extremity: Negative for injury and deformity, Skin: Negative for injury, rash, and discoloration, Neuro: Negative for headache, weakness, numbness, tingling, and seizure. 12:00 Back: Positive for of the left mid back. 12:00 All other systems are negative. Exam: 12:00 Constitutional: This is a well developed, well nourished patient who is awake, alert, pm1 and in no acute distress. Head/Face: Normocephalic, atraumatic. 12:00 Skin: Warm, dry with normal turgor. Normal color with no rashes, no lesions, and no evidence of cellulitis. MS/ Extremity: Pulses equal, no cyanosis. Neurovascular intact. Full, normal range of motion. 12:00 Cardiovascular: Exam negative for acute changes, Rate: normal, Rhythm: regular, Pulses: no pulse deficits are appreciated, Heart sounds: normal, normal S1and S2. 12:00 Respiratory: Exam negative for acute changes, respiratory distress, shortness of breath, Breath sounds: are clear throughout. 12:00 Abdomen/GI: Inspection: bruising, anterior aspect of left lateral abdomen. 12:00 Back: vertebral tenderness, is not appreciated, muscle spasm, is appreciated in the left mid back. 12:00 Neuro: Exam negative for acute changes, Orientation: is normal, Mentation: is normal, Motor: moves all fours. Vital Signs: 11:46 BP 100 / 72; Pulse 89; Resp 16; Temp 98.0; Pulse Ox 97% on R/A; iw MDM: 10:05 Patient medically screened. pm1 12:04 ED course: Patient reports abdominal pain to me that started yesterday and she would pm1 like it evaluated. 13:11 Data reviewed: vital signs. Data interpreted: Pulse oximetry: on room air is 97 %. pm1 Interpretation: normal. 13:47 Counseling: I had a detailed discussion with the patient and/or guardian regarding: the pm1 historical points, exam findings, and any diagnostic results supporting the discharge/admit diagnosis, lab results, radiology results, the need for outpatient follow up, to return to the emergency department if symptoms worsen or persist or if there are any questions or concerns that arise at home. 02/27 11:59 Order name: CBC with Diff; Complete Time: 12:50 pm1 02/27 11:59 Order name: CMP; Complete Time: 12:50 pm1 02/27 11:59 Order name: Lipase; Complete Time: 12:50 pm1 02/27 11:59 Order name: CT Abd/Pelvis - IV Contrast Only; Complete Time: 13:23 pm1 02/27 13:50 Order name: INCENTIVE SPIROMETRY pm1 02/27 10:49 Order name: Ice pack; Complete Time: 11:34 pm1 02/27 11:59 Order name: IV Saline Lock; Complete Time: 12:11 pm1 02/27 11:59 Order name: Labs collected and sent; Complete Time: 12:11 pm1 Administered Medications: 11:26 Drug: Lidoderm Patch 5 % (700 mg/patch) 1 patches Route: Topical; Site: affected area; iw 11:26 Drug: HYDROcodone-acetaminophen 5 mg-325 mg 1 tabs Route: PO; iw 12:00 Follow up: Response: No adverse reaction iw 13:12 Drug: NS 0.9% 500 ml Route: IV; Rate: bolus; Site: right antecubital; iw 14:00 Follow up: IV Status: Completed infusion iw Disposition: 02/28 10:59 Co-signature as Attending Physician, Louie Domingo DO I agree with the assessment and ms3 plan of care. Disposition Summary: 02/27/22 13:48 Discharge Ordered Location: Home pm1 Problem: new pm1 Symptoms: have improved pm1 Condition: Stable pm1 Diagnosis - Constipation, unspecified pm1 - Multiple fractures of ribs, left side pm1 Followup: pm1 - With: Emergency Department - When: As needed - Reason: Worsening of condition Followup: pm1 - With: Private Physician - When: 2 - 3 days - Reason: Recheck today's complaints, Continuance of care, Re-evaluation by your physician Discharge Instructions: - Discharge Summary Sheet pm1 - Constipation, Adult pm1 - Rib Fracture pm1 Forms: - Medication Reconciliation Form pm1 - Thank You Letter pm1 - Antibiotic Education pm1 - Prescription Opioid Use pm1 Prescriptions: - Lactulose 10 gram/15 mL Oral Solution - take 30 milliliters by ORAL route once daily As needed; 300 milliliter; pm1 Refills: 0, Product Selection Permitted - Tylenol-Codeine #3 300 mg-30 mg Oral - take 2 tablet by ORAL route every 4 hours As needed; 20 tablet; Refills: 0, pm1 Product Selection Permitted - Colace 100 mg Oral Capsule - take 1 tablet by ORAL route every 12 hours As needed; 14 tablet; Refills: 0, pm1 Product Selection Permitted Signatures: Dispatcher [employer] Bernadette Huertas, RN RN iw Cliff Saaverda, HR SHARED SERVICES CONSULTANT HR SHARED SERVICES CONSULTANT pm1 Louie Domingo DO DO ms3
--- NOTE | 2022-02-27 13:49 | ER ---
Nurse's Notes [facility] Name: Leah Campbell Age: 82 yrs Sex: Female : 1940 Arrival Date: 02/27/2022 Time: 10:02 Bed 15 Private MD: Saroj Mendieta C Diagnosis: Constipation, unspecified;Multiple fractures of ribs, left side Presentation: 02/27 11:33 Chief complaint: Patient states: left back and abd pain since fall a week ago. iw Coronavirus screen: At this time, the client does not indicate any symptoms associated with coronavirus-19. Ebola Screen: Patient negative for fever greater than or equal to 101.5 degrees Fahrenheit, and additional compatible Ebola Virus Disease symptoms Patient denies exposure to infectious person. Patient denies travel to an Ebola-affected area in the 21 days before illness onset. No symptoms or risks identified at this time. 11:33 Method Of Arrival: Wheelchair iw 11:33 Acuity: JAY 4 iw 12:02 Initial Sepsis Screen: Does the patient meet any 2 criteria? No. Patient's initial iw sepsis screen is negative. Does the patient have a suspected source of infection? No. Patient's initial sepsis screen is negative. Risk Assessment: Do you want to hurt yourself or someone else? Patient reports no desire to harm self or others. 12:02 Acuity: JAY 3 iw 12:05 Onset of symptoms was February 21, 2022. iw Triage Assessment: 11:35 General: Appears in no apparent distress. Behavior is calm, cooperative. iw Musculoskeletal: Range of motion: intact in all extremities. Historical: - PMHx: 11:33 ADD/ADHD; Hyperlipidemia; Hypothyroidism; Hypertension; Anxiety; iw - PSHx: 11:33 Tonsillectomy; iw - Immunization history:: Adult Immunizations. - Social history:: Smoking status: unknown. Screenin:00 Abuse screen: Denies threats or abuse. Denies injuries from another. Nutritional iw screening: No deficits noted. Tuberculosis screening: No symptoms or risk factors identified. Fall Risk IV access (20 points). Assessment: 11:35 General: Appears in no apparent distress. Behavior is calm, cooperative. Pain: iw Complains of pain in anterior aspect of left lateral abdomen and left mid back. Neuro: Level of Consciousness is awake, alert, obeys commands, Oriented to person, place, time, situation. Respiratory: Respiratory effort is even, unlabored, Respiratory pattern is regular, symmetrical. GI: Abdomen is Abdomen is tender to palpation in posterior aspect of left lateral abdomen, left upper quadrant and left lower quadrant. Derm: Bruising that is dark purple, on anterior aspect of left lateral abdomen and left mid back. Musculoskeletal: Range of motion: intact in all extremities. Vital Signs: 11:46 BP 100 / 72; Pulse 89; Resp 16; Temp 98.0; Pulse Ox 97% on R/A; iw ED Course: 10:02 Patient arrived in ED. am2 10:02 Saroj Mendieta MD is Private Physician. am2 10:04 Cliff Saavedra NP is PHCP. pm1 10:04 Louie Domingo DO is Attending Physician. pm1 11:08 Bernadette Horowitz, DANELLE is Primary Nurse. iw 11:34 Triage completed. iw 11:35 Arm band placed on. iw 11:35 Patient has correct armband on for positive identification. iw 12:11 Initial lab(s) drawn, by me, sent to lab. Inserted saline lock: 20 gauge in right jw7 antecubital area, using aseptic technique. Blood collected. 12:11 CBC with Diff Sent. jw7 12:11 CMP Sent. jw7 12:11 Lipase Sent. jw7 13:07 CT Abd/Pelvis - IV Contrast Only In Process Unspecified. EDMS 14:20 No provider procedures requiring assistance completed. IV discontinued, intact, iw bleeding controlled, No redness/swelling at site. Pressure dressing applied. Administered Medications: 11:26 Drug: Lidoderm Patch 5 % (700 mg/patch) 1 patches Route: Topical; Site: affected area; iw 11:26 Drug: HYDROcodone-acetaminophen 5 mg-325 mg 1 tabs Route: PO; iw 12:00 Follow up: Response: No adverse reaction iw 13:12 Drug: NS 0.9% 500 ml Route: IV; Rate: bolus; Site: right antecubital; iw 14:00 Follow up: IV Status: Completed infusion iw Medication: 11:35 VIS not applicable for this client. iw Outcome: 13:48 Discharge ordered by MD. pm1 14:23 Discharged to home via wheelchair, with family. iw 14:23 Condition: good 14:23 Discharge instructions given to family, Instructed on discharge instructions, follow up and referral plans. medication usage, Demonstrated understanding of instructions, follow-up care, medications, Prescriptions given X 3. 14:24 Patient left the ED. jw7 Signatures: Dispatcher [employer] Bernadette Huertas RN RN iw Cliff Saavedra NP SUPERVISOR [employer]Y CELL ASSEMBLY pm1 Birgit Thorpe am2 Meghan Villalba jw7 Corrections: (The following items were deleted from the chart) 02/28 07:29 02/27 14:23 Discharge instructions given to family, Instructed on discharge iw instructions, follow up and referral plans. medication usage, Demonstrated understanding of instructions, follow-up care, medications, Prescriptions given X iw
[2022-02-27 14:57] VITALS: BP 100/72; TEMP 98; O2SAT 97
== END 2022-02-27 14:24 | disposition home or self-care (01) ==
LOC: ER 10:01
DX: S22.42XA Multiple fractures of ribs, left side, initial encounter for closed fracture (principal); K59.00 Constipation, unspecified; I10 Essential (primary) hypertension
CPT/HCPCS: 85025; 36415; 83690; 80053; 74177; 96360; 99284; Q9967; J2001; J7050

== ENCOUNTER → 2023-07-04 | Emergency (ER) | payer OTHER, MEDICARE ==
[~2023-07-04] MED LIST: ACETAMINOPHEN 325 MG TABLET ONE; IBUPROFEN 200 MG TAB PO ONE
--- OUTSIDE RECORDS SUMMARY | 2023-07-04 07:09 | XMS REPORT | Clinical Summary ---
Author Name Unknown Organization [facility] [place] Address [address] [place] [address] Care Team Providers Care Die Storage Clerk Name Role Phone Kings Mendieta MD Unavailable [phone] 1 Cathie Willis MD Primary Care Provider [phone] Allergies No known active allergies Medications Medication Sig Dispensed Refills Start Date End Date Status FLUoxetine (PROzac) 20 mg capsule 0 07/26/2020 Active buPROPion (WELLBUTRIN XL) 300 mg 24 hr tablet TAKE 1 TABLET BY MOUTH EVERY MORNING 0 07/24/2020 Active clonazePAM (KlonoPIN) 1 mg tablet TAKE 1 TABLET BY MOUTH EVERY 6 HOURS NEEDED FOR ANXIETY 0 07/24/2020 Active simvastatin (ZOCOR) 80 mg tablet TK 1 T PO D IN THE LEO 0 05/18/2020 Active amLODIPine (NORVASC) 2.5 mg tablet 0 07/30/2020 Active olmesartan-hydrochlor othiazide (BENICAR HCT) 40-12.5 mg per tablet TAKE 1 TABLET BY MOUTH DAILY 0 07/03/2020 Active benztropine (COGENTIN) 0.5 mg tablet TAKE 1 TABLET BY MOUTH TWICE DAILY 0 07/24/2020 Active levothyroxine (SYNTHROID, LEVOTHROID) 100 mcg tablet TAKE 1 TABLET BY MOUTH DAILY 30 MINUTES BEFORE BREAKFAST 0 07/20/2020 Active ARIPiprazole (ABILIFY) 2 mg tablet 0 07/24/2020 Act benedicto multivit-min/iron/fol ic/lutein (CENTRUM SILVER WOMEN ORAL) Take by mouth. 0 Ac tive cholecalciferol, vitamin D3, (Vitamin D3) 50 mcg (2,000 unit) capsule Take by mouth. 0 Active aspirin 81 mg EC tablet Take 81 mg by mouth. 0 Active cetirizine (ZyrTEC) 10 mg tablet Take 10 mg by mouth. 0 Active Active Problems Problem Noted Date Diagnosed Date Hypercholesterolemia 08/02/2020 Hypertensive disorder 08/02/2020 Hypothyroidism 08/02/2020 Mixed anxiety and depressive disorder 08/02/2020 Seasonal allergy 08/02/2020 Surgical History Surgery Date Site/Laterality Comments TONSILLECTOMY TUBAL LIGATION TOTAL ABDOMINAL HYSTERECTOMY W/ BILATERAL SALPINGOOPHORECTOMY BLADDER SUSPENSION FOOT SURGERY ACHILLES TENDON SURGERY ROTATOR CUFF REPAIR Medical History Medical History Date Comments Hypertension Hyperlipidemia Hypothyroidism Gastroesophageal reflux disease Urge incontinence Overactive bladder Anxiety Rotator cuff tear of right shoulder, not specifi ed as traumatic Sleep apnea on CPAP Diverticulosis of colon Family History Medical History Relation Name Comments Colon cancer Maternal Grandmother Breast cancer Neg Hx Ovarian cancer Neg Hx Relation Name Status Comments Maternal Grandmother Social History Tobacco Use Types Packs/Day Years Used Date Smoking Tobacco: Never Smokeless Tobacco: Never Alcohol Use Standard Drinks/Week Comments Yes 4 (1 standard drink = 0.6 oz pur e alcohol) Sex and Gender Information Value Date Recorded Sex Assigned at Not on file Gender Identity Not on file Sexual Orientation Not on file Job Start Date Occupation Industry Not on file Not on file Not on file Obstetrics History Para Term AB IAB SAB Ectopic Multiple Livin g Live Births 1 1 Date Outcome GA Total Labor Labor/2nd/3rd Weight Sex Delivery Anes PTL [place] A1 A5 Name Cl in Para Comments Age of parity: 42 Age of menarche: 14 OCP: 2 years HRT: none Fertility treatments: none : 9 months Menopausal status: natural menopause@ 42yo Bra Size: 42C Plan of Treatment Health Maintenance Due Date Last Done Comments COVID-19 Vaccination ( season) 2023 08/02/2020 Care Teams Die Storage Clerk Relationship Specialty Start Date End Date Kings Mendieta MD [address] [place] [address] [place] [id number] PCP - External Referring Internal Medicine 07/30/20 Cathie Willis MD [address] [place] [address] PCP - General Breast Surgery 07/31/20
--- NOTE | 2023-07-04 08:06 | RAD REPORT ---
[facility] CLINICAL HISTORY: Right leg pain COMPARISON: None. FINDINGS: Right common femoral, superficial femoral, greater saphenous, popliteal and right posterio r tibial veins are compressible and demonstrate augmentation. Doppler demonstrates good flow. Grayscale, color and spectral analysis performed on all vessels IMPRESSION: No evidence of deep venous thrombosis involving the right lower extremity.
--- NOTE | 2023-07-04 08:07 | RAD REPORT ---
EXAM DESCRIPTION: US - Lower Extremity Artery Uni Ltd - 07/04/2023 8:00 am CLINICAL HISTORY: Leg pain COMPARISON: None FINDINGS: The right common femoral, superficial femoral and popliteal arteries demonstrate biphasic waveforms The right posterior tibial and dorsalis pedis arteries demonstrate biphasic waveforms Grayscale, color and spectral analysis performed on all vessels IMPRESSION: Mild lower extremity arterial disease
--- NOTE | 2023-07-04 09:32 | RAD REPORT ---
EXAM DESCRIPTION: RAD - Foot Right 3 View - 07/04/2023 8:22 am CLINICAL HISTORY: Right foot pain status post injury FINDINGS: Screw fuses second PIP joint. No fracture or dislocation is seen involving the right foot
--- NOTE | 2023-07-04 09:33 | RAD REPORT ---
EXAM DESCRIPTION: RAD - Ankle Right 3 View - 07/04/2023 8:22 am CLINICAL HISTORY: Right ankle pain FINDINGS: No fracture or dislocation is seen.
--- NOTE | 2023-07-04 09:43 | EDPHYS ---
Physician Documentation [facility] Name: Leah Campbell Age: 83 yrs Sex: Female : 1940 Arrival Date: 07/04/2023 Time: 07:06 Bed 11 Private MD: Saroj Mendieta C ED Physician Edvin Plascencia HPI: 07/04 07:54 This 83 yrs old Female presents to ER via Wheelchair with complaints of Foot Pain. rn 07:54 The patient presents with pain, that is acute. The complaints affect the right foot. rn Onset: The symptoms/episode began/occurred yesterday. Modifying factors: The symptoms are alleviated by elevation of extremity, sitting, the symptoms are aggravated by weight bearing. Severity of symptoms: At their worst the symptoms were moderate, in the emergency department the symptoms are unchanged. The patient has not experienced similar symptoms in the past. The patient has not recently seen a physician. Patient reports pain to the bottom of right foot that radiates to ankle that began yesterday. No acute injury. No fall. No misstep. No swelling or discoloration. No fever/warmth/redness. No history of gout or inflammatory arthritis. Has never happened before.. Historical: - Allergies: 07:14 No Known Allergies; hb - Home Meds: 07:59 amlodipine 2.5 mg tab 1 tab once daily [Active]; aripiprazole 5 mg Oral tab 1 tab once hb daily [Active]; aspirin 81 mg Oral TbEC 0.5 tab once daily [Active]; bupropion HCl 300 mg Oral Tb24 1 tab once daily [Active]; clonazepam 1 mg Oral tab 1 tab 3 times per day [Active]; fluoxetine 20 mg Oral cap 1 cap 4 x a day [Active]; levothyroxine 100 mcg tab 1 tab once daily [Active]; olmesartan-hydrochlorothiazide 40-12.5mg Oral 1 tab once daily [Active]; quetiapine 50 mg Oral tab 1 tab daily [Active]; ranitidine HCl 150 mg Oral cap 1 cap 2 times per day [Active]; simvastatin 80 mg Oral tab daily [Active]; Vitamin D3 1 Oral cap daily [Active]; - PMHx: 07:14 Anxiety; Hyperlipidemia; ADD/ADHD; Hypertension; Hypothyroidism; hb - PSHx: 07:14 Tonsillectomy; hb - Immunization history:: Adult Immunizations up to date. - Social history:: Smoking status: Patient denies any tobacco usage or history of. - Family history:: not pertinent. - Hospitalizations: : No recent hospitalization is reported. ROS: 07:58 Constitutional: Negative for fever, chills, and weight loss, MS/Extremity: Positive for rn right foot and ankle pain Skin: Negative for injury, rash, and discoloration, Neuro: Negative for headache, weakness, numbness, tingling, and seizure, Exam: 07:58 Constitutional: This is a well developed, well nourished patient who is awake, alert, rn and in no acute distress. Skin: Warm, dry MS/ Extremity: Pulses equal, no cyanosis. Neurovascular intact. Full, normal range of motion. Equal circumference. Mild tenderness along plantar surface of foot. No foreign body or puncture wound. No erythema or fluctuance. Tender along heel. No focal bony tenderness or deformity. Strong dorsalis pedis pulses. No calf tenderness. Neuro: Awake and alert, GCS 15 Vital Signs: 07:16 BP 138 / 82; Pulse 73; Resp 16; Temp 97.1(TE); Pulse Ox 98% on R/A; Weight 72.57 kg; hb Height 5 ft. 3 in. ; Pain 8/10; 07:16 Body Mass Index 28.34 (72.57 kg, 160.02 cm) hb 07:16 Pain Scale: Adult hb MDM: 07:09 Patient medically screened. rn 09:41 Differential diagnosis: fracture, sprain, arthritis, Plantar fasciitis. Data reviewed: rn vital signs, nurses notes, radiologic studies, plain films, ultrasound, and as a result, I will discharge patient. Counseling: I had a detailed discussion with the patient and/or guardian regarding the historical points, exam findings, and any diagnostic results supporting the discharge/admit diagnosis, radiology results, the need for outpatient follow up, to return to the emergency department if symptoms worsen or persist or if there are any questions or concerns that arise at home. Response to treatment: the patient's symptoms have mildly improved after treatment, and as a result, I will discharge patient. ED course: No acute findings on workup here. Arterial and venous ultrasounds negative. X-rays negative. Most likely plantar fasciitis or arthritis. Will discharge home with [id number] medication and supportive therapy. Return precautions given and understood. 07/04 07:22 Order name: XRAY Foot RIGHT 3 View; Complete Time: 09:33 rn 07/04 07:22 Order name: XRAY Ankle RIGHT 3 view; Complete Time: 09:33 rn 07/04 07:22 Order name: Extremity Venous Uni Ltd US; Complete Time: 09:33 rn 07/04 07:22 Order name: Lower Extremity Artery Uni Ltd US; Complete Time: 09:33 rn 07/04 07:22 Order name: Ice pack; Complete Time: 07:29 rn Administered Medications: 07:29 Drug: Ibuprofen PO 600 mg PO once Route: PO; hb 08:56 Follow up: Response: No adverse reaction hb 07:29 Drug: Acetaminophen PO 500 mg PO once Route: PO; hb 08:56 Follow up: Response: No adverse reaction hb Disposition Summary: 07/04/23 09:42 Discharge Ordered Notes: Location: Home rn Problem: new rn Symptoms: have improved rn Condition: Stable rn Diagnosis - Pain in right foot rn Followup: rn - With: Private Physician - When: As needed - Reason: Recheck today's complaints, Re-evaluation by your physician Discharge Instructions: - Discharge Summary Sheet rn - Plantar Fasciitis rn - Foot Pain rn Forms: - Medication Reconciliation Form rn - Thank You Letter rn - Antibiotic broomcorn seeder - Prescription Opioid Use rn - Patient Portal Instructions rn - Leadership Thank You Letter rn Signatures: Dispatcher [employer] Edvin Jacques MD MD rn Baxter, Heather, RN RN hb
--- NOTE | 2023-07-04 09:43 | ER ---
Nurse's Notes [facility] Name: Leah Campbell Age: 83 yrs Sex: Female : 1940 Arrival Date: 07/04/2023 Time: 07:06 Bed 11 Private MD: Saroj Mendieta C Diagnosis: Pain in right foot Presentation: 07/04 07:12 Chief complaint: Right foot and ankle pain upon waking yesterday, denies injury. hb Coronavirus screen: At this time, the client does not indicate any symptoms associated with coronavirus-19. Ebola Screen: No symptoms or risks identified at this time. Initial Sepsis Screen: Does the patient meet any 2 criteria? No. Patient's initial sepsis screen is negative. Does the patient have a suspected source of infection? No. Patient's initial sepsis screen is negative. Risk Assessment: Do you want to hurt yourself or someone else? Patient reports no desire to harm self or others. Onset of symptoms was July 03, 2023. 07:12 Method Of Arrival: Wheelchair hb 07:17 Acuity: JAY 4 hb Triage Assessment: 07:14 General: Appears in no apparent distress. Behavior is calm, cooperative. Pain: Pain hb currently is 8 out of 10 on a pain scale. Neuro: Level of Consciousness is awake, alert, obeys commands, Oriented to person, place, time, situation. Cardiovascular: Patient's skin is warm and dry. Respiratory: Respiratory effort is even, unlabored, Respiratory pattern is regular, symmetrical. Musculoskeletal: Reports right foot and ankle pain. Historical: - Allergies: 07:14 No Known Allergies; - Home Meds: 07:59 amlodipine 2.5 mg tab 1 tab once daily [Active]; aripiprazole 5 mg Oral tab 1 tab once hb daily [Active]; aspirin 81 mg Oral TbEC 0.5 tab once daily [Active]; bupropion HCl 300 mg Oral Tb24 1 tab once daily [Active]; clonazepam 1 mg Oral tab 1 tab 3 times per day [Active]; fluoxetine 20 mg Oral cap 1 cap 4 x a day [Active]; levothyroxine 100 mcg tab 1 tab once daily [Active]; olmesartan-hydrochlorothiazide 40-12.5mg Oral 1 tab once daily [Active]; quetiapine 50 mg Oral tab 1 tab daily [Active]; ranitidine HCl 150 mg Oral cap 1 cap 2 times per day [Active]; simvastatin 80 mg Oral tab daily [Active]; Vitamin D3 1 Oral cap daily [Active]; - PMHx: 07:14 Anxiety; Hyperlipidemia; ADD/ADHD; Hypertension; Hypothyroidism; hb - PSHx: 07:14 Tonsillectomy; hb - Immunization history:: Adult Immunizations up to date. - Social history:: Smoking status: Patient denies any tobacco usage or history of. - Family history:: not pertinent. - Hospitalizations: : No recent hospitalization is reported. Screenin:15 [facility] ED Fall Risk Assessment (Adult) Score/Fall Risk Level 3 or more points = High hb Risk Oriented to surroundings, Maintained a safe environment, Educated pt \T\ family on fall prevention, incl call for assistance when getting out of bed, Assessed \T\ reinforced patient's understanding of fall precautions. Abuse screen: Denies threats or abuse. Denies injuries from another. Nutritional screening: No deficits noted. Tuberculosis screening: No symptoms or risk factors identified. Assessment: 07:15 General: See triage assessment. . hb 07:59 Reassessment: Patient appears in no apparent distress at this time. Patient and/or hb family updated on plan of care and expected duration. Pain level reassessed. Patient is alert, oriented x 3, equal unlabored respirations, skin warm/dry/pink. 08:57 Reassessment: Patient appears in no apparent distress at this time. Patient and/or hb family updated on plan of care and expected duration. Pain level reassessed. Patient is alert, oriented x 3, equal unlabored respirations, skin warm/dry/pink. 09:45 Reassessment: Patient appears in no apparent distress at this time. Patient and/or hb family updated on plan of care and expected duration. Pain level reassessed. Patient is alert, oriented x 3, equal unlabored respirations, skin warm/dry/pink. Vital Signs: 07:16 BP 138 / 82; Pulse 73; Resp 16; Temp 97.1(TE); Pulse Ox 98% on R/A; Weight 72.57 kg; hb Height 5 ft. 3 in. ; Pain 8/10; 07:16 Body Mass Index 28.34 (72.57 kg, 160.02 cm) hb 07:16 Pain Scale: Adult hb ED Course: 07:07 Patient arrived in ED. rg4 07:08 Saroj Mendieta MD is Private Physician. rg4 07:09 Evdin Plascencia MD is Attending Physician. rn 07:14 Arm band placed on. hb 07:15 Patient has correct armband on for positive identification. Provided Education on: . hb 07:17 Triage completed. hb 07:29 Anh Cordova, RN is Primary Nurse. hb 08:02 Extremity Venous Uni Ltd US In Process Unspecified. EDMS 08:02 Lower Extremity Artery Uni Ltd US In Process Unspecified. EDMS 08:24 XRAY Foot RIGHT 3 View In Process Unspecified. EDMS 08:24 XRAY Ankle RIGHT 3 view In Process Unspecified. EDMS 09:45 No provider procedures requiring assistance completed. Patient did not have IV access hb during this emergency room visit. Administered Medications: 07:29 Drug: Ibuprofen PO 600 mg PO once Route: PO; hb 08:56 Follow up: Response: No adverse reaction hb 07:29 Drug: Acetaminophen PO 500 mg PO once Route: PO; hb 08:56 Follow up: Response: No adverse reaction hb Medication: 07:15 VIS not applicable for this client. hb Outcome: 09:42 Discharge ordered by MD. rn 09:45 Discharged to home via wheelchair, with significant other, hb 09:45 Condition: stable 09:45 Discharge instructions given to patient, significant other, Instructed on discharge instructions, follow up and referral plans. medication usage, Demonstrated understanding of instructions, follow-up care, medications, 10:19 Patient left the ED. hb Signatures: Dispatcher [employer] EDEdvin Long MD MD rn Baxter, Heather, RN RN hb Garcia, Rubi rg4 Corrections: (The following items were deleted from the chart) 07:17 07:16 Pulse 73bpm; Resp 16bpm; Pulse Ox 98% RA; Temp 97.1F Temporal; Pain 8/10, Adult; hb hb 07:17 07:16 Pulse 73bpm; Resp 16bpm; Pulse Ox 98% RA; Temp 97.1F Temporal; 72.57 kg; Height 5 hb ft. 3 in.; BMI: 28.3; Pain 8/10, Adult; hb
[2023-07-04 10:30] VITALS: BP 138/82; TEMP 97.1; O2SAT 98
== END ==
LOC: ER 07:06
DX: M79.671 Pain in right foot (principal)
CPT/HCPCS: 93926; 93971; 99283

== ENCOUNTER 2024-08-02 09:13 | Inpatient (IN) | payer OTHER, MEDICARE ==
[2024-08-02] MEDS ORDERED: MORPHINE 2 MG/ML SYR ONE ×2 (09:42→11:33)
[2024-08-02] MEDS ORDERED: ONDANSETRON 4 MG/2 ML VIAL ONE (09:42)
[2024-08-02 10:02] LABS: Absolute Eosinophils 0.1 K/uL (0-0.5); Absolute Lymphocytes (CBC) 2.8 K/uL (0.7-4.9); Absolute Monocytes 0.8 K/uL (0.1-1.3); Absolute Neutrophil 5.3 K/uL (1.8-8.0); Basophils % 0.4 % (0-1.3); Eosinophils % 1.1 % (0-4.4); Hematocrit 35.9 % (36.0-45.0); Hemoglobin 12.1 g/dL (12.0-15.0); Lymphocytes % 30.8 % (15.3-44.8); MCH 30.4 pg (27.0-35.0); MCHC 33.6 g/dL (32.0-36.0); MCV 90.3 fL (80-100); MPV 8.5 fL (7.6-11.3); Monocytes % 9.3 % (3.3-12.3); Neutrophils % 58.4 % (41.7-73.7); Platelets 237 thou/uL (152-406); RBC Red Blood Cell Count 3.97 M/uL (3.86-4.86); Red Cell Distribution Width 12.4 % (12.1-15.2)
[2024-08-02 10:03] LABS: Albumin 3.6 g/dL (3.4-5.0); Albumin/Globulin Ratio 0.9 (1.1-1.8); Anion Gap 7.8 mEq/L (5.0-15.0); Bilirubin Total 0.6 mg/dL (0.2-1.0); Potassium 3.8 mEq/L (3.5-5.1); Protein, Total 7.6 g/dL (6.4-8.2)
--- NOTE | 2024-08-02 10:51 | RAD REPORT ---
EXAMINATION: CT HEAD WITHOUT CONTRAST CT CERVICAL SPINE WITHOUT CONTRAST CLINICAL INDICATION: Head and neck injury status post fall. Head and neck pain TECHNIQUE: Axial CT images from the skull base to the vertex without intravenous contrast. Axial CT i mages through the cervical spine were obtained without intravenous contrast. Sagittal and coronal reformatted images were created from the data set. Coronal and sagittal reformatted images were creat ed from the data set. One or more of the following dose reduction techniques were used: Automated exposure control, adjustment of the mA and/or kV according to patient size, and/or iterative reconstr uction. Unless otherwise specified, incidental findings do not require dedicated imaging follow-up. [id number]. Comparison: 2020 FINDINGS: An intracranial bleed is not seen. Ventricles are normal in caliber. Mild low-density paraventricular, deep and subcortical white matter likely ischemic changes secondary to small vessel disease. No extra-axial fluid collection. No fluid within the sinuses/mastoids No fracture or dislocation is seen involving the cervical spine. Spondylosis cervical spine IMPRESSION: No acute intracranial abnormality noted A cervical fracture is not seen. If the patient continues to have symptoms to suggest acute [employer]/spinal pathology then MRI would be rec ommended
--- NOTE | 2024-08-02 10:59 | RAD REPORT ---
EXAM:Lower Ext Angio HISTORY: Leg injury with pain and hematoma. COMPARISON: None TECHNIQUE: CT angiogram lower left extremity done. Sagittal and coronal 3-D MIP reformats were perfor med. 100 cc Isovue-370 administered intravenously.Automated exposure control, adjustment of the mA and kV according to the patient size, and iterative reconstruction. Unless otherwise specified, incid ental findings do not require dedicated imaging follow-up. FINDINGS: 12 x 4 x 10 cm (CC by AP by transverse ) hematoma is present within the posterior subcutaneous tissue s of the mid aspect of the left lower extremity. The hematoma is heterogeneous in density. It contains several areas of extravasation of contrast. The largest collection of contrast lies laterally measuring about a centimeter. No gross abnormality of the musculature seen. The left posterior tibial, peroneal and anterior tibial arteries appear normal. IMPRESSION: 12 cm hematoma posterior subcutaneous tissue left lower extremity with active bleeding
--- NOTE | 2024-08-02 14:07 | ER ---
Nurse's Notes [facility] [place], [place] Name: Leah Campbell Age: 84 yrs Sex: Female : 1940 Arrival Date: 08/02/2024 Time: 09:13 Bed 7 Private MD: Diagnosis: Hematoma to the left calf with active extravasation Presentation: 08/02 09:29 Chief complaint: Patient states: she was shaving her legs, and her left calf got ap3 pinched in her walker seat. patient currently complains of pain 10/10 on the pain scale. Coronavirus screen: At this time, the client does not indicate any symptoms associated with coronavirus-19. Ebola Screen: No symptoms or risks identified at this time. Initial Sepsis Screen: Does the patient meet any 2 criteria? No. Patient's initial sepsis screen is negative. Does the patient have a suspected source of infection? No. Patient's initial sepsis screen is negative. Risk Assessment: Do you want to hurt yourself or someone else? Patient reports no desire to harm self or others. Onset of symptoms was August 02, 2024. 09:29 Method Of Arrival: Wheelchair ap3 09:29 Acuity: JAY 3 ap3 Triage Assessment: 09:31 General: Appears uncomfortable, Behavior is calm, cooperative, appropriate for age. ap3 Pain: Complains of pain in left calf Pain began this morning. Neuro: Level of Consciousness is awake, alert, obeys commands, Oriented to person, place, time, situation, Appropriate for age. Cardiovascular: Patient's skin is warm and dry. Respiratory: Airway is patent Respiratory effort is even, unlabored, Respiratory pattern is regular, symmetrical. Historical: - Allergies: :31 No Known Allergies; ap3 - PMHx: :31 ADD/ADHD; Anxiety; Hyperlipidemia; Hypertension; Hypothyroidism; ap3 - Immunization history:: Adult Immunizations up to date. - Infectious Disease History:: Denies. - Social history:: Smoking status: Patient denies any tobacco usage or history of. Screenin:32 Abuse screen: Denies threats or abuse. Nutritional screening: No deficits noted. ap3 Tuberculosis screening: No symptoms or risk factors identified. 09:32 [facility] ED Fall Risk Assessment (Adult) History of falling in the last 3 months, ap3 including since admission Yes- single mechanical fall (1 pt) Confusion or Disorientation No (0 pts) Intoxicated or Sedated No (0 pts) Impaired Gait Yes (1 pt) Mobility Assist Device Used No (0 pt) Altered Elimination No (0 pt) Score/Fall Risk Level 0 - 2 = Low Risk Oriented to surroundings, Maintained a safe environment, Educated pt \T\ family on fall prevention, incl call for assistance when getting out of bed, Assessed \T\ reinforced patient's understanding of fall precautions, Hourly rounding (assess needs \T\ fall precautionary measures) done, Used ambulatory aids as needed (educated on \T\ assisted with), Used gait belt as appropriate. 19:45 Exposure risk/Travel Screening: None identified. mt4 Assessment: 13:00 General: Appears uncomfortable, Behavior is calm, cooperative. Neuro: No deficits cm10 noted. Level of Consciousness is awake, alert, obeys commands, Oriented to person, place, time, situation, Appropriate for age. Respiratory: No deficits noted. Airway is patent Respiratory effort is even, unlabored, Respiratory pattern is regular, symmetrical. Derm: Bruising that is dark purple, on left calf. 14:30 Reassessment: Patient appears in no apparent distress at this time. Patient and/or cm10 family updated on plan of care and expected duration. Pain level reassessed. Patient is alert, oriented x 3, equal unlabored respirations, skin warm/dry/pink. 16:00 Reassessment: Patient appears in no apparent distress at this time. Patient and/or cm10 family updated on plan of care and expected duration. Pain level reassessed. Patient is alert, oriented x 3, equal unlabored respirations, skin warm/dry/pink. 19:45 Reassessment: Patient is alert, oriented x 3, equal unlabored respirations, skin mt4 warm/dry/pink. 19:45 General: Appears in no apparent distress. comfortable, Behavior is calm, cooperative, mt4 appropriate for age. Pain: Complains of pain in left leg. Neuro: Level of Consciousness is awake, alert, obeys commands, Oriented to person, place, time, situation, Appropriate for age [employer] are equal bilaterally Speech is normal, Facial symmetry appears normal. Cardiovascular: Capillary refill < 3 seconds. Respiratory: Airway is patent Respiratory effort is even, unlabored, Respiratory pattern is regular, symmetrical. GI: Abdomen is non-distended. : Denies burning with urination. Musculoskeletal: Range of motion: intact in left knee and left ankle Swelling present in left leg. Injury Description: Bruise sustained to left leg. 21:00 Reassessment: Patient and/or family updated on plan of care and expected duration. Pain mt4 level reassessed. 21:00 General: Appears in no apparent distress. comfortable, Behavior is calm, cooperative, mt4 appropriate for age. Pain: Complains of pain in left leg. Respiratory: Airway is patent Respiratory effort is even, unlabored, Respiratory pattern is regular, symmetrical. GI:. 22:00 Reassessment:. Reassessment: No changes from previously documented assessment. Patient mt4 and/or family updated on plan of care and expected duration. Pain level reassessed. 23:00 Reassessment: Patient and/or family updated on plan of care and expected duration. Pain mt4 level reassessed. Vital Signs: 09:29 BP 157 / 93; Pulse 70; Resp 17; Temp 98.1; Pulse Ox 97% on R/A; Weight 74.84 kg (M); ap3 Pain 10/10; 11:28 BP 140 / 76; Pulse 60; Resp 15; Pulse Ox 98% ; cm10 12:00 BP 119 / 74; Pulse 59; Resp 15; Pulse Ox 99% on R/A; cm10 13:00 BP 128 / 71; Pulse 60; Resp 14; Pulse Ox 100% ; cm10 15:00 BP 127 / 63; Pulse 60; Resp 15; Pulse Ox 98% on R/A; cm10 16:00 BP 105 / 54; Pulse 100; Resp 15; Pulse Ox 100% ; cm10 17:00 BP 105 / 67; Pulse 60; Resp 15; Pulse Ox 100% on R/A; cm10 19:00 BP 112 / 66; Pulse 60; Resp 18; Pulse Ox 99% on R/A; mt4 20:00 BP 111 / 54; Pulse 60; Resp 16; Pulse Ox 100% on R/A; mt4 21:12 BP 95 / 54; Pulse 59; Resp 17; Temp 98.7(O); Pulse Ox 95% on R/A; Pain 4/10; mt4 21:32 BP 96 / 54; Pulse 65; Resp 18; Pulse Ox 90% ; br2 22:14 BP 95 / 52; Pulse 59; Resp 17; Pulse Ox 95% on R/A; mt4 23:00 BP 104 / 53; Pulse 60; Resp 17; Pulse Ox 96% on R/A; mt4 09:29 Pain Scale: Adult ap3 21:12 Pain Scale: Adult mt4 Cr Coma Score: 19:45 Eye Response: spontaneous(4). Motor Response: obeys commands(6). Verbal Response: mt4 oriented(5). Total: 15. 21:00 Eye Response: spontaneous(4). Motor Response: obeys commands(6). Verbal Response: mt4 oriented(5). Total: 15. ED Course: 09:16 Patient arrived in ED. ra3 09:16 Philip Mcneal MD is Attending Physician. rt 09:31 Triage completed. ap3 09:32 Arm band placed on right wrist. ap3 09:36 CMP Sent. oe 09:36 CBC with Diff Sent. oe 09:36 Initial lab(s) drawn, by me, sent to lab. Inserted saline lock: 20 gauge in right oe antecubital area, using aseptic technique. Blood collected. Flushed with 10 mL NS. 09:42 Birgit Grayson, DANELLE is Primary Nurse. ap3 10:00 Patient has correct armband on for positive identification. Bed in low position. Call cm10 light in reach. Side rails up X2. Provided Education on: ER process and procedures,. Pulse ox on. NIBP on. 10:22 CT Head C Spine In Process Unspecified. EDMS 10:22 Lower Ext Angio In Process Unspecified. EDMS 14:06 Kings Mendieta MD is Hospitalizing Provider. rt 18:49 No provider procedures requiring assistance completed. Patient admitted, IV remains in cm10 place. 19:45 No apparent distress. Resting quietly. mt4 19:45 Door closed. Lights dimmed. Warm blanket given. Pillow given. Verbal reassurance given. mt4 elevation of left leg. 19:45 Patient maintains SpO2 saturation greater than 95% on room air. mt4 21:00 No apparent distress. Resting quietly. mt4 21:00 Warm blanket given. Pillow given. Ice pack to injury. Verbal reassurance given. mt4 22:00 No apparent distress. Resting quietly. mt4 23:00 No apparent distress. Resting quietly. mt4 23:35 Patient admitted, IV remains in place. mt4 Administered Medications: 09:51 Drug: morphine IVP or IV 2 mg IVP once over 4 mins Route: IVP; Infused Over: 4 mins; ap3 Site: right antecubital; 13:28 Follow up: Response: No adverse reaction ld1 09:51 Drug: Ondansetron IVP 4 mg IVP once; over 2 minutes Route: IVP; Site: right antecubital;ap3 13:28 Follow up: Response: No adverse reaction ld1 11:37 Drug: morphine IVP or IV 2 mg IVP once over 4 mins Route: IVP; Infused Over: 4 mins; ld1 Site: right antecubital; 13:28 Follow up: Response: No adverse reaction ld1 Medication: 15:00 VIS not applicable for this client. cm10 Outcome: 14:07 Decision to Hospitalize by Provider. rt 17:45 Admitted to ER Hold. Please see [facility] for further documentation. cm10 17:45 Condition: stable 17:45 Instructed on the need for admit, 23:36 Patient left the ED. mt4 Signatures: Dispatcher [employer] EDMS Christo Reese Amanda RN RN ap3 Nila Domingo RN RN ld1 Philip Mcneal MD MD rt Mounika Olivares RN RN cm10 Tasneem Mooney Molinec, RN RN mt4 Stacie Mazariegos RN RN br2
--- NOTE | 2024-08-02 14:07 | EDPHYS ---
Physician Documentation [facility] Name: Leah Campbell Age: 84 yrs Sex: Female : 1940 Arrival Date: 08/02/2024 Time: 09:13 Bed 7 Private MD: ED Physician Philip Mcneal HPI: 08/02 09:35 This 84 yrs old Female presents to ER via Wheelchair with complaints of Fall Injury, rt Leg Pain. 09:35 Patient presents to the ED with an injury to the left calf. Patient was shaving her rt legs when she fell causing her left calf to be pinched into her walker. Patient states that she did hit her head But denies any pain to that area. Reports of worsening pain to the left calf. This injury occurred just prior to arrival. Symptoms are moderate in severity, nonradiating, aching nature, no other aggravating or alleviating factors. . Historical: - Allergies: 09:31 No Known Allergies; ap3 - PMHx: :31 ADD/ADHD; Anxiety; Hyperlipidemia; Hypertension; Hypothyroidism; ap3 - Immunization history:: Adult Immunizations up to date. - Infectious Disease History:: Denies. - Social history:: Smoking status: Patient denies any tobacco usage or history of. ROS: 09:38 Constitutional: Negative for fever, chills, and weight loss, Cardiovascular: Negative rt for chest pain, palpitations, and edema, Respiratory: Negative for shortness of breath, cough, wheezing, and pleuritic chest pain, Abdomen/GI: Negative for abdominal pain, nausea, vomiting, diarrhea, and constipation, Skin: Negative for injury, rash, and discoloration, Neuro: Negative for headache, weakness, numbness, tingling, and seizure, 09:38 MS/extremity: Positive for pain, swelling, Exam: 09:38 Constitutional: This is a well developed, well nourished patient who is awake, alert, rt and in no acute distress. Head/Face: Normocephalic, atraumatic. Chest/axilla: Normal chest wall appearance and motion. Nontender with no deformity. No lesions are appreciated. Cardiovascular: Regular rate and rhythm with a normal S1 and S2. No gallops, murmurs, or rubs. Normal PMI, no JVD. No pulse deficits. Respiratory: Lungs have equal breath sounds bilaterally, clear to auscultation and percussion. No rales, rhonchi or wheezes noted. No increased work of breathing, no retractions or nasal flaring. Abdomen/GI: Soft, non-tender, with normal bowel sounds. No distension or tympany. No guarding or rebound. No evidence of tenderness throughout. Skin: Warm, dry with normal turgor. Normal color with no rashes, no lesions, and no evidence of cellulitis. Neuro: Awake and alert, GCS 15, oriented to person, place, time, and situation. Cranial nerves II-XII grossly intact. Motor strength 5/5 in all extremities. Sensory grossly intact. Cerebellar exam normal. Normal gait. 09:38 Musculoskeletal/extremity: Hematoma to left calf, skin is intact, pulses, motor, sensation intact. Vital Signs: 09:29 BP 157 / 93; Pulse 70; Resp 17; Temp 98.1; Pulse Ox 97% on R/A; Weight 74.84 kg (M); ap3 Pain 10/10; 11:28 BP 140 / 76; Pulse 60; Resp 15; Pulse Ox 98% ; cm10 12:00 BP 119 / 74; Pulse 59; Resp 15; Pulse Ox 99% on R/A; cm10 13:00 BP 128 / 71; Pulse 60; Resp 14; Pulse Ox 100% ; cm10 15:00 BP 127 / 63; Pulse 60; Resp 15; Pulse Ox 98% on R/A; cm10 16:00 BP 105 / 54; Pulse 100; Resp 15; Pulse Ox 100% ; cm10 17:00 BP 105 / 67; Pulse 60; Resp 15; Pulse Ox 100% on R/A; cm10 19:00 BP 112 / 66; Pulse 60; Resp 18; Pulse Ox 99% on R/A; mt4 20:00 BP 111 / 54; Pulse 60; Resp 16; Pulse Ox 100% on R/A; mt4 21:12 BP 95 / 54; Pulse 59; Resp 17; Temp 98.7(O); Pulse Ox 95% on R/A; Pain 4/10; mt4 21:32 BP 96 / 54; Pulse 65; Resp 18; Pulse Ox 90% ; br2 22:14 BP 95 / 52; Pulse 59; Resp 17; Pulse Ox 95% on R/A; mt4 23:00 BP 104 / 53; Pulse 60; Resp 17; Pulse Ox 96% on R/A; mt4 09:29 Pain Scale: Adult ap3 21:12 Pain Scale: Adult mt4 [place] Coma Score: 19:45 Eye Response: spontaneous(4). Motor Response: obeys commands(6). Verbal Response: mt4 oriented(5). Total: 15. 21:00 Eye Response: spontaneous(4). Motor Response: obeys commands(6). Verbal Response: mt4 oriented(5). Total: 15. MDM: 09:20 Medical Screening Exam initiated rt 16:59 Differential diagnosis: Contusion, fracture, hematoma. Data reviewed: vital signs, rt nurses notes, lab test result(s), radiologic studies. Consideration of Admission/Observation Patient was admitted/placed on observation. Management of patient was discussed with the following: Metal Drill Operator: Discussed with general surgeon, recommends conservative care, admission to the hospital. I considered the following discharge prescriptions or medication management in the emergency department Medications were administered in the Emergency Department. See MAR. Independent interpretation of the following test(s) in the Emergency Department CT Scan: My interpretation is Hematoma with blush seen on interpretation of CT scan images. Care significantly affected by the following chronic conditions: Hypertension. Counseling: I had a detailed discussion with the patient and/or guardian regarding the historical points, exam findings, and any diagnostic results supporting the discharge/admit diagnosis, lab results, radiology results, the need for further work-up and treatment in the hospital. Response to treatment: the patient's symptoms have mildly improved after treatment. 08/02 09:29 Order name: CBC with Diff; Complete Time: 10:25 rt 08/02 09:29 Order name: CMP; Complete Time: 10:25 rt 08/02 09:34 Order name: CT Head C Spine; Complete Time: 11:15 rt 08/02 09:38 Order name: Lower Ext Angio; Complete Time: 11:15 EDMS 08/02 14:04 Order name: CONS Physician Consult EDMS 08/02 13:16 Order name: Ice pack; Complete Time: 13:28 rt 08/02 13:16 Order name: Bird Wrap; Complete Time: 13:28 rt 08/02 13:17 Order name: Misc. Order: elevate leg; Complete Time: 13:28 rt Administered Medications: 09:51 Drug: morphine IVP or IV 2 mg IVP once over 4 mins Route: IVP; Infused Over: 4 mins; ap3 Site: right antecubital; 13:28 Follow up: Response: No adverse reaction ld1 09:51 Drug: Ondansetron IVP 4 mg IVP once; over 2 minutes Route: IVP; Site: right antecubital;ap3 13:28 Follow up: Response: No adverse reaction ld1 11:37 Drug: morphine IVP or IV 2 mg IVP once over 4 mins Route: IVP; Infused Over: 4 mins; ld1 Site: right antecubital; 13:28 Follow up: Response: No adverse reaction ld1 Disposition Summary: 08/02/24 14:07 Hospitalization Ordered Notes: Hospitalization Status: Inpatient Admission rt Provider: Kings Mendieta rt Condition: Fair rt Problem: new rt Symptoms: have improved rt Bed/Room Type: Standard rt Location: Telemetry/MedSurg (Inpatient)(08/02/24 22:02) kmf Room Assignment: [facility](08/02/24 22:29) Diagnosis - Hematoma to the left calf with active extravasation rt Forms: - Medication Reconciliation Form rt - SBAR form rt - Leadership Thank You Letter rt Signatures: Dispatcher [employer] EDMS Destiny Valenzuela Kimberly RN RN Nedra Brooks RN RN Birgit Gonzalez RN RN [email or web address] Nila Domingo RN RN ld1 Becky Mendieta RN RN mary [email or web address] Philip Mcneal MD MD rt Yanique Monteiro f Corrections: (The following items were deleted from the chart) 15:15 14:07 Telemetry/MedSurg (Inpatient) rt kb3 15:15 14:07 rt kb3 18:51 15:15 [facility] ER HOLD kb3 bd 18:51 15:15 ERHOLD- kb3 bd 19:15 18:51 Telemetry/MedSurg (Inpatient) bd dw 19:15 18:51 409 bd dw 22:02 19:15 [facility] ER HOLD dw kmf 22:02 19:15 dw kmf 22:29 22:02 406 kmf kl
[2024-08-02] MEDS ORDERED: MORPHINE 2 MG/ML SYR IV PRN (17:52)
[2024-08-02] MEDS ORDERED: ONDANSETRON 4 MG/2 ML VIAL IV PRN (17:52)
[2024-08-02 18:03] VITALS: BMI 27.4
[2024-08-02] MEDS ORDERED: TRAMADOL HCL 50 MG TAB PO PRN (21:50)
[2024-08-03] MEDS: carvediloL 6.25 MG TAB PO SCH (00:15)
[2024-08-03] MEDS: clonazePAM 1 MG TAB PO ONE (00:15)
--- OUTSIDE RECORDS SUMMARY | 2024-08-03 02:19 | XMS REPORT | Clinical Summary ---
Author Name Unknown Organization [facility] Address [address] [place] [address] Care Team Providers Care Ceramic Tiler Name Role Phone Kings Mendieta MD Unavailable [phone] Cathie Willis MD Primary Care Provider [phone] Allergies No known active allergies Medications * This document contains information received from the source organization and may not represent a complete record from that organization. FLUoxetine (PROzac) 20 mg capsule 1 Active buPROPion (WELLBUTRIN XL) 300 mg 24 hr tablet TAKE 1 TABLET BY MOUTH EVERY MORNING 1 Active clonazePAM (KlonoPIN) 1 mg tablet TAKE 1 TABLET BY MOUTH EVERY 6 HOURS NEEDED FOR ANXIETY 1 Active simvastatin (ZOCOR) 80 mg tablet TK 1 T PO D IN THE LEO 0 Active amLODIPine (NORVASC) 2.5 mg tablet 1 Active olmesartan-hydr ochlorothiazide (BENICAR HCT) 40-12.5 mg per tablet TAKE 1 TABLET BY MOUTH DAILY 0 Active benztropine (COGENTIN) 0.5 mg tablet TAKE 1 TABLET BY MOUTH TWICE DAILY 1 Active levothyroxine (SYNTHROID, LEVOTHROID) 100 mcg tablet TAKE 1 TABLET BY MOUTH DAILY 30 MINUTES BEFORE BREAKFAST 1 Active ARIPiprazole (ABILIFY) 2 mg tablet 1 Active multivit-min/ir on/folic/lutein (CENTRUM SILVER WOMEN ORAL) Take by mouth. Act benedicto cholecalciferol , vitamin D3, (Vitamin D3) 50 mcg (2,000 unit) capsule Take by mouth. A ctive aspirin 81 mg EC tablet Take 81 mg by mouth. Active cetirizine (ZyrTEC) 10 mg tablet Take 10 mg by mouth. 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 on file Not on file Not on file Obstetrics History Para Term AB IAB SAB Ectopic Multiple Livin g Live Births 1 1 Date Outcome GA Total Labor Labor/2nd/3rd Weight Sex Type Anes PTL Cary A1 A5 Name Clin Para Comments Age of parity: 42 Age of menarche: 14 OCP: 2 years HRT: none Fertility treatments: none : 9 months Menopausal status: natural menopause@ 42yo Bra Size: 42C Plan of Treatment Health Maintenance Due Date Last Done Comments Pneumococcal Vaccine: 65+ Years (1 of 1 - PCV) 992 COVID-19 Vaccine (2 - season) 2024 Influenza Vaccine (#1) 2024 Insurance MEDICARE PART A AND B AARP-SECONDARY ONLY MEDICARE PART A AND B AARP-SECONDARY ONLY Care Teams Ceramic Tiler Relationship Specialty Start Date End Date Kings Mendieta MD [address] [place] [phone] [email or web address] PCP - External Referring Internal Medicine 07/30/20 Cathie Willis MD [address] [place] [id number] [email or web address] PCP - General Breast Surgery 07/31/20
--- NOTE | 2024-08-03 07:08 | HP ---
Date of Admission: 08/02/2024 Chief Complaint: Leg pain. History Of Present Illness: This is an 84-year-old pleasant female patient, who came into emergency room after she had leg injury at home. The patient reports that she wanted to shave her legs, so she had 1 leg on top of her commode and she actually lost balance and fell down in the bathroom and hurt her left leg in the calf area. There was no laceration or open wound, but she had hard time getting up, so her helped her, but she was complaining of pain in her left calf, which was severe pain as she reported and she was brought into emergency room and after she was evaluated in ER, I was contacted requesting admission to the hospital. When I saw her in emergency room this evening, her was with her at bedside. Allergies: NO KNOWN ALLERGIES. Medications: Aripiprazole, aspirin 81 mg daily, benztropine, carvedilol 6.25 mg b.i.d., clonazepam 1 mg, donepezil 10 mg daily, doxazosin 4 mg, fluoxetine 20 mg, fluticasone nasal spray 1 spray each nostril 2 times a day as needed, olmesartan/HCTZ 40/25 mg 1 tablet daily, Claritin 10 mg daily as needed for allergies, nitrofurantoin 50 mg daily, simvastatin 80 mg daily in evening, vitamin B complex daily, vitamin D 2000 units daily. Review of Systems: Musculoskeletal: As mentioned above. All other systems reviewed and negative. Past Medical History: Significant for hypertension, mixed hyperlipidemia, hypothyroidism, diverticulosis, gastroesophageal reflux disease, impaired fasting glucose, urge incontinence, allergic rhinitis, osteoarthritis at multiple sites, colon cancer, depression. Past Surgical History: Tonsillectomy, pacemaker placement on October 20, 2023, tubal ligation, hysterectomy, bladder suspension, foot surgery. Family History: Father , had coronary artery disease. Mother , had hypertension, hyperlipidemia. Sister , had hypertension. Social History: Negative for smoking. Use of alcohol, occasional. Physical Examination: Vital Signs: Temperature 98.1, pulse 70, respiratory rate 17, blood pressure 157/93, oxygen saturation 97%, height 5 feet 5 inches, weight 164 pounds. General: Awake, alert, oriented, not in distress. HEENT: Head atraumatic, normocephalic. Conjunctivae nonerythematous. Sclerae white. Mouth, no thrush or edema noted. Ears/Nose, no mass, lesion, discharge noted. Neck: Supple. No JVD, lymph nodes, bruit, thyromegaly noted. Lungs: Bilateral good equal air entry. Clear to auscultation. No rhonchi. No rales. Heart: Normal heart sounds, no murmur or gallop. Abdomen: Soft, bowel sounds normal. No guarding, rigidity, tenderness, mass, hepatosplenomegaly, distention, or bruit noted. Extremities: Left lower extremity has Bird wrap present over her left calf region between knee and ankle and left leg was noted to be elevated. Her left foot exam is unremarkable. Normal dorsalis pedis pulse and no evidence of any skin discoloration of foot. Normal range of motion of the left foot and toes on the left foot. No leg edema. Left calf has very large hematoma in the mid calf region, this involves half of the calf. No open wound. Skin: No rash, ulcer, cellulitis. Lymphatics: No lymph node enlargement in neck, supraclavicular, infraclavicular region. Neuro: No focal neurological deficit. Chest: Unremarkable. External Genitalia: Deferred. Rectal: Deferred. Laboratory Data: WBC , hemoglobin , platelets , sodium , potassium , chloride , bicarb , glucose , BUN , creatinine , CT scan . Impression: 1. Left leg contusion with hematoma. 2. Chronic aspirin therapy. 3. Hypertension. 4. Mixed hyperlipidemia. 5. Hypothyroidism. 6. Gastroesophageal reflux disease. 7. Diverticulosis. 8. Impaired fasting glucose. 9. Depression. 10. Allergic rhinitis. Plan: We will go ahead and admit the patient to hospital for further evaluation and management of this problem. Soon after, emergency room physician contacted me and discussed details about her findings. He also informed me that he has communicated details with general surgeon who is operations boardman, Dr. Mahajan, and he will be consulted and he feels comfortable keeping the patient here at our hospital, so no need to transfer the patient. I have instructed ER physician and also subsequently nursing staff to keep her left leg elevated with 2 pillows all the time. Apply ice pack intermittently and Bird wrap, which was already applied in emergency room. We will monitor her for any neurovascular compromise. I have instructed the patient and her that she should not take any aspirin or any other formal nonsteroidal anti-inflammatory medications. I will see her tomorrow morning for followup. We will keep the patient at bedrest with her left leg elevation and for her hypertension, we will continue antihypertensive medication per order. Monitor blood pressure. If necessary, adjust medication. For her depression problem, we will continue her chronic psychiatric medication that she takes at home. For hyperlipidemia, she is on statin therapy and no need for any further intervention. For gastroesophageal reflux disease, at home and will not require any further intervention. Total time spent was 85 minutes including communication with emergency room physician on 2 different occasions, review of current emergency room visit record, review of last office visit record from 02/02/2024, and performing today's evaluation and management. LILY/CONSTANCE Voice ID: [id number] [email or web address]
[2024-08-03 07:39] LABS: Absolute Eosinophils 0.2 K/uL (0-0.5); Absolute Lymphocytes (CBC) 2.4 K/uL (0.7-4.9); Absolute Monocytes 0.8 K/uL (0.1-1.3); Absolute Neutrophil 3.8 K/uL (1.8-8.0); Basophils % 0.6 % (0-1.3); Eosinophils % 2.4 % (0-4.4); Hematocrit 31.2 % (36.0-45.0); Hemoglobin 10.8 g/dL (12.0-15.0); Lymphocytes % 33.5 % (15.3-44.8); MCH 31.7 pg (27.0-35.0); MCHC 34.5 g/dL (32.0-36.0); MCV 91.7 fL (80-100); MPV 8.6 fL (7.6-11.3); Monocytes % 10.9 % (3.3-12.3); Neutrophils % 52.6 % (41.7-73.7); Nucleated Red Blood Cells % 0.2 % (0-0); Platelets 220 thou/uL (152-406); Red Cell Distribution Width 12.6 % (12.1-15.2)
[2024-08-03 07:56] LABS: Anion Gap 6.3 mEq/L (5.0-15.0); Potassium 4.3 mEq/L (3.5-5.1)
[2024-08-03] MEDS: ACETAMINOPHEN 500 MG TAB PO PRN (11:46)
--- NOTE | 2024-08-03 15:25 | P.CNS ---
Date of Consult: 08/03/24 PC: I was asked to see this 84-year-old female in regards to a hematoma on the posterior part of her left leg. HPC: the patient was at home, was shaving her legs when she fell backwards. She got her leg caught around the toilet. After she disentangle herself, she noticed severe pain in the posterior calf. She was brought to the emergency room for evaluation and treatment. PSHx: NAD PMHx: Coronary artery disease Social Hx: No known allergies, takes aspirin Sys R: No cough, wheeze, shortness of breath. No chest pain or palpitations. No urinary complaints. States she is also having pain in her left groin area, and finds it hard to elevate her leg off the bed. O/E: Awake alert vital signs are stable HEENT: Not jaundiced Chest: Chest movement equal bilaterally Abd: Negative [place]: Has some tenderness in the left groin, inspection of the left lower leg shows a hematoma in the posterior portion of her calf. The area is tender, but it is not firm, there is no evidence of any compression, the patient does not have any evidence of compartment syndrome. Good flexion extension of her ankle and toes with no elicitation of pain. Data: CT scan demonstrates a hematoma in the posterior portion of the left calf. There was a small blush seen at the time indicating possible bleeding Impression: Hematoma posterior calf Plan: This patient has a sizable hematoma in her left calf. When she came in the other night did have some blood seen on CT scan. Today her leg remains stable, has not increased in size the pain has not increased. She still has good peripheral pulses and movement. Her groin today is sore. I am not going to take her to the operating room to explore this hematoma. We will leave it in place. It should resolve within 6 to 8 weeks. If it does not organize into a seroma it can be treated at that time with less potential complications of bleeding etc. I have explained this to the patient, she is in good spirits and agrees with this course of treatment. Thank you for the consult. Patient may start some physical therapy.
[2024-08-03] MEDS: clonazePAM 1 MG TAB PO SCH (21:13)
--- NOTE | 2024-08-03 21:39 | PN ---
Date of Progress Note: 08/03/2024 Subjective: The patient was seen this morning for followup. No new complaints or problems reported by her. She was lying in bed, not in distress. Objective: Vital Signs: Reviewed. HEENT: Unremarkable. Lungs: Clear to auscultation. Heart: Sounds normal. Abdomen: Soft. Bowel sounds normal. No guarding, rigidity, tenderness, distention. Extremities: No leg edema. Peripheral pulses, 2+ dorsalis pedis artery pulsation. Left calf has ve ry large hematoma in the mid calf region, this involves half of the calf, it is unchanged from yester day. No open wound. Laboratory Data: Reviewed. Impression: 1. Left leg hematoma and contusion. 2. Acute blood loss anemia. 3. Hypertension. 4. Hyperlipidemia. Plan: We will go ahead and continue current medications. Continue current antihypertensive medicati on which is carvedilol. We will not use any anticoagulant medication in view of this large hematoma and contusion to left leg. Followup with general surgeon, Dr. Mahajan, who was consulted yesterday a nd Physical Therapy was consulted and Physical Therapy to start ambulating the patient if okay with Evans Mahajan. Possible discharge to go home tomorrow depending on her condition. LILY/MODL Voice ID: [id number] Report ID: [id number]
[2024-08-03 23:57] VITALS: O2SAT 95
[2024-08-04] MEDS ORDERED: MAGNESIUM HYDROXIDE 8% 30 ML PO PRN (06:24)
--- NOTE | 2024-08-04 08:09 | RAD REPORT ---
EXAMINATION: X R Hip Left 2 View CLINICAL INDICATION: Female, 84 years old. [facility] MAIN L hip pain post fall TECHNIQUE: 2 view radiograph of the left hip were obtained. COMPARISON: No prior exam. FINDINGS: No evidence of fracture or dislocation. Normal alignment. Mild to moderate left hip joint d egenerative changes. No suspicious focal bone lesion. Soft tissues are unremarkable. IMPRESSION: No acute osseous abnormalities. 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
[2024-08-04] MEDS: ARIPIPRAZOLE 2 MG PO SCH (09:00)
[2024-08-04] MEDS: NITROFURAN MACRO 50 MG CAP PO SCH (09:00)
[2024-08-04] MEDS: DOCUSATE NA/SENNA CONC 1 TAB PO SCH (09:19)
[2024-08-04] MEDS: ATORVASTATIN 40 MG TAB PO SCH (09:20)
[2024-08-04] MEDS: BUPROPRION HCL S.R. 150MG TAB PO SCH (09:20)
[2024-08-04] MEDS: FLUOXETINE 20 MG CAP PO SCH (09:20)
[2024-08-04] MEDS: DONEPEZIL HCL 5 MG TAB PO SCH (09:20)
[2024-08-04] MEDS: BENZTROPINE 1 MG TAB PO SCH (09:20)
[2024-08-04] MEDS: Multi-VIT(Centravite Senior) 1 TAB TAB PO SCH (09:20)
[2024-08-04] MEDS: clonazePAM 1 MG TAB PO SCH (09:20)
[2024-08-04] MEDS: NITROFURAN MACRO 100 MG CAP PO SCH (09:29)
[2024-08-04] MEDS: carvediloL 6.25 MG TAB PO SCH (09:57)
[2024-08-05] MEDS: ARIPIPRAZOLE 2 MG PO SCH (08:20)
--- NOTE | 2024-08-05 11:45 | PN ---
Date of Progress Note: 08/04/2024 Subjective: The patient was seen this morning for followup. No new complaints or problems reported by the patient. She was lying in bed, not in distress. Objective: Vital Signs: Reviewed. HEENT: Unremarkable. Lungs: Clear to auscultation. Heart: Sounds normal. Abdomen: Soft. Bowel sounds normal. No guarding, rigidity, tenderness, distention. Extremities: No leg edema. Peripheral pulses, normal dorsalis pedis artery pulsation and left calf hematoma size that remains unchanged and it is not as firm as what it was yesterday and has started t o get softer and feels more like her other calf does. There is no progression of hematoma in terms o f size. There is no leg swelling. Impression: 1. Left leg hematoma. 2. Left leg contusion. 3. Hypertension. 4. Hyperlipidemia. Plan: We will continue current medications. Continue antihypertensive medications with monitoring o f blood pressure and if necessary adjust medications. Physical Therapy to work with the patient, and I did communicate with the patient and informed her that she will not be able to go home safely from the hospital, so we will have to find out if she can go to either inpatient rehab or custodial facility for therapy before returning back home, and she is agreeable to do so. We will wait for ph ysical therapy evaluation and recommendation and then will make further decision. I will see her walker orrow for followup, and I did order x-ray of the left hip since she was complaining of pain in her left groin area and it has shown [id number] arthritis, no fractu re. LILY/MODL Voice ID: [id number] Report ID: [id number]
--- NOTE | 2024-08-05 13:06 | PN ---
Date of Progress Note: 08/05/2024 History: The patient was seen this morning for followup. No new complaints or problems reported by the patient. She was lying in bed, not in distress. Her was with her at bedside. Physical Examination: Vital Signs: Reviewed. HEENT: Unremarkable. Lungs: Clear to auscultation. Heart: Sounds normal. Abdomen: Soft. Bowel sounds normal. No guarding, rigidity, tenderness, distention. Extremities: No leg edema. Peripheral pulses, normal dorsalis pedis artery pulsation and no leg swe lling. Left calf hematoma size remains unchanged. It was firm to start with, now consistency of the left calf over the area of bruising and hematoma is just normal, like her right calf is. There is a small area of blister in the lower part of the bruise. This blister is about 2 to 2.5 cm in size an d it is not tense blister. No need for further intervention on it. Impression: 1. Left leg hematoma. 2. Left leg contusion. 3. Hypertension. 4. Hyperlipidemia. Plan: We will go ahead and continue current blood pressure medication. Continue current statin ther apy. Physical Therapy to continue to work with the patient. Yesterday, the patient did not do well with therapy. Today, we will have the therapist work with her again and I have discussed with the sugey gandhi regarding options of either going to inpatient rehab, which she would like to do so if possible and it all depends on her time with physical therapy today, how she does that would help us understa nd whether she is able to spend 3 hours, if they want physical therapy on the inpatient rehab floor o r not. If she is not able to attend, we will have to have Social Service help make arrangements for her to go to intermediate facility of her choice. The patient is medically stable for discharge, pending evaluation and recommendation from Physical Therapy today, and I have informed the patient's nurse to communicate with the social security specialist after Physical Therapy has chance to work with the denise t today with his recommendation. LILY/MODL Voice ID: [id number] Report ID: [id number]
[2024-08-05 14:57] LABS: Absolute Basophils 0.1 K/uL (0-0.5); Absolute Eosinophils 0.2 K/uL (0-0.5); Absolute Lymphocytes (CBC) 2.5 K/uL (0.7-4.9); Absolute Monocytes 1.2 K/uL (0.1-1.3); Absolute Neutrophil 5.2 K/uL (1.8-8.0); Basophils % 0.8 % (0-1.3); Eosinophils % 2.2 % (0-4.4); Hematocrit 30.8 % (36.0-45.0); Hemoglobin 10.8 g/dL (12.0-15.0); Lymphocytes % 26.8 % (15.3-44.8); MCH 31.7 pg (27.0-35.0); MCHC 35.1 g/dL (32.0-36.0); MCV 90.5 fL (80-100); Monocytes % 13.4 % (3.3-12.3); Neutrophils % 56.8 % (41.7-73.7); Platelets 207 thou/uL (152-406); RBC Red Blood Cell Count 3.41 M/uL (3.86-4.86); Red Cell Distribution Width 12.5 % (12.1-15.2)
[2024-08-05 15:01] VITALS: BP 113/68; TEMP 97.9
[2024-08-05 15:09] LABS: Anion Gap 10.2 mEq/L (5.0-15.0); Magnesium 2.1 mg/dL (1.6-2.4); Potassium 4.2 mEq/L (3.5-5.1)
--- NOTE | 2024-08-05 21:35 | DS ---
Date of Discharge: 08/05/2024 Disposition: The patient will be discharged to go to inpatient rehab. Physical Examination: HEENT: Unremarkable. Lungs: Clear to auscultation. Heart: Sounds normal. Abdomen: Soft. Bowel sounds normal. No guarding, rigidity, tenderness, distention. Extremities: No leg edema. Left calf hematoma size remains unchanged. Has a small blister on the l ower part of this hematoma, which is about 2 to 2.5 cm in size. No evidence of any infection. Discharge Medications And Instructions: See copy of transfer order for more details. Hospital Course: This is an 84-year-old pleasant female patient, who lives at home with her , came into emergency room after she fell down in the bathroom. Please see dictated H and P for more information. After the patient was evaluated in emergency room, she was admitted to hospital with la rge hematoma of the left calf and during CAT scan study, active extravasation of blood was noted in t he hematoma. General surgeon, Dr. Mahajan was consulted and the patient was admitted to hospital. A ce wrap was applied and the patient's left leg was kept elevated with 2 pillows and ice was applied t o the left calf area. Hemodynamically, she remained stable. The patient did not require any blood t ransfusion and did not require any surgical intervention. Her neurovascular status of the left foot was normal as well. Physical Therapy was consulted and yesterday the patient had lot of difficulty w ith therapy and she could not ambulate, but today with physical therapy, she ambulated lot better mansi n yesterday. We did talk about different options because it is not safe for the patient to go home d irectly because of risk of fall and injury again and she will definitely benefit from physical therap y either inpatient rehab or assisted facility and all those options were discussed with the sugey gandhi and her and the patient wanted to try to go to inpatient rehab if possible, so I did co mmunicate with Social Service to see if inpatient rehab will be able to accept the patient and once w e got acceptance, order was written to transfer the patient to inpatient rehab and I will continue to follow up on the rehab floor. Final Diagnoses: 1. Left leg hematoma. 2. Left leg contusion. 3. Acute blood loss anemia. 4. Hypertension. 5. Mixed hyperlipidemia. 6. Impaired fasting glucose. 7. Gastroesophageal reflux disease. 8. Diverticulosis. 9. Depression. 10. Allergic rhinitis. Total time spent today 35 minutes. LILY/MODL Voice ID: [id number] Report ID: [id number]
== END 2024-08-05 17:03 | DRG 605 ==
LOC: ER 09:13 → ERHOLD 14:01 → 4TH 22:27
PROVIDERS: ADMIT Internal Medicine; ATTEND Internal Medicine
DX: S80.12XA Contusion of left lower leg, initial encounter (principal); D62 Acute posthemorrhagic anemia; I10 Essential (primary) hypertension; E03.9 Hypothyroidism, unspecified; F90.9 Attention-deficit hyperactivity disorder, unspecified type; E78.2 Mixed hyperlipidemia; K21.9 Gastro-esophageal reflux disease without esophagitis; M19.09 Primary osteoarthritis, other specified site; F32.A Depression, unspecified; J30.9 Allergic rhinitis, unspecified; K57.90 Diverticulosis of intestine, part unspecified, without perforation or abscess without bleeding; R73.01 Impaired fasting glucose; Z88.6 Allergy status to analgesic agent; Z79.899 Other long term (current) drug therapy; Z90.710 Acquired absence of both cervix and uterus; Z85.038 Personal history of other malignant neoplasm of large intestine; W18.30XA Fall on same level, unspecified, initial encounter; Y93.89 Activity, other specified; Y92.012 Bathroom of single-family (private) house as the place of occurrence of the external cause; Y99.9 Unspecified external cause status
CPT/HCPCS: 36415; 70450; 72125; 73706; 80048; 80053; 83735; 85025; 96374; 96375; 97110; 97116; 97161; 97530; 99285; J2270; J2405; Q9967

== ENCOUNTER 2024-08-05 16:11 | Inpatient (IN) | payer OTHER, MEDICARE ==
--- OUTSIDE RECORDS SUMMARY | 2024-08-05 17:05 | XMS REPORT | Clinical Summary ---
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 PCP - General Breast Surgery 07/31/20
[2024-08-05 17:43] VITALS: BMI 28.3
[2024-08-05] MEDS ORDERED: clonazePAM 1 MG TAB PO PRN (18:05)
[2024-08-05] MEDS ORDERED: MAGNESIUM HYDROXIDE 8% 30 ML PO PRN (18:07)
[2024-08-06 06:04] LABS: Absolute Basophils 0.1 K/uL (0-0.5); Absolute Eosinophils 0.2 K/uL (0-0.5); Absolute Lymphocytes (CBC) 2.1 K/uL (0.7-4.9); Basophils % 0.8 % (0-1.3); Eosinophils % 2.8 % (0-4.4); Hemoglobin 11.1 g/dL (12.0-15.0); Lymphocytes % 25.4 % (15.3-44.8); MCH 31.7 pg (27.0-35.0); MCHC 34.6 g/dL (32.0-36.0); MCV 91.6 fL (80-100); MPV 7.9 fL (7.6-11.3); Monocytes % 11.4 % (3.3-12.3); Neutrophils % 59.6 % (41.7-73.7); Platelets 230 thou/uL (152-406); Red Cell Distribution Width 12.5 % (12.1-15.2)
[2024-08-06 06:10] LABS: Anion Gap 6.9 mEq/L (5.0-15.0); Magnesium 2.1 mg/dL (1.6-2.4); Potassium 3.9 mEq/L (3.5-5.1); Prealbumin 22.6 mg/dL (20-40)
[2024-08-06] MEDS: ARIPiprazole 2 MG TAB PO SCH (08:00)
[2024-08-06] MEDS: DOCUSATE NA/SENNA CONC 1 TAB PO SCH (08:00)
[2024-08-06] MEDS: clonazePAM 1 MG TAB PO SCH (08:21)
[2024-08-06] MEDS: NITROFURAN MACRO 100 MG CAP PO SCH (08:21)
[2024-08-06] MEDS: DONEPEZIL HCL 5 MG TAB PO SCH (08:22)
[2024-08-06] MEDS: ATORVASTATIN 40 MG TAB PO SCH (08:22)
[2024-08-06] MEDS: Multi-VIT(Centravite Senior) 1 TAB TAB PO SCH (08:22)
[2024-08-06] MEDS: BUPROPRION HCL S.R. 150MG TAB PO SCH (09:53)
[2024-08-06] MEDS: FLUOXETINE 20 MG CAP PO SCH (09:53)
[2024-08-06] MEDS: CRANBERRY FRUIT EXTRACT 425 MG CAPSULE PO SCH (09:53)
[2024-08-06] MEDS: BENZTROPINE 1 MG TAB PO SCH (09:54)
[2024-08-06] MEDS: carvediloL 6.25 MG TAB PO SCH (09:56)
--- NOTE | 2024-08-06 11:56 | HP ---
Date of Admission: 08/06/2024 Chief Complaint: Left leg pain. History Of Present Illness: Ms. Campbell is a very pleasant 84-year-old female patient, who was brought into our emergency room on 08/02/2024 and after her evaluation, she was admitted to the hospital to medical floor. The patient had fallen down at home in the bathroom while she was trying to shave her leg and sustained significant injury to her left leg. Her CT scan of the left leg done in emergency room actually showed large hematoma of the left calf with active extravasation of blood. With that, she was admitted to hospital with surgical consultation from Dr. Mahajan. The patient did not require any surgery and conservative management was suggested. The patient was kept in bed with leg elevation, ice packs, and Bird wrap was applied to her left calf. With conservative treatment, we were able to stabilize her condition. Subsequently, Physical Therapy was consulted to start ambulation. The patient had significant pain and significant difficulty with ambulation to start with, but that has improved with ongoing therapy and it was considered not safe for her to return back home where she lives with her due to safety concern and we did talk about different options about discharge planning corado either to go to inpatient rehab or to go to alf facility. The patient wanted to try to go to inpatient rehab, so Social Service was consulted. Inpatient Rehab was consulted and after the patient was accepted, she was brought in today to inpatient rehab. The patient has experienced significantly decreased mobility due to significant pain in her left leg and this actually has affected her transfer and ambulation which required maximum assistance in the beginning and now with time it has improved. The patient required hands-on assistance for the transfer and on very first day, she was not able to ambulate at all and that was yesterday and today, she was able to ambulate with a walker with physical therapy outside her room. The patient is at high risk of fall and injury again at this point. The patient is total assist for lower body dressing and for upper body dressing, she is independent. Allergies: NO KNOWN ALLERGIES. Medications: Current medication list reviewed. Her home medications includes: Aripiprazole, aspirin 81 mg daily, benztropine, carvedilol 6.25 mg b.i.d., clonazepam 1 mg, donepezil 10 mg daily, doxazosin 4 mg, fluoxetine 20 mg, fluticasone nasal spray 1 spray each nostril 2 times a day as needed, olmesartan/HCTZ 40/25 mg 1 tablet daily, Claritin 10 mg daily as needed for allergies, nitrofurantoin 50 mg daily, simvastatin 80 mg daily in evening, vitamin B complex daily, vitamin D 2000 units daily. Review of Systems: Musculoskeletal: As mentioned above. All other systems reviewed and negative. Past Medical History: Significant for hypertension, mixed hyperlipidemia, hypothyroidism, diverticulosis, gastroesophageal reflux disease, impaired fasting glucose, urge incontinence, allergic rhinitis, osteoarthritis at multiple sites, colon cancer, depression. Past Surgical History: Tonsillectomy, pacemaker placement on October 20, 2023, tubal ligation, hysterectomy, bladder suspension, foot surgery. Family History: Father , had coronary artery disease. Mother , had hypertension, hyperlipidemia. Sister , had hypertension. Social History: Negative for smoking. Use of alcohol, occasional. Physical Examination: Vital Signs: Temperature 97.3, pulse 63, respiratory rate 17, blood pressure 127/62, oxygen saturation 97%, height 5 feet 5 inches, weight 170 lbs. General: Awake, alert, oriented, not in distress. HEENT: Head atraumatic, normocephalic. Conjunctivae nonerythematous. Sclerae white. Mouth, no thrush or edema noted. Ears/Nose, no mass, lesion, discharge noted. Neck: Supple. No JVD, lymph nodes, bruit, thyromegaly noted. Lungs: Bilateral good equal air entry. Clear to auscultation. No rhonchi. No rales. Heart: Normal heart sounds, no murmur or gallop. Abdomen: Soft, bowel sounds normal. No guarding, rigidity, tenderness, mass, hepatosplenomegaly, distention, or bruit noted. Extremities: The patient has large hematoma of left calf and has a small blister in the lower part of the leg. This hematoma is involving half of the left calf. There is no open wound. Skin: No rash, ulcer, cellulitis. Lymphatics: No lymph node enlargement in neck, supraclavicular, infraclavicular region. Neuro: No focal neurological deficit. Chest: Unremarkable. External Genitalia: Deferred. Rectal: Deferred. Rehab And Medical Assessment And Plan: Ms. Campbell is an 84-year-old pleasant female patient, who will be admitted to inpatient rehab unit today with impairment category, left leg hematoma and left leg contusion. The patient is at risk for infection, compartment syndrome, and neurovascular complication as a result of that as well as blood clot in the leg, which could result in blood clot in the lung and complications related to that. She has significant debility related to this left leg hematoma and will benefit from inpatient rehab therapy. Her prior level of functioning was independent with all activities of daily life and she lives at home with her and rehab goal is to achieve independence with activities of her daily life and ambulation either independently or with use of walker. Comorbidities include hypertension and hyperlipidemia for many years, which puts her at risk of increase cardiovascular complications and will be managed accordingly while she is in the rehab unit. Other comorbidities, chronic depression problem, for which she is on multiple medication and that is at risk of worsening due to this acute illness and will be managed with medical management and monitoring for any worsening. The patient will require pain medication as needed for this painful left leg hematoma and monitor it for any worsening as well. We will continue her antihypertensive medication per order. Monitor blood pressure. If necessary, adjust medication. For hyperlipidemia, we will continue her statin therapy per order and no need for any further intervention at this time. For depression, we will continue her antidepressant medication as prescribed by her psychiatrist. Above goals were reviewed with Ms. Campbell and she is in agreement. By signing this document, I acknowledge that I have personally performed a full physical examination of Ms. Campbell no later than 24 hours after her admission to the inpatient rehabilitation unit and determine that she is able to tolerate the above course of treatment at an intensive level for a reasonable period of time. A detailed individualized plan of care for her will be completed by hospital day 4 based on pre-admission screen, history and physical, and therapy evaluations. LILY/MODL Voice ID: [id number]
[2024-08-06] MEDS ORDERED: LOPERAMIDE HCL 2 MG CAPSULE PO PRN (13:30)
[2024-08-06] MEDS ORDERED: DOCUSATE NA/SENNA CONC 1 TAB PO PRN (13:34)
[2024-08-06] MEDS: LOPERAMIDE HCL 2 MG CAPSULE PO ONE (13:35)
[2024-08-06] MEDS: ARIPIPRAZOLE 2 MG PO SCH (20:24)
[2024-08-06] MEDS ORDERED: ARIPIPRAZOLE 2 MG PO SCH (21:00)
[2024-08-06 21:31] LABS: Specific Gravity 1.019 (1.005-1.030); Sqamous Epithelial <5 /HPF (None Seen); Urine Bacteria <20 /HPF (<20); Urine Bilirubin NEGATIVE (Negative); Urine Blood Trace (Negative); Urine Clarity Turbid (Clear); Urine Color Yellow (Yellow); Urine Culture Reflex Order NOT NEEDED; Urine Glucose NEGATIVE (Negative); Urine Ketones NEGATIVE (Negative); Urine Micro Reflex YN NO BILL MICROSCOPIC; Urine Mucus Slight /HPF (None Seen); Urine Nitrite 2+ (Negative); Urine Protein 1+ (Negative); Urine Urobilinogen Normal (Normal); Urine WBC <5 /HPF (<5); Urine Yeast (Budding) Trace /HPF (None Seen)
[2024-08-07] MEDS: ACETAMINOPHEN 500 MG TAB PO PRN (11:38)
--- NOTE | 2024-08-07 13:27 | PN ---
Date of Progress Note: 08/07/2024 Subjective: The patient was seen this morning for followup. No new complaints or problems reported by the patient. Objective: Vital Signs: Reviewed. HEENT: Unremarkable. Lungs: Clear to auscultation. Heart: Sounds normal. Abdomen: Soft. Bowel sounds normal. No guarding, rigidity, tenderness, distention. Extremities: No leg edema. Left calf hematoma, size remains unchanged. Has two superficial blister s, one on the lower end which is actually slightly smaller in size than before and there is one in th e mid portion of this hematoma about 1 cm size blister. There is no evidence of any infection and no evidence of any open wounds. Impression: 1. Left leg hematoma. 2. Left leg contusion. 3. Hypertension. 4. Anemia due to acute blood loss. Plan: We will go ahead and continue to keep her left leg elevated, apply ice and continue to apply A ce wrap to left leg. Continue current medical management with monitoring of her blood pressure, if n ecessary. Adjust medication and continue physical therapy per guidance of Dr. Atwood. I will see her tomorrow for followup. LILY/MODL Voice ID: [id number] Report ID: [id number]
[2024-08-07] MEDS: clonazePAM 1 MG TAB PO SCH (19:42)
[2024-08-08] MEDS ORDERED: clonazePAM 0.5 MG TAB PO SCH (08:00)
[2024-08-08] MEDS: clonazePAM 1 MG TAB PO SCH (08:18)
--- NOTE | 2024-08-09 14:19 | PN ---
Date of Progress Note: 08/08/2024 Subjective: The patient was seen this morning for followup. She was lying in bed, not in any distre ss. Objective: Vital Signs: Reviewed. HEENT: Unremarkable. Lungs: Clear to auscultation. Heart: Sounds normal. Abdomen: Soft. Bowel sounds normal. No guarding, rigidity, tenderness, distention. Extremities: No leg edema. Left calf hematoma shows improvement with decreasing bruising. Had 2 bl isters, one in the mid area, which has almost completely resolved and the larger one in the lower par t has gotten much smaller in size. No evidence of any infection. Impression: 1. Left calf hematoma. 2. Left leg contusion. 3. Hypertension. 4. Hyperlipidemia. Plan: Continue current medication. Continue to keep left leg elevated with ice packs. Continue to apply Bird wrap to the left leg. Continue physical therapy under guidance of Dr. Atwood, and we paradise l see her tomorrow for followup. LILY/MODL Voice ID: [id number] Report ID: [id number]
--- NOTE | 2024-08-09 14:24 | PN ---
Date of Progress Note: 08/08/2024 Time Of Service: 1:15 p.m. Subjective: Ms. Campbell is sitting in a chair beside bed. She said there is mild pain in the left chris f area which has a significant bruise and a deep vein thrombus with swelling. The patient was actual ly admitted on the . Dr. Mendieta is primary care. She was at home in the bathroom trying to shave her legs when she sustained injury to the left leg. CT scan of the leg in emergency room showed a la rge hematoma in the left calf with active extravasation of blood. She did have evaluation by the jazmyn geon, Dr. Mahajan, did not require surgery. Conservative management was followed. Leg elevation, ic e packs, Bird wrap, and kept in bed. She had stabilization of her leg swelling and bleeding. She was evaluated by Therapy Service and found to require significant assistance for transferring, mobilizin g in and out of the bed, and getting along with household distances and performing her activities of daily living. As a result, she was determined to be a good patient for inpatient rehabilitation to r educe the risk of injury and falling given her age of 84 and being alone. She was now admitted to [facility] inpatient rehabilitation unit. Objective: She does report some again mild pain, swelling, tenderness, and of course redness, but no gordo warmth in the left calf area and otherwise she denies any significant fevers, chills, nausea, vomiting. There is mild myalgias, arthralgias, and no rash other than what is noted in the left lowe r extremity in the calf region. Physical Examination: Vital Signs: Blood pressure 121/68, pulse 61, respiratory rate 18, temperature 98.1, oxygen saturati on 95%. General: Again, there is significant swelling and hematoma noted with some tense feeling, but not. Stopping pulse being detected at the dorsalis pedis area on the left and the right. HEENT: Otherwise, head is normocephalic, atraumatic. Sclerae anicteric. Oropharynx pink and moist. Neck: Supple. Chest: Clear. Laboratory Studies: White blood cell count 8.4, hemoglobin 11.1, platelets 230. Sodium 139, potassi um 3.9, chloride 108, carbon dioxide 28, BUN 22, creatinine 0.65, glucose 100, calcium 9.0, magnesium 2.1, albumin 3.0, prealbumin 22.6. Urinalysis shows turbid clarity, trace blood, 2+ nitrite, 11 to 20 red blood cells, trace budding yeast, 1+ total protein. X-ray/imaging: No new x-rays or imaging. Medications: Tylenol Extra Strength 500 mg every 6 hours as needed, Lipitor 40 mg at bedtime, Cogent in 0.5 mg daily, Wellbutrin 150 mg daily, Coreg 6.25 mg twice daily, clonazepam 1 mg twice daily as n eeded, Aricept 10 mg daily, fluoxetine 20 mg daily, Imodium 2 mg every 4 hours as needed, milk of mag nesia 30 mg daily as needed, Centrum Silver 1 tablet daily, Macrobid 100 mg daily, and Senokot-S 2 at bedtime. Progress Made With Physical, Occupational, And Speech Therapy: Today with physical therapy, she did multiple agw-uh-eqfiq transfers with supervision and standby assistance. She completed pivot transfe rs with standby assistance and supervision. She ambulated 600 feet with a rolling walker with contac t guard assistance. Did require some infrequent cuing for direction changes. She ambulated without an assistive device, 100 feet. She was up and down 15 steps with minimum assistance and bilateral fisher ndrails. Completed wheelchair mobilization 100 feet with supervision. With occupational therapy, thomson pervision for fev-ri-[id number] transfers and toilet, supervision for toilet hygiene twice, upper body konstantin ssing and lower body dressing also at supervision level. She did work with speech and has long-term goals of improving cognitive skills 80% with minimal assistance necessary for her to return home safe ly. Assessment And Plan: Ms. Campbell is an 84-year-old patient in the rehabilitation unit with a left lowe r extremity hematoma and she has decreased mobility, decreased physical functioning, constipation, tr eated for urinary tract infection, mild to moderate cognitive impairment, treated with donepezil. Dy slipidemia treated with Lipitor. She has multiple psychiatric medications on board including Cogenti n, Wellbutrin, fluoxetine, clonazepam, managed by primary care physician, Dr. Mendieta. Comorbidities Impacting Rehabilitation: Comorbidities now are stably managed and do not negatively i mpact her rehabilitation. LB/MODL Voice ID: [id number] Report ID: [id number]
--- NOTE | 2024-08-09 23:00 | PN ---
Date of Progress Note: 08/09/2024 Time Of Service: 1:00 p.m. Subjective: Ms. Campbell is mobilizing a wheelchair around the unit. She is doing very well. The left leg is bandaged. She said there is some mild pain in the left calf and in the tibialis anterior reg ion. Otherwise, hands are doing well as she mobilizes with her hands around the unit. Review of Systems: Again, mild pain in the left calf area. Mild tenderness to touch. No other findings. In terms of objective, no generalized fevers or chills or generalized myalgias, arthralgias. Physical Examination: Vital Signs: Blood pressure 125/64, pulse 62, respiratory rate 16, temperature 98.0, oxygen saturati on 95%. General: Again, Ms. Campbell is resting comfortably in a chair. She mobilizes. HEENT: She is normocephalic, atraumatic. Sclerae anicteric. Oropharynx pink, moist. Neck: Supple. Chest: Clear. Extremities: Does have again left thigh area bandaged. There is the [id number] edema in the l eft lower extremity. Laboratory Studies: No new laboratory studies. X-ray/imaging: No new x-rays or imaging. Medications: Her medications have been reviewed. She does have lidocaine patch added to the left kn ee and leg. Progress Made With Physical, Occupational, And Speech Therapy: With physical therapy today, she mobi lized wheelchair 250 feet with supervision, ambulated 475 feet with a rolling walker with standby ass istance. With occupational therapy, she did mobilize from the room to toilet with the rolling walker with supervision. She completed toilet hygiene with partial assistance for unbuttoning pants. She did not have a bowel movement or void. She did bilateral upper extremity exercises with 2-pound Ther a ball to improve her upper extremity strength. With speech, she did problem-solving skills for func tional activities of daily living tasks with 80% accuracy and moderate assistance. She recalled 3/3 unrelated pictures after 3, 5, and 10-minute increments. Assessment: Ms. Campbell is in the rehabilitation unit with left lower extremity hematoma. She is on a nticoagulation, doing well, recovering well. Still has significant swelling in the lower extremities . She is working hard with the speech therapist to help with cognitive issues, problem solving inclu ded. Her comorbids, decreased mobility, decreased physical functioning, depression, dyslipidemia. S he has the dementia and urinary tract infection along with mild insomnia. Plan: She will continue with physical, occupational, and speech therapy 3 hours a day, 5 of [address] Mendieta is managing her comorbid conditions. For the left lower extremity hematoma, she does not have any Eliquis or Xarelto or Coumadin as she has a hematoma, which may be worsened by anticoagulat ion and therefore, currently not on those medications, which will be used for DVT prophylaxis. DASHA/CONSTANCE Voice ID: [id number] Report ID: [id number]
--- NOTE | 2024-08-10 06:19 | PN ---
Date of Progress Note: 08/09/2024 Subjective: The patient was seen this morning for followup. She was lying in bed, sleeping, easily arousable, not in distress. Denies any new complaints. Objective: Vital Signs: Reviewed. HEENT: Unremarkable. Lungs: Clear to auscultation. Heart: Sounds normal. Abdomen: Soft. Bowel sounds normal. No guarding, rigidity, tenderness, distention. Extremities: No leg edema. Impression: 1. Left leg hematoma. 2. Left leg contusion. 3. Hypertension. 4. Hyperlipidemia. Plan: We will go ahead and continue current medication. Continue physical therapy under guidance of Dr. Atwood. Blood pressure is stable. We will continue to monitor. No need for any adjustment o n medication at this time. The patient's left leg pain has significantly improved now and left calf hematoma also has shown improvement over period of time and please stress that she had on the left ca lf and the hematoma region has almost completely resolved. I will see her tomorrow for followup. LILY/MODL Voice ID: [id number] Report ID: [id number]
[2024-08-10 07:07] LABS: Absolute Eosinophils 0.1 K/uL (0-0.5); Absolute Lymphocytes (CBC) 1.7 K/uL (0.7-4.9); Absolute Neutrophil 5.3 K/uL (1.8-8.0); Basophils % 0.6 % (0-1.3); Eosinophils % 1.3 % (0-4.4); Hemoglobin 11.1 g/dL (12.0-15.0); Lymphocytes % 21.2 % (15.3-44.8); MCH 31.3 pg (27.0-35.0); MCHC 34.7 g/dL (32.0-36.0); MCV 90.4 fL (80-100); MPV 8.2 fL (7.6-11.3); Monocytes % 11.7 % (3.3-12.3); Neutrophils % 65.2 % (41.7-73.7); Platelets 282 thou/uL (152-406); RBC Red Blood Cell Count 3.54 M/uL (3.86-4.86); Red Cell Distribution Width 12.3 % (12.1-15.2)
[2024-08-10 07:27] LABS: Albumin 2.9 g/dL (3.4-5.0); Magnesium 2.2 mg/dL (1.6-2.4); Prealbumin 18.7 mg/dL (20-40)
[2024-08-10] MEDS: LIDOCAINE 4% PATCH TOP SCH (11:53)
--- NOTE | 2024-08-10 19:45 | PN ---
Date of Progress Note: 08/10/2024 Time Of Service: 1:15 p.m. Subjective: Ms. Campbell is mobilizing herself around the unit. She is very happy. Her left leg hemat sang is much less painful, swelling is down. She has it wrapped. Has no new complaints. Review of Systems: No fevers, chills, nausea, vomiting, myalgias, arthralgias. Much improved pain in the left lower ext remity where she has the hematoma. Physical Examination: Vital Signs: Blood pressure 115/59, pulse 65, respiratory rate 18, temperature 97.4, oxygen saturati ons 97%, weight 170 pounds, height 5 feet 5 inches. BMI 28.3. General: Ms. Campbell is happy wheeling around the unit. HEENT: She is normocephalic, atraumatic. Sclerae anicteric. Oropharynx pink, moist. Neck: Supple. Chest: Clear. Heart: Regular. Extremities: Again left lower extremity are wrapped and she is doing very well there. Laboratory Studies: White blood cell count 8.2, hemoglobin 11.1, platelets 282. Sodium 137, potassi um 4.0, chloride 107, carbon dioxide 28, BUN 20, creatinine 0.7, glucose 101, calcium 9.4, magnesium 2.2, albumin 2.9, prealbumin 18.7. X-ray/imaging: No new x-rays or imaging. Medications: Medications have been reviewed and remain unchanged. Progress Made With Physical, Occupational, And Speech Therapy: With physical therapy today, she did very well covering 250 feet with a wheelchair with supervision. Ambulated 475 feet with a rolling wa lker with standby assistance and she was able to apply ice and left calf earlier and had a figure 8 c ompression wrap done. With her occupational therapy, independent with toilet hygiene, upper body konstantin ssing, lower body dressing, footwear with the use of assistive device, she is doing today very well. Independent with gop-km-cqjas transfers and toilet room mobilization, ambulation, doing very well. With speech demonstrated ability to understand negation through a structured task with 90% accuracy. Divergent naming of abstract category members completed with 80% accuracy and minimum assistance. P roblem-solving skills exhibited for safety reasoning with 70% accuracy and minimum assistance. Assessment: Ms. Campbell is an 84-year-old patient in the rehabilitation unit with left lower extremity hematoma, debility, decreased mobility, decreased physical functioning in addition to depression, an xiety, dyslipidemia, mild cognitive impairment, urinary tract infection, constipation. Plan: She will continue with physical, occupational, and speech therapy 3.5 hours, 5 of 7 days. She has a list of comorbid condition medications which are addressing her comorbid conditions and they a re continuing unchanged. She is followed by Dr. Mednieta, her primary care physician with manage those c onditions as well. Her pain again is well managed and hematoma in the left lower extremity again imp roving very well. LB/MODL Voice ID: [id number] Report ID: [id number]
--- NOTE | 2024-08-10 21:10 | PN ---
Date of Progress Note: 08/10/2024 Subjective: The patient was seen this morning for followup. She was sitting in wheelchair. Denies any new complaints. Objective: Vital Signs: Reviewed. HEENT: Unremarkable. Lungs: Clear to auscultation. Heart: Sounds normal. Abdomen: Soft. Bowel sounds normal. No guarding, rigidity, tenderness, distention. Extremities: No leg edema. Left leg hematoma on the calf remains unchanged. Laboratory Data: WBC 8.2, hemoglobin 11.1, platelets 282. Sodium 137, potassium 4, chloride 107, bi carb 28, BUN 20, creatinine 0.70, glucose 101. Impression: 1. Left leg hematoma. 2. Left leg contusion. 3. Hypertension. 4. Hyperlipidemia. Plan: We will go ahead and continue current medication. Continue Bird wrap to the left leg and keep left leg elevated as much as she can in between her therapy sessions and at nighttime. Continue phys ical therapy under guidance of Dr. Atwood and I will see her tomorrow for followup. The patient is scheduled to go home this week over the weekend and I will see her tomorrow morning for followup. LILY/MODL Voice ID: [id number] Report ID: [id number]
[2024-08-11] MEDS: DOXYCYCLINE 100 MG CAP PO SCH (07:49)
[2024-08-11] MEDS: MUPIROCIN 2% OINT 22GM TUBE TOP SCH (21:29)
[2024-08-12 07:20] VITALS: BP 145/66; TEMP 97.8
[2024-08-12] MEDS: CEFUROXIME 250 MG TAB PO ONE (12:19)
--- NOTE | 2024-08-12 12:26 | PN ---
Date of Progress Note: 08/11/2024 Subjective: The patient was seen this morning for followup. She was lying in bed, not in distress. No new complaints or problems reported by her. Physical Examination: Vital Signs: Reviewed. HEENT: Unremarkable. Lungs: Clear to auscultation. Heart: Sounds normal. Abdomen: Soft bowel sounds normal. No guarding, rigidity, tenderness, distention. Extremities: Right leg, no edema. Left leg, her Bird wrap was removed and what I noted that she had lidocaine patch directly applied over to her hematoma and contusion site area and as I removed that l idocaine patch to examine the underneath area. Her skin came off and had old blood underneath and fe w probably less than 5 cc of blood was noted that spilled over bedsheet. No active bleeding otherwis e. Her skin below this contusion and hematoma area in the lower leg approximately 4 to 5 cm extendin g vertically is pink, warm indicating some area of beginning of cellulitis there. Impression: 1. Left calf hematoma. 2. Left leg contusion. 3. Left leg cellulitis. Plan: I have instructed nursing staff not to put lidocaine patch anymore, clean this area with irma l saline, apply mupirocin and cover with nonadherent sterile dressing. We will start her on doxycycl ine and we will see her tomorrow for followup. She is scheduled to go home tomorrow. LILY/MODVincent Voice ID: [id number] Report ID: [id number]
--- NOTE | 2024-08-12 13:20 | P.RH.PN ---
Estimated Length of Stay: 9 Expected Discharge Date: 08/12/24 Discharge Disposition Plan: Home Family Support: Yes Crm Marketing Specialist Goal: Mobility, Transfers, Self Care Vital Signs: Last Vital Signs Temp 97.8 F 08/12/24 07:19 Pulse 72 08/12/24 09:11 Resp 16 08/12/24 07:19 BP 145/66 H 08/12/24 09:11 Pulse Ox 97 08/12/24 07:19 Laboratory: Laboratory Last Values WBC 8.20 thou/uL (4.3-10.9) 08/10/24 06:39 RBC 3.54 M/uL (3.86-4.86) L 08/10/24 06:39 Hgb 11.1 g/dL (12.0-15.0) L 08/10/24 06:39 Hct 32.0 % (36.0-45.0) L 08/10/24 06:39 MCV 90.4 fL (80-100) 08/10/24 06:39 MCH 31.3 pg (27.0-35.0) 08/10/24 06:39 MCHC 34.7 g/dL (32.0-36.0) 08/10/24 06:39 RDW 12.3 % (12.1-15.2) 08/10/24 06:39 Plt Count 282 thou/uL (152-406) 08/10/24 06:39 MPV 8.2 fL (7.6-11.3) 08/10/24 06:39 Neutrophils % 65.2 % (41.7-73.7) 08/10/24 06:39 Lymphocytes % 21.2 % (15.3-44.8) 08/10/24 06:39 Monocytes % 11.7 % (3.3-12.3) 08/10/24 06:39 Eosinophils % 1.3 % (0-4.4) 08/10/24 06:39 Basophils % 0.6 % (0-1.3) 08/10/24 06:39 Absolute Neutrophils 5.3 K/uL (1.8-8.0) 08/10/24 06:39 Absolute Lymphocytes 1.7 K/uL (0.7-4.9) 08/10/24 06:39 Absolute Monocytes 1.0 K/uL (0.1-1.3) 08/10/24 06:39 Absolute Eosinophils 0.1 K/uL (0-0.5) 08/10/24 06:39 Absolute Basophils 0.0 K/uL (0-0.5) 08/10/24 06:39 Sodium 137 mEq/L (136-145) 08/10/24 06:39 Potassium 4.0 mEq/L (3.5-5.1) 08/10/24 06:39 Chloride 107 mEq/L (98-107) 08/10/24 06:39 Carbon Dioxide 28 mEq/L (21-32) 08/10/24 06:39 Anion Gap 6.0 mEq/L (5.0-15.0) 08/10/24 06:39 BUN 20 mg/dL (7-18) H 08/10/24 06:39 Creatinine 0.70 mg/dL (0.55-1.02) 08/10/24 06:39 Est GFR (CKD-EPI) 86 ml/min (=/>90) L 08/10/24 06:39 Glucose 101 mg/dL (74-106) 08/10/24 06:39 Calcium 9.4 mg/dL (8.5-10.1) 08/10/24 06:39 Magnesium 2.2 mg/dL (1.6-2.4) 08/10/24 06:39 Albumin 2.9 g/dL (3.4-5.0) L 08/10/24 06:39 Prealbumin 18.7 mg/dL (20-40) L 08/10/24 06:39 Urine Color Yellow (Yellow) 08/06/24 21:15 Urine Clarity Turbid (Clear) H 08/06/24 21:15 Urine pH 6.0 (5.0-7.0) 08/06/24 21:15 Ur Specific [place] 1.019 (1.005-1.030) 08/06/24 21:15 Glucose (UA)(Auto) Negative (Negative) 08/06/24 21:15 Urine Ketones Negative (Negative) 08/06/24 21:15 Urine Blood Trace (Negative) H 08/06/24 21:15 Urine Nitrite 2+ (Negative) H 08/06/24 21:15 Urine Bilirubin Negative (Negative) 08/06/24 21:15 Urine Urobilinogen Normal (Normal) 08/06/24 21:15 Ur Leukocyte Esterase Negative Gavino/uL (Negative) 08/06/24 21:15 Urine RBC 11-20 /HPF (None Seen) H 08/06/24 21:15 Urine WBC <5 /HPF (<5) 08/06/24 21:15 Ur Squamous Epith Cells <5 /HPF (None Seen) 08/06/24 21:15 U Non-Squamous Epi Cells <5 /HPF (None Seen) 08/06/24 21:15 Urine Bacteria <20 /HPF (<20) 08/06/24 21:15 Hyaline Casts 0-5 /LPF (None Seen) 08/06/24 21:15 Urine Mucus Slight /HPF (None Seen) 08/06/24 21:15 Urine Yeast (Budding) Trace /HPF (None Seen) H 08/06/24 21:15 Urine Culture Reflexed Not needed 08/06/24 21:15 Urine Total Protein 1+ (Negative) H 08/06/24 21:15 Weight: 170 lb Wound Present: No Closed Surgical Incision Present: No Negative Pressure Wound Therapy Present: No Physician Update: She is on antibiotics per Dr. Mendieta for a UTI. Her left leg hematoma is open and draining. Pain is 5-6 in the left lower extremity. Improved to 13 on BIMS and SLUM to 23. Met all OT goals and is independent. RW 500', 15 stairs and transfers with SBA. D/C today. Summary: Patient's care plan and skilled nursing goals have been reviewed and revised as necessary. Please see the Rehabilitation Signature page for all necessary signatures.
--- NOTE | 2024-08-12 15:17 | DS ---
Date of Discharge: 08/12/2024 Disposition: Discharged to go home. Physical Examination: HEENT: Unremarkable. Lungs: Clear to auscultation. Heart: Sounds normal. Abdomen: Soft. Bowel sounds normal. No guarding, rigidity, tenderness, distention. Extremities: Right leg no edema. Left leg, the patient had a large hematoma on left calf, which has significantly improved. Now, all we see is skin over her left calf, contusion and this superficial area of skin actually came off yesterday when I was examining her. She had actually lidocaine patch over that area and as I removed it the skin layer came off with it. So now there is an open wound with loss of epidermal skin. Her lower leg skin below this contusion has some changes of cellulitis noted as of yesterday and it has remained unchanged today. Laboratory Data: Upon admission on 08/06/2024, WBC 8.4, hemoglobin 11.1, and platelet count of 230. Last CBC from 08/10/2024, WBC was 8.2, hemoglobin 11.1, and platelets 282. For chemistry upon admission, sodium 139, potassium 3.9, chloride 108, bicarb 28, BUN 22, creatinine 0.65, glucose 100 and on 08/10/2024, sodium 137, potassium 4, chloride 107, bicarb 28, BUN 20, creatinine 0.70, glucose 101. Serum albumin 2.9. Urinalysis from 08/06/2024 showed 2+ nitrites and final urine culture result came back today growing E coli and it is sensitive to cefuroxime, but resistant to ampicillin, Cipro, Levaquin type of antibiotic. Discharge Medications And Instructions: 1. Continue all prior home medications. 2. Start cefuroxime 250 mg 2 times a day with food for 10 days. 3. Do not take any aspirin, Aleve, Motrin type of medications. 4. Follow up at my office next week on which is 08/18/2024. 5. Home Health nurse to clean left calf area with normal saline and apply mupirocin cream/antibiotic daily and cover with sterile nonadherent gauze and Kerlix daily until healed. Hospital Course: An 84-year-old pleasant female patient who was admitted to inpatient rehab after her brief medical stay on the medical floor. The patient had fallen down at home and had a large hematoma of the left calf. She had generalized weakness and debility and significant pain, which all has improved over period of this rehab stay. She participated very well with physical therapy and she is ambulating well with therapy using her walker. She lives at home with her and she was determined stable for discharge from rehab point of view. Medically, she is stable for discharge. As of yesterday, I have seen some area of cellulitis involving her lower leg and yesterday I started her on doxycycline, but today urine culture results reviewed and with that in mind, we will start her on cefuroxime 250 mg twice a day and that should help her urinary tract infection along with cellulitis of the left leg. Final Diagnoses: 1. Left leg hematoma. 2. Left leg contusion. 3. Cellulitis, left leg. 4. Malnutrition, moderate. 5. Hypertension. 6. Hyperlipidemia. 7. Coronary artery disease. 8. Generalized weakness. 9. Debility. Total time spent 35 minutes. LILY/CONSTANCE Voice ID: [id number] Report ID: [id number] KATEY
== END 2024-08-12 13:40 | disposition home or self-care (01) | DRG 949 ==
LOC: 5TH 16:57
PROVIDERS: ADMIT Internal Medicine; ATTEND Internal Medicine
DX: S80.12XD Contusion of left lower leg, subsequent encounter (principal); D62 Acute posthemorrhagic anemia; N39.0 Urinary tract infection, site not specified; L03.116 Cellulitis of left lower limb; E44.0 Moderate protein-calorie malnutrition; I10 Essential (primary) hypertension; E78.2 Mixed hyperlipidemia; E03.9 Hypothyroidism, unspecified; K57.90 Diverticulosis of intestine, part unspecified, without perforation or abscess without bleeding; K21.9 Gastro-esophageal reflux disease without esophagitis; R73.01 Impaired fasting glucose; N39.41 Urge incontinence; J30.9 Allergic rhinitis, unspecified; M15.9 Polyosteoarthritis, unspecified; F32.A Depression, unspecified; E78.5 Hyperlipidemia, unspecified; K59.00 Constipation, unspecified; F03.90 Unspecified dementia, unspecified severity, without behavioral disturbance, psychotic disturbance, mood disturbance, and anxiety; G47.00 Insomnia, unspecified; F41.9 Anxiety disorder, unspecified; Z68.28 Body mass index [BMI] 28.0-28.9, adult; I25.10 Atherosclerotic heart disease of native coronary artery without angina pectoris; R53.1 Weakness; R53.81 Other malaise; Z95.0 Presence of cardiac pacemaker; Z79.01 Long term (current) use of anticoagulants
CPT/HCPCS: 36415; 80048; 81001; 82040; 83735; 84134; 85025; 87086; 87088; 92523; 97010; 97110; 97112; 97116; 97129; 97161; 97165; 97530; 97542; J2003

== ENCOUNTER 2024-08-26 08:25 | Inpatient (IN) | payer OTHER, MEDICARE ==
--- NOTE | 2024-08-25 11:39 | RAD REPORT ---
EXAM: Chest Single View HISTORY: preop COMPARISON: 09/18/2018 FINDINGS: LUNGS/PLEURA: The lungs are clear. No pleural effusions or pneumothorax. No pulmonary edema. MEDIASTINUM: The mediastinal silhouette is within normal limits. CARDIAC: The cardiac silhouette is within normal limits. UPPER ABDOMEN: No significant abnormality. BONES: No acute abnormality. LINES/TUBES/OTHER: N/A IMPRESSION: No evidence of acute cardiopulmonary disease.
[2024-08-26] MEDS: Ringers Lactate 1,000 ML IV ONE (09:14)
[2024-08-26] MEDS: BUPIVACAINE 0.5% PF 10 ML VIAL ONE (09:32)
[2024-08-26] MEDS ORDERED: ONDANSETRON 4 MG/2 ML VIAL ONE (09:59)
[2024-08-26] MEDS ORDERED: LIDOCAINE 1% MPF 5 ML VIAL ONE (09:59)
[2024-08-26] MEDS ORDERED: ROCURONIUM 50 MG/5 ML VIAL IV ONE (09:59)
[2024-08-26] MEDS ORDERED: FENTANYL CITR 100 MCG/2 ML ONE (09:59)
[2024-08-26] MEDS ORDERED: propofoL 200 MG/20 ML VIAL IV ONE (09:59)
[2024-08-26] MEDS: SUGAMMADEX SODIUM 200 MG/2 ML VIAL IV ONE (10:27)
[2024-08-26] MEDS ORDERED: dexAMETHasone 4 MG/ML VIAL ONE (10:58)
[2024-08-26] MEDS: CEFAZOLIN SODIUM 2 GM/VIAL ONE (10:58)
[2024-08-26] MEDS ORDERED: NEOSTIGMINE 1 MG/ML -10 ML VIAL ONE (11:17)
[2024-08-26] MEDS ORDERED: GLYCOPYRROLATE 0.2 MG/ML SYR ONE (11:17)
[2024-08-26] MEDS: COLLAGENASE 30 GM OINTMENT TOP ONE (11:18)
--- NOTE | 2024-08-26 11:55 | P.OP ---
Date of Service: 08/26/24 Preop diagnosis: Nonhealing wound left leg with large hematoma and necrotic skin Postop diagnosis: Same Procedure performed: Excisional debridement of left leg hematoma/wound 12 x 6 x 1 cm with pulse irrigation. Placement of wound VAC Surgeon: Sterling Jerez MD Database Technician: None Estimated blood loss: Minimal Specimen: Blood clot for culture and pathology Findings: As above Anesthesia: General Complications: None Drains: None Fluids and blood products: Nonapplicable Disposition: Recovery room Operative note: Patient brought to the OR and placed in supine position. General anesthesia began. Patient placed in the prone position. Patient prepped and draped in usual sterile fashion. Marcaine 0.5% infiltrated around the wound for postop pain control. Then 15 blade and cautery used to excise the necrotic wound down through the deep subcutaneous tissue. The area of debridement was 12 x 6 x 1 cm. All of the hematoma and necrotic tissue removed. Bleeding controlled with cautery. Pulse irrigation utilized to clean out the wound. The clots were sent for culture. After thorough irrigation, a wound VAC with Santyl was placed. Sterile dressing was applied. Patient was awakened and taken to recovery room in good general condition. CC: Dr. Mendieta's office
[2024-08-26] MEDS ORDERED: ONDANSETRON 4 MG/2 ML VIAL IV PRN (14:34)
[2024-08-26] MEDS ORDERED: HYDROMORPHONE HCL 1 MG/ML INJ IV PRN (14:34)
[2024-08-26] MEDS: HYDROCODONE/APAP 5/325 MG TAB ONE (14:37)
[2024-08-26] MEDS: HYDROCODONE/APAP 5/325 MG TAB PO PRN (14:43)
--- OUTSIDE RECORDS SUMMARY | 2024-08-26 15:31 | XMS REPORT | Clinical Summary ---
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 PCP - General Breast Surgery 07/31/20
[2024-08-26] MEDS: CEFAZOLIN 2 GM in NA CHLORIDE 0.9% 100 ML IVPB SCH (17:00)
[2024-08-26] MEDS: ARIPIPRAZOLE 2 MG PO SCH (21:00)
[2024-08-26] MEDS: DONEPEZIL HCL 5 MG TAB PO SCH (21:47)
[2024-08-26] MEDS: DOXYCYCLINE 100 MG CAP PO SCH (21:48)
[2024-08-26] MEDS: carvediloL 6.25 MG TAB PO SCH (21:48)
[2024-08-26] MEDS: ATORVASTATIN 40 MG TAB PO SCH (21:48)
[2024-08-27 07:02] LABS: Absolute Monocytes 1.2 K/uL (0.1-1.3); Absolute Neutrophil 9.9 K/uL (1.8-8.0); Basophils % 0.4 % (0-1.3); MCH 30.2 pg (27.0-35.0); MCHC 33.3 g/dL (32.0-36.0); MCV 90.7 fL (80-100); MPV 7.2 fL (7.6-11.3); Monocytes % 9.1 % (3.3-12.3); Neutrophils % 75.5 % (41.7-73.7); Platelets 368 thou/uL (152-406); RBC Red Blood Cell Count 3.64 M/uL (3.86-4.86); Red Cell Distribution Width 12.9 % (12.1-15.2)
[2024-08-27 07:18] LABS: Anion Gap 10.4 mEq/L (5.0-15.0); Potassium 4.4 mEq/L (3.5-5.1)
[2024-08-27] MEDS: hydroCHLOROthiazide 25 MG TAB PO SCH (08:50)
[2024-08-27] MEDS: FLUOXETINE 20 MG CAP PO SCH (08:51)
[2024-08-27] MEDS: VALSARTAN 160 MG TAB PO SCH (08:51)
[2024-08-27] MEDS: Multi-VIT(Centravite Senior) 1 TAB TAB PO SCH (08:51)
[2024-08-27] MEDS: clonazePAM 1 MG TAB PO SCH (08:52)
[2024-08-27] MEDS: BUPROPRION HCL S.R. 150MG TAB PO SCH (08:52)
[2024-08-27] MEDS: BENZTROPINE 1 MG TAB PO SCH (08:52)
[2024-08-27] MEDS: PIPER TAZO 3.375 GM in NA CHLORIDE 0.9% 100 ML IV SCH (08:53)
[2024-08-27] MEDS ORDERED: HOME MED 1 EA UNK (Simvastatin [Simvastatin] 80 MG Tablet) PO SCH (09:00)
[2024-08-27] MEDS ORDERED: HOME MED 1 EA UNK (Olmesartan/Hydrochlorothiazide [Olmesartan-Hctz 40-25 Mg Tab] Tablet) PO SCH (09:00)
[2024-08-27] MEDS ORDERED: BENZTROPINE MESYLATE 0.5 MG PO SCH (09:00)
[2024-08-27] MEDS ORDERED: HOME MED 1 EA UNK (Donepezil Hcl [Donepezil Hcl] 10 MG Tablet) PO SCH (09:00)
[2024-08-27] MEDS ORDERED: HOME MED 1 EA UNK (Fluoxetine Hcl [Fluoxetine Hcl] 20 MG Tablet) PO SCH (09:00)
--- NOTE | 2024-08-27 10:02 | PN ---
Date of Progress Note: 08/27/2024 Subjective: Yesterday after surgery, patient was evaluated in Day Surgery. She felt weak, debilitat ed, was uncomfortable. The patient and family felt like she was unsafe to go home. She was having p ain, therefore patient was admitted initially for observation. I notified Dr. Mendieta this morning, chance damian is doing well, her vitals are stable, she is afebrile. Laboratory data is significant for white count of 13.2 with a left shift. Her Gram stain is showing gram-negative rods. Discussed the case with Dr. Mendieta. We will change the antibiotics, and we will check the cultures and adjust antibiotics accordingly and patient can be discharged home in 24-48 hours once we get the culture and sensitivit ies back. Physical Examination: The dressing looks clean, dry, and intact. The wound VAC is in place. Assessment: Status post debridement of infected hematoma, left leg. Recommendation: Continue wound VAC with a dressing and IV antibiotics as ordered and check cultures and adjust antibiotics accordingly. MINA/MODL Voice ID: [id number] Report ID: [id number]
--- NOTE | 2024-08-27 10:37 | HP ---
Date of Admission: 08/27/2024 Chief Complaint: Left leg pain. History Of Present Illness: This is an 84-year-old pleasant female patient, who originally was admitted to hospital on August 02, 2024, for large left calf hematoma as a result of fall and injury at home. The patient was admitted to hospital to medical floor and subsequently she was on the rehab floor. She had some cellulitis around the site of hematoma and she received oral antibiotic, but over a period of time, this superficial skin had come off and she had superficial wound that was not healing and had worsening of cellulitis. At that time, we changed antibiotic to doxycycline and the patient [facility]. Unfortunately, she did not show as much improvement as expected with conservative treatment and Dr. Jerez contacted me and informed me that the patient will benefit from surgical debridement of this due to lack of improvement with conservative treatment. So yesterday, he brought the patient to hospital for debridement of left calf infected hematoma and after the procedure was done, the patient was admitted to hospital for observation because she was not comfortable with ambulation with risk and concerns of fall and injury, so she was admitted to hospital for observation and he started her on cefazolin. This morning when I saw her, she denied any other specific complaints except some left leg pain. No chest pain. No shortness of breath. No nausea, vomiting. Allergies: NO KNOWN ALLERGIES. Medications: Aripiprazole, aspirin 81 mg daily, benztropine, carvedilol 6.25 mg b.i.d., clonazepam 1 mg, donepezil 10 mg daily, doxazosin 4 mg, fluoxetine 20 mg, fluticasone nasal spray 1 spray each nostril 2 times a day as needed, olmesartan/HCTZ 40/25 mg 1 tablet daily, Claritin 10 mg daily as needed for allergies, nitrofurantoin 50 mg daily, simvastatin 80 mg daily in evening, vitamin B complex daily, vitamin D 2000 units daily. Review of Systems: Musculoskeletal: As mentioned above. All other systems reviewed and negative. Past Medical History: Significant for hypertension, mixed hyperlipidemia, hypothyroidism, diverticulosis, gastroesophageal reflux disease, impaired fasting glucose, urge incontinence, allergic rhinitis, osteoarthritis at multiple sites, colon cancer, depression. Past Surgical History: Tonsillectomy, pacemaker placement on October 20, 2023, tubal ligation, hysterectomy, bladder suspension, foot surgery. Family History: Father , had coronary artery disease. Mother , had hypertension, hyperlipidemia. Sister , had hypertension. Social History: Negative for smoking. Use of alcohol, occasional. Physical Examination: Vital Signs: This morning, temperature 97.7, pulse 62, respiratory rate 18, blood pressure 119/64, oxygen saturation 96% on room air. Height 5 feet 5 inches, weight 171 pounds. General: Awake, alert, oriented, not in distress. HEENT: Head atraumatic, normocephalic. Conjunctivae nonerythematous. Sclerae white. Mouth, no thrush or edema noted. Ears/Nose, no mass, lesion, discharge noted. Neck: Supple. No JVD, lymph nodes, bruit, thyromegaly noted. Lungs: Bilateral good equal air entry. Clear to auscultation. No rhonchi. No rales. Heart: Normal heart sounds, no murmur or gallop. Abdomen: Soft, bowel sounds normal. No guarding, rigidity, tenderness, mass, hepatosplenomegaly, distention, or bruit noted. Extremities: Left leg has surgical dressing present. No evidence of any leg edema. Skin: No rash, ulcer, cellulitis. Lymphatics: No lymph node enlargement in neck, supraclavicular, infraclavicular region. Neuro: No focal neurological deficit. Chest: Unremarkable. External Genitalia: Deferred. Rectal: Deferred. Laboratory Data: WBC this morning 13.2, hemoglobin 11, and platelet count of 368. Sodium 138, potassium 4.4, chloride 105, bicarb 27, BUN 31, creatinine 0.92, glucose 105. Chest x-ray, no acute cardiopulmonary changes. Impression: 1. Infected left leg hematoma. 2. Left leg cellulitis. 3. Anemia, unspecified. 4. Hypertension. 5. Mixed hyperlipidemia. 6. Hypothyroidism. 7. Gastroesophageal reflux disease. 8. Diverticulosis. 9. Impaired fasting glucose. 10. Depression. 11. Allergic rhinitis. Plan: We will admit the patient to hospital for further evaluation and management of this problem. Continue pain medication per order. The patient was getting cefazolin so far. Her wound culture preliminary result from specimen that was collected yesterday during surgery is gram-negative rods. We will wait until we get final culture result back and then make definite decision about culture-specific antibiotic, but meanwhile we will stop cefazolin and start her on Zosyn 3.375 g IV every 8 hours. We will repeat blood work tomorrow. Consult Physical Therapy to help ambulate the patient. For hypertension, we will continue antihypertensive medication per order with instruction to hold if blood pressure less than 120. For hyperlipidemia, continue her statin therapy and no need for further intervention. For hypothyroidism, no need for further intervention. For gastroesophageal reflux disease, continue home medication and no need for any further intervention at this time. Her depression problem is stable on current medication which will be continued. Total time spent was 80 minutes including review of hospital admission record from 08/02/2024, communication with Dr. Jerez on 2 different occasions, and performing today's evaluation and management. Plan of treatment discussed with the patient. LILY/CONSTANCE Voice ID: [id number]
[2024-08-27 11:03] VITALS: BMI 28.4
[2024-08-28 01:33] VITALS: O2SAT 94
[2024-08-28 06:01] LABS: Absolute Eosinophils 0.1 K/uL (0-0.5); Absolute Lymphocytes (CBC) 3.1 K/uL (0.7-4.9); Absolute Neutrophil 4.9 K/uL (1.8-8.0); Basophils % 0.5 % (0-1.3); Eosinophils % 1.2 % (0-4.4); Hematocrit 31.9 % (36.0-45.0); Hemoglobin 10.8 g/dL (12.0-15.0); Lymphocytes % 34.2 % (15.3-44.8); MCH 30.9 pg (27.0-35.0); MCV 90.9 fL (80-100); MPV 7.4 fL (7.6-11.3); Monocytes % 10.6 % (3.3-12.3); Neutrophils % 53.5 % (41.7-73.7); Platelets 310 thou/uL (152-406); Red Cell Distribution Width 12.9 % (12.1-15.2)
[2024-08-28 06:08] LABS: Albumin 2.7 g/dL (3.4-5.0); Albumin/Globulin Ratio 0.7 (1.1-1.8); Anion Gap 8.2 mEq/L (5.0-15.0); Bilirubin Total 0.4 mg/dL (0.2-1.0); Potassium 4.2 mEq/L (3.5-5.1); Protein, Total 6.7 g/dL (6.4-8.2)
[2024-08-28 08:47] VITALS: BP 128/63
[2024-08-28] MEDS: CIPROFLOXACIN HCL 500 MG TAB PO SCH (09:02)
[2024-08-28 09:04] VITALS: TEMP 98.1
--- NOTE | 2024-08-28 10:54 | PN ---
Date of Progress Note: 08/28/2024 Subjective: The patient is awake, alert. No complaint. Objective: Vital Signs: Stable. She is afebrile. Wounds: Her dressing is clean, dry, and intact. Wound VAC is working well. Laboratory Data: Her white count is 9.2. There is no left shift and her cultures grew out Pseudomon as sensitive to Cipro. Assessment: Status post debridement of infected hematoma. Recommendation: The patient cleared from surgery for discharge. Discharge instructions given. The patient to [facility] up [facility]. Antibiotics per Dr. Mendieta and wound care or ders provided. The patient has home health. /MODL Voice ID: [id number] Report ID: [id number]
--- NOTE | 2024-08-28 12:24 | DS ---
Date of Discharge: 08/28/2024 Disposition: Discharged to go home. Physical Examination: HEENT: Unremarkable. Lungs: Clear to auscultation. Heart: Sounds normal. Abdomen: Soft. Bowel sounds normal. No guarding, rigidity, tenderness, distention. Extremities: No leg edema. Left lower leg has dressing present, but no evidence of any redness arou nd the ankle or foot or knee or thigh area. Laboratory Data: Upon admission, WBC 13.2, hemoglobin 11, platelets 368. Today, WBC 9.2, hemoglobin 10.8, platelets 310. For chemistry upon admission, sodium 138, potassium 4.4, chloride 105, bicarb 27, BUN 31, creatinine 0.92, glucose 105, and today sodium 137, potassium 4.2, chloride 105, bicarb 2 8, BUN 30, creatinine 0.94, glucose 100. Liver function tests unremarkable. Serum albumin 2.7. Wou nd culture from left leg today came back showing pseudomonas sensitive to Cipro, Levaquin, gentamicin , meropenem, and tobramycin. Discharge Medications And Instructions: Continue all prior home medications except following changes : 1. Stop doxycycline. 2. Start ciprofloxacin 500 mg take 1 tablet by mouth 2 times a day for 2 weeks and take it with food and follow up with Dr. Jerez at [facility] next week and follow up at my office week after next. Hospital Course: 84-year-old pleasant female patient admitted to the hospital with infected hematoma of left leg and pain in her left leg. The patient had surgical debridement done for this infected h ematoma by Dr. Jerez and she was admitted to the hospital. She was initially started on IV antibioti c cefazolin, which I changed it yesterday to Zosyn because of her WBC count was elevated and wound cu lture that was collected at the time of surgery. Result came back today growing pseudomonas and acco rding to sensitivity result, I have started her on Cipro as of this morning, so she will get her firs t dose today prior to discharge. Zosyn was discontinued, this morning. I have discussed details wit h Dr. Jerez. Medically, she is stable for discharge, and Dr. Jerez has given his okay for discharge. He will follow up with her at [facility] and I have encouraged patient to continue to amb ulate at home using her walker. Dr. Jerez has made arrangements for home health care and dressing ch anges and wound VAC therapy at home. Final Diagnoses: 1. Infected left leg hematoma, organism pseudomonas. 2. Left leg cellulitis. 3. Anemia, unspecified. 4. Malnutrition, moderate. 5. Hypertension. 6. Mixed hyperlipidemia. 7. Hypothyroidism. 8. Gastroesophageal reflux disease. 9. Diverticulosis. 10. Impaired fasting glucose. 11. Depression. 12. Allergic rhinitis. Total time spent today 40 minutes. LILY/MODL Voice ID: [id number] Report ID: [id number]
--- NOTE | 2024-08-29 12:17 | EKG ---
Test Date: 2024-08-25 Test Time: 12:30:13 Water Trainer: JANET MEASUREMENT RESULTS: Intervals: Rate: 64 ME: 178 QRSD: 74 QT: 446 QTc: 460 Maynard: P: 85 ME: 178 QRS: 32 T: 76 INTERPRETIVE STATEMENTS: Electronic atrial pacemaker Low voltage QRS Borderline ECG Compared to ECG 09/16/2018 13:33:45 Low QRS voltage now present Sinus rhythm no longer present Sinus arrhythmia no longer present Myocardial infarct finding no longer present Electronically Signed On 08-29-24 12:12:45 ACCURACY EXPERT by Chris Gonzalez
== END 2024-08-28 11:40 | disposition home or self-care (01) | DRG 264 ==
LOC: OR 08:25 → 4TH 13:47 → 2ND 16:57 → OBSVTOIN 08-27 16:13
PROVIDERS: ADMIT Internal Medicine; ATTEND Surgery
PROC: 0JBP0ZZ Excision of Left Lower Leg Subcutaneous Tissue and Fascia, Open Approach (ICD-10-PCS; principal; 2024-08-26 10:00)
DX: I96 Gangrene, not elsewhere classified (principal); L03.116 Cellulitis of left lower limb; E44.0 Moderate protein-calorie malnutrition; S80.12XA Contusion of left lower leg, initial encounter; E78.2 Mixed hyperlipidemia; I10 Essential (primary) hypertension; F32.A Depression, unspecified; D64.9 Anemia, unspecified; J30.9 Allergic rhinitis, unspecified; E03.9 Hypothyroidism, unspecified; K21.9 Gastro-esophageal reflux disease without esophagitis; K57.90 Diverticulosis of intestine, part unspecified, without perforation or abscess without bleeding; B96.5 Pseudomonas (aeruginosa) (mallei) (pseudomallei) as the cause of diseases classified elsewhere; R73.01 Impaired fasting glucose; Z95.0 Presence of cardiac pacemaker; Z98.51 Tubal ligation status; Z68.28 Body mass index [BMI] 28.0-28.9, adult; Z90.710 Acquired absence of both cervix and uterus; Z85.038 Personal history of other malignant neoplasm of large intestine; W18.30XA Fall on same level, unspecified, initial encounter; Y99.9 Unspecified external cause status; Y92.019 Unspecified place in single-family (private) house as the place of occurrence of the external cause; Y93.9 Activity, unspecified
CPT/HCPCS: 36415; 71045; 80048; 80053; 83735; 85025; 87070; 87075; 87077; 87186; 87205; 88304; 93005; 94010; 97116; 97161; G0378; G0379; J0690; J1100; J2003; J2405; J2543; J2704; J2710; J3010; J3590; J7120